=== PATIENT | female | born 1975 | race Caucasian/White ===

== ENCOUNTER → 2021-02-05 14:19 | Outpatient (BNVA) | payer MEDICAID, SELFPAY | PROVIDERS: PCP Family Medicine; Visit Provider Internal Medicine Endocrinology, Diabetes & Metabolism ==

== ENCOUNTER 2021-02-12 11:36 | Outpatient (REF) | payer MEDICAID, SELFPAY ==
[2021-02-12 12:55] LABS: Free T4 (Free Thyroxine) 1.29 ng/dL (0.71-1.85); Thyroid Stimulating Hormone 0.27 uIU/mL (0.32-4.0); Vitamin D 25-OH Total 20.7 ng/mL (>30)
[2021-02-12 13:10] LABS: Vitamin B12 215 pg/mL (200-900)
== END 2021-02-12 11:37 | disposition home or self-care (01) ==
LOC: HO.LAB 11:36
PROVIDERS: Visit Provider Internal Medicine Endocrinology, Diabetes & Metabolism
DX: E03.8 Other specified hypothyroidism (principal); E06.3 Autoimmune thyroiditis; E53.8 Deficiency of other specified B group vitamins; E55.9 Vitamin D deficiency, unspecified
CPT/HCPCS: 36415; 82306; 82607; 84439; 84443

== ENCOUNTER 2021-04-18 11:00 | Outpatient (RCR) | payer MEDICAID, SELFPAY | END 2021-05-08 11:20 | disposition home or self-care (01) | LOC: HO.PT 11:00 | PROVIDERS: PCP Family Medicine; Visit Provider Family Medicine | DX: M72.2 Plantar fascial fibromatosis (principal) | CPT/HCPCS: 97110; 97140; 97162 ==

== ENCOUNTER 2021-12-08 09:13 | Outpatient (REF) | payer MEDICAID, SELFPAY ==
--- NOTE | ~2021-12-08 | MM_ITS ---
EXAMINATION: MM SCREENING DIGITAL BREAST TOMOSYNTHESIS, BILATERAL CLINICAL INFORMATION: Screening. Asymptomatic. The lifetime risk of breast cancer based on the Tyrer-Cuzick Model is 9%. COMPARISON: Mammography: 06/14/2019, 04/14/2018 TECHNIQUE: Digital breast tomosynthesis is performed in both the craniocaudal and mediolateral oblique views along with computer-aided detection (CAD). Synthesized 2D images are generated from the tomosynthesis. Additional bilateral CC and right MLO views are provided. FINDINGS: The breasts are almost entirely fatty (ACR BI-RADS breast composition Category a). There are no significant masses, developing density or architectural abnormality. Background fibroglandular and stromal densities are similar to prior studies. No abnormal calcifications. The axilla are unremarkable. MM/MM tomosynthesis screening BI IMPRESSION: No mammographic evidence of malignancy. ASSESSMENT: BI-RADS 1: Negative RECOMMENDATION: Routine annual mammography screening. This patient's information was entered into a reminder system with a target due date for their next mammogram.
== END 2021-12-08 09:14 | disposition home or self-care (01) ==
LOC: HO.MAMMO 09:13
PROVIDERS: PCP Family Medicine; Visit Provider Family Medicine
DX: Z12.31 Encounter for screening mammogram for malignant neoplasm of breast (principal)
CPT/HCPCS: 77063; 77067

== ENCOUNTER 2021-12-16 09:48 | Outpatient (REF) | payer MEDICAID, SELFPAY ==
[2021-12-16 11:39] LABS: Vitamin B12 327 pg/mL (200-900)
[2021-12-16 11:41] LABS: Free T4 (Free Thyroxine) 0.41 ng/dL (0.71-1.85); Vitamin D 25-OH Total 19.5 ng/mL (>30)
[2021-12-16 12:12] LABS: Thyroid Stimulating Hormone > 100.00 uIU/mL (0.32-4.0)
== END 2021-12-16 09:49 | disposition home or self-care (01) ==
LOC: HO.LAB 09:48
PROVIDERS: PCP Family Medicine; Visit Provider Internal Medicine Endocrinology, Diabetes & Metabolism
DX: E03.8 Other specified hypothyroidism (principal); E06.3 Autoimmune thyroiditis; E53.8 Deficiency of other specified B group vitamins; E55.9 Vitamin D deficiency, unspecified
CPT/HCPCS: 36415; 82306; 82607; 84439; 84443

== ENCOUNTER → 2021-12-17 09:41 | Outpatient (BNVA) | payer MEDICAID, SELFPAY | PROVIDERS: PCP Family Medicine; Visit Provider Internal Medicine Endocrinology, Diabetes & Metabolism | DX: E03.8 Other specified hypothyroidism (principal); E06.3 Autoimmune thyroiditis; E55.9 Vitamin D deficiency, unspecified | CPT/HCPCS: 99212 ==

== ENCOUNTER 2022-04-01 11:10 | Emergency (ER) | payer MEDICAID, SELFPAY ==
--- NOTE | ~2022-04-01 | CT_ITS ---
EXAMINATION: CT HEAD WITHOUT CONTRAST CLINICAL INFORMATION: On reactive pupil left side, anasicoria COMPARISON: 07/24/2020 TECHNIQUE: Contiguous axial imaging was performed from the skull base to vertex without intravenous administration of contrast. This CT examination was performed using dose optimization techniques as appropriate, variously including the following: *Automated exposure control *Adjustment of mA and/or kV according to patient size (this includes techniques or standardized protocols for targeted exams where dose is matched to indication/reason for exam; i.e. extremities or head) *Use of iterative reconstruction technique DLP: 650 mGy-cm FINDINGS: There is no midline shift. There is no mass effect. There is no hemorrhage. The basal cisterns appear patent. The posterior fossa is grossly within normal limits. There is no extra-axial collection. The ventricles are unremarkable. The hanley-white matter appears well preserved. No suspicious finding on the bone windows. CT/CT head/brain wo con IMPRESSION: Negative acute noncontrast CT of the brain. Given the history consider ophthalmologic consultation. Consider pre and postcontrast MRI of the brain.
[2022-04-01 11:13] VITALS: BP 132/70; PULSE 61; RESP 18; TEMP 36.6; O2SAT 97; BMI 58.5
[2022-04-01 12:19] VITALS: BP 138/67; PULSE 52; RESP 14; TEMP 36.6; O2SAT 100
[2022-04-01 12:53] LABS: MANUAL DIFF FLAG NO
[2022-04-01 13:13] LABS: Alanine Aminotransferase 20 U/L (0-31); Albumin Level 3.8 g/dL (3.5-5.0); Alkaline Phosphatase 77 U/L (39-117); Anion Gap 13 (12-20); Aspartate Amino Transferase 20 U/L (5-31); Bilirubin Direct 0.2 mg/dL (0.0-0.5); Bilirubin Total 0.4 mg/dL (0.0-1.0); Blood Urea Nitrogen 17 mg/dL (9-16); Carbon Dioxide 25 mmol/L (22-29); Chloride 106 mmol/L (96-108); Creatinine Clr Calc Pharmacy 143.2; Estimated Glomerular Filt Rate > 60; Glucose Random 84 mg/dL (60-115); Potassium 4.7 mmol/L (3.3-5.1); Sodium 139 mmol/L (135-145); Total Protein 6.9 g/dL (6.5-8.0)
--- NOTE | 2022-04-01 13:15 | ED.GENADULT ---
HPI - General Adult General Chief complaint: Eye Problems Stated complaint: Dilated pupils/Headaches sent by [facility] Time Seen by Provider: 04/01/22 12:25 Source: patient Mode of arrival: ambulatory Limitations: no limitations History of Present Illness HPI narrative: Patient comes to the emergency room complaining of uneven sized pupils. Patient states this has been present for over a year now. Patient decided to go to an survey project manager because her vision has been getting more blurry over last 3-4 weeks. And complains of occasional headaches, which triggered her to go see optometry.. At this time, patient states she has blurry vision on the left eye, this has been present for about a month now. Patient was seen by Optometry today, she was sent to the emergency room for further evaluation. Related Data Home Medications Medication Instructions Recorded Confirmed cholecalciferol (vitamin D3) 50 50 mcg PO DAILY 02/05/21 12/17/21 mcg (2,000 unit) tablet duloxetine 60 mg capsule,delayed 60 mg PO DAILY 02/05/21 12/17/21 release (Cymbalta) oxycodone-acetaminophen 10 mg-325 1 tab PO Q8H PRN 02/05/21 12/17/21 mg tablet Previous Rx's Medication Instructions Recorded Tirosint 112 mcg capsule 224 mcg PO DAILY 30 days #60 caps 12/17/21 (levothyroxine) Allergies Allergy/AdvReac Type Severity Reaction Status Date / Time No Known Allergies Allergy Unverified 12/17/21 09:57 Review of Systems Review of Systems: Constitutional : No Weight loss, No Fever, No Chills, No Night Sweats, No Fatigue, No Malaise ENT/Mouth : No Hearing loss, No Ear Pain, No Nasal Congestion, No Sinus Pain, No Hoarseness, No sore throat, No Rhinorrhea, No Swallowing Difficulty Eyes: No Eye Pain, No Swelling, No Redness, No Foreign Body, No Discharge, complaining of mild visual blurriness all on the left eye, complaining of chronic unequal size pupil on the left eye Cardiovascular : No Chest Pain, No SOB, No Dyspnea on Exertion, No Orthopnea, No Edema, No Palpitations Respiratory : No Cough, No Sputum, No Wheezing, No Smoke Exposure, No Dyspnea Gastrointestinal : No Nausea, No Vomiting, No Diarrhea, No Constipation, No abdominal Pain, No Hematochezia, No Melena Genitourinary : no irregular bleeding, No Dysuria, No Urinary Frequency, No Hematuria, No Urinary Incontinence, No Urgency, No Flank Pain, No Urinary Flow Changes, No Hesitancy Musculoskeletal : No joint pain, No Myalgias, No Joint Swelling Skin : No Skin Lesions, No rash Neuro : No Weakness, No Numbness, No Paresthesias, No Loss of Consciousness, No Dizziness, No Headache Psych : No Anxiety/Panic, No Depression, No SI/HI/AH/VH, No Social Issues, Heme/Lymph: No Bruising, No Bleeding,No Lymphadenopathy Endocrine : No Polyuria, No Polydipsia, No Temperature Intolerance [facility] Past Medical History Medical History B12 deficiency Hypothyroidism Vitamin D deficiency Surgical History History of esophagogastroduodenoscopy (EGD) History of gastric bypass Hx laparoscopic cholecystectomy Hx of lithotripsy Family History Family History Mother Type 2 diabetes mellitus Myocardial infarction CVD (cardiovascular disease) Heart disease Father Type 2 diabetes mellitus Hypertension Social History Social History (Updated 12/17/21 @ 09:51 by HANNAH Lemos) Household Members: Spouse Alcohol intake: current Alcohol intake frequency: does not drink Patient Tobacco Use Status: Never used Tobacco Advance Directives: No Advance Directives Information Provided: No Physical Exam ED Vital Signs: Vital Signs - 24 hr 04/01/22 11:13 04/01/22 12:19 04/01/22 14:00 Temperature 98 F 97.9 F Pulse Rate 61 52 77 Respiratory Rate 18 14 18 Blood Pressure 132/70 138/67 119/75 Pulse Oximetry 97 100 98 Oxygen Delivery Method Room Air Room Air Room Air BMI result Body Mass Index 58.5 Const Other: Appearance: Alert. Oriented X3. No acute distress. Eyes: Right pupil round and reactive to light. Left pupil 3 mm, approximately 1 mm larger than the right side, not reactive to light. However, when left eye is exposed to light, right pupil does contract. Visual acuity test is 20 40 bilaterally ENT: Pharynx normal. Neck: Normal inspection. Neck supple. No lymph nodes noted. No crepitus CVS: Normal heart rate and rhythm. Pulses normal. Normal S1 and S2 Respiratory: No respiratory distress. Breath sounds normal. No Wheezing. No rales Abdomen: Soft and nontender. No rigidity. No distention. Skin: Skin warm and dry. Normal skin color. Normal skin turgor. Extremities: No lower extremity edema. No Lacerations. No Rash Neuro: Oriented X 3. No motor deficit. No sensory deficit. Moving all extremities. No slurred speech. CN 2 through 12 grossly intact Psych: calm, cooperative, normal affect Course Course Course Narrative: Patient has had this condition for approximately [address] scan does not show any acute abnormalities. Patient instructed to follow-up with neurology. Patient will likely need further imaging, MRIs with and without contrast. Patient was given a referral to see Neurology and Ophthalmology Medical Decision Making Lab Data Result diagrams: 04/01/22 12:49 04/01/22 12:49 Labs: Lab Results 04/01/22 04/01/22 Range/Units 12:49 12:49 WBC 6.5 (4.8-10.8) X10*3/uL RBC 4.27 (4.20-5.50) X10*6/uL Hgb 13.1 (12.0-16.0) g/dl Hct 40.2 (37.0-47.0) % MCV 94.1 (80.0-98.0) fL MCH 30.7 (27.0-33.0) pg MCHC 32.6 (31.0-35.0) g/dl RDW 12.1 (11.0-16.0) % Plt Count 182 (160-400) X10*3/uL MPV 11.3 (9.4-12.3) fL Immature Gran % (Auto) 0.3 (0.0-0.4) % Neut % (Auto) 65.6 (45-73) % Lymph % (Auto) 26.0 (20-40) % [place] % (Auto) 8.1 (2-11) % Eos % (Auto) 0.0 (0-4) % Baso % (Auto) 0.0 (0-2) % Lymph # (Auto) 1.7 (1.2-4.9) X10*3/uL [place] # (Auto) 0.5 (0.1-1.2) X10*3/uL Eos # (Auto) 0.0 (0.0-0.4) X10*3/uL Baso # (Auto) 0.0 (0.0-0.2) X10*3/uL Abs Immat Gran (auto) 0.02 (0.00-0.03) X10*3/uL Absolute Neuts (auto) 4.2 (2.0-8.3) x10*3/uL Absolute Nucleated RBC 0.000 (0.0-0.012) X10*3/uL Nucleated RBC % (auto) 0.0 (0.0-0.2) /100WBC Sodium 139 (135-145) mmol/L Potassium 4.7 (3.3-5.1) mmol/L Chloride 106 (96-108) mmol/L Carbon Dioxide 25 (22-29) mmol/L Anion Gap 13 (12-20) BUN 17 H (9-16) mg/dL Creatinine 0.69 (0.5-1.4) mg/dL Estim Creat Clear Calc 143.2 Estimated GFR > 60 Random Glucose 84 (60-115) mg/dL Calcium 9.0 (8.4-10.2) mg/dL Total Bilirubin 0.4 (0.0-1.0) mg/dL Direct Bilirubin 0.2 (0.0-0.5) mg/dL AST 20 (5-31) U/L ALT 20 (0-31) U/L Alkaline Phosphatase 77 (39-117) U/L Total Protein 6.9 (6.5-8.0) g/dL Albumin 3.8 (3.5-5.0) g/dL TSH 12.24 H (0.32-4.0) uIU/mL Free T4 1.12 (0.71-1.85) ng/dL Imaging Data Head CT: Radiologist's impression: FINDINGS: There is no midline shift. There is no mass effect. There is no hemorrhage. The basal cisterns appear patent. The posterior fossa is grossly within normal limits. There is no extra-axial collection. The ventricles are unremarkable. The hanley-white matter appears well preserved. No suspicious finding on the bone windows. CT/CT head/brain wo con IMPRESSION: Negative acute noncontrast CT of the brain. ? Given the history consider ophthalmologic consultation. Consider pre and postcontrast MRI of the brain. Discharge Plan Discharge Clinical Impression: Anisocoria Patient Disposition: Home, Self-Care Instructions: Blurred Vision (ED) Additional Instructions: Please follow-up with your primary care physician tomorrow. If you have any worsening or new symptoms, please return to the emergency room or call 911 Prescriptions: No Action cholecalciferol (vitamin D3) 50 mcg (2,000 unit) tablet 50 mcg PO DAILY duloxetine [Cymbalta] 60 mg capsule,delayed release(DR/EC) 60 mg PO DAILY oxycodone-acetaminophen 10-325 mg tablet 1 tab PO Q8H PRN levothyroxine [Tirosint] 112 mcg capsule 224 mcg PO DAILY 30 Days Qty: 60 6RF Rx Instructions: Dispense as written, brand medically necessary. Do not substitute. Referrals: Erin Ballard MD [Physician] - 2 days Danny Alicea [Physician] - 2 days
[2022-04-01 13:16] LABS: Hematocrit 40.2 % (37.0-47.0); Hemoglobin 13.1 g/dl (12.0-16.0); Imm Gran Abs Auto 0.02 X10*3/uL (0.00-0.03); Imm Gran Pct Auto 0.3 % (0.0-0.4); Lymphocytes Absolute Auto 1.7 X10*3/uL (1.2-4.9); Mean Corpuscular HGB Conc 32.6 g/dl (31.0-35.0); Mean Corpuscular Hemoglobin 30.7 pg (27.0-33.0); Mean Corpuscular Volume 94.1 fL (80.0-98.0); Mean Platelet Volume 11.3 fL (9.4-12.3); Monocytes Absolute Auto 0.5 X10*3/uL (0.1-1.2); Monocytes Percent Auto 8.1 % (2-11); Neutrophils Absolute Auto 4.2 x10*3/uL (2.0-8.3); Neutrophils Percent Auto 65.6 % (45-73); Platelet Count 182 X10*3/uL (160-400); Red Blood Count 4.27 X10*6/uL (4.20-5.50); Red Cell Distribution Width 12.1 % (11.0-16.0); White Blood Count 6.5 X10*3/uL (4.8-10.8)
[2022-04-01 14:00] VITALS: BP 119/75; PULSE 77; RESP 18; O2SAT 98
[2022-04-01 15:25] LABS: TSH reflex Free T4 12.24 uIU/mL (0.32-4.0)
[2022-04-01 16:23] LABS: Free T4 (Free Thyroxine) 1.12 ng/dL (0.71-1.85)
== END 2022-04-01 19:03 | disposition home or self-care (01) ==
PROVIDERS: Emergency Provider Emergency Medicine; PCP Family Medicine
DX: H57.02 Anisocoria (principal); R51.9 Headache, unspecified
CPT/HCPCS: 36415; 70450; 80048; 80076; 84439; 84443; 85025; 99283; 99284

== ENCOUNTER 2022-04-06 14:25 | Outpatient (REF) | payer MEDICAID, SELFPAY ==
[2022-04-06 15:37] LABS: Albumin Level 3.9 g/dL (3.5-5.0)
[2022-04-06 16:05] LABS: Free T4 (Free Thyroxine) 0.92 ng/dL (0.71-1.85); Thyroid Stimulating Hormone 15.15 uIU/mL (0.32-4.0); Vitamin D 25-OH Total 29.2 ng/mL (>30)
[2022-04-07 14:16] LABS: Calcium (PTHI) 9.3 mg/dL (8.6-10.2); PTHI 88 pg/mL (16-77)
== END 2022-04-06 14:26 | disposition home or self-care (01) ==
LOC: HO.LAB 14:25
PROVIDERS: PCP Family Medicine; Visit Provider Internal Medicine Endocrinology, Diabetes & Metabolism
DX: E55.9 Vitamin D deficiency, unspecified (principal); E03.8 Other specified hypothyroidism; E06.3 Autoimmune thyroiditis
CPT/HCPCS: 36415; 82040; 82306; 83970; 84439; 84443

== ENCOUNTER → 2022-05-12 14:52 | Outpatient (BNVA) | payer MEDICAID, SELFPAY | PROVIDERS: PCP Family Medicine; Visit Provider Internal Medicine Endocrinology, Diabetes & Metabolism | DX: E03.8 Other specified hypothyroidism (principal); E06.3 Autoimmune thyroiditis; E55.9 Vitamin D deficiency, unspecified | CPT/HCPCS: 99212 ==

== ENCOUNTER 2022-08-06 12:13 | Outpatient (REF) | payer MEDICAID, SELFPAY ==
[2022-08-06 13:29] LABS: Albumin Level 3.7 g/dL (3.5-5.0); Calcium 9.1 mg/dL (8.4-10.2)
[2022-08-06 13:49] LABS: Free T4 (Free Thyroxine) 1.84 ng/dL (0.71-1.85); Thyroid Stimulating Hormone 0.02 uIU/mL (0.32-4.0); Vitamin D 25-OH Total 33.4 ng/mL (>30)
[2022-08-07 12:06] LABS: Calcium (PTHI) 9.1 mg/dL (8.6-10.2); PTHI 72 pg/mL (16-77)
== END 2022-08-06 12:14 | disposition home or self-care (01) ==
LOC: HO.LAB 12:13
PROVIDERS: PCP Family Medicine; Visit Provider Internal Medicine Endocrinology, Diabetes & Metabolism
DX: E03.8 Other specified hypothyroidism (principal); E55.9 Vitamin D deficiency, unspecified; E06.3 Autoimmune thyroiditis
CPT/HCPCS: 36415; 82040; 82306; 82310; 83970; 84439; 84443

== ENCOUNTER 2022-09-21 12:39 | Outpatient (REF) | payer MEDICAID, SELFPAY ==
[2022-09-21 14:09] LABS: Free T4 (Free Thyroxine) 1.15 ng/dL (0.71-1.85); Thyroid Stimulating Hormone 2.72 uIU/mL (0.32-4.0)
== END 2022-09-21 12:40 | disposition home or self-care (01) ==
LOC: HO.LAB 12:39
PROVIDERS: Visit Provider Internal Medicine Endocrinology, Diabetes & Metabolism
DX: E03.8 Other specified hypothyroidism (principal); E06.3 Autoimmune thyroiditis
CPT/HCPCS: 36415; 84439; 84443

== ENCOUNTER → 2022-09-22 11:51 | Outpatient (BNVA) | payer MEDICAID, SELFPAY | PROVIDERS: PCP Family Medicine; Visit Provider Internal Medicine Endocrinology, Diabetes & Metabolism | DX: E03.8 Other specified hypothyroidism (principal); E06.3 Autoimmune thyroiditis; E55.9 Vitamin D deficiency, unspecified | CPT/HCPCS: 99212 ==

== ENCOUNTER 2022-12-09 11:10 | Outpatient (REF) | payer MEDICAID, SELFPAY ==
--- NOTE | ~2022-12-09 | XR_ITS ---
EXAMINATION: XR SHOULDER, RIGHT CLINICAL INFORMATION: Acute pain. COMPARISON: None TECHNIQUE: AP external rotation, Grashey, scapular Y, and axillary views of the right shoulder. FINDINGS: Bony alignment and mineralization are normal. The glenohumeral joint is intact. The acromioclavicular and coracoclavicular intervals are normal. There is mild osteoarthritic change of the acromioclavicular joint. No fracture or dislocation is seen. There is no abnormal soft tissue calcification or foreign body. No right pneumothorax is seen. XR/XR shoulder RT min 2V IMPRESSION: 1. No fracture or dislocation is seen. 2. There is mild osteoarthritic change of the right acromioclavicular joint.
--- NOTE | ~2022-12-09 | XR_ITS ---
EXAMINATION: XR CERVICAL SPINE CLINICAL INFORMATION: Neck pain. COMPARISON: CT cervical spine dated 07/24/2020. TECHNIQUE: Frontal, oblique, lateral and swimmer's views are obtained. FINDINGS: Vertebral body heights and alignment are normal. The disc spaces are well-maintained. No acute fracture or spondylolisthesis is seen. There is minimal anterior spondylosis of the C5 upper and lower endplates. The posterior elements are intact. There is no prevertebral soft tissue swelling. The dens and C7-T1 interface are normal. XR/XR cervical spine 3V IMPRESSION: 1. No acute fracture or spondylolisthesis is seen. 2. The cervical disc spaces are well-maintained. 3. There is minimal anterior spondylosis of the C5 upper and lower endplates.
== END 2022-12-09 11:11 | disposition home or self-care (01) ==
LOC: HO.XRAY 11:10
PROVIDERS: Absent Provider Family Medicine; PCP Family Medicine; Visit Provider Emergency Medicine
DX: M25.511 Pain in right shoulder (principal); M54.2 Cervicalgia
CPT/HCPCS: 72040; 73030

== ENCOUNTER 2023-06-16 09:38 | Outpatient (REF) | payer MEDICAID, SELFPAY ==
[2023-06-16 12:30] LABS: Microalbumin Urine < 5.0 mg/L
[2023-06-16 12:43] LABS: Alanine Aminotransferase 79 U/L (0-31); Albumin Level 3.7 g/dL (3.5-5.0); Alkaline Phosphatase 85 U/L (39-117); Anion Gap 13 (12-20); Aspartate Amino Transferase 59 U/L (5-31); Bilirubin Direct 0.4 mg/dL (0.0-0.5); Blood Urea Nitrogen 15 mg/dL (9-16); Calcium 9.3 mg/dL (8.4-10.2); Carbon Dioxide 23 mmol/L (22-29); Chloride 107 mmol/L (96-108); Cholesterol 136 mg/dL (<200); Estimated Glomerular Filt Rate > 60; Glucose Random 75 mg/dL (60-115); HDL Cholesterol 56 mg/dL (>40); LDL Cholesterol Calculated 71 mg/dL (<100); Potassium 3.5 mmol/L (3.3-5.1); Sodium 139 mmol/L (135-145); Total Protein 6.9 g/dL (6.5-8.0); Triglycerides 46 mg/dL (<150)
[2023-06-16 12:44] LABS: TSH reflex Free T4 0.29 uIU/mL (0.32-4.0)
[2023-06-16 13:51] LABS: Free T4 (Free Thyroxine) 1.53 ng/dL (0.71-1.85)
== END 2023-06-16 09:39 | disposition home or self-care (01) ==
LOC: HO.HHCL 09:38
PROVIDERS: Visit Provider Family Medicine
DX: Z00.00 Encounter for general adult medical examination without abnormal findings (principal); R60.0 Localized edema; E03.9 Hypothyroidism, unspecified
CPT/HCPCS: 36415; 80048; 80061; 80076; 82043; 84439; 84443

== ENCOUNTER 2023-06-17 08:29 | Outpatient (REF) | payer MEDICAID, SELFPAY ==
--- NOTE | ~2023-06-17 | US_ITS ---
EXAMINATION: US VENOUS ULTRASOUND WITH DOPPLER LOWER EXTREMITY, LEFT CLINICAL INFORMATION: Left lower extremity pain and swelling for 3 weeks COMPARISON: July 2019. TECHNIQUE: Ultrasound of the deep veins is performed from the hip to the calf with compression sonography and color and pulse Doppler assessment. Spectral analysis with color-flow imaging is performed. FINDINGS: There is normal venous compression and respiratory variation and augmented flow. The visualized common femoral vein, superficial femoral vein, profunda femoral vein, popliteal vein, and the trifurcation region shows no evidence of deep venous thrombosis. There is no significant popliteal fossa cyst. There are multiple prominent left groin nodes, the largest of which measures 2.8 x 0.5 x 2.1 cm. If the patient's symptoms persist, followup ultrasound in 5 days 7 days might be of value to exclude proximal propagation from a non-visualized calf vein. US/US venous duplex LE IMPRESSION: No DVT demonstrated in the left lower extremity. Left groin nodes as noted above.
== END 2023-06-17 08:30 | disposition home or self-care (01) ==
LOC: HO.US 08:29
PROVIDERS: Visit Provider Family Medicine
DX: R60.0 Localized edema (principal); M79.662 Pain in left lower leg
CPT/HCPCS: 93971

== ENCOUNTER 2023-06-30 09:15 | Outpatient (REF) | payer MEDICAID, SELFPAY ==
[2023-06-30 11:34] LABS: MANUAL DIFF FLAG NO
[2023-06-30 11:42] LABS: Hematocrit 36.2 % (37.0-47.0); Hemoglobin 11.6 g/dl (12.0-16.0); Imm Gran Abs Auto 0.01 X10*3/uL (0.00-0.03); Imm Gran Pct Auto 0.2 % (0.0-0.4); Lymphocytes Absolute Auto 1.1 X10*3/uL (1.2-4.9); Lymphocytes Percent Auto 24.8 % (20-40); Mean Corpuscular Hemoglobin 30.5 pg (27.0-33.0); Mean Corpuscular Volume 95.3 fL (80.0-98.0); Mean Platelet Volume 12.2 fL (9.4-12.3); Monocytes Absolute Auto 0.3 X10*3/uL (0.1-1.2); Monocytes Percent Auto 6.8 % (2-11); Neutrophils Percent Auto 68.2 % (45-73); Platelet Count 162 X10*3/uL (160-400); Red Cell Distribution Width 13.2 % (11.0-16.0); White Blood Count 4.4 X10*3/uL (4.8-10.8)
[2023-06-30 12:15] LABS: C Reactive Protein < 0.10 mg/dL (< or = 0.50); Lactate Dehydrogenase 325 U/L (122-220)
[2023-06-30 13:09] LABS: CT PCR NOT DETECTED (Not Detect.); NG PCR NOT DETECTED (Not Detect.)
[2023-07-01 08:53] LABS: HIV AB/AG Nonreactive (Nonreactive); HIV Num 1 0.06 S/CO (0.00-0.99)
[2023-07-02 08:14] LABS: RPR Rapid Plasma Reagin NON-REACTIVE (NON-REACTIVE)
[2023-07-04 09:28] LABS: HCV Log PCR <1.18 NOT DETECTED Log IU/mL (NOT DETECTED); HepC Viral Load <15 NOT DETECTED IU/mL (NOT DETECTED)
== END 2023-06-30 09:16 | disposition home or self-care (01) ==
LOC: HO.HHCL 09:15
PROVIDERS: Visit Provider Family Medicine
DX: Z11.4 Encounter for screening for human immunodeficiency virus [HIV] (principal); Z11.3 Encounter for screening for infections with a predominantly sexual mode of transmission; R59.0 Localized enlarged lymph nodes
CPT/HCPCS: 0353U; 83615; 85025; 86140; 86592; 87389; 87522

== ENCOUNTER 2023-07-15 08:53 | Outpatient (REF) | payer MEDICAID, SELFPAY ==
--- NOTE | ~2023-07-15 | US_ITS ---
EXAMINATION: US ABDOMEN COMPLETE CLINICAL INFORMATION: Transaminitis. COMPARISON: Limited abdominal ultrasound 08/15/2019. CT abdomen and pelvis 08/09/2019. Ultrasound abdomen 08/09/2019. TECHNIQUE: Real-time imaging of the abdominal viscera. Limited visualization due to bowel gas. FINDINGS: PANCREAS: Poorly visualized. ABDOMINAL AORTA: Poorly visualized. INFERIOR VENA CAVA: Poorly visualized. LIVER: Diffuse increase in echogenicity of the liver is characteristic of primary hepatocellular disease, possibly due to hepatic steatosis and further limits visualization. GALLBLADDER: Surgically absent. COMMON BILE DUCT: Normal in caliber measuring 0.6 cm in diameter. RIGHT KIDNEY: No hydronephrosis or renal calculi. The kidney measures 10.4 cm in maximum dimension. 1.2 x 1.0 x 1.5 cm peripelvic cyst midpole with benign features. There is no indication for followup imaging. Limited visualization. LEFT KIDNEY: No hydronephrosis. No renal calculi. Limited visualization. The kidney measures 11.6 cm in maximum dimension. SPLEEN: Normal. The spleen measures 11.7 cm in maximum dimension. FREE FLUID: None. US/US abdomen complete IMPRESSION: 1. Diffuse increase in echogenicity of the liver is characteristic of primary hepatocellular disease, possibly due to hepatic steatosis and further limits visualization. 2. Gallbladder surgically absent. 3. Severely limited visualization. CT scan should be considered for better visualization.
== END 2023-07-15 08:54 | disposition home or self-care (01) ==
LOC: HO.US 08:53
PROVIDERS: PCP Family Medicine; Visit Provider Family Medicine
DX: R74.01 Elevation of levels of liver transaminase levels (principal)
CPT/HCPCS: 76700

== ENCOUNTER 2023-08-31 08:33 | Outpatient (REF) | payer MEDICAID, SELFPAY ==
--- NOTE | ~2023-08-31 | CT_ITS ---
EXAMINATION: CT ABDOMEN AND PELVIS WITH CONTRAST CLINICAL INFORMATION: Inguinal lymphadenopathy. Inguinal lymphadenopathy. COMPARISON: CT abdomen and pelvis 08/09/2019. TECHNIQUE: Multidetector volumetric images were obtained from the superior aspect of the liver through the pubic symphysis following administration 85 mL of Omnipaque 350 intravenous contrast. Sagittal and coronal reformatted images were obtained on the technologist's workstation. Oral contrast: Yes This CT examination was performed using dose optimization techniques as appropriate, variously including the following: *Automated exposure control *Adjustment of mA and/or kV according to patient size (this includes techniques or standardized protocols for targeted exams where dose is matched to indication/reason for exam; i.e. extremities or head) *Use of iterative reconstruction technique DLP: 572 mGy-cm FINDINGS: LUNG BASES: The visualized lung bases are unremarkable. LIVER, GALLBLADDER, AND BILIARY TREE: The liver is normal in size, shape, and attenuation. No focal hepatic lesion or biliary ductal dilatation is present. Cholecystectomy. PANCREAS: No discrete pancreatic mass or ductal dilatation. SPLEEN: Unremarkable. ADRENAL GLANDS: Unremarkable. KIDNEYS AND URETERS: Symmetric nephrograms. No suspicious renal mass. No hydronephrosis. No nephrolithiasis. BLADDER: Unremarkable. GASTROINTESTINAL TRACT: Brandie-en-Y gastric bypass. The hepatobiliary Preston limbs are normal in caliber. Patulous changes at the distal anastomosis. The common channel is normal in caliber. There is a question of an annular lesion in the rectosigmoid. ABDOMINAL WALL: No significant hernia is appreciated. LYMPH NODES: No retroperitoneal adenopathy. No pelvic adenopathy. Morphologically normal but mildly prominent inguinal lymph nodes. These are not significantly changed from prior. No bulky adenopathy. VASCULAR: No aortic aneurysm. PELVIC VISCERA: Unremarkable. OSSEOUS STRUCTURES: Mild degenerative changes in the lower thoracic spine. CT/CT abdomen pelvis w IV con IMPRESSION: No adenopathy. Question annular lesion at the rectosigmoid. Recommend correlation with colonoscopy. Fleischner guidelines were followed.
[2023-08-31] MEDS: Barium Sulfate Oral (Mocha) 450 ML ORAL.SUSP 900 ML PO (10:47)
[2023-08-31] MEDS: iohexoL 350 MG/ML 75 ML INFUS..BTL 85 ML IV (10:49)
== END 2023-08-31 08:34 | disposition home or self-care (01) ==
LOC: HO.CT 08:33
PROVIDERS: PCP Family Medicine; Visit Provider Family Medicine
DX: R59.0 Localized enlarged lymph nodes (principal)
CPT/HCPCS: 74177; Q9967

== ENCOUNTER 2023-10-22 20:41 | Emergency (ER) | payer MEDICAID, SELFPAY ==
--- NOTE | ~2023-10-22 | CT_ITS ---
EXAMINATION: CT ABDOMEN AND PELVIS WITHOUT CONTRAST CLINICAL INFORMATION: Right upper quadrant abdominal pain. History of gastric sleeve surgery. COMPARISON: Multiple priors with the last abdomen and pelvic CT scan of 08/31/2023 TECHNIQUE: Multidetector volumetric imaging was performed from the superior aspect of the liver through the pubic symphysis. Sagittal and coronal reformatted images were obtained on the technologist's workstation. This CT examination was performed using dose optimization techniques as appropriate, variously including the following: *Automated exposure control *Adjustment of mA and/or kV according to patient size (this includes techniques or standardized protocols for targeted exams where dose is matched to indication/reason for exam; i.e. extremities or head) *Use of iterative reconstruction technique DLP: 850 mGy-cm FINDINGS: LUNG BASES: The visualized lung bases are unremarkable. LIVER, GALLBLADDER, AND BILIARY TREE: The liver is stable in appearance with hypoplastic left hepatic lobe. The liver is normal in size. Normal attenuation of the liver parenchyma. No focal liver lesion or biliary ductal dilatation. The gallbladder is surgically absent. Common bile duct measures 0.8 cm in diameter which is in upper limits of normal for size. No radiopaque filling defects are noted in the common bile duct. PANCREAS: Unremarkable. SPLEEN: Unremarkable. ADRENAL GLANDS: Unremarkable. KIDNEYS AND URETERS: The kidneys are normal in size, shape, and attenuation. No hydronephrosis, hydroureter, or calculi seen. No perinephric stranding. BLADDER: Unremarkable. GASTROINTESTINAL TRACT: Postsurgical changes of gastrectomy are seen. The stomach is decompressed. No abnormal small bowel dilatation is noted. There is however suggestion of mild thickening of the wall of the proximal jejunal loops in the vicinity of the gastrojejunal anastomosis; somewhat similar appearance is seen on the previous CT scans. The colon is mildly dilated containing air and fecal material. No definite colonic wall thickening or pericolonic fat stranding is appreciated. An appendix is not clearly identified however there are no inflammatory changes in the expected location of the appendix. ABDOMINAL WALL: No significant hernia is appreciated. Mild anasarca. LYMPH NODES: No pathologically enlarged lymph nodes are appreciated within the limits of noncontrast study. VASCULAR: The aortoiliac vessels are normal in caliber. PELVIC VISCERA: Unremarkable CT appearance of the uterus and adnexa. The uterus is mildly deviated to the left. OSSEOUS STRUCTURES: No acute or suspicious osseous lesions are seen. Degenerative changes are noted in the lower thoracic spine. Osteoarthritic changes at the bilateral hips, right greater than left are again noted with narrowing of the joint space and subarticular cystic and sclerotic changes in the acetabula. CT/CT abdomen pelvis wo IV con IMPRESSION: Postsurgical changes of gastrectomy. Suggestion of mild thickening of the wall of the proximal jejunal loops in the vicinity of the gastrojejunal anastomosis; somewhat similar appearance is seen on the previous CT scans. The finding may suggest recurrent focal enteritis or chronic finding. No evidence of abnormal small bowel dilatation. There is mild gaseous distention of the colon with moderate stool burden. No definite colonic wall thickening or pericolonic fat stranding is appreciated. Fleischner guidelines were followed.
[2023-10-22 21:11] VITALS: BP 175/90; PULSE 59; RESP 18; TEMP 36.9; O2SAT 98; BMI 39.5
--- NOTE | 2023-10-22 21:58 | MHC.EDTECH ---
Patient was brought into triage,labs and a urine sample were obtained and sent to lab. Patient was brought back to waiting area.
[2023-10-22 22:03] LABS: MANUAL DIFF FLAG NO
[2023-10-22 22:11] LABS: Appearance Urine Cloudy; Color Urine Yellow; Glucose Urine UA Negative (Negative); Leukocyte Esterase Urine Trace (Negative); Nitrite Urine Negative (Negative); PH 5.5 (5.0-9.0); Specific Gravity - Urine 1.025 (1.005-1.025); UMIC TRIGGER UACC YES; Urine Blood Negative (Negative); Urine Ketones Negative (Negative); Urine Protein Negative (Neg-Trace)
[2023-10-22 22:12] LABS: Hematocrit 33.6 % (37.0-47.0); Hemoglobin 11.1 g/dl (12.0-16.0); Imm Gran Abs Auto 0.01 X10*3/uL (0.00-0.03); Imm Gran Pct Auto 0.2 % (0.0-0.4); Lymphocytes Absolute Auto 1.7 X10*3/uL (1.2-4.9); Lymphocytes Percent Auto 29.7 % (20-40); Monocytes Absolute Auto 0.3 X10*3/uL (0.1-1.2); Monocytes Percent Auto 5.3 % (2-11); Neutrophils Absolute Auto 3.7 x10*3/uL (2.0-8.3); Neutrophils Percent Auto 64.8 % (45-73); Platelet Count 164 X10*3/uL (160-400); Red Blood Count 3.36 X10*6/uL (4.20-5.50); Red Cell Distribution Width 14.1 % (11.0-16.0); White Blood Count 5.7 X10*3/uL (4.8-10.8)
[2023-10-22 22:18] LABS: Alanine Aminotransferase 77 U/L (0-31); Albumin Level 3.6 g/dL (3.5-5.0); Alkaline Phosphatase 57 U/L (39-117); Anion Gap 12 (12-20); Aspartate Amino Transferase 76 U/L (5-31); Bilirubin Total 1.7 mg/dL (0.0-1.0); Blood Urea Nitrogen 16 mg/dL (9-16); Calcium 8.4 mg/dL (8.4-10.2); Carbon Dioxide 22 mmol/L (22-29); Chloride 109 mmol/L (96-108); Creatinine Clr Calc Pharmacy 75.3; Estimated Glomerular Filt Rate 58; Glucose Random 81 mg/dL (60-115); Potassium 3.5 mmol/L (3.3-5.1); Sodium 139 mmol/L (135-145); Total Protein 6.5 g/dL (6.5-8.0)
[2023-10-22 22:22] LABS: Bacteria Urine 1+ (None Seen); Hyaline Casts Urine 0-2 /LPF (0-2); UACC Culture Trigger YES
[2023-10-23 04:00] VITALS: BP 127/80; PULSE 56; RESP 16; O2SAT 98
--- NOTE | 2023-10-23 06:01 | ED.ABDPAIN ---
HPI - Abdominal Pain General Chief Complaint: Abdominal Pain Stated Complaint: flank pain Time Seen by Provider: 10/23/23 05:52 Source: patient Mode of arrival: ambulatory Limitations: no limitations History of Present Illness HPI narrative: Patient comes to the emergency room complaining of intermittent right upper quadrant pain for several months. Patient states that she has history of gastric bypass. Patient has been seen by her primary care physician, states that the pain got worse over last few days but intermittent. No nausea vomiting or diarrhea, no fever chills, no dysuria or hematuria. Related Data Home Medications Medication Instructions Recorded Confirmed duloxetine 60 mg capsule,delayed 60 mg PO DAILY 02/05/21 09/22/22 release (Cymbalta) oxycodone-acetaminophen 10 mg-325 1 tab PO Q8H PRN 02/05/21 09/22/22 mg tablet duloxetine 20 mg capsule,delayed 20 mg PO DAILY 05/12/22 09/22/22 release zinc gluconate 30 mg tablet 30 mg PO DAILY 09/22/22 09/22/22 Previous Rx's Medication Instructions Recorded levothyroxine 125 mcg capsule 250 mcg (2 x 125 mcg) PO DAILY 30 04/24/22 (Tirosint) days #60 caps cholecalciferol (vitamin D3) 50 50 mcg PO DAILY #30 tabs 05/12/22 mcg (2,000 unit) tablet Allergies Allergy/AdvReac Type Severity Reaction Status Date / Time No Known Allergies Allergy Verified 10/22/23 21:15 Review of Systems Review of Systems Constitutional : No Weight loss, No Fever, No Chills, No Night Sweats, No Fatigue, No Malaise ENT/Mouth : No Hearing loss, No Ear Pain, No Nasal Congestion, No Sinus Pain, No Hoarseness, No sore throat, No Rhinorrhea, No Swallowing Difficulty Eyes: No Eye Pain, No Swelling, No Redness, No Foreign Body, No Discharge, No Vision Changes Cardiovascular : No Chest Pain, No SOB, No Dyspnea on Exertion, No Orthopnea, No Edema, No Palpitations Respiratory : No Cough, No Sputum, No Wheezing, No Smoke Exposure, No Dyspnea Gastrointestinal : No Nausea, No Vomiting, No Diarrhea, No Constipation, complaining of left upper quadrant pain Genitourinary : no irregular bleeding, No Dysuria, No Urinary Frequency, No Hematuria, No Urinary Incontinence, No Urgency, No Flank Pain, No Urinary Flow Changes, No Hesitancy Musculoskeletal : No joint pain, No Myalgias, No Joint Swelling Skin : No Skin Lesions, No rash Neuro : No Weakness, No Numbness, No Paresthesias, No Loss of Consciousness, No Dizziness, No Headache Psych : No Anxiety/Panic, No Depression, No SI/HI/AH/VH, No Social Issues, Heme/Lymph: No Bruising, No Bleeding,No Lymphadenopathy Endocrine : No Polyuria, No Polydipsia, No Temperature Intolerance [facility] Past Medical History Medical History B12 deficiency Vitamin D deficiency Hypothyroidism Surgical History History of gastric bypass Hx laparoscopic cholecystectomy History of esophagogastroduodenoscopy (EGD) Hx of lithotripsy Family History Family History Mother Type 2 diabetes mellitus Myocardial infarction CVD (cardiovascular disease) Heart disease Father Type 2 diabetes mellitus Hypertension Social History Social History Household Members: Spouse Alcohol intake: current Alcohol intake frequency: does not drink Patient Tobacco Use Status: Never used Tobacco Smoked in Last 30 Days: No Use of substances other than those prescribed or required for medical reasons: No Advance Directives: No Advance Directives Information Provided: No Patient : No Physical Exam ED Vital Signs: Vital Signs - 24 hr 10/22/23 21:11 10/23/23 04:00 Temperature 98.4 F Pulse Rate 59 56 Respiratory Rate 18 16 Blood Pressure 175/90 H 127/80 Pulse Oximetry 98 98 Oxygen Delivery Method Room Air Room Air BMI result Body Mass Index 39.5 Const Other: Appearance: Alert. Oriented X3. No acute distress. Eyes: Pupils equal, round and reactive to light. ENT: Pharynx normal. Neck: Normal inspection. Neck supple. No lymph nodes noted. No crepitus CVS: Normal heart rate and rhythm. Pulses normal. Normal S1 and S2 Respiratory: No respiratory distress. Breath sounds normal. No Wheezing. No rales Abdomen: Soft and nontender. No rigidity. No distention. Skin: Skin warm and dry. Normal skin color. Normal skin turgor. Extremities: No lower extremity edema. No Lacerations. No Rash Neuro: Oriented X 3. No motor deficit. No sensory deficit. Moving all extremities. No slurred speech. CN 2 through 12 grossly intact Psych: calm, cooperative, normal affect Medical Decision Making Medical Decision Making [facility] Narrative: -my interpretation of labs: Unremarkable hematology and chemistry, urinalysis shows trace leukocyte esterase, trace red blood cells. Patient does not have any URI symptoms, no suprapubic pain or pressure. At this time, antibiotics not indicated. -CT scan of abdomen pending, patient has history of gastric bypass -sign-out given to my colleague Dr. Hicks Differential Diagnosis Differential Diagnoses: The differential diagnosis associated with the presentation includes (Gastritis, GERD, complication of gastric sleeve) Admission/Observation Consideration of admission/observation: Escalation of care including admission/observation considered (Given patient's surgical history and symptoms, admission was considered on arrival) Lab Data [facility] Lab Attestation statement: I reviewed the patient's lab results. 10/22/23 21:57 10/22/23 21:57 Labs: Lab Results 10/22/23 Range/Units 21:57 WBC 5.7 (4.8-10.8) X10*3/uL RBC 3.36 L (4.20-5.50) X10*6/uL Hgb 11.1 L (12.0-16.0) g/dl Hct 33.6 L (37.0-47.0) % MCV 100.0 H (80.0-98.0) fL MCH 33.0 (27.0-33.0) pg MCHC 33.0 (31.0-35.0) g/dl RDW 14.1 (11.0-16.0) % Plt Count 164 (160-400) X10*3/uL MPV 11.0 (9.4-12.3) fL Immature Gran % (Auto) 0.2 (0.0-0.4) % Neut % (Auto) 64.8 (45-73) % Lymph % (Auto) 29.7 (20-40) % [place] % (Auto) 5.3 (2-11) % Eos % (Auto) 0.0 (0-4) % Baso % (Auto) 0.0 (0-2) % Lymph # (Auto) 1.7 (1.2-4.9) X10*3/uL [place] # (Auto) 0.3 (0.1-1.2) X10*3/uL Eos # (Auto) 0.0 (0.0-0.4) X10*3/uL Baso # (Auto) 0.0 (0.0-0.2) X10*3/uL Abs Immat Gran (auto) 0.01 (0.00-0.03) X10*3/uL Absolute Neuts (auto) 3.7 (2.0-8.3) x10*3/uL Absolute Nucleated RBC 0.000 (0.0-0.012) X10*3/uL Nucleated RBC % (auto) 0.0 (0.0-0.2) /100WBC Sodium 139 (135-145) mmol/L Potassium 3.5 (3.3-5.1) mmol/L Chloride 109 H (96-108) mmol/L Carbon Dioxide 22 (22-29) mmol/L Anion Gap 12 (12-20) BUN 16 (9-16) mg/dL Creatinine 1.02 (0.5-1.4) mg/dL Estim Creat Clear Calc 75.3 Estimated GFR 58 Random Glucose 81 (60-115) mg/dL Calcium 8.4 D (8.4-10.2) mg/dL Total Bilirubin 1.7 H (0.0-1.0) mg/dL AST 76 H (5-31) U/L ALT 77 H (0-31) U/L Alkaline Phosphatase 57 (39-117) U/L Total Protein 6.5 (6.5-8.0) g/dL Albumin 3.6 (3.5-5.0) g/dL Urine Color Yellow Urine Appearance Cloudy Urine pH 5.5 (5.0-9.0) Ur Specific [place] 1.025 (1.005-1.025) Urine Protein Negative (Neg-Trace) mg/dL Urine Glucose (UA) Negative (Negative) mg/dL Urine Ketones Negative (Negative) mg/dL Urine Blood Negative (Negative) Urine Nitrite Negative (Negative) Ur Leukocyte Esterase Trace H (Negative) Urine RBC 3-5 H (0-2) /HPF Urine WBC 6-10 H (0-5) /HPF Ur Squamous Epith Cells 3-5 (0-2) /HPF Urine Bacteria 1+ (None Seen) Hyaline Casts 0-2 (0-2) /LPF Critical Care Time Critical Care Time Critical Care Time: Yes Total Critical Care Time: 30 Attestation: I have personally provided critical care time. Time includes review of lab data, radiology results, discussion with consultants, and monitoring for potential decompensation. Intervention performed as documented. Discharge Plan Discharge Clinical Impression: Abdominal pain Patient Disposition: Home, Self-Care Prescriptions: No Action levothyroxine [Tirosint] 125 mcg capsule 250 mcg PO DAILY 30 Days Qty: 60 6RF duloxetine [Cymbalta] 60 mg capsule,delayed release(DR/EC) 60 mg PO DAILY oxycodone-acetaminophen 10-325 mg tablet 1 tab PO Q8H PRN duloxetine 20 mg capsule,delayed release(DR/EC) 20 mg PO DAILY cholecalciferol (vitamin D3) 50 mcg (2,000 unit) tablet 50 mcg PO DAILY Qty: 30 5RF zinc gluconate 30 mg tablet 30 mg PO DAILY
--- NOTE | 2023-10-23 07:41 | PC.NURSE ---
resumed care of patient, she is currently sleeping in bed, awaiting CT results at this time for dispo
[2023-10-23 09:17] VITALS: BP 143/71; PULSE 55; RESP 18; TEMP 36.7; O2SAT 100
== END 2023-10-23 09:39 | disposition home or self-care (01) ==
PROVIDERS: Emergency Provider Emergency Medicine; PCP Family Medicine
DX: R10.11 Right upper quadrant pain (principal); E03.9 Hypothyroidism, unspecified; Z98.84 Bariatric surgery status
CPT/HCPCS: 36415; 74176; 80053; 81001; 85025; 87086; 87088; 87186; 99284

== ENCOUNTER 2023-12-21 14:13 | Outpatient (AMB) | payer MEDICAID, SELFPAY ==
--- NOTE | 2023-12-21 14:14 | MHC.OFFVIS ---
Intake Vital Signs 12/21/23 14:17 Height 5 ft 2 in BP 129/74 Blood Pressure Location Lt brachial Position Sitting Pulse 79 Intake Visit Reasons: Colonoscopy screening Intake Note: Pt presents for a colonoscopy screening. Pt c/o; reports no rectal bleeding or pain. Philosophy Instructor Required: Yes Philosophy Instructor Language: Digital Solution Architect Name: Uzma [id number] Information Interpreted: non-clinical & clinical Accompanied by: Self / Same As Patient Allergies No Known Allergies Allergy (Verified 12/21/23 14:17) Medication List - Last Reconciled 12/21/23 by Bertha Berry PA-C cefuroxime axetil 250 mg PO BID 7 days cholecalciferol (vitamin D3) 50 mcg PO DAILY duloxetine (Cymbalta) 60 mg PO DAILY duloxetine 20 mg PO DAILY levothyroxine (Tirosint) 250 mcg (2 x 125 mcg) PO DAILY 30 days oxycodone-acetaminophen 10-325 mg 1 tab PO Q8H PRN zinc gluconate 30 mg PO DAILY HPI HPI Comments History of Present Illness Details 48-year-old female referred for index screening colonoscopy-she has no known family history of GI cancers. Id she has no GI concerns for self. She has a normal bowel movement. A very good appetite no abdominal pain or acid reflux Hx- Gastric by pass-1 1/2 years ago- did very well- lost 140 pounds- She has no cardiac or respiratory complaints No nausea, vomiting, abdominal pain, hematemesis, hematochezia fever or chills PFSH Medical History (Updated 12/22/23 @ 14:50 by Bertha Berry PA-C) B12 deficiency Vitamin D deficiency Hypothyroidism Surgical History History of gastric bypass Hx laparoscopic cholecystectomy History of esophagogastroduodenoscopy (EGD) Hx of lithotripsy Family History Mother Type 2 diabetes mellitus Myocardial infarction CVD (cardiovascular disease) Heart disease Father Type 2 diabetes mellitus Hypertension Social History Household Members: Spouse Alcohol intake: current Alcohol intake frequency: does not drink Patient Tobacco Use Status: Never used Tobacco Review of Systems Const Details: All systems reviewed and are negative Physical Exam Vital Signs: Last Vital Signs Pulse 79 12/21/23 14:17 BP 129/74 12/21/23 14:17 Const General: cooperative, healthy appearing and no acute distress Orientation/consciousness: patient oriented x3 Limitations: language barrier Eyes Sclerae: sclerae normal Resp Effort & Inspection: normal respiratory effort and able to speak in complete sentences Auscultation: clear to auscultation bilaterally, no rales, no rhonchi and no wheezes Cardio Rate: regular rate Rhythm: regular rhythm Heart sounds: S1 normal heart sound present and S2 normal heart sound present GI Inspection: Yes obesity Palpation (GI): Soft to palpation and nontender Auscultation: normal bowel sounds Skin General skin exam: no rashes or lesions noted Neuro General: patient oriented x3 Extrem General: Yes full ROM Psych Appearance: grossly normal and well kempt Mental Status: mental status grossly normal Speech and movement: Normal speech and movement present and Clear speech present Affect: normal affect Attitude: cooperative Thought process: Normal thought process present Thought content: Normal thought content present Assessment & Plan Assessment & Plan (1) Encounter for screening colonoscopy: Comment: Discussed procedure, indications, rare risks, need for escorted due to anesthesia Code(s): Z12.11 - Encounter for screening for malignant neoplasm of colon Plan: Index screening colonoscopy Plan Index screening colonoscopy MiraLax Gatorade prep interp needed Orders: Orders Colonoscopy - GI Use Only 12/21/23 Z12.11 - Encounter for screening for malignant neoplasm of colon Medications: New polyethylene glycol 3350 (Miralax) Take as directed by mouth the day before your procedure. 238 grams PO ONCE 1 day PRN 238 grams 0RF laxative effect bisacodyl (Dulcolax (bisacodyl)) Day before procedure @ 12 noon Take 4 tablets by mouth followed by large glass of water 20 mg (4 x 5 mg) PO ONCE 1 day PRN 4 tabs 0RF colonoscopy prep Z12.11 - Encounter for screening for malignant neoplasm of colon Patient Instructions: Index screening colonoscopy MiraLax Gatorade prep, reviewed, literature given Encouraged to call questions or concerns interp needed Coding Level of Care Code New Pt Level 3 (22947) Diagnoses Encounter for screening colonoscopy Z12.11 Time Spent (min) 25 Comment [id number]
[2023-12-21 14:17] VITALS: BP 129/74; PULSE 79
== END 2023-12-21 15:08 | disposition home or self-care (01) ==
PROVIDERS: PCP Family Medicine; Referring Provider Family Medicine; Visit Provider Physician Assistant
DX: Z12.11 Encounter for screening for malignant neoplasm of colon (principal); Z01.818 Encounter for other preprocedural examination
CPT/HCPCS: 99203

== ENCOUNTER → 2023-12-21 14:13 | Outpatient (BNVA) | payer MEDICAID, SELFPAY | PROVIDERS: PCP Family Medicine; Referring Provider Family Medicine; Visit Provider Physician Assistant | DX: Z12.11 Encounter for screening for malignant neoplasm of colon (principal) | CPT/HCPCS: 99212 ==

== ENCOUNTER 2024-01-19 10:23 | Outpatient (REF) | payer MEDICAID, SELFPAY ==
[2024-01-19 11:21] LABS: MANUAL DIFF FLAG NO
[2024-01-19 11:47] LABS: Hematocrit 35.2 % (37.0-47.0); Hemoglobin 11.8 g/dl (12.0-16.0); Imm Gran Abs Auto 0.02 X10*3/uL (0.00-0.03); Imm Gran Pct Auto 0.5 % (0.0-0.4); Lymphocytes Absolute Auto 1.2 X10*3/uL (1.2-4.9); Lymphocytes Percent Auto 29.1 % (20-40); Mean Corpuscular HGB Conc 33.5 g/dl (31.0-35.0); Mean Corpuscular Hemoglobin 33.6 pg (27.0-33.0); Mean Corpuscular Volume 100.3 fL (80.0-98.0); Mean Platelet Volume 10.9 fL (9.4-12.3); Monocytes Absolute Auto 0.3 X10*3/uL (0.1-1.2); Monocytes Percent Auto 6.7 % (2-11); Neutrophils Absolute Auto 2.7 x10*3/uL (2.0-8.3); Neutrophils Percent Auto 63.7 % (45-73); Platelet Count 160 X10*3/uL (160-400); Red Blood Count 3.51 X10*6/uL (4.20-5.50); Red Cell Distribution Width 12.2 % (11.0-16.0); White Blood Count 4.2 X10*3/uL (4.8-10.8)
[2024-01-19 11:54] LABS: Estimated Average Glucose 82 mg/dL; Hemoglobin A1c % 4.5 % (<6.0)
[2024-01-19 13:05] LABS: Erythrocyte Sedimentation Rate 12 MM/HR (0-20)
[2024-01-19 14:05] LABS: Rheumatoid Factor < 13.0 IU/mL (<15.0)
[2024-01-19 14:27] LABS: Vitamin B12 399 pg/mL (200-900)
[2024-01-19 14:29] LABS: Alanine Aminotransferase 127 U/L (0-31); Albumin Level 3.5 g/dL (3.5-5.0); Alkaline Phosphatase 74 U/L (39-117); Anion Gap 7 (12-20); Aspartate Amino Transferase 86 U/L (5-31); Bilirubin Direct 0.3 mg/dL (0.0-0.5); Bilirubin Total 0.7 mg/dL (0.0-1.0); Blood Urea Nitrogen 17 mg/dL (9-16); C Reactive Protein < 0.04 mg/dL (< or = 0.50); Calcium 9.1 mg/dL (8.4-10.2); Carbon Dioxide 30 mmol/L (22-29); Chloride 108 mmol/L (96-108); Cholesterol 170 mg/dL (<200); Estimated Glomerular Filt Rate > 60; Ferritin 64 ng/mL (10-250); Glucose Random 83 mg/dL (60-115); HDL Cholesterol 68 mg/dL (>40); LDL Cholesterol Calculated 93 mg/dL (<100); Magnesium 1.9 mg/dL (1.6-2.6); Potassium 4.6 mmol/L (3.3-5.1); Sodium 140 mmol/L (135-145); TSH reflex Free T4 64.16 uIU/mL (0.32-4.0); Total Protein 6.4 g/dL (6.5-8.0); Triglycerides 48 mg/dL (<150); Vitamin D 25-OH Total 25.8 ng/mL (>30)
[2024-01-24 15:03] LABS: Anti Nuclear Antibody Screen NEGATIVE (NEGATIVE)
== END 2024-01-19 10:24 | disposition home or self-care (01) ==
LOC: HO.HHCL 10:23
PROVIDERS: Visit Provider Family Medicine
DX: E55.9 Vitamin D deficiency, unspecified (principal); G89.4 Chronic pain syndrome; E03.9 Hypothyroidism, unspecified; R74.01 Elevation of levels of liver transaminase levels; E66.01 Morbid (severe) obesity due to excess calories; I10 Essential (primary) hypertension; E61.1 Iron deficiency; Z98.84 Bariatric surgery status
CPT/HCPCS: 36415; 80048; 80061; 80076; 82306; 82607; 82728; 83036; 83735; 84439; 84443; 85025; 85652; 86038; 86140; 86431

== ENCOUNTER 2024-02-02 09:00 | Outpatient (RCR) | payer MEDICAID, SELFPAY | END 2024-03-09 08:56 | disposition home or self-care (01) | LOC: HO.PT 09:00 | PROVIDERS: PCP Family Medicine; Visit Provider Family Medicine | DX: M25.511 Pain in right shoulder (principal) | CPT/HCPCS: 97110; 97140; 97162; 97530 ==

== ENCOUNTER 2024-02-15 08:48 | Outpatient (REF) | payer MEDICAID, SELFPAY | END 2024-02-15 08:49 | disposition home or self-care (01) | LOC: HO.MAMMO 08:48 | PROVIDERS: PCP Family Medicine; Visit Provider Family Medicine | DX: Z12.31 Encounter for screening mammogram for malignant neoplasm of breast (principal) | CPT/HCPCS: 77063; 77067 ==

== ENCOUNTER → 2024-02-15 09:00 | Outpatient (BNV) | payer MEDICAID, SELFPAY | PROVIDERS: PCP Family Medicine; Visit Provider Radiology Diagnostic Radiology | DX: Z12.31 Encounter for screening mammogram for malignant neoplasm of breast (principal) | CPT/HCPCS: 77063; 77067 ==

== ENCOUNTER 2024-04-04 06:57 | Day surgery (SDC) | payer MEDICAID, SELFPAY ==
--- NOTE | 2024-03-31 13:17 | HO.ANESPROP2 ---
Documented by User: Luci Ramos NP 03/31/24 13:18 HPI - Anesthesia Eval Consult details Narrative: 49yo F for Upper Endoscopy PMFSH Active Problems Active Problems: All Active Problems Encounter for screening colonoscopy (Acute) B12 deficiency (Acute) Vitamin D deficiency (Acute) Hypothyroidism (Acute) Past Medical History Medical History B12 deficiency Vitamin D deficiency Hypothyroidism Family History Family History Mother Type 2 diabetes mellitus Myocardial infarction CVD (cardiovascular disease) Heart disease Father Type 2 diabetes mellitus Hypertension Surgical History Surgical History History of gastric bypass Hx laparoscopic cholecystectomy History of esophagogastroduodenoscopy (EGD) Hx of lithotripsy Social History Social History Household Members: Spouse Alcohol intake: current Alcohol intake frequency: does not drink Patient Tobacco Use Status: Never used Tobacco Use of substances other than those prescribed or required for medical reasons: No Are you DNR?: No Advance Directives: No Advance Directives Information Provided: Yes Meds Allergies Allergy/AdvReac Type Severity Reaction Status Date / Time No Known Allergies Allergy Verified 12/21/23 14:17 Home Medications ?Medication ?Instructions ?Recorded ?Confirmed ?Last Taken ?Type duloxetine 60 mg capsule,delayed 60 mg PO DAILY 02/05/21 04/04/24 Unknown History release (Cymbalta) oxycodone-acetaminophen 10 mg-325 1 tab PO Q8H PRN Pain 02/05/21 04/04/24 Unknown History mg tablet zinc gluconate 30 mg tablet 30 mg PO DAILY 09/22/22 04/04/24 Unknown History Assessment and Plan Assessment Anesthesia Assessment: Chart Reviewed Documented by User: Russ Valverde MD 04/04/24 08:55 [facility] Past Medical History Medical History B12 deficiency Vitamin D deficiency Hypothyroidism Family History Family History Mother Type 2 diabetes mellitus Myocardial infarction CVD (cardiovascular disease) Heart disease Father Type 2 diabetes mellitus Hypertension Family history of problems with anesthesia: No Surgical History Surgical History History of gastric bypass Hx laparoscopic cholecystectomy History of esophagogastroduodenoscopy (EGD) Hx of lithotripsy History of Problems with Anesthesia: No Social History Social History Household Members: Spouse Alcohol intake: current Alcohol intake frequency: does not drink Patient Tobacco Use Status: Never used Tobacco Use of substances other than those prescribed or required for medical reasons: No Are you DNR?: No Advance Directives: No Advance Directives Information Provided: Yes Meds Allergies Allergy/AdvReac Type Severity Reaction Status Date / Time No Known Allergies Allergy Verified 12/21/23 14:17 Home Medications ?Medication ?Instructions ?Recorded ?Confirmed ?Last Taken ?Type duloxetine 60 mg capsule,delayed 60 mg PO DAILY 02/05/21 04/04/24 Unknown History release (Cymbalta) oxycodone-acetaminophen 10 mg-325 1 tab PO Q8H PRN Pain 02/05/21 04/04/24 Unknown History mg tablet zinc gluconate 30 mg tablet 30 mg PO DAILY 09/22/22 04/04/24 Unknown History Exam Airway Mallampati Class: II TM Dist: >3cm Neck ROM: Full Loose/Missing/Broken Teeth: Yes Assessment and Plan Assessment Anesthesia Assessment: Anesthesia Plan Discussed Final Anesthetic Review Family History of Problems with Anesthesia: No History of Problems with Anesthesia: No NPO: Yes ASA Class: II Final Preanesthetic Review: No Changes in Pt Med Stat, Meds/Allgs Chart Reviewed, Consent Obtained/Reviewed and Anes Risks/Benef Reviewed Patient Risk: Low Procedure Risk: Low Anesthetic Plan Anesthetic Plan: MAC: Disposition: Standard PACU
[2024-04-04 07:29] LABS: UPreg QC Valid YES; Urine Pregnancy NEGATIVE (NEGATIVE)
[2024-04-04 07:36] VITALS: BP 146/81; PULSE 55; RESP 18; TEMP 36.2; O2SAT 100; BMI 37.7
--- NOTE | 2024-04-04 08:21 | MHC.SHP ---
Pre-Procedural Eval Section A - 24 Hr Update-Section A only Date of Service: 04/04/24 Section B - Complete if H&P > 30 days Chief Complaint: Encounter for screening for malignant neoplasm of Details of Present Illness: B12 deficiency Vitamin D deficiency Hypothyroidism Surgical History History of gastric bypass Hx laparoscopic cholecystectomy History of esophagogastroduodenoscopy (EGD) Hx of lithotripsy Allergies: Allergies Allergy/AdvReac Type Severity Reaction Status Date / Time No Known Allergies Allergy Verified 12/21/23 14:17 Review of Systems Review of Systems Comment: Ten point ROS negative Exam Exam Comment: Gen appear: No acute distress HEENT: no icterus Chest: No overt resp distress Abd: soft, nontender, nondistended Psych: Stable affect, answering questions appropriately Neuro: A/Ox3 noted to move all extremities spontaneously Ext: no peripheral edema Plan Diagnosis/Plan: Unchanged I have reviewed the history and physical and performed a pertinent physical examination on my patient. No changes have occurred unless specified. Time Spent With Patient Time: Total time managing care of this patient today ____ minutes.
[2024-04-04] MEDS: Lactated Ringers 1,000 ML 100 ML IVCONT (08:50)
--- NOTE | 2024-04-04 09:29 | HO.OPN-COLON ---
Colonoscopy Operative Note Operative Note Date of Service: 04/04/24 Narrative: Procedure: Colonoscopy Indication: Screening Endoscopist: Irlanda Kaur MD Anesthesia Provider: Dr Russ Valverde Anesthesia type: MAC Instrument: Olympus [id number]-[id number] Consent: Indication, risks vs benefits, and alternatives were discussed with the patient who gave written informed consent to proceed. An aeronautical design engineer was utilized to assist with the consent. EKG, pulse, pulse oximetry and blood pressure were monitored throughout the procedure. Please see anesthesia flowsheet. Procedure: The patient was brought to the procedure room and placed in the left lateral decubitus position. IV medications were administered by the anesthesia provider in attendance. A digital rectal exam was performed which was normal. A distal attachment cap was affixed to the tip of the colonoscope which was then inserted through the anus and advanced through the colon to the cecum at 80 cm,and terminal ileum. Appendiceal orifice and ileocecal valve were identified. Mucosa was carefully examined under high definition white light as the instrument was slowly withdrawn in a retrograde panoramic fashion. Retroflexion was performed in rectum. The procedure was not difficult. There were no immediate obvious complications. The quality of the prep was BBPS: 2+2+1 = inadequate in L colon Withdrawal time 7 minutes. Limitations: No limitations. Findings: Mucosa: Normal to cecum and terminal ileum. Protruding lesions: Medium internal hemorrhoids without stigmata of recent bleeding. Impression: 1. Poor prep 2. Internal hemorrhoids Recommendations: - Recommend repeat colonoscopy in 1-2 years
[2024-04-04 10:10] VITALS: BP 111/63; PULSE 59; RESP 16; TEMP 36.8; O2SAT 100
[2024-04-04 10:25] VITALS: BP 145/71; PULSE 50; RESP 17; O2SAT 99
[2024-04-04 10:29] VITALS: TEMP 36.8
== END 2024-04-04 10:57 | disposition home or self-care (01) ==
PROVIDERS: Nurse Practitioner; PCP Family Medicine; Visit Provider Internal Medicine
PROC: 0DJD8ZZ Inspection of Lower Intestinal Tract, Via Natural or Artificial Opening Endoscopic (ICD-10-PCS; CPT 45378; principal; 2024-04-04 09:20)
DX: Z12.11 Encounter for screening for malignant neoplasm of colon (principal); K64.8 Other hemorrhoids
CPT/HCPCS: 45378; 81025; J2704

== ENCOUNTER → 2024-04-04 06:57 | Outpatient (BNV) | payer MEDICAID, SELFPAY | PROVIDERS: PCP Family Medicine; Visit Provider Internal Medicine | DX: Z12.11 Encounter for screening for malignant neoplasm of colon (principal); K64.8 Other hemorrhoids; Z91.199 Patient's noncompliance with other medical treatment and regimen due to unspecified reason | CPT/HCPCS: 45378 ==

== ENCOUNTER 2024-06-24 11:38 | Emergency (ER) | payer MEDICAID, SELFPAY ==
--- NOTE | ~2024-06-24 | XR_ITS ---
EXAMINATION: Left ankle and left foot. CLINICAL INDICATION: Fall, dorsal foot pain. COMPARISON: None. TECHNIQUE: Left foot 3 views. Left ankle 2 views. FINDINGS: Left ankle: The ankle mortise and subtalar joints are maintained normal. There is no visible acute fracture, dislocation or subluxation seen. There is mild dorsal intertarsal spurring. The soft tissues are normal. Left foot: There is mild hallux valgus deformity first MTP joint. No visible acute fracture or dislocation seen. The soft tissues are normal. No bony erosive changes IMPRESSION no acute fracture or dislocation: XR/XR foot LT min 3V IMPRESSION: 1. Mild hallux valgus deformity first MTP joint. No visible acute fracture or dislocation seen. 2. Mild dorsal intertarsal spurring. No visible acute fracture or dislocation seen. Left foot or left ankle. 3. There is mild dorsal intertarsal spurring. 4. Mild hallux valgus deformity first MTP joint. Electronically signed by: Jer Ahuja MD 06/24/2024 03:15 PM EDT
--- NOTE | ~2024-06-24 | XR_ITS ---
EXAMINATION: Left ankle and left foot. CLINICAL INDICATION: Fall, dorsal foot pain. COMPARISON: None. TECHNIQUE: Left foot 3 views. Left ankle 2 views. FINDINGS: Left ankle: The ankle mortise and subtalar joints are maintained normal. There is no visible acute fracture, dislocation or subluxation seen. There is mild dorsal intertarsal spurring. The soft tissues are normal. Left foot: There is mild hallux valgus deformity first MTP joint. No visible acute fracture or dislocation seen. The soft tissues are normal. No bony erosive changes IMPRESSION no acute fracture or dislocation: XR/XR ankle LT min 3V IMPRESSION: 1. Mild hallux valgus deformity first MTP joint. No visible acute fracture or dislocation seen. 2. Mild dorsal intertarsal spurring. No visible acute fracture or dislocation seen. Left foot or left ankle. 3. There is mild dorsal intertarsal spurring. 4. Mild hallux valgus deformity first MTP joint. Electronically signed by: Jer hAuja MD 06/24/2024 03:15 PM EDT
--- NOTE | ~2024-06-24 | US_ITS ---
EXAMINATION: US TRIPLEX LOWER EXTREMITY, LEFT CLINICAL INFORMATION: Calf pain, swelling COMPARISON: Left lower extremity duplex on 06/17/2023 TECHNIQUE: Color-flow triplex imaging with spectral analysis and compression Doppler were performed on the left lower extremity. FINDINGS: Respiratory variation, normal compression and augmented flow are noted throughout the left lower extremity. The visualized common femoral vein, superficial femoral vein, profunda femoral vein, popliteal vein and midcalf peroneal and posterior tibial venous segments show no evidence of deep venous thrombosis. There is no Wright's cyst. Multiple prominent groin lymph nodes. The largest measures 2.9 cm. US/US venous duplex LE IMPRESSION: No evidence of deep venous thrombosis involving the left lower extremity. Electronically signed by: Tatiana Chand MD 06/24/2024 01:01 PM EDT
[2024-06-24 11:48] VITALS: BP 120/80; PULSE 74; RESP 18; TEMP 36.1; O2SAT 100; BMI 36.6
--- NOTE | 2024-06-24 11:50 | ED_ITS ---
HPI - Extremity Injury (Lower) General Chief Complaint: Extremity Injury, Lower Stated Complaint: l leg pain Time Seen by Provider: 06/24/24 12:02 Source: patient and synchro assembler (anguillan) Mode of arrival: ambulatory Limitations: language barrier (anguillan ) History of Present Illness ED Provider: Radha Godfrey PA-C HPI Narrative: 49-year-old Kazakh-speaking female with past medical history significant for anemia, hypothyroidism, fibromyalgia and osteoarthritis presents to the ED today for evaluation of left foot/ankle pain since yesterday. Patient reports while walking down her stairs, she missed the last step causing her to twist her ankle. She denies falling to the ground. No head strike or LOC. reports continued pain/swelling to her left ankle/foot since twisting it. She did not take any wbin-hug-zvrwicn medications for her pain today. Denies any other injury or trauma. Denies calf pain. Denies chest pain or shortness of breath. continuous improvement black belt (MIGUEL) utilized throughout visit to communicate with patient. Related Data Home Medications ?Medication ?Instructions ?Recorded ?Confirmed duloxetine 60 mg capsule,delayed 60 mg PO DAILY 02/05/21 04/04/24 release (Cymbalta) oxycodone-acetaminophen 10 mg-325 1 tab PO Q8H PRN Pain 02/05/21 04/04/24 mg tablet zinc gluconate 30 mg tablet 30 mg PO DAILY 09/22/22 04/04/24 Previous Rx's ?Medication ?Instructions ?Recorded levothyroxine 125 mcg capsule 250 mcg (2 x 125 mcg) PO DAILY 30 04/24/22 (Tirosint) days #60 caps cholecalciferol (vitamin D3) 50 50 mcg PO DAILY #30 tabs 05/12/22 mcg (2,000 unit) tablet Allergies Allergy/AdvReac Type Severity Reaction Status Date / Time No Known Allergies Allergy Verified 06/24/24 11:51 Review of Systems Review of Systems: Constitutional: No fever, chills, fatigue, night sweats, weight changes ENT/Mouth: No ear pain, hearing loss, nasal congestion, sinus pain, rhinorrhea, sore throat Eyes: No eye pain, swelling, redness, vision changes, discharge Cardio: No chest pain, palpitations, [place], orthopnea, peripheral edema Pulm: No SOB, cough, sputum, wheezing, dyspnea, hemoptysis GI: No nausea, vomiting, hematemesis, abdominal pain, diarrhea, constipation, hematochezia, melena : No irregular bleeding, dysuria, frequency, urgency, hesitancy, hematuria, flank pain, urinary flow changes, urinary incontinence or retention MSK: No back pain, neck pain, joint pain, myalgias, +left ankle pain/swelling Skin: No lesions, rashes Neuro: No weakness, numbness, paresthesias, LOC, dizziness, headache Psych: No anxiety/panic, depression, SI/HI, AH/VH All other systems reviewed and are negative. [facility] Past Medical History Attestation statement: The following information was validated with the patient. Source: old records reviewed and nursing notes reviewed Medical History B12 deficiency Vitamin D deficiency Hypothyroidism Surgical History History of gastric bypass Hx laparoscopic cholecystectomy History of esophagogastroduodenoscopy (EGD) Hx of lithotripsy Family History Family History Mother Type 2 diabetes mellitus Myocardial infarction CVD (cardiovascular disease) Heart disease Father Type 2 diabetes mellitus Hypertension Social History Social History Household Members: Spouse Alcohol intake: current Alcohol intake frequency: does not drink Patient Tobacco Use Status: Never used Tobacco Advance Directives: No Advance Directives Information Provided: No Do you have a plan to hurt others: No Plan Physical Exam Vital Signs: Vital Signs: Last Vital Signs Temp 98 F 06/24/24 15:38 Pulse 76 06/24/24 15:38 Resp 20 06/24/24 15:38 BP 128/76 06/24/24 15:38 Pulse Ox 99 06/24/24 15:38 O2 Del Method Room Air 06/24/24 15:38 BMI result Body Mass Index 36.6 vital signs stable. no tachycardia. no hypoxia. General: Well appearing, in no acute distress. Skin: Warm, dry, intact. No rashes or lesions. Head: Normocephalic, atraumatic. Cardiac: Chest wall symmetric. RRR. No MRG. No JVD. Lungs: Normal respiratory effort without accessory muscle use. CTA bilaterally. No rales, rhonchi, or wheezes.? Ext: Left ankle without noted edema, overlying skin changes or deformity. No calf tenderness. Full ROM intact to left ankle. Tender to palpation over dorsal aspect of left foot without palpable deformity, fluctuance. 2+ PT/DP pulse intact. Neuro: AOx3. Normal speech.Strength 5/5 intact throughout.Sensation intact to light touch. NV intact distally. Ambulating with steady gait. Psych: Appropriate mood and affect. Responds appropriately to questions. Course Course Course Narrative: This is an RME performed by Bre Mederos CNP: Additional HPI, ROS, PE not included below will be deferred to primary provider. Patient is a 49-year-old female who presents emergency department for evaluation of pain and swelling to the left lower leg radiating towards ankle. Onset was yesterday. Denies a ssociated chest pain, shortness of breath, difficulty breathing, history of DVT. Admits to history of fibromyalgia, she has been taking oxycodone. Pain persists. Denies any injury. Plan: Venous duplex ultrasound Reevaluation(s) Reevaluation #1: 1329 -- venous duplex LLE does not demonstrate VTE. ankle/foot xrays pending. 1530 -- x-ray left ankle/foot without acute fracture or dislocation. Discussed findings with patient. Jaspal wrap applied for suspected ankle sprain. Educated on RICE treatment. Patient has remained stable throughout ED visit today. Discussed worrisome signs and symptoms and when to return to the ED. All questions answered at this time. Patient is agreeable with disposition and stable for discharge. Medications Administered Discontinued Medications Generic Name Dose Route Start Last Admin Trade Name Freq PRN Reason Stop Dose Admin Oxycodone HCl 10 mg 06/24/24 12:44 06/24/24 13:27 Oxycodone Hcl Immed Release 5 Mg Tablet PO 06/24/24 12:45 10 mg ONCE ONE Administration Medical Decision Making Medical Decision Making MDM Narrative: 49-year-old Kazakh-speaking female with past medical history significant for anemia, hypothyroidism, fibromyalgia and osteoarthritis presents to the ED today for evaluation of left foot/ankle pain since yesterday. Vital signs stable. She is not tachycardic or hypoxic. She is nontoxic-appearing and in no acute distress. On exam, there is no calf tenderness bilaterally. Left ankle without noted edema, overlying skin changes or deformity. No calf tenderness. Full ROM intact to left ankle. Tender to palpation over dorsal aspect of left foot without palpable deformity, fluctuance. 2+ PT/DP pulse intact. Ambulating with steady gait. Venous duplex of LLE ordered from triage. I have no suspicion for DVT given mechanism of injury/ presentation. PERC negative. Plan to review US. Differential diagnosis includes fracture, contusion, ligament/tendon injury, chronic arthritis. Presentation not consistent with gout, pseudogout, septic arthritis, septic joint, neurovascular compromise, threat to limb, compartment syndrome. Will add on x-ray of left ankle/foot. Oxycodone ordered for pain control. Plan to re-evaluate. Differential Diagnosis Differential Diagnoses: The differential diagnosis associated with the presentation includes As above Admission/Observation Not indicated Independent Interpretation I performed an independent interpretation of an: Plain X-Ray and Ultrasound Interpretation: Venous duplex of left lower extremity without VTE, agree with radiologist's interpretation. X-ray of left foot/ankle without acute fracture, agree with radiologist's interpretation. Radiology Impression Discussion of test interpretation with radiology: I have reviewed the radiologist's reading. Radiologist Impression: EXAMINATION: US TRIPLEX LOWER EXTREMITY, LEFT CLINICAL INFORMATION: Calf pain, swelling COMPARISON: Left lower extremity duplex on 06/17/2023 TECHNIQUE: Color-flow triplex imaging with spectral analysis and compression Doppler were performed on the left lower extremity. FINDINGS: Respiratory variation, normal compression and augmented flow are noted throughout the left lower extremity. The visualized common femoral vein, superficial femoral vein, profunda femoral vein, popliteal vein and midcalf peroneal and posterior tibial venous segments show no evidence of deep venous thrombosis. There is no Wright's cyst. Multiple prominent groin lymph nodes. The largest measures 2.9 cm. US/US venous duplex LE IMPRESSION: No evidence of deep venous thrombosis involving the left lower extremity. Electronically signed by: Tatiana Chand MD 06/24/2024 01:01 PM EDT EXAMINATION: Left ankle and left foot. CLINICAL INDICATION: Fall, dorsal foot pain. COMPARISON: None. TECHNIQUE: Left foot 3 views. Left ankle 2 views. FINDINGS: Left ankle: The ankle mortise and subtalar joints are maintained normal. There is no visible acute fracture, dislocation or subluxation seen. There is mild dorsal intertarsal spurring. The soft tissues are normal. Left foot: There is mild hallux valgus deformity first MTP joint. No visible acute fracture or dislocation seen. The soft tissues are normal. No bony erosive changes IMPRESSION no acute fracture or dislocation: XR/XR foot LT min 3V IMPRESSION: 1. Mild hallux valgus deformity first MTP joint. No visible acute fracture or dislocation seen. 2. Mild dorsal intertarsal spurring. No visible acute fracture or dislocation seen. Left foot or left ankle. 3. There is mild dorsal intertarsal spurring. 4. Mild hallux valgus deformity first MTP joint. Electronically signed by: Jer Ahuja MD 06/24/2024 03:15 PM EDT External Record Review External record reviewed: Inpatient record Prescription Management I considered prescription management with: Pain Medication Social Determinants Patient?s care significantly limited by Social Determinants of Health including: Other Social Determinant of Health Procedures Orthopedic Splinting/Casting Injury #1: Side: left Lower Extremity Injury Location: ankle Lower Extremity Immobilizer: Jaspal wrap Critical Care Time Critical Care Time Critical Care Time: No Discharge Plan Discharge Clinical Impression: Left ankle sprain Patient Disposition: Home, Self-Care Instructions: Ankle Sprain (ED), R.I.C.E. Treatment (ED) Additional Instructions: The ultrasound of your left leg does not demonstrate clot or cyst. The x-ray of your left ankle/foot does not demonstrate acute fracture. You likely sprained your ankle. You were provided with an Jaspal wrap to help compress the area and help with swelling. Utilize rice treatment - rest, ice, compress, elevate I recommend you take 600mg ibuprofen every 6 hours or Tylenol 650mg every 6 hours as needed for pain. If needed, you can alternate these medications so that you take one medication every 3 hours. For example, at noon take ibuprofen, then at 3pm take Tylenol, then at 6pm take ibuprofen. Follow up with PCP as needed. Return to the ED with new or worsening symptoms. Prescriptions: No Action levothyroxine [Tirosint] 125 mcg capsule 250 mcg PO DAILY 30 Days Qty: 60 6RF duloxetine [Cymbalta] 60 mg capsule,delayed release(DR/EC) 60 mg PO DAILY oxycodone-acetaminophen 10-325 mg tablet 1 tab PO Q8H PRN (Reason: Pain) cholecalciferol (vitamin D3) 50 mcg (2,000 unit) tablet 50 mcg PO DAILY Qty: 30 5RF zinc gluconate 30 mg tablet 30 mg PO DAILY Referrals: Latoya Ruiz MD [Primary Care Provider] - Interventions: ED Discharge Assessment Last Done: 06/24/24 15:38 Discharge Date/Time: 06/24/24 15:38 Print Language: Kazakh
[2024-06-24] MEDS: oxyCODONE HCl Immed Release 5 MG TABLET 10 MG PO (13:27)
[2024-06-24 15:32] VITALS: BP 128/76; PULSE 76; RESP 20; TEMP 36.6; O2SAT 99
[2024-06-24 15:38] VITALS: BP 128/76; PULSE 76; RESP 20; TEMP 36.6; O2SAT 99
== END 2024-06-24 15:38 | disposition home or self-care (01) ==
PROVIDERS: Emergency Provider Emergency Medicine; PCP Family Medicine
DX: S93.402A Sprain of unspecified ligament of left ankle, initial encounter (principal); W10.8XXA Fall (on) (from) other stairs and steps, initial encounter; M79.605 Pain in left leg; Y93.89 Activity, other specified; Y92.9 Unspecified place or not applicable; Y99.9 Unspecified external cause status
CPT/HCPCS: 73610; 73630; 93971; 99283; 99284

== ENCOUNTER 2024-09-06 09:34 | Emergency (ER) | payer MEDICAID, SELFPAY ==
--- NOTE | ~2024-09-06 | XR_ITS ---
EXAMINATION: XR SHOULDER, HUMERUS RIGHT CLINICAL INFORMATION: Pain without trauma COMPARISON: December 09, 2022 TECHNIQUE: AP external rotation, Grashey, scapular Y views of the right shoulder and AP and lateral views of the right humerus. FINDINGS: There is no evidence of fracture or dislocation. Acromioclavicular joint is preserved. Glenohumeral joint is unremarkable. Soft tissues are normal. Right humerus reveals no abnormal findings. XR/XR humerus RT IMPRESSION: No abnormal findings in the right shoulder or right humerus Electronically signed by: Liane De Leon MD 09/06/2024 11:53 AM [facility]
--- NOTE | ~2024-09-06 | XR_ITS ---
EXAMINATION: XR SHOULDER, HUMERUS RIGHT CLINICAL INFORMATION: Pain without trauma COMPARISON: December 09, 2022 TECHNIQUE: AP external rotation, Grashey, scapular Y views of the right shoulder and AP and lateral views of the right humerus. FINDINGS: There is no evidence of fracture or dislocation. Acromioclavicular joint is preserved. Glenohumeral joint is unremarkable. Soft tissues are normal. Right humerus reveals no abnormal findings. XR/XR shoulder RT min 2V IMPRESSION: No abnormal findings in the right shoulder or right humerus Electronically signed by: Liane De Leon MD 09/06/2024 11:53 AM [facility]
[2024-09-06 09:43] VITALS: BP 126/80; PULSE 79; RESP 16; TEMP 37; O2SAT 98; BMI 37.2
[2024-09-06 12:43] VITALS: BP 137/82; PULSE 62; RESP 15; TEMP 36.4; O2SAT 98
--- NOTE | 2024-09-06 13:47 | ED_ITS ---
HPI - Extremity Problem General Chief complaint: Extremity Problem Stated complaint: R Arm Pain No Injury Time Seen by Provider: 09/06/24 12:27 Source: patient and RN notes reviewed Mode of arrival: ambulatory Limitations: no limitations History of Present Illness ED Provider: Alexia Garcia PA-C HPI Narrative: This is a 49-year-old Luxembourgish-speaking female, with a past medical history of an emia, hypothyroidism, fibromyalgia and osteoarthritis, who presents emergency department with complaints of right shoulder pain for the last 5-6 months. She denies any known trauma or injury. She states that the pain worsens at night. She has tried [id number] patches, ibuprofen and Tylenol with minimal relief. She has also been seen by Physical therapy in the past for this pain however states that the pain is only getting worse. She states that she cooks food frequently, and often times uses her right arm to do so. She denies any fevers, chills, chest pain or shortness of breath. She is right-hand dominant No other complaints or concerns at this time. MD Complaint: extremity pain Location: right and upper extremity Quality: aching Relieving factors: nothing Exacerbating factors: nothing Associated symptoms: denies other symptoms Related Data Home Medications ?Medication ?Instructions ?Recorded ?Confirmed duloxetine 60 mg capsule,delayed 60 mg PO DAILY 02/05/21 04/04/24 release (Cymbalta) oxycodone-acetaminophen 10 mg-325 1 tab PO Q8H PRN Pain 02/05/21 04/04/24 mg tablet zinc gluconate 30 mg tablet 30 mg PO DAILY 09/22/22 04/04/24 Previous Rx's ?Medication ?Instructions ?Recorded levothyroxine 125 mcg capsule 250 mcg (2 x 125 mcg) PO DAILY 30 04/24/22 (Tirosint) days #60 caps cholecalciferol (vitamin D3) 50 50 mcg PO DAILY #30 tabs 05/12/22 mcg (2,000 unit) tablet acetaminophen 500 mg tablet 500 mg PO Q6H PRN pain #30 tabs 09/06/24 (Tylenol Extra Strength) ibuprofen 600 mg tablet 600 mg PO Q6H PRN pain #30 tabs 09/06/24 Allergies Allergy/AdvReac Type Severity Reaction Status Date / Time No Known Allergies Allergy Verified 09/06/24 09:49 Review of Systems Review of Systems: Yes all other systems are reviewed and are negative Constitutional: Constitutional: Reports as per [facility] Past Medical History Attestation statement: The following information was validated with the patient. Medical History B12 deficiency Vitamin D deficiency Hypothyroidism Surgical History History of gastric bypass Hx laparoscopic cholecystectomy History of esophagogastroduodenoscopy (EGD) Hx of lithotripsy Family History Family History Mother Type 2 diabetes mellitus Myocardial infarction CVD (cardiovascular disease) Heart disease Father Type 2 diabetes mellitus Hypertension Social History Social History Household Members: Spouse Alcohol intake: current Alcohol intake frequency: does not drink Patient Tobacco Use Status: Never used Tobacco Advance Directives: No Advance Directives Information Provided: Yes Physical Exam Vital Signs: Vital Signs: Last Vital Signs Temp 97.5 F 09/06/24 12:43 Pulse 62 09/06/24 12:43 Resp 15 09/06/24 12:43 BP 137/82 09/06/24 12:43 Pulse Ox 98 09/06/24 12:43 O2 Del Method Room Air 09/06/24 12:43 BMI result Body Mass Index 37.2 Const: General: cooperative, comfortable and no acute distress Orientation/consciousness: patient oriented x3 Limitations: no limitations HEENT: Head: Yes normal to inspection, Yes normocephalic and Yes atraumatic Ears: hearing grossly normal bilaterally General nose exam: Normal external nose present Face and sinus: Yes normal facial exam Mouth: Normal oral and palatal mucosa present, oropharynx normal and moist mucous membranes Throat: Yes posterior oropharynx normal Eyes: General: appearance normal, both eyes and all related structures Eyelids: Yes eyelids normal Conjunctivae: conjunctivae normal Sclerae: sclerae normal Pupils: Equal, round and reactive pupils present EOM: EOMs intact bilaterally Neck: Neck: Yes normal visual inspection, Yes full ROM and Yes no lymphadenopathy Lymphatic: no lymphadenopathy noted Chest: Chest palpation & inspection: normal inspection of the chest Resp: Effort & Inspection: normal respiratory effort and able to speak in complete sentences Auscultation: clear to auscultation bilaterally, no crackles, no rales, no rhonchi and no wheezes Cardio: Rate: regular rate Rhythm: regular rhythm Heart sounds: S1 no rmal heart sound present and S2 normal heart sound present GI: Inspection: Yes normal to inspection Skin: General skin exam: no rashes or lesions noted Trauma: no lacerations or abrasions Wounds: no wounds Neuro: General: patient oriented x3 and moves all extremities Cranial nerves: Yes Equal, round and reactive pupils present Extrem: Other: Right shoulder with no obvious bony deformity or swelling. She has point tenderness palpation along the AC joint, and supraspinatus region. Able to forward flex to approximately 90?, unable to lift arm further secondary to pain and weakness. Abduction to approximately 90?. Negative lift-off test. Positive empty can test strong radial pulse. Distal sensation circulation intact. Capillary refill less than 2 seconds. General: Yes normal to inspection Right upper extremity: normal to inspection Left upper extremity: normal to inspection Right lower extremity: normal to inspection Left lower extremity: normal to inspection Medical Decision Making Medical Decision Making MDM Narrative: This is a 49-year-old female, with a history of anemia, hypothyroidism, fibromyalgia and osteoarthritis, who presents emergency department with complaints of right shoulder pain for the last 4-5 months. On arrival, vital signs within normal limits. Patient has tenderness palpation along the supraspinatus region, and AC joint, no bony step-off or deformity. X-rays were performed, revealing no bony abnormalities. Given physical exam findings, concerning for possible rotator cuff involvement. She has not followed up with orthopedics specialist therefore patient given referral today. Advised to darcy nue taking ibuprofen and Tylenol. Given return precautions. She understands and agrees with plan. Patient stable for discharge. Differential Diagnosis Differential Diagnoses: The differential diagnosis associated with the presentation includes Sprain, strain, contusion, rotator cuff injury, fracture Radiology Impression Discussion of test interpretation with radiology: I have reviewed the radiologist's reading. Radiologist Impression: XR/XR shoulder RT min 2V IMPRESSION: No abnormal findings in the right shoulder or right humerus Electronically signed by: Liane De Leon MD 09/06/2024 11:53 AM [facility] Dictated By: Liane De Leon MD XR/XR humerus RT IMPRESSION: No abnormal findings in the right shoulder or right humerus Electronically signed by: Liane De Leon MD 09/06/2024 11:53 AM [facility] Dictated By: Liane De Leon MD Discharge Plan Discharge Clinical Impression: Pain in right shoulder Patient Disposition: Home, Self-Care Instructions: Shoulder Pain (ED) Additional Instructions: You were seen in the emergency department due to right shoulder pain. Your x-rays do not show any bony abnormalities. Your physical examination is concerning for a possible rotator cuff injury involvement. Please follow-up with the information assurance specialist. Today to make an appointment. Take ibuprofen and or Tylenol as needed for pain and symptoms. Gentle stretching, massage, heat or ice can also help with pain. If any new or worsening symptoms occur including but not limited to chest pain or shortness of breath, please return for re-evaluation. Prescriptions: New ibuprofen 600 mg tablet 600 mg PO Q6H PRN (Reason: pain) Qty: 30 0RF acetaminophen [Tylenol Extra Strength] 500 mg tablet 500 mg PO Q6H PRN (Reason: pain) Qty: 30 0RF No Action levothyroxine [Tirosint] 125 mcg capsule 250 mcg PO DAILY 30 Days Qty: 60 6RF duloxetine [Cymbalta] 60 mg capsule,delayed release(DR/EC) 60 mg PO DAILY oxycodone-acetaminophen 10-325 mg tablet 1 tab PO Q8H PRN (Reason: Pain) cholecalciferol (vitamin D3) 50 mcg (2,000 unit) tablet 50 mcg PO DAILY Qty: 30 5RF zinc gluconate 30 mg tablet 30 mg PO DAILY Referrals: [facility] [place] Group] Print Language: Luxembourgish
[2024-09-06 14:44] VITALS: BP 137/82; PULSE 62; RESP 15; TEMP 36.4; O2SAT 98
== END 2024-09-06 14:45 | disposition home or self-care (01) ==
PROVIDERS: Emergency Provider Student in an Organized Health Care Education/Training Program; PCP Family Medicine
DX: M25.511 Pain in right shoulder (principal); Z79.899 Other long term (current) drug therapy
CPT/HCPCS: 73030; 73060; 99283

== ENCOUNTER 2024-09-28 09:54 | Outpatient (AMB) | payer MEDICAID, SELFPAY ==
--- NOTE | 2024-09-28 10:06 | MHC.OFFVIS ---
Vital Signs 09/28/24 10:11 Height 5 ft 4 in Weight 210 lb BMI 36.0 Intake Visit Reasons: Right shoulder pain and weakness Intake Note: Alexia is a 49 year old female who presents with complaints of progressively worsening right shoulder pain and weakness. The patient states that she injured her right shoulder approximately 6 months ago while lifting a heavy pot of her rice while cooking. The patient describes her pain as sharp in nature. Since her injury she has had difficulty lifting her right hand above shoulder height. She has tried Tylenol and anti-inflammatory medicines which gave her minimal relief. She has failed the last 6 weeks of conservative treatment which have included topical creams and physical therapy exercises which aggravated her pain. 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 District Manager Language: Indirect Sales Representative Name: [id number] Allergies No Known Allergies Allergy (Verified 09/28/24 10:12) Medication List - Last Reconciled 09/28/24 by Yoni Portillo MD acetaminophen (Tylenol Extra Strength) 500 mg PO Q6H PRN cholecalciferol (vitamin D3) 50 mcg PO DAILY duloxetine (Cymbalta) 60 mg PO DAILY ibuprofen 600 mg PO Q6H PRN levothyroxine (Tirosint) 250 mcg (2 x 125 mcg) PO DAILY 30 days oxycodone-acetaminophen 10-325 mg 1 tab PO Q8H PRN zinc gluconate 30 mg PO DAILY PFSH Medical History (Updated 09/28/24 @ 10:45 by Yoni Portillo MD) Pain in right shoulder B12 deficiency Vitamin D deficiency Hypothyroidism Surgical History History of gastric bypass Hx laparoscopic cholecystectomy History of esophagogastroduodenoscopy (EGD) Hx of lithotripsy Family History Mother Type 2 diabetes mellitus Myocardial infarction CVD (cardiovascular disease) Heart disease Father Type 2 diabetes mellitus Hypertension Social History Household Members: Spouse Alcohol intake: current Alcohol intake frequency: does not drink Patient Tobacco Use Status: Never used Tobacco Physical Exam Vital Signs: BMI result Body Mass Index 36.0 Const Other: Well-nourished well-developed very friendly female awake alert and oriented x3 in no acute distress Extrem Other: Bilateral upper extremity examination shows good capillary refill, no skin lesions noted, normal sensation light touch Right shoulder examination shows decreased range of motion when compared to her left shoulder, 4+ out of 5 strength with supraspinatus testing, positive impingement signs, tenderness over her acromioclavicular joint, no instability Results Reviewed Results Reviewed: X-rays of the patient's right shoulder taken previously show severe acromioclavicular joint narrowing, a type 2 acromion, no acute bony abnormalities Assessment & Plan Assessment & Plan (1) Right shoulder pain: Code(s): M25.511 - Pain in right shoulder Category: Medical Plan Ms. Núñez presents with progressively worsening right shoulder pain and weakness due to impingement syndrome and possible rotator cuff tearing. I will send the patient for an MRI of her right shoulder for further evaluation. If she does have a full-thickness rotator cuff tear I will recommend surgical repair to optimize her future functional level. She will continue with her [id number]-pt-[id number] exercises in the meantime to prevent stiffness. Feel free to call me at any time should questions regarding her orthopedic management arise. Thank you very much for asking me to see this very friendly patient. I spent 22 minutes in reviewing the patient's records and imaging studies, seeing the patient and documenting in the medical record. Orders: Orders MR shoulder RT wo con Today M25.511 - Pain in right shoulder Coding Level of Care Code New Pt Level 3 (78364) Complex EM visit Add On G2211 Diagnoses Right shoulder pain M25.511
[2024-09-28 10:11] VITALS: BMI 36.0
--- OUTSIDE RECORDS SUMMARY | 2024-10-04 01:10 | XMS_ITS | Continuity of Care Document ---
Author Organization [facility], [facility] Address [address] [place] [address] Care Team Providers Care Treer Name Role Phone SHI, DENNIS Primary Care Provider Assessment Encounter Date Assessment Date Assessment LastModified by Organization Details LastModified Time 07/10/2024 07/10/2024 Today 33 minutes spent in review of documents/lab reports, patient education, counseling on typical course of disease/treatmen t, coordination of care, documentation of encounter for continuity of care, access to prescription monitoring program, and medical decision making in regards to safety and efficacy opioid therapy prescribed by this clinic. Patient reports partial relief of chronic pain and reasonable level of function. Reports ability to participate in typical daily activities when balancing activity and rest. Denies opioid side effects such as fatigue and constipation Benefits from current medication and recommended activity regime Risks and benefits of continuing current opioid medications have been evaluated and will be performed at each encounter. [email or web address] Not available 07/10/2024 14:20:12 Plan of Treatment Reminders Order Date Submit Date Provider Last Modified By Organization Details Last Modified Time Details Appointments Clinic Visit 15 min 2023 12:00P Faviola Aldana NP Not available Not available Not available Lab None recorded . Referral None recorded . Procedures None recorded . Surgeries None recorded . Imaging None recorded . Medication Orders oxycodon e-acetam inophen 10 mg-325 mg tablet 2023 024 [facility], [address] [place], [place], [phone], 07/14/2024 11:17:24 Patient Targets Encounter Date Encounter Id Patient Goals Patient Target Last Modified By Organization Details Last Modified Time I have counseled regarding maintaining regular activity, and to increase stretching, exercise, weight management dietary modifications. Increasing activity gradually, and consistently. We have agreed that these actions are beneficial to effective pain management. Will revisit individual goals at each encounter. [email or web address] Not available 07/10/2024 14:21:48 Patient Instructions Encounter Date Encounter Id Patient Instructions Last Modified By Organization Details Last Modified Time 07/10/2024 [id number] The patient is encouraged to contact the clinic there any concerns regarding medication management or follow-up care. Patient is in agreement to plan of care that was discussed today and all questions or concerns were answered to his/her satisfaction. [email or web address] Not available 07/10/2024 14:21:52 Currently doing well with opioid medication prescribed for chronic pain by this clinic. Will continue with same patient in agreement with plan of care. [email or web address] Not available 07/10/2024 14:22:09 Reason for Referral None Reported. Problems Name Problem SNOMED Code Status Onset Date Resolution Date Notes Provider Name and Address Organization Details Recorded Time Chronic pain syndrome 617800288 Active Gabby arias [facility] 22:38:18 Chronic pain following trauma 328908277 Pieter arias [facility] 22:38:47 Long-term current use of opiate analgesic drug 5071896386328 08 Pieter arias [facility] 22:38:56 Degeneratio n of lumbar interverteb ral disc 65677382 Pieter arias [facility] 22:39:03 Body mass index 40+ - severely obese 496920175 Active Gabby arias [facility] 22:39:24 Problem Notes None recorded. Procedures Surgical History Date Name Laterality Status Provider Name and Address Organization Details Recorded Time 09/14/20 23 ED - LESI Radiculitis completed MADELINE TERESA MD [address] [place], [address], [facility] 09/14/2023 17:16:09 09/14/20 23 PMC Procedure completed Tonya Salcedo [facility] 09/14/2023 14:35:33 08/16/20 cholecystectomy completed Gabby Rosa [facility] 08/13/2021 22:44:16 gastric bypass completed Gabby Rosa [facility] 08/13/2021 22:44:07 Imaging Results None recorded. Procedure Notes None recorded. Medical Equipment None Reported. Allergies No known drug allergies Medications Name Sig Start Date Stop Date Status Note LastModified by Organization Details LastModified Time Vitamin C 500 mg tablet Take 1 tablet every day by oral route. 2020 active Not Available Not Available Not Avai lable oxycodone-a cetaminophe n 10 mg-325 mg tablet Take 1 tablet every 8 hours by oral route as needed for 30 days. 2023 active LD 8am 09/18 Not Available Not Available Not Available Valium 5 mg tablet 5 mg po 11/09 completed Not Available Not Available Not Available levothyroxi ne 112 mcg tablet Take 1 tablet every day by oral route. 2020 active Not Available Not Available Not Avai lable vitamin A 10,000 unit tablet Take every day by oral route as directed. 2020 active Not Available Not Available Not Avai lable Cymbalta 30 mg capsule,del ayed release Take 1 capsule twice a day by oral route. 2020 active Not Available Not Available Not Avai lable zinc take daily as directed 2020 active Not Available Not Available Not Avai lable Vitals Date Recorded Body height Body mass index (BMI) Body weight Provider Name and Address Organization Details Last Updated DateTime 07/10/2024 157.48 cm 37.1 kg/m2 56392.25 g Katey Polanco [facility] 07/10/2024 13:51:02 Social History Question Answer Notes LastModified by Organizat ion Details LastModified Time Tobacco Smoking Status Former Smoker Gabby arias [facility] 08/13/2021 22:45:52 What Is Your Level Of Alcohol Consumption? None Information not available 08/13/2021 Do You Feel Safe At Home? Yes Information not available 08/15/2021 Are You Being Threatened/ Abused By Someone? No Information not available 08/15/2021 What Was The Date Of Your Most Recent Tobacco Screening? 09/18/2024 Former Smoker [email or web address] Information not available 09/18/2024 Do You Use Any Illicit Or Recreational Drugs? No Information not available 08/13/2021 Has Tobacco Cessation Counseling Been Provided? No [email or web address] Information not available 09/14/2023 Do You Or Have You Ever Used Any Other Forms Of Tobacco Or Nicotine? No Information not available 08/13/2021 Sex: Unknown Functional Status Question Answer Note LastModified by Organizat ion Details LastModified Time Do you have difficulty walking or climbing stairs? Yes patient uses a cane [email or web address] Information not available 05/15/2022 Mental Status None recorded. Family History Relationship Description Onset Age of this Age Resolved Age Notes LastModified by Organization Details LastModified Time Father Not available 08/13/2021 22:46:11 Mother Not available 08/13/2021 22:46:11 Medical History Condition Response hypertension Y other Y GERD/reflux Y Gynecological HistoryNo gynecological history recorded. Obstetrics History GPAL:G 0 P 0 0 0 0 Past Encounters Encounter ID Performer Location Encounter Start Date Encounter Closed Date Diagnosis/Indication Diagnosis SNOMED-CT Code Diagnosis ICD10 Code [id number] FRANC ALDANA [facility] [address] [place] [address] 07/10/2024 12:20:14 07/10/2024 14:22:30 Degeneration of lumbar intervertebral disc 72883808 M51.36 Chronic pain syndrome 37 4231364 G89.4 Long-term current use of opiate analgesic drug 8535031522 80476 Z79.891 Health Concerns Section Related Observation LastModified by Organization Detai ls LastModified Time None Recorded Concern Status LastModified by Organization Details LastModified Time None Recorded Payers Encounter Date Sequence Insurance Name Policy Number Policy Whitfield Covered Member ID Whitfield Member ID Guarantor Name 07/10/2024 1 [place]: [facility] Alexia Riggins [id number] Alexia Núñez Notes Date Note Type Note Provider Name and Address Organization Details Recorded Time 4 text/html Tree Puller ServicesReported bypatient.Date of Telephonic Aarnjmqcnlkgxq80/22/2022 via Telephone Subject/Reason for InterpretationIntake Telephonic/Video/In-Perso leobardo InterpreterSele Tree Puller Jim ID# [id number] 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 Patient reports her pain is stable. She describes the pain moderate moderate to severe depending on her level of activity. Does report that she is having increase heaviness in her legs and sensation of achiness. She attributes this to fibromyalgia symptoms. I also did discuss with her doing some stretching exercises for lower extremities and maintaining adequate hydration. Also was finding some increase myofascial pain due to change in the weather recently. She continues with home exercises. She has no new concerns today. She says that physical activity and the weather make the pain worse. Her current medications continue to provide partial relief of her pain.Is currently going to physical therapy ordered by her primary care physician for muscular discomfort in her right bicep region. Today she rates her pain an 7/10Her current medications include Percocet 10 mg three / day as needed . [place] was accessed today and found no discrepancy. She reports these medications continue to provide partial relief and allow her to continue her daily activities. She denies any side effects today including constipation, nausea, SOB, and new onset weakness. LABORATORY: Urine toxicology screen February 2024 was consistent with prescribed oxycodone. Prescription monitoring program accessed no discrepancies. FRANC ALDANA NP [address] [place], [address], [facility] - [facility] 07/10/2024 14:23:11 OBGyn Episode No OBEpisode recorded.
--- OUTSIDE RECORDS SUMMARY | 2024-10-04 01:10 | XMS_ITS | Data Portability ---
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 [email or web address] Not available 06/05/2024 14:09:09 07/10/2024 07/10/2024 Today 33 minutes spent in [...] and will be performed at each encounter. [email or web address] Not available 07/10/2024 14:20:12 Plan of Treatment Reminders Order Date Submit Date Provider Last Modified By Organization Details Last Modified Time Details Appointments Clinic Visit 15 min 2023 12:00P Faviola Cortes NP Not available Not available Not available Lab drug screen, 14 drugs (detecti med), urine 2023 [place] [facility], [facility], [address] [place] [address], [place], [address], 09/01/2024 16:07:18 Referral None recorded . Procedures None recorded . Surgeries None recorded . Imaging None recorded . Medication Orders oxycodon e-acetam inophen 10 mg-325 mg tablet [address] [facility], [address] [place] [address], [id number], 06/05/2024 13:53:29 oxycodon e-acetam inophen 10 mg-325 mg tablet [email or web address] [facility], [address] [place] [address], [id number], 07/10/2024 13:51:29 oxycodon e-acetam inophen 10 mg-325 mg tablet 2023 024 [facility], [address] [place] [address], [id number], 07/14/2024 11:17:24 oxycodon e-acetam inophen 10 mg-325 mg tablet [email or web address] [facility], [address] [place] [address], [id number], 09/18/2024 12:54:01 oxycodon e-acetam inophen 10 mg-325 mg tablet 2023 024 [facility], [address] [place] [address], [id number], 09/20/2024 11:36:59 Patient Targets Encounter Date Encounter Id Patient Goals Patient Target Last Modified By Organization Details Last Modified Time I have counseled regarding maintaining regular activity, and to increase stretching, exercise, weight management dietary modifications. Increasing activity gradually, and consistently. We have agreed that these actions are beneficial to effective pain management. Will revisit individual goals at each encounter. [email or web address] Not available 06/05/2024 14:09:13 I have counseled regarding maintaining regular activity, and to increase stretching, exercise, weight management dietary modifications. Increasing activity gradually, and consistently. We have agreed that these actions are beneficial to effective pain management. Will revisit individual goals at each encounter. [email or web address] Not available 07/10/2024 14:21:48 Patient Instructions Encounter Date Encounter Id Patient Instructions Last Modified By Organization Details Last Modified Time 06/05/2024 [id number] The patient is encouraged to contact the clinic there any concerns regarding medication management or follow-up care. Patient is in agreement to plan of care that was discussed today and all questions or concerns were answered to his/her satisfaction. [email or web address] Not available 06/05/2024 14:09:15 Offers no questions or concerns regarding current plan of care will follow-up in 4 weeks. 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 [email or web address] Not available 07/10/2024 14:22:09 08/22/2024 [id number] The patient is encouraged to contact the clinic if there are any concerns regarding medication management or follow-up care. Patient is in agreement to plan of care that was discussed today and all questions or concerns were answered to her satisfaction. [email or web address] Not available 08/22/2024 08:50:51 Reason for Referral None Reported. 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 Procedures Surgical History Date Name Laterality Status Provider Name and Address Organization Details Recorded Time 09/14/20 23 ED - LESI Radiculitis completed MADELINE TERESA MD [address] [place] [address], [id number] 09/14/2023 17:16:09 09/14/20 23 PMC Procedure completed Tonya Salcedo [facility] 09/14/2023 14:35:33 08/16/20 19 cholecystectomy completed Gabby Rosa [facility] 08/13/2021 22:44:16 [facility] 22:44:07 Imaging Results None recorded. Procedure [...] and Address Organization Details Last Updated DateTime 05/09/2024 157.48 cm 37.1 kg/m2 35787.25 g Gertrudis Melton [facility] 05/09/2024 13:49:45 Date Recorded Body height Body mass index (BMI) Body weight Provider Name and Address Organization Details Last Updated DateTime 06/05/2024 157.48 cm 37.1 kg/m2 83127.25 g Gertrudis Melton [facility] 06/05/2024 13:52:10 Date Recorded Body height Body mass index (BMI) Body weight Provider Name and Address Organization Details Last Updated DateTime 07/10/2024 157.48 cm 37.1 kg/m2 74814.25 g Katey Polanco [facility] 07/10/2024 13:51:02 Date Recorded Body height Body mass index (BMI) Body weight Provider Name and Address Organization Details Last Updated DateTime 08/22/2024 157.48 cm 37.1 kg/m2 88240.25 g Ghislaine Rascon [facility] 08/22/2024 13:53:45 Date Recorded Body height Body mass index (BMI) Body weight Provider Name and Address Organization Details Last Updated DateTime 09/18/2024 157.48 cm 37.1 kg/m2 55026.25 g Jenny Purdy [facility] 09/18/2024 12:53:37 Social History Question Answer Notes LastModified by Organizat ion Details LastModified Time Tobacco Smoking Status Former Smoker Gabby arias [facility] 08/13/2021 22:45:52 What Is Your Level [...] Diagnosis/Indication Diagnosis SNOMED-CT Code Diagnosis ICD10 Code [id number] MADELINE TERESA MD [facility] [address] [place] [address] 08/15/2021 13:13:18 08/15/2021 13:44:45 Degeneration of lumbar intervertebral disc 65498601 M51.36 Long-term current use of opiate analgesic drug 1107691341 05306 Z79.891 [id number] DENA ROLDAN NP [facility] [address] [place] [address] 09/12/2021 11:40:09 09/12/2021 13:04:32 Degeneration of lumbar intervertebral disc 99206724 M51.36 Long-term current use of opiate analgesic drug 5713039645 89082 Z79.891 Body mass index 40+ - severely obese 616405432 Z68.43 [id number] MADELINE TERESA MD [facility] [facility] [address] [place] [address] 09/24/2021 08:17:05 09/24/2021 16:19:05 Degeneration of lumbar intervertebral disc 57336571 M51.36 Long-term current use of opiate analgesic drug 2186879532 68139 Z79.891 [id number] BRANDI VACA [facility] [place] [facility] [address] [place] [address] 11/07/2021 07:47:46 11/07/2021 15:33:08 Degeneration of lumbar intervertebral disc 56201404 M51.36 Long-term current use of opiate analgesic drug 0112099925 86227 Z79.891 Body mass index 40+ - severely obese 079687805 Z68.43 [id number] BRANDI VACA [facility] [place] [facility] [address] [place] [address] 12/19/2021 07:52:15 12/19/2021 12:54:05 Degeneration of lumbar intervertebral disc 92931242 M51.36 Long-term current use of opiate analgesic drug 7018022578 38070 Z79.891 Body mass index 40+ - severely obese 040099115 Z68.43 [id number] BRANDI VACA [facility] [place] [facility] [address] [place] [address] 01/16/2022 13:22:59 01/16/2022 14:30:01 Degeneration of lumbar intervertebral disc 71188699 M51.36 Long-term current use of opiate analgesic drug 0239576045 42931 Z79.891 Body mass index 40+ - severely obese 002693230 Z68.43 [id number] BRANDI VACA [facility] [place] [facility] [address] [place] [address] 02/16/2022 07:25:42 02/16/2022 12:39:49 Degeneration of lumbar intervertebral disc 59308496 M51.36 Long-term current use of opiate analgesic drug 6573198658 12848 Z79.891 Body mass index 40+ - severely obese 376080372 Z68.43 [id number] FRANC CORTES NP [facility] [place] [facility] [address] [place] [address] 03/16/2022 11:55:44 03/16/2022 13:21:23 Degeneration of lumbar intervertebral disc 45338526 M51.36 Long-term current use of opiate analgesic drug 6140656742 05706 Z79.891 Long-term drug therapy 896887440 Z79.899 Fibromyalgia 697651520 M 79.7 [id number] FRANC CORTES NP [facility] [place] [facility] [address] [place] [address] 04/14/2022 07:42:36 04/14/2022 15:03:39 Degeneration of lumbar intervertebral disc 71375570 M51.36 Long-term current use of opiate analgesic drug 0547340037 35016 Z79.891 Long-term drug therapy 258748135 Z79.899 Fibromyalgia 630355824 M 79.7 [id number] FRANC CORTES NP [facility] [place] [facility] [address] [place] [address] 05/15/2022 13:05:06 05/15/2022 14:18:21 Degeneration of lumbar intervertebral disc 32754662 M51.36 Long-term current use of opiate analgesic drug 1811659841 42843 Z79.891 Long-term drug therapy 263640128 Z79.899 Fibromyalgia 698719449 M 79.7 Body mass index 40+ - severely obese 464241597 Z68.43 [id number] JAZLYN BERNABE NP [facility] [place] [facility] [address] [place] [address] 07/02/2022 13:00:04 07/02/2022 14:00:19 Degeneration of lumbar intervertebral disc 57000211 M51.36 Long-term drug therapy 838332771 Z79.899 Fibromyalgia 313388356 M 79.7 Body mass index 40+ - severely obese 387511365 Z68.43 [id number] JAZLYN BERNABE, RINKU [facility] [place] [facility] [address] [place] [address] 08/13/2022 12:32:13 08/13/2022 13:13:33 Degeneration of lumbar intervertebral disc 37751259 M51.36 Long-term drug therapy 213004166 Z79.899 Fibromyalgia 323144999 M 79.7 Body mass index 40+ - severely obese 582285357 Z68.43 [id number] CHRISTIANA CARSON, SURGICAL ATTENDANT [facility] [place] [facility] [address] [place] [address] 09/11/2022 12:38:20 09/11/2022 13:37:56 Degeneration of lumbar intervertebral disc 43496789 M51.36 Long-term drug therapy 042141116 Z79.899 Fibromyalgia 082200703 M 79.7 Body mass index 40+ - severely obese 810613979 Z68.43 Chronic pain 04475551 G8 9.29 [id number] FRANC CORTES NP [facility] [place] [facility] [address] [place] [address] 11/10/2022 11:44:51 11/10/2022 14:02:48 Body mass index 40+ - severely obese 247240321 Z68.43 Degenerati on of lumbar intervertebral disc 72773161 M51.36 Long-term current use of opiate analgesic drug 4845506598 33700 Z79.891 [id number] FRANC CORTES NP [facility] [place] [facility] [address] [place] [address] 12/08/2022 14:23:33 12/08/2022 15:36:17 Degeneration of lumbar intervertebral disc 37383219 M51.36 Long-term current use of opiate analgesic drug 1312749666 21660 Z79.891 Chronic pain syndrome 37 8824572 G89.4 [id number] FRANC CORTES NP [facility] [facility] [address] [place] [address] 01/05/2023 12:24:16 01/05/2023 15:42:51 Degeneration of lumbar intervertebral disc 91718778 M51.36 Long-term current use of opiate analgesic drug 0031391506 14687 Z79.891 Chronic pain syndrome 37 4680509 G89.4 [id number] BRANDI VACA [facility] [place] [address] [place] [address] 02/02/2023 13:15:34 02/02/2023 14:06:39 Degeneration of lumbar intervertebral disc 71318496 M51.36 Long-term current use of opiate analgesic drug 4942574843 11356 Z79.891 Chronic pain syndrome 37 5003586 G89.4 Long-term drug therapy 798436452 Z79.899 [id number] FRANC CORTES NP [facility] [place] [facility] [address] [place] [address] 03/02/2023 12:02:41 03/02/2023 13:06:06 Degeneration of lumbar intervertebral disc 57077565 M51.36 Long-term current use of opiate analgesic drug 9005458291 33055 Z79.891 Chronic pain syndrome 37 3274442 G89.4 [id number] JAZLYN BERNABE NP [facility] [place] [facility] [address] [place] [address] 03/30/2023 13:15:36 03/30/2023 13:52:01 Degeneration of lumbar intervertebral disc 08101109 M51.36 Long-term current use of opiate analgesic drug 3550796840 36900 Z79.891 Chronic pain syndrome 37 5761828 G89.4 [id number] RADHA JOLLY NP [facility] [place] [facility] [address] [place] [address] 05/03/2023 11:29:53 05/03/2023 11:51:24 Degeneration of lumbar intervertebral disc 44465001 M51.36 Long-term current use of opiate analgesic drug 3882418061 74443 Z79.891 Chronic pain syndrome 37 6641899 G89.4 [id number] BRANDI VACA [facility] [place] [facility] [address] [place] [address] 06/01/2023 11:51:23 06/01/2023 12:41:07 Degeneration of lumbar intervertebral disc 33015394 M51.36 Long-term current use of opiate analgesic drug 7796039888 45310 Z79.891 Chronic pain syndrome 37 2106019 G89.4 Pain of ri ght knee region 2309606094 23829 M25.561 [id number] CHRISTIANA CARSON NP [facility] [place] [facility] [address] [place] [address] 07/13/2023 14:41:35 07/13/2023 15:49:13 Degeneration of lumbar intervertebral disc 15594252 M51.36 Chronic pain syndrome 37 5675794 G89.4 Long-term drug therapy 511791616 Z79.899 Lumbar radiculopathy 128 070997 M54.16 [id number] BRANDI VACA [facility] [address] [place] [address] 08/09/2023 14:29:29 08/09/2023 15:14:27 Degeneration of lumbar intervertebral disc 50770242 M51.36 Long-term current use of opiate analgesic drug 8291319523 57996 Z79.891 Chronic pain syndrome 37 7996014 G89.4 Long-term drug therapy 750624492 Z79.899 [id number] MADELINE TERESA MD [facility] [address] [place] [address] 09/14/2023 13:06:42 09/14/2023 14:37:19 Chronic pain syndrome 023017456 G89.4 Degenerati on of lumbar intervertebral disc 15074874 M51.36 Lumbar dis c prolapse with radiculopathy 576767090 M51.16 [id number] CHRISTIANA CARSON NP [facility] [place] [facility] [address] [place] [address] 10/12/2023 14:37:55 10/12/2023 15:11:02 Degeneration of lumbar intervertebral disc 54062913 M51.36 Chronic pain syndrome 37 4425688 G89.4 Long-term drug therapy 359186762 Z79.899 [id number] CHRISTIANA YAMILETH, SURGICAL ATTENDANT [facility] [place] [facility] [address] [place] [address] 11/09/2023 13:16:42 11/09/2023 13:49:11 Degeneration of lumbar intervertebral disc 56035278 M51.36 Chronic pain syndrome 37 0581957 G89.4 Long-term drug therapy 201407111 Z79.899 [id number] CHRISTIANA CARSON, SURGICAL ATTENDANT [facility] [place] [facility] [address] [place] [address] 12/07/2023 07:13:50 12/07/2023 15:03:50 Degeneration of lumbar intervertebral disc 36617301 M51.36 Chronic pain syndrome 37 0662948 G89.4 Long-term drug therapy 910712358 Z79.899 [id number] RADHA JOLLY, SURGICAL ATTENDANT [facility] [address] [place] [address] 01/10/2024 10:37:57 01/10/2024 11:47:38 Chronic pain syndrome 544899199 G89.4 Degenerati on of lumbar intervertebral disc 77428609 M51.36 Long-term drug therapy 637939397 Z79.899 [id number] BRANDI VACA [facility] [place] [facility] [address] [place] [address] 02/07/2024 12:38:15 02/07/2024 14:03:52 Chronic pain syndrome 076217824 G89.4 Degenerati on of lumbar intervertebral disc 80298047 M51.36 Long-term drug therapy 211436607 Z79.899 Lumbar radiculopathy 128 M54.16 [id number] JAZLYN BERNABE, SURGICAL ATTENDANT [facility] [place] [facility] [address] [place] [address] 03/07/2024 13:22:27 03/07/2024 14:12:04 Chronic pain syndrome 840665212 G89.4 Degenerati on of lumbar intervertebral disc 43054135 M51.36 Long-term drug therapy 817272979 Z79.899 Lumbar radiculopathy 128 M54.16 [id number] FRANC CORTES NP [facility] [place] [facility] [address] [place] [address] 04/11/2024 13:43:26 04/11/2024 14:43:58 Degeneration of lumbar intervertebral disc 79286786 M51.36 Long-term current use of opiate analgesic drug 1128124876 68459 Z79.891 [id number] JAZLYN BERNABE NP [facility] [place] [facility] [address] [place] [address] 05/09/2024 13:00:42 05/09/2024 14:02:02 Degeneration of lumbar intervertebral disc 44495923 M51.36 Long-term drug therapy 841482674 Z79.899 Chronic pain 33562383 G8 9.29 [id number] FRANC CORTES NP [facility] [place] [facility] [address] [place] [address] 06/05/2024 11:44:31 06/05/2024 14:19:08 Long-term current use of opiate analgesic drug 2934818443 20233 Z79.891 Degenerati on of lumbar intervertebral disc 24423808 M51.36 Body mass index 40+ - severely obese 194405540 Z68.43 [id number] FRANC CORTES NP [facility] [place] [facility] [address] [place] [address] 07/10/2024 12:20:14 07/10/2024 14:22:30 Degeneration of lumbar intervertebral disc 35560018 M51.36 Chronic pain syndrome 37 6467375 G89.4 Long-term current use of opiate analgesic drug 0923388039 31532 Z79.891 [id number] CHRISTIANA CARSON NP [facility] [place] [facility] [address] [place] [address] 08/22/2024 13:40:54 08/22/2024 14:15:49 Degeneration of lumbar intervertebral disc 97386707 M51.362 Chronic pain syndrome 37 8918514 G89.4 Long-term drug therapy 562444262 Z79.899 [id number] BRANDI VACA [facility] [place] [facility] [address] [place] [address] 09/18/2024 12:42:16 09/18/2024 14:12:49 Degeneration of lumbar intervertebral disc 23856865 M51.362 Chronic pain syndrome 37 3731173 G89.4 Long-term drug therapy 836562854 Z79.899 Health Concerns Section Related Observation LastModified by Organization Detai ls LastModified Time None Recorded Concern Status LastModified by Organization Details LastModified Time None Recorded Advance Directives Directive None Recorded Payers Encounter Date Sequence Insurance Name Policy Number Policy Whit[place] Covered Member ID Whit[place] Member ID Guarantor Name 05/09/2024 1 [place] Alexia Riggins [id number] Alexiajaime Núñez 06/05/2024 1 [place] Alexia Riggins [id number] Alexiajaime Núñez 07/10/2024 1 [place] Alexia Riggins [id number] Alexiajaime Núñez 08/22/2024 1 [place] Alexia Riggins [id number] Alexiajaime Núñez 09/18/2024 1 [place] Alexia Riggins [id number] Alexiajaime Núñez Notes Date Note Type Note Provider Name and Address Organization Details Recorded Time text/html Tool Engine Lathe Set Up Operator ServicesReported bypatient.Notes:[place] [id number] Ms. Núñez was evaluated today for ongoing evaluation and management of the above chief complaints. On a Numeric Verbal Rating Scale the pain today was rated as an 8/10. After pain medication, pain level decreases to a 5/10 which she reports as tolerable. The pain is described as severe, exacerbated by physical activity and alleviated by rest and medication. SINCE THE LAST VISIT, the patient continues to report adequate pain relief with the prescribed percocet. She reports a stable continuation of her chronic low back pain. States that due to treatment regimen continues to be able to complete activities of daily living and maintain reasonable functionality. Denies any changes in health. Denies having questions or concerns. Prescription refills are needed today. OPIOID MANAGEMENT: Patient states that present opioid regimen provides partial analgesia and symptom control. Believes is relatively more physically active while on medications as compared to without them. Denies side effects including nausea, vomiting, constipation, itching or excessive sedation. There have not been reports of aberrant drug related behavior. LABORATORY: Urine toxicology screen from 03/07/24 was reviewed today and found to be consistent with prescribed opioid regimen. 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 She continues with home exercises. She has [...] Prescription monitoring program accessed no discrepancies. 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 FRANC CORTES, RINKU [address] [place], [address], [place] [facility] 07/10/2024 14:23:11 4 text/html Ms. Núñez was seen today for ongoing evaluation and management of the above chief complaints. On a Numeric Verbal Rating Scale the pain today was rated as a 8/10. The pain is described as severe, exacerbated by increased physical activity and partially relieved by rest and medication. SINCE THE LAST VISIT, the patient reports stable continuation of her chronic pain symptoms. She denies any recent changes in her health including illnesses, injuries, or falls. Denies having questions or concerns regarding her pain management that she wishes to discuss today. She continues to report adequate pain relief with the prescribed medications. States that due to the current treatment regimen she continues to be able to complete activities of daily living and maintain reasonable functionality. I reviewed all medications and have updated the medication list as needed. I have electronically prescribed the patient's medications to her pharmacy and patient is aware that these have been sent electronically. OPIOID MANAGEMENT: States that present opioid regimen provides partial analgesia and symptom control. Believes is relatively more physically active while on medications as compared to without them. Denies side effects including nausea, vomiting, constipation, itching or excessive sedation. There have not been reports of aberrant drug related behavior. LABORATORY: Urine toxicology screen from {{ 03/07/2024#}} was reviewed today and is consistent with prescribed opioid, +THC. Repeat urine obtained at today's visit. CHRISTIANA CARSON NP [address] [place], [address], [facility] 08/22/2024 14:16:23 4 text/html Tool Engine Lathe Set Up Operator ServicesReported bypatient.Notes:hearing care practitioner Pravin #[id number] utilized for today's visit CHRISTIANA CARSON NP [address] [place], [address], [facility] 08/22/2024 14:16:23 4 text/html Patient is a 49 year old female with a history of lumbar degenerative disc disease presenting chronic low back pain that radiates to bilateral lower extremities L>R. I have reviewed her self questionnaire today. Patient reports her pain is stable. Says everything is the same. She has no new questions or concerns today. She says that physical activity and the weather make the pain worse. Her current medications continue to provide partial relief of her pain. Today she rates her pain a 7/10. Her current medications include percocet. [place] [facility] was accessed today and found no discrepancy. She reports these medications continue to provide partial relief and allow her to continue her daily activities. She denies any side effects today including constipation, nausea, SOB, and new onset weakness. She denies any change in health over the past month. LABORATORY: Urine toxicology screen from 08/22/24 was consistent with prescribed oxycodone, +THC. BRANDI VACA [address] [place], [address], [facility] 09/18/2024 13:21:00 OBGyn Episode No OBEpisode recorded.
--- OUTSIDE RECORDS SUMMARY | 2024-10-04 01:10 | XMS_ITS | Continuity of Care Document ---
Author Organization RADHA Lawson, [facility] Address [address] [place] [place] [address] Care Team Providers Care Brick Pointer Name Role Phone DENNIS OSULLIVAN Primary Care Provider Assessment No assessment recorded. Plan of Treatment Reminders Order Date Submit Date Provider Last Modified By Organization Details Last Modified Time Details Appointments Clinic Visit 15 min 2023 12:00P M Cyndi Aldana NP Not available Not available Not available Lab None recorded . Referral None recorded . Procedures None recorded . Surgeries None recorded . Imaging None recorded . Medication Orders oxycodon e-acetam inophen 10 mg-325 [address] [facility], [address] [place] [address], [id number], 09/20/2024 11:36:59 Patient TargetsNo targets recorded. Patient InstructionsNo instructions recorded. Reason for Referral None Reported. Problems Name Problem SNOMED Code Status Onset Date Resolution Date Notes Provider Name and Address Organization Details Recorded Time Chronic pain syndrome 174878704 Pieter arias [place] [facility] 22:38:18 Chronic pain following trauma 515726652 Pieter arias [place] T[place] [facility] 22:38:47 Long-term current use of opiate analgesic drug 7426125062807 08 Pieter arias [place] Tk [facility] 22:38:56 Degeneratio n of lumbar interverteb ral disc 50961357 Pieter arias [place] Tk [facility] 22:39:03 Body mass index 40+ - severely obese 249692750 Active Gabby Rosa juana [facility] 22:39:24 Problem Notes None recorded. Procedures Surgical History Date Name Laterality Status Provider Name and Address Organization Details Recorded Time 09/14/20 23 ED - LESI Radiculitis completed MADELINE TERESA MD [address] [place], [address], [facility] 09/14/2023 17:16:09 09/14/20 PMC Procedure completed Tonya Salcedo [facility] 09/14/2023 14:35:33 08/16/20 cholecystectomy completed Gabby Earlo [facility] 08/13/2021 22:44:16 gastric bypass completed Gabby Earlo [facility] 08/13/2021 22:44:07 Imaging Results None recorded. [...] Updated DateTime 09/18/2024 157.48 cm 37.1 kg/m2 61723.25 g Jenny Purdy [facility] 09/18/2024 12:53:37 Social History Question Answer Notes LastModified by Organizat ion Details LastModified Time Tobacco Smoking Status Former Smoker Gabby arias [facility] 08/13/2021 22:45:52 What Is Your Level [...] Diagnosis/Indication Diagnosis SNOMED-CT Code Diagnosis ICD10 Code [id number] CHRISTIANA CASRON NP [facility] [address] [place] [address] 08/22/2024 13:40:54 08/22/2024 14:15:49 Degeneration of lumbar intervertebral disc 09667700 M51.362 Chronic pain syndrome 37 2850326 G89.4 Long-term drug therapy 015381797 Z79.899 [id number] BRANDI VACA [facility] [address] [place] [address] 09/18/2024 12:42:16 09/18/2024 14:12:49 Degeneration of lumbar intervertebral disc 39242693 M51.362 Chronic pain syndrome 37 4347435 G89.4 Long-term drug therapy 572255861 Z79.899 Health Concerns Section Related Observation LastModified by Organization Detai ls LastModified Time None Recorded Concern Status LastModified by Organization Details LastModified Time None Recorded Payers Encounter Date Sequence Insurance Name Policy Number Policy Whitfield Covered Member ID Whitfield Member ID Guarantor Name 09/18/2024 1 [place] [facility] Alexia Núñez Gilson [id number] Alexia Núñez Notes Date Note Type Note Provider Name and Address Organization Details Recorded Time 09/18/2024 text/html Patient is a 49 year old [...] with prescribed oxycodone, +THC. BRANDI VACA [address] [place], [address], [facility] 09/18/2024 13:21:00 OBGyn Episode No OBEpisode recorded.
--- OUTSIDE RECORDS SUMMARY | 2024-10-04 01:10 | XMS_ITS | Continuity of Care Document ---
Author Organization [facility], [facility] Address [address] [facility] [place] [address] Care Team Providers Care Bit Bender Name Role Phone DENNIS OSULLIVAN Primary Care Provider Assessment No assessment recorded. Plan of Treatment Reminders Order Date Submit Date Provider Last Modified By Organization Details Last Modified Time Details Appointments Clinic Visit 15 min 2023 12:00P M Cyndi Aldana NP Not available Not available Not available Lab drug screen, 14 drugs (detecti med), urine 2023 024 NEELA [facility], [address], [address], 09/01/2024 16:07:18 Referral None recorded . Procedures None recorded . Surgeries None recorded . Imaging None recorded . Medication Orders oxycodon e-acetam inophen 10 mg-325 mg tablet 2023 024 [email or web address] [facility], [address] [place] [address], [id number], 09/18/2024 12:54:01 Patient TargetsNo targets recorded. Patient Instructions Encounter Date Encounter Id Patient Instructions Last Modified By Organization Details Last Modified Time 08/22/2024 [id number] The patient is encouraged to contact the clinic if there are any concerns regarding medication management or follow-up care. Patient is in agreement to plan of care that was discussed today and all questions or concerns were answered to her satisfaction. [email or web address] Not available 08/22/2024 08:50:51 Reason for Referral None Reported. Problems Name Problem SNOMED Code Status Onset Date Resolution Date Notes Provider Name and Address Organization Details Recorded Time Chronic pain syndrome 821559191 Active Gabby arias [facility] 22:38:18 Chronic pain following trauma 354354203 Active Gabby arias [facility] 22:38:47 Long-term current use of opiate analgesic drug 0510584794974 08 [facility] Degeneratio n of lumbar interverteb ral disc 98718648 [facility]03 Body mass index 40+ - severely obese 347471384 [facility]24 Problem Notes None recorded. Procedures Surgical History Date Name Laterality Status Provider Name and Address Organization Details Recorded Time 09/14/20 23 ED - LESI Radiculitis completed MADELINE TERESA MD [address] [place] [address], [phone] 09/14/2023 17:16:09 09/14/20 23 PMC Procedure completed Tonya Salcedo [facility] 09/14/2023 14:35:33 08/16/20 19 cholecystectomy completed Gabby Rosa [facility] 08/13/2021 22:44:16 [facility] 22:44:07 Imaging Results None recorded. Procedure [...] Updated DateTime 08/22/2024 157.48 cm 37.1 kg/m2 79836.25 g Ghislaine Rascon [facility] 08/22/2024 13:53:45 Social History Question Answer Notes LastModified by 3rd [employer] Details LastModified Time Tobacco Smoking Status Former Smoker Gabby arias [facility] 08/13/2021 22:45:52 What Is Your Level [...] Diagnosis/Indication Diagnosis SNOMED-CT Code Diagnosis ICD10 Code [id number] CHRISTIANA CARSON NP [facility] [address] [place] [address] 08/22/2024 13:40:54 08/22/2024 14:15:49 Degeneration of lumbar intervertebral disc 18385788 M51.362 Chronic pain syndrome 37 3018005 G89.4 Long-term drug therapy 988351234 Z79.899 Health Concerns Section Related Observation LastModified by Organization Detai ls LastModified Time None Recorded Concern Status LastModified by Organization Details LastModified Time None Recorded Payers Encounter Date Sequence Insurance Name Policy Number Policy Whitfield Covered Member ID Whitfield Member ID Guarantor Name 08/22/2024 1 [place] [facility] Alexia Riggins [id number] Alexia Núñez Notes Date Note Type Note Provider Name and Address Organization Details Recorded Time 08/22/2024 text/html Ms. Núñez was se en today for ongoing evaluation and management of [...] at today's visit. CHRISTIANA CARSON NP [address] [place], [address], [facility] 08/22/2024 14:16:23 08/22/2024 text/html Planning Feeder ServicesReported bypatient.Notes:[facility] translator/interpreter Pravin #[id number] utilized for today's visit CHRISTAINA CARSON NP [address] [facility], [place], [address], [facility] 08/22/2024 14:16:23 OBGyn Episode No OBEpisode recorded.
== END 2024-09-28 10:37 | disposition home or self-care (01) ==
PROVIDERS: PCP Family Medicine; Visit Provider Orthopaedic Surgery
DX: M25.511 Pain in right shoulder (principal)
CPT/HCPCS: 99203

== ENCOUNTER → 2024-09-28 09:54 | Outpatient (BNVA) | payer MEDICAID, SELFPAY | PROVIDERS: PCP Family Medicine; Visit Provider Orthopaedic Surgery | DX: M25.511 Pain in right shoulder (principal); M62.81 Muscle weakness (generalized) | CPT/HCPCS: 99202 ==

== ENCOUNTER 2024-10-04 20:30 | Outpatient (REF) | payer MEDICAID, SELFPAY ==
--- OUTSIDE RECORDS SUMMARY | 2024-10-05 03:19 | XMS_ITS | Continuity of Care Document ---
Author Organization RADHA Lawson, [facility] Address [address] [place] [address] Care Team Providers Care Rand Butting Machine Operator Name Role Phone DENNIS OSULLIVAN Primary Care [...] inophen 10 mg-325 mg tablet 2023 024 [facility], [address] [place] [address], [id number], 09/20/2024 11:36:59 Patient TargetsNo targets recorded. Patient InstructionsNo instructions recorded. Reason for Referral None Reported. Problems Name Problem SNOMED Code Status Onset Date Resolution Date Notes Provider Name and Address Organization Details Recorded Time Chronic pain syndrome 744108074 Pieter arias [place] T[place] [facility] 22:38:18 Chronic pain following trauma 524463530 Pieter arias [place] T[place] [facility] 22:38:47 Long-term current use of opiate analgesic drug 6319179026909 08 Pieter arias [place] Tk [facility] 22:38:56 Degeneratio n of lumbar interverteb ral disc 17945604 Pieter arias [place] Tk [facility] 22:39:03 Body mass index 40+ - severely obese 034483527 Active Gabby Rosa juana [facility] 22:39:24 Problem Notes None recorded. Procedures Surgical History Date Name Laterality Status Provider Name and Address Organization Details Recorded Time 09/14/20 23 ED - LESI Radiculitis completed MADELINE TERESA MD [address] [place], [address], [facility] 09/14/2023 17:16:09 09/14/20 PMC Procedure completed Tonya Salcedo [facility] 09/14/2023 14:35:33 08/16/20 cholecystectomy completed Gabby Earlo [facility] 08/13/2021 22:44:16 gastric bypass completed Gabby Earlo [facility] 08/13/2021 22:44:07 Imaging Results None recorded. Procedure [...] Updated DateTime 09/18/2024 157.48 cm 37.1 kg/m2 87238.25 g Jenny Purdy [facility] 09/18/2024 12:53:37 Social History Question Answer Notes LastModified by Organizat ion Details LastModified Time Tobacco Smoking Status Former Smoker Gabby arias [facility] 08/13/2021 22:45:52 What Is Your Level Of [...] available 08/13/2021 22:46:11 Medical History Condition Response GERD/reflux Y hypertension Y other Y Gynecological HistoryNo gynecological history recorded. Obstetrics History GPAL:G 0 P 0 0 0 0 Past Encounters Encounter ID Performer Location Encounter Start Date Encounter Closed Date Diagnosis/Indication Diagnosis SNOMED-CT Code Diagnosis ICD10 Code [id number] CHRISTIANA CARSON NP [facility] [address] [place] [address] 08/22/2024 13:40:54 08/22/2024 14:15:49 Degeneration of lumbar intervertebral disc 16506377 M51.362 Chronic pain syndrome 37 4120783 G89.4 Long-term drug therapy 683177626 Z79.899 [id number] BRANDI VACA [facility] [address] [place] [address] 09/18/2024 12:42:16 09/18/2024 14:12:49 Degeneration of lumbar intervertebral disc 65308083 M51.362 Chronic pain syndrome 37 7037611 G89.4 Long-term drug therapy 097075782 Z79.899 Health Concerns Section Related Observation LastModified by Organization Detai ls LastModified Time None Recorded Concern Status LastModified by Organization Details LastModified Time None Recorded Payers Encounter Date Sequence Insurance Name Policy Number Policy Whitfield Covered Member ID Whitfield Member ID Guarantor Name 09/18/2024 1 [place] [facility] Alexia Núñez Gilson [id number] Alexia Núñez Notes Date Note Type Note [...] with prescribed oxycodone, +THC. BRANDI VACA [address] [place], [address], [facility] 09/18/2024 13:21:00 OBGyn Episode No OBEpisode recorded.
--- OUTSIDE RECORDS SUMMARY | 2024-10-05 03:19 | XMS_ITS | Data Portability ---
Author Organization [facility], [facility] Address [address] [place] [address] Care Team Providers Care Clerk Manager Name Role Phone DENNIS OSULLIVAN Primary Care [...] screen, 14 drugs (detecti med), urine 2023 COEUR D ALENE [facility], 6 [facility], [address] [place] [address], [place], [address], 09/01/2024 16:07:18 Referral None recorded . Procedures None recorded . Surgeries None recorded . Imaging None recorded . Medication Orders oxycodon e-acetam inophen 10 mg-325 mg tablet [address] [facility], [address] [place] [address], [id number], 06/05/2024 13:53:29 oxycodon e-acetam inophen 10 mg-325 mg tablet [email or web address] [facility], [address] [place] [address], [id number], 07/10/2024 13:51:29 oxycodon e-acetam inophen 10 mg-325 mg tablet 2023 024 [facility], [address] [place] [address], [id number], 07/14/2024 11:17:24 oxycodon e-acetam inophen 10 mg-325 mg tablet [email or web address] [facility], [address] [place] [address], [id number], 09/18/2024 12:54:01 oxycodon e-acetam inophen 10 mg-325 mg tablet 2023 024 [facility], [address] [place] [address], [id number], 09/20/2024 11:36:59 Patient Targets Encounter Date Encounter [...] By Organization Details Last Modified Time 06/05/2024 [id number] The patient is encouraged to contact the clinic there any concerns regarding medication management or follow-up care. Patient is in agreement to plan of care that was discussed today and all questions or concerns were answered to his/her satisfaction. dileep s1 Not available 06/05/2024 14:09:15 Offers no questions or concerns regarding current plan of care will follow-up in 4 weeks. Panamanian-speaking dovetailer Jair [id number] dileep s1 Not available 06/05/2024 14:21:19 07/10/2024 [id number] The patient is encouraged to contact the [...] [email or web address] s1 Not available 07/10/2024 14:22:09 08/22/2024 [id number] The patient is encouraged to contact the clinic if there are any concerns regarding medication management or follow-up care. Patient is in agreement to plan of care that was discussed today and all questions or concerns were answered to her satisfaction. [email or web address] Not available 08/22/2024 08:50:51 Reason for Referral None Reported. 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 Procedures Surgical History Date Name Laterality Status Provider Name and Address Organization Details Recorded Time 09/14/20 23 ED - LESI Radiculitis completed MADELINE TERESA MD [address] [place] [address], [id number] 09/14/2023 17:16:09 09/14/20 23 PMC Procedure completed Tonya Salcedo [facility] 09/14/2023 14:35:33 08/16/20 19 cholecystectomy completed Gabby Rosa [facility] 08/13/2021 22:44:16 [facility]/13[facility] 22:44:07 Imaging Results None recorded. Procedure [...] Updated DateTime 05/09/2024 157.48 cm 37.1 kg/m2 14217.25 g Gertrudis Melton [facility] 05/09/2024 13:49:45 Date Recorded Body height Body mass index (BMI) Body weight Provider Name and Address Organization Details Last Updated DateTime 06/05/2024 157.48 cm 37.1 kg/m2 09913.25 g Gertrudis Melton [facility] 06/05/2024 13:52:10 Date Recorded Body height Body mass index (BMI) Body weight Provider Name and Address Organization Details Last Updated DateTime 07/10/2024 157.48 cm 37.1 kg/m2 32608.25 g Katey Polanco [facility] 07/10/2024 13:51:02 Date Recorded Body height Body mass index (BMI) Body weight Provider Name and Address Organization Details Last Updated DateTime 08/22/2024 157.48 cm 37.1 kg/m2 08192.25 g Ghislaine Rascon [facility] 08/22/2024 13:53:45 Date Recorded Body height Body mass index (BMI) Body weight Provider Name and Address Organization Details Last Updated DateTime 09/18/2024 157.48 cm 37.1 kg/m2 48645.25 g Jenny Purdy [facility] 09/18/2024 12:53:37 Social History Question Answer Notes LastModified by Organizat ion Details LastModified Time Tobacco Smoking Status Former Smoker Gabby arias [facility] 08/13/2021 22:45:52 What Is Your Level Of [...] available 08/13/2021 22:46:11 Medical History Condition Response other Y GERD/reflux Y hypertension Y Gynecological HistoryNo gynecological history recorded. Obstetrics History GPAL:G 0 P 0 0 0 0 Past Encounters Encounter ID Performer Location Encounter Start Date Encounter Closed Date Diagnosis/Indication Diagnosis SNOMED-CT Code Diagnosis ICD10 Code [id number] MADELINE TERESA MD [facility] [address] [place] [address] 08/15/2021 13:13:18 08/15/2021 13:44:45 Degeneration of lumbar intervertebral disc 89880581 M51.36 Long-term current use of opiate analgesic drug 6993455796 68490 Z79.891 [id number] DENA ROLDAN NP [facility] [address] [place] [address] 09/12/2021 11:40:09 09/12/2021 13:04:32 Degeneration of lumbar intervertebral disc 62430287 M51.36 Long-term current use of opiate analgesic drug 3178267623 75717 Z79.891 Body mass index 40+ - severely obese 664290711 Z68.43 [id number] MADELINE TERESA MD [facility] [address] [place] [address] 09/24/2021 08:17:05 09/24/2021 16:19:05 Degeneration of lumbar intervertebral disc 94603017 M51.36 Long-term current use of opiate analgesic drug 1639790413 68521 Z79.891 [id number] BRANDI VACA [facility] [address] [place] [address] 11/07/2021 07:47:46 11/07/2021 15:33:08 Degeneration of lumbar intervertebral disc 21767660 M51.36 Long-term current use of opiate analgesic drug 2778996504 55425 Z79.891 Body mass index 40+ - severely obese 355648763 Z68.43 [id number] BRANDI VACA [facility] [place] [address] [place] [address] 12/19/2021 07:52:15 12/19/2021 12:54:05 Degeneration of lumbar intervertebral disc 69787021 M51.36 Long-term current use of opiate analgesic drug 0281616776 35053 Z79.891 Body mass index 40+ - severely obese 069589332 Z68.43 [id number] BRANDI VACA [facility] [address] [place] [address] 01/16/2022 13:22:59 01/16/2022 14:30:01 Degeneration of lumbar intervertebral disc 83405794 M51.36 Long-term current use of opiate analgesic drug 1820250435 09630 Z79.891 Body mass index 40+ - severely obese 439891420 Z68.43 [id number] BRANDI VACA [facility] [address] [place] [address] 02/16/2022 07:25:42 02/16/2022 12:39:49 Degeneration of lumbar intervertebral disc 05865798 M51.36 Long-term current use of opiate analgesic drug 3142683423 61086 Z79.891 Body mass index 40+ - severely obese 907190733 Z68.43 [id number] FRANC CORTES NP [facility] [address] [place] [address] 03/16/2022 11:55:44 03/16/2022 13:21:23 Degeneration of lumbar intervertebral disc 28881376 M51.36 Long-term current use of opiate analgesic drug 6465811627 19401 Z79.891 Long-term drug therapy 023176746 Z79.899 Fibromyalgia 054272923 M 79.7 [id number] FRANC CORTES NP [facility] [address] [place] [address] 04/14/2022 07:42:36 04/14/2022 15:03:39 Degeneration of lumbar intervertebral disc 68342117 M51.36 Long-term current use of opiate analgesic drug 0151119366 51503 Z79.891 Long-term drug therapy 800510737 Z79.899 Fibromyalgia 534567227 M 79.7 [id number] FRANC CORTES NP [facility] [address] [place] [address] 05/15/2022 13:05:06 05/15/2022 14:18:21 Degeneration of lumbar intervertebral disc 17524059 M51.36 Long-term current use of opiate analgesic drug 0587314416 92020 Z79.891 Long-term drug therapy 658738334 Z79.899 Fibromyalgia 623271365 M 79.7 Body mass index 40+ - severely obese 730289746 Z68.43 [id number] JAZLYN BERNABE NP [facility] [address] [place] [address] 07/02/2022 13:00:04 07/02/2022 14:00:19 Degeneration of lumbar intervertebral disc 99329827 M51.36 Long-term drug therapy 913690237 Z79.899 Fibromyalgia 756267334 M 79.7 Body mass index 40+ - severely obese 434623682 Z68.43 [id number] JAZLYN BERNABE, RINKU [facility] [address] [place] [address] 08/13/2022 12:32:13 08/13/2022 13:13:33 Degeneration of lumbar intervertebral disc 43351556 M51.36 Long-term drug therapy 139292617 Z79.899 Fibromyalgia 462264621 M 79.7 Body mass index 40+ - severely obese 741042233 Z68.43 [id number] CHRISTIANA CARSON, GRINDING MACHINE TENDER [facility] [address] [place] [address] 09/11/2022 12:38:20 09/11/2022 13:37:56 Degeneration of lumbar intervertebral disc 12663900 M51.36 Long-term drug therapy 415719939 Z79.899 Fibromyalgia 558046893 M 79.7 Body mass index 40+ - severely obese 596792530 Z68.43 Chronic pain 00433342 G8 9.29 [id number] FRANC CORTES NP [facility] [address] [place] [address] 11/10/2022 11:44:51 11/10/2022 14:02:48 Body mass index 40+ - severely obese 091540895 Z68.43 Degenerati on of lumbar intervertebral disc 76027349 M51.36 Long-term current use of opiate analgesic drug 0954366318 32387 Z79.891 [id number] FRANC CORTES NP [facility] [address] [place] [address] 12/08/2022 14:23:33 12/08/2022 15:36:17 Degeneration of lumbar intervertebral disc 47075110 M51.36 Long-term current use of opiate analgesic drug 5904006667 59630 Z79.891 Chronic pain syndrome 37 0791435 G89.4 [id number] FRANC CORTES NP [facility] [address] [place] [address] 01/05/2023 12:24:16 01/05/2023 15:42:51 Degeneration of lumbar intervertebral disc 59277448 M51.36 Long-term current use of opiate analgesic drug 5824171138 81138 Z79.891 Chronic pain syndrome 37 2399580 G89.4 [id number] BRANDI VACA [facility] [place] [facility] [address] [place] [address] 02/02/2023 13:15:34 02/02/2023 14:06:39 Degeneration of lumbar intervertebral disc 71121458 M51.36 Long-term current use of opiate analgesic drug 5223480529 49975 Z79.891 Chronic pain syndrome 37 6133686 G89.4 Long-term drug therapy 533912195 Z79.899 [id number] FRANC CORTES NP [facility] [place] [facility] [address] [place] [address] 03/02/2023 12:02:41 03/02/2023 13:06:06 Degeneration of lumbar intervertebral disc 10722409 M51.36 Long-term current use of opiate analgesic drug 1285721611 99773 Z79.891 Chronic pain syndrome 37 5597023 G89.4 [id number] JAZLYN BERNABE NP [facility] [place] [facility] [address] [place] [address] 03/30/2023 13:15:36 03/30/2023 13:52:01 Degeneration of lumbar intervertebral disc 43077205 M51.36 Long-term current use of opiate analgesic drug 4732781613 04985 Z79.891 Chronic pain syndrome 37 5368686 G89.4 [id number] RADHA JOLLY NP [facility] [place] [facility] [address] [place] [address] 05/03/2023 11:29:53 05/03/2023 11:51:24 Degeneration of lumbar intervertebral disc 69720862 M51.36 Long-term current use of opiate analgesic drug 4255297089 72039 Z79.891 Chronic pain syndrome 37 6333911 G89.4 [id number] BRANDI VACA [facility] [place] [facility] [address] [place] [address] 06/01/2023 11:51:23 06/01/2023 12:41:07 Degeneration of lumbar intervertebral disc 75360683 M51.36 Long-term current use of opiate analgesic drug 4090985626 05035 Z79.891 Chronic pain syndrome 37 0520934 G89.4 Pain of ri ght knee region 3564959118 48653 M25.561 [id number] CHRISTIANA CARSON NP [facility] [address] [place] [address] 07/13/2023 14:41:35 07/13/2023 15:49:13 Degeneration of lumbar intervertebral disc 28005443 M51.36 Chronic pain syndrome 37 7589262 G89.4 Long-term drug therapy 575015841 Z79.899 Lumbar radiculopathy 128 399358 M54.16 [id number] BRANDI VACA [facility] [address] [place] [address] 08/09/2023 14:29:29 08/09/2023 15:14:27 Degeneration of lumbar intervertebral disc 12624730 M51.36 Long-term current use of opiate analgesic drug 2090960689 45612 Z79.891 Chronic pain syndrome 37 4498226 G89.4 Long-term drug therapy 461608565 Z79.899 [id number] MADELINE TERESA MD [facility] [address] [place] [address] 09/14/2023 13:06:42 09/14/2023 14:37:19 Chronic pain syndrome 744569309 G89.4 Degenerati on of lumbar intervertebral disc 80849724 M51.36 Lumbar dis c prolapse with radiculopathy 100685345 M51.16 [id number] CHRISTIANA CARSON NP [facility] [place] [facility] [address] [place] [address] 10/12/2023 14:37:55 10/12/2023 15:11:02 Degeneration of lumbar intervertebral disc 27154055 M51.36 Chronic pain syndrome 37 8514006 G89.4 Long-term drug therapy 109711131 Z79.899 [id number] CHRISTIANA YAMILETH, GRINDING MACHINE TENDER [facility] [place] [facility] [address] [address] 11/09/2023 13:16:42 11/09/2023 13:49:11 Degeneration of lumbar intervertebral disc 13944054 M51.36 Chronic pain syndrome 37 4125436 G89.4 Long-term drug therapy 359547823 Z79.899 [id number] CHRISTIANA CARSON, GRINDING MACHINE TENDER [facility] [place] [address] [place] [address] 12/07/2023 07:13:50 12/07/2023 15:03:50 Degeneration of lumbar intervertebral disc 34902408 M51.36 Chronic pain syndrome 37 7019427 G89.4 Long-term drug therapy 066792245 Z79.899 [id number] RADHA JOLLY, GRINDING MACHINE TENDER [facility] [address] [address] 01/10/2024 10:37:57 01/10/2024 11:47:38 Chronic pain syndrome 088485011 G89.4 Degenerati on of lumbar intervertebral disc 53300559 M51.36 Long-term drug therapy 629577735 Z79.899 [id number] BRANDI VACA [facility] [place] [facility] [address] [address] 02/07/2024 12:38:15 02/07/2024 14:03:52 Chronic pain syndrome 844421169 G89.4 Degenerati on of lumbar intervertebral disc 05794916 M51.36 Long-term drug therapy 572797495 Z79.899 Lumbar radiculopathy 128 M54.16 [id number] JAZLYN BERNABE, GRINDING MACHINE TENDER [facility] [place] [facility] [address] [address] 03/07/2024 13:22:27 03/07/2024 14:12:04 Chronic pain syndrome 358277146 G89.4 Degenerati on of lumbar intervertebral disc 61522958 M51.36 Long-term drug therapy 765706305 Z79.899 Lumbar radiculopathy 128 M54.16 [id number] FRANC CORTES NP [facility] [place] [facility] [address] [place] [address] 04/11/2024 13:43:26 04/11/2024 14:43:58 Degeneration of lumbar intervertebral disc 06776184 M51.36 Long-term current use of opiate analgesic drug 1990705539 46676 Z79.891 [id number] JAZLYN BERNABE NP [facility] [place] [facility] [address] [place] [address] 05/09/2024 13:00:42 05/09/2024 14:02:02 Degeneration of lumbar intervertebral disc 29797160 M51.36 Long-term drug therapy 422094931 Z79.899 Chronic pain 68145311 G8 9.29 [id number] FRANC CORTES NP [facility] [address] [place] [address] 06/05/2024 11:44:31 06/05/2024 14:19:08 Long-term current use of opiate analgesic drug 2883496873 50060 Z79.891 Degenerati on of lumbar intervertebral disc 93353143 M51.36 Body mass index 40+ - severely obese 256251963 Z68.43 [id number] FRANC CORTES NP [facility] [place] [facility] [address] [place] [address] 07/10/2024 12:20:14 07/10/2024 14:22:30 Degeneration of lumbar intervertebral disc 72779551 M51.36 Chronic pain syndrome 37 6382246 G89.4 Long-term current use of opiate analgesic drug 6409340788 99628 Z79.891 [id number] CHRISTIANA CARSON NP [facility] [place] [facility] [address] [place] [address] 08/22/2024 13:40:54 08/22/2024 14:15:49 Degeneration of lumbar intervertebral disc 04860718 M51.362 Chronic pain syndrome 37 6715663 G89.4 Long-term drug therapy 188732511 Z79.899 [id number] BRANDI VACA [facility] [place] [facility] [address] [place] [address] 09/18/2024 12:42:16 09/18/2024 14:12:49 Degeneration of lumbar intervertebral disc 17873395 M51.362 Chronic pain syndrome 37 2859258 G89.4 Long-term drug therapy 039523875 Z79.899 Health Concerns Section Related Observation LastModified by Organization Detai ls LastModified Time None Recorded Concern Status LastModified by Organization Details LastModified Time None Recorded Advance Directives Directive None Recorded Payers Encounter Date Sequence Insurance Name Policy Number Policy Whitfield Covered Member ID Whitfield Member ID Guarantor Name 05/09/2024 1 [place] Alexia Riggins [id number] Alexiajaime Núñez 06/05/2024 1 [place] Alexia Riggins [id number] Alexiajaime Núñez 07/10/2024 1 [place] Alexia Riggins [id number] Alexiajaime Núñez 08/22/2024 1 [place] Alexia Riggins [id number] Alexiajaime Núñez 09/18/2024 1 [place] Alexia Riggins [id number] Alexiajaime Núñez Notes Date Note Type Note Provider Name and Address Organization Details Recorded Time text/html Geological Aide ServicesReported bypatient.Notes:[place] [id number] Ms. Núñez was evaluated today for ongoing [...] prescribed opioid regimen. JAZLYN BERNABE NP [address] [place], [address], [facility] 05/09/2024 14:05:27 4 text/html Geological Aide ServicesReported bypatient.Date of Telephonic Abmyvfkkrumcci77/22/2022 via Telephone Subject/Reason for InterpretationIntake Telephonic/Video/In-Perso n InterpreterSpanish Geological Aide Jim ID# [id number] Panamanian speaking dovetailer Jair [id number] Mrs Núñez is a 49-year-old female who [...] accessed no discrepancies. FRANC CORTES NP [address] [place], [address], [facility] 06/05/2024 14:21:39 4 text/html Geological Aide ServicesReported bypatient.Date of Telephonic Oaxxqiqejkdsfb62/22/2022 via Telephone Subject/Reason for InterpretationIntake Telephonic/Video/In-Perso n InterpreterSpanish Geological Aide Jim ID# [id number] Panamanian speaking dovetailer Blanquita [id number] Wilton is a 49-year-old female who has [...] program accessed no discrepancies. 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 Núñez was seen today for ongoing [...] at today's visit. CHRISTIANA CARSON NP [address] [place], [address], [facility] 08/22/2024 14:16:23 text/html Patient is a 49 year old [...] with prescribed oxycodone, +THC. BRANDI VACA [address] [place], [address], [facility] 09/18/2024 13:21:00 OBGyn Episode No OBEpisode recorded.
--- OUTSIDE RECORDS SUMMARY | 2024-10-05 03:20 | XMS_ITS | Continuity of Care Document ---
Author Organization [facility], [facility] Address [address] [facility] [place] [address] Care Team Providers Care Career Resource Specialist Name Role Phone SHI, DENNIS Primary Care [...] inophen 10 mg-325 mg tablet 2023 024 [facility], [address] [place], [phone], 07/14/2024 11:17:24 Patient Targets Encounter Date Encounter [...] By Organization Details Last Modified Time 07/10/2024 [id number] The patient is encouraged to contact the [...] Organization Details Recorded Time Chronic pain syndrome 874676639 Active Gabby arias [facility] 22:38:18 Chronic pain following trauma 109964542 Pieter arias [facility] 22:38:47 Long-term current use of opiate analgesic drug 4595224718063 08 Pieter arias [facility] 22:38:56 Degeneratio n of lumbar interverteb ral disc 10523170 Pieter arias [facility] 22:39:03 Body mass index 40+ - severely obese 889321684 Active Gabby arias [facility] 22:39:24 Problem Notes None recorded. Procedures Surgical History Date Name Laterality Status Provider Name and Address Organization Details Recorded Time 09/14/20 23 ED - LESI Radiculitis completed MADELINE TERESA MD [address] [place], [address], [facility] 09/14/2023 17:16:09 09/14/20 23 PMC Procedure completed Tonya Salcedo [facility] 09/14/2023 14:35:33 08/16/20 cholecystectomy completed Gabby Rosa [facility] 08/13/2021 22:44:16 gastric bypass completed Gabby Rosa [facility] 08/13/2021 22:44:07 Imaging Results None recorded. [...] Updated DateTime 07/10/2024 157.48 cm 37.1 kg/m2 60228.25 g Katey Polanco [facility] 07/10/2024 13:51:02 Social History Question Answer Notes LastModified by Organizat ion Details LastModified Time Tobacco Smoking Status Former Smoker Gabby arias [facility] 08/13/2021 22:45:52 What Is Your Level [...] Diagnosis/Indication Diagnosis SNOMED-CT Code Diagnosis ICD10 Code [id number] FRANC ALDANA NP [facility] [address] [place] [address] 07/10/2024 12:20:14 07/10/2024 14:22:30 Degeneration of lumbar intervertebral disc 60101588 M51.36 Chronic pain syndrome 37 6238903 G89.4 Long-term current use of opiate analgesic drug 9912212853 26429 Z79.891 Health Concerns Section Related Observation LastModified by Organization Detai ls LastModified Time None Recorded Concern Status LastModified by Organization Details LastModified Time None Recorded Payers Encounter Date Sequence Insurance Name Policy Number Policy Whitfield Covered Member ID Whitfield Member ID Guarantor Name 07/10/2024 1 [place] [facility] Alexia Riggins [id number] Alexia Núñez Notes Date Note Type Note Provider Name and Address Organization Details Recorded Time 4 text/html Corporate Development Manager ServicesReported bypatient.Date of Telephonic Fsuiwoombhsepg65/22/2022 via Telephone Subject/Reason for InterpretationIntake Telephonic/Video/In-Perso leobardo InterpreterSele Corporate Development Manager Jim ID# [id number] Romanian speaking diplomatic interpreter Blanquita [id number] Wilton is a 49-year-old female who has [...] accessed no discrepancies. FRANC ALDANA NP [address] [place], [address], [facility] - [facility] 07/10/2024 14:23:11 OBGyn Episode No OBEpisode recorded.
--- OUTSIDE RECORDS SUMMARY | 2024-10-05 03:20 | XMS_ITS | Continuity of Care Document ---
Author Organization [facility], [facility] Address [address] [facility] [place] [address] Care Team Providers Care Hydrometer Finisher Name Role Phone DENNIS OSULLIVAN Primary Care Provider Assessment No assessment recorded. Plan of Treatment Reminders Order Date Submit Date Provider Last Modified By Organization Details Last Modified Time Details Appointments Clinic Visit 15 min 2023 12:00P M Cyndi Aldana NP Not available Not available Not available Lab drug screen, 14 drugs (detecti med), urine 2023 024 NEELA [facility], [address], [address], 09/01/2024 16:07:18 Referral None recorded . Procedures None recorded . Surgeries None recorded . Imaging None recorded . Medication Orders oxycodon e-acetam inophen 10 mg-325 mg tablet 2023 024 [email or web address] [facility], [address] [place] [address], [id number], 09/18/2024 12:54:01 Patient TargetsNo targets recorded. Patient Instructions Encounter Date Encounter Id Patient Instructions Last Modified By Organization Details Last Modified Time 08/22/2024 [id number] The patient is encouraged to contact the clinic if there are any concerns regarding medication management or follow-up care. Patient is in agreement to plan of care that was discussed today and all questions or concerns were answered to her satisfaction. [email or web address] Not available 08/22/2024 08:50:51 Reason for Referral None Reported. Problems Name Problem SNOMED Code Status Onset Date Resolution Date Notes Provider Name and Address Organization Details Recorded Time Chronic pain syndrome 374427391 Active Gabby arias 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 22:38:47 Long-term current use of opiate analgesic drug 4944138072581 08 [facility] Degeneratio n of lumbar interverteb ral disc 87067318 [facility]:39[facility]03 Body mass index 40+ - severely obese 825935371 [facility]24 Problem Notes None recorded. Procedures Surgical History Date Name Laterality Status Provider Name and Address Organization Details Recorded Time 09/14/20 23 ED - LESI Radiculitis completed MADELINE TERESA MD [address] [place] [address], [id number] 09/14/2023 17:16:09 09/14/20 23 PMC Procedure completed Tonya Salcedo [facility] 09/14/2023 14:35:33 08/16/20 19 cholecystectomy completed Gabby Rosa [facility] 08/13/2021 22:44:16 [facility] 22:44:07 Imaging Results None recorded. [...] Updated DateTime 08/22/2024 157.48 cm 37.1 kg/m2 66728.25 g Ghislaine Rascon [facility] 08/22/2024 13:53:45 Social History Question Answer Notes LastModified by Front [employer] Details LastModified Time Tobacco Smoking Status Former Smoker Gabby arias [facility] 08/13/2021 22:45:52 What Is Your [...] Diagnosis/Indication Diagnosis SNOMED-CT Code Diagnosis ICD10 Code [id number] CHRISTIANA CARSON NP [facility] [address] [place] [address] 08/22/2024 13:40:54 08/22/2024 14:15:49 Degeneration of lumbar intervertebral disc 85130564 M51.362 Chronic pain syndrome 37 4209768 G89.4 Long-term drug therapy 648368996 Z79.899 Health Concerns Section Related Observation LastModified by Organization Detai ls LastModified Time None Recorded Concern Status LastModified by Organization Details LastModified Time None Recorded Payers Encounter Date Sequence Insurance Name Policy Number Policy Whitfield Covered Member ID Whitfield Member ID Guarantor Name 08/22/2024 1 [place] [facility] [address] [address] Alexia Riggins [id number] Alexia Núñez Notes Date Note Type Note Provider Name and Address Organization Details Recorded Time 08/22/2024 text/html Finance Lecturer ServicesReported bypatient.Notes:Kailey cox edge roller Pravin #[id number] utilized for today's visit Ms. Núñez was [...] at today's visit. CHRISTIANA CARSON NP [address] [place], [address], [facility] 08/22/2024 14:16:23 OBGyn Episode No OBEpisode recorded.
== END 2024-10-04 20:31 | disposition home or self-care (01) ==
LOC: HO.MRI 20:30
PROVIDERS: PCP Family Medicine; Visit Provider Orthopaedic Surgery
DX: M25.511 Pain in right shoulder (principal)
CPT/HCPCS: 73221

== ENCOUNTER → 2024-11-22 11:24 | Outpatient (BNVA) | payer MEDICAID, SELFPAY | PROVIDERS: PCP Family Medicine; Visit Provider Orthopaedic Surgery | DX: M25.311 Other instability, right shoulder (principal) | CPT/HCPCS: 99212 ==

== ENCOUNTER 2025-02-01 16:10 | Outpatient (REF) | payer MEDICAID, SELFPAY ==
--- OUTSIDE RECORDS SUMMARY | 2025-02-01 18:00 | XMS_ITS | Encounter Summary ---
Author Organization [employer] Address [address] [facility] 7 [place] [address] Care Team Providers Care Marine Firer Name Role Phone Latoya Ruiz MD Primary Care Provider +1- [phone] Yoni Portillo MD Unavailable Irlanda Kaur Unavailable Encounter Details Date Type Department Care Team ([facility] Contact Info) Description 12/01/2022 Abstract [facility] [address] [place] [address] Latoya Ruiz MD [address] [place] [address] Social History Tobacco Use Types Packs/Day Years Used Date Smoking Tobacco: Former Cigarettes Comments Unknown Sex and Gender Information Value Date Recorded Sex Assigned at Female 08/24/2022 10:19 AM EDT Legal Sex Female 10:19 AM EDT Gender Identity Female 08/24/2022 10:19 AM EDT Sexual Orientation Straight 08/24/2022 10 :19 AM EDT COVID-19 Exposure Response Date Recorded In the last 10 days, have yo u been in contact with someone who was confirmed or suspected to have Coronavirus/COVID-19? No / Unsure 12/04/2022 8:57 AM EST documented as of this encounter Plan of Treatment Upcoming Encounters Date Type Department Care Team (Late Contact Info) Description 02/02/2025 10:00 AM EDT Office Visit [facility] [address] [place] [address] Smita Lopez OD [address] [place] [address] documented as of this encounter Procedures Procedure Name Priority Date/Time Associated Diagnosis Comments MAMMOGRAPHY Routine 12/08/2021 PAP SMEAR Routine 11/17/2019 12:00 AM EST documented in this encounter Results * Mammography (12/08/2021) HM Mammogram BIRADS 1 Anatomical Region Laterality Modality Other Historical Provider HEALTH MAINTENANCE Final Result * Pap Smear (11/17/2019 12:00 AM EST) Swab Historical Provider LAB CYTOLOGY ORDERABLES F inal Result IMAGING documented in this encounter Visit Diagnoses Not on filedocumented in this encounter Care Teams Marine Firer Relationship Specialty Start Date End Date Latoya Ruiz MD [address] [place] [address] PCP - General Family Medicine 10/25/18 Yoni Portillo MD [address] [place] [address] Dr [address] [place] [address] Orthopaedic Surgery 10/10/24 Irlanda Kaur [address] 3rd [place] [address] Gastroenterology 02/01/25 Eros Aldana NP [facility] Pain Medicine 10/26/24 documented as of this encounter
--- OUTSIDE RECORDS SUMMARY | 2025-02-01 18:00 | XMS_ITS | Clinical Summary ---
Author Organization [address] [facility] Address [address] [place] [address] Phone Care Team Providers Care Multi Media Specialist Name Role Phone Latoya Ruiz MD Primary Care Provider +1- [phone] Allergies No known active allergies Medications cholecalcifero l (VITAMIN D-3) 1,250 mcg (50,000 unit) capsule Take 1 Capsule by mouth once a week. 12/07/19 24 Active duloxetine HCl (CYMBALTA ORAL) Take 40 mg by mouth. Active ferrous sulfate 325 mg (65 mg iron) EC tablet Take 1 tablet by mouth daily. 06/05/20 21 Active ibuprofen (ADVIL,MOTRIN) 400 mg tablet Take 400 mg by mouth every 6 hours as needed. Active levothyroxine sodium (TIROSINT) 125 mcg capsule Take by mouth daily. 1 time a week takes 2 tablet daily Active naproxen (NAPROSYN) 500 mg tablet Take 500 mg by mouth 2 times daily (with meals). Active ondansetron (ZOFRAN) 4 mg tablet Take by mouth as needed. Active oxyCODONE-acet aminophen (LYNOX) 10-300 mg per tablet Take 1 tablet by mouth every 4 hours as needed. Active pancrelipase, Azf-Zout-Wnco, (CREON) 3,000-9,500- 15,000 unit capsule Take by mouth. Activ e polyethylene glycol (MIRALAX) 17 gram packet Take 1 Packet by mouth daily as needed for Constipation for up to 14 days. 05/26/20 22 Active wheat dextrin (BENEFIBER HEALTHY SHAPE ORAL) Take 4 g by mouth daily. 07/22/20 22 Active zinc glycinate 30 mg capsule Take 1 Capsule by mouth daily. 01/31/20 24 Active buPROPion XL (WELLBUTRIN XL) 150 mg 24 hr tabletIndicati ons:Obesity, class 2 TAKE 1 TABLET BY MOUTH EVERYDAY AT NOON 30 tablet 3 12/18/19 25 Active semaglutide (Wegovy) 0.25 mg/0.5 mL injection pen Inject 0.25 mg into the skin once a week. 02/29/20 24 025 Discontinued tirzepatide, weight loss, (Zepbound) 2.5 mg/0.5 mL injectionIndic ations:Class 3 severe obesity due to excess calories with body mass index (BMI) of 40.0 to 44.9 in adult, unspecified whether serious comorbidity present Inject 0.5 mL (2.5 mg total) under the skin every 7 (seven) days for 4 doses. 2 mL 01/09/20 25 025 Active Problems Problem Noted Date Diagnosed Date Class 2 severe obesity due t o excess calories with serious comorbidity and body mass index (BMI) of 37.0 to 37.9 in adult ([facility] V24, [facility] V28) 09/25/2024 Abnormal ECG 06/10/2022 Benign essential hypertension 06/10/2022 Chest pain 06/10/2022 Overview (09/25/2024): Last Assessment & Plan: Patient complains of chest discomfort after activity has an EKG that shows septal Q waves which may actually be secondary to LVH. Patient has some risk factors for coronary disease and abnormal EKG and is preop for gastric bypass on Wednesday. Patient is a stress echo I realize the patient is Noxen below walks very long will take what ever increased heart rate we can get from this patient also allow me to take a look at the LV to see if there is evidence of an infarct and to assess LV systolic function. If there is no evidence of an infarct and to have a decent increase in heart rate without ischemia and she can generate more than 4 METS of exercise treadmill and we might build to clear the patient for surgery on Wednesday. Chronic hepatitis C ([facility]/HCC V24, [facility] V28) 0 03/18/2022 Eating disorder, unspecified 03/18/2022 Overview (09/25/2024): Dr Natali Jarvis History of recurrent spontan eous , not currently 03/18/2022 Hypothyroidism 03/18/2022 Major depressive disorder, single episode, unspe cified 03/18/2022 Vitamin D deficiency 03/18/2022 Encounters Date Type Department Care Team Description 01/08/2025 1:00 PM EDT Office Visit Bariatric Surgery - [address] [place] [address] Laura Pérez MD Class 3 severe obesity due to excess calories with body mass index (BMI) of 40.0 to 44.9 in adult, unspecified whether serious comorbidity present (CMS/HCC V24, CMS/HCC V28) (Primary Dx) from Last 3 Months Immunizations Name Administration Dates Next Due Influenza trivalent, 0.5mL, preservative free (Fluarix; FluLaval; Fluzone) ages 6mo and older (Afluria) 3 years and older 08/06/2021 Surgical History Surgery Date Site/Laterality Comments LAPAROSCOPIC GASTRIC BANDING 2006 PROCEDURE: LAP ADJUSTABLE GASTRIC BAND CHOLECYSTECTOMY PROCEDURE: HISTORICAL CHOLECYSTECTOMY CHOLECYSTECTOMY PROCEDURE: HISTORICAL CHOLECYSTECTOMY Medical History Medical History Date Comments Fibromyalgia DX:Fibromyalgia Hypothyroidism DX:Hypothyroidis m History of recurrent spontan eous , not currently 03/18/2022 DX:History of recurre nt spontaneous , not currently Vitamin D deficiency 03/18/2022 DX:Vitamin D deficiency History of bariatric surgery 03/18/2022 DX: History of bariatric surgery; COMMENT: Gastric bypass 2006, [facility]. Major depressive disorder, s mellisa episode, unspecified 03/18/2022 DX:Major depressive disorder , single episode, unspecified Eating disorder, unspecified 03/18/2022 DX: Eating disorder, unspecified; COMMENT: Dr Natali Jarvis Chronic hepatitis C (CMS/HCC V24, CMS/HCC V28) 03/18/2022 DX:Chronic hepatitis C (HCC) Class 3 severe obesity due t o excess calories with serious comorbidity and body mass index (BMI) of 50.0 to 59.9 in adult 10/19/2019 DX:Class 3 severe obesity du e to excess calories with serious comorbidity and body mass index (BMI) of 50.0 to 59.9 in adult (HCC) Depression DX:Depression Hepatitis C infection DX:Hepatit is C infection Iron deficiency DX:Iron deficien cy Family History Medical History Relation Name Comments No Known Problems Brother 1 Dave No Known Problems Brother 2 Félix No Known Problems Brother 3 Abelardo No Known Problems Brother 4 Jair No Known Problems Brother 5 José Miguel No Known Problems Brother 6 Jonah No Known Problems Brother 7 Jose Armando Coronary artery disease Brother 8 Dennis Diabetes Father Dennis Hyperlipidemia Father Dennis No Known Problems Maternal Grandfather Mian No Known Problems Maternal Grandmother Ketty Diabetes Mother Cherry Coronary artery disease Paternal Grandfather Jair Other: fibromyalgia Sister Cherry Relation Name Status Comments Brother 1 Dave Alive Brother 2 Félix Alive Brother 3 Abelardo Alive Brother 4 Jair Alive Brother 5 José Miguel Alive Brother 6 Jonah Alive Brother 7 Jose Armando Alive Brother 8 Dennis Father Dennis Alive Maternal Grandfather Mian Maternal Grandmother Ketty Mother Cherry Paternal Grandfather Jair Paternal Grandmother Drea Sister Cherry Alive Social History Tobacco Use Types Packs/Day Years Used Date Smoking Tobacco: Never Smokeless Tobacco: Never Alcohol Use Standard Drinks/Week Comments No 0 (1 standard drink = 0.6 oz pur e alcohol) Comments Unknown Sex and Gender Information Value Date Recorded Sex Assigned at Not on file Legal Sex Female 3:25 AM EST Gender Identity Not on file Sexual Orientation Not on file Obstetrics History Last Filed Vital Signs Vital Sign Reading Time Taken Comments Blood Pressure 119/73 01/08/2025 1:09 PM EDT Pulse 65 01/08/2025 1:09 PM EDT Temperature 36.6 ??C (97.8 ??F) 01/08/2025 1:09 PM ED T Respiratory Rate - - Oxygen Saturation - - Inhaled Oxygen Concentration - - Weight 99.8 kg (220 lb) 01/08/2025 1:09 PM EDT Height 157.5 cm (5' 2 ) 01/08/2025 1:09 PM EDT Body Mass Index 40.24 01/08/2025 1:09 PM EDT Plan of Treatment Upcoming Encounters Date Type Department Care Team (Late st Contact Info) Description 02/19/2025 9:30 AM EDT Nutrition Bariatric Surgery - [address] [address] Livia Null, RD [address] [address] 05/15/2025 9:15 AM EDT Office Visit Bariatric Surgery - [place] [facility] [address] [place] [address] Laura Pérez MD [address] [id number] Health Maintenance Due Date Last Done Comments Breast Cancer Screening 1975 Pneumococcal Vaccine: Pediatrics (0 to 5 Years) and At-Risk Patients (6 to 64 Years) (2 of 2 - PCV) 07/12/2013 07/12/2012, 07/12/2012 Colorectal Cancer Screening: Colonoscopy 10/03/2022 HIV Screening 10/03/2022 Hepatitis C Screening 10/03/2022 Social Influencers of Health Screening 10/03/2022 Cervical Cancer Screening: Pap Smear 11/17/2022 11/17/2019 Hypertension/CHF/CAD Annual BMP Blood Test 02/24/2024 02/23/2023 COVID-19 Vaccine ( season) 2024 05/20/2022, 2021, 02/14/2021 Depression Screening 01/18/2025 01/19/2024 Influenza Vaccine (Season Ended) 2025 12/21/2023, 08/14/2022, 08/06/2021, Additional history exists DTaP,Tdap,and Td Vaccines (2 - Td or Tdap) 04/02/2027 04/02/2017 Cholesterol Screening (Lipid Panel) 01/18/2029 01/19/2024, 06/03/2021 Hepatitis A Vaccines Aged Out 07/12/2012, 05/19/20 07 No longer eligible based on patient's age to complete this topic Hepatitis B Vaccines Completed 07/12/2012, 05/19/2007, 11/19/2006, Additional history exists HIB Vaccines Aged Out No longer eligi ble based on patient's age to complete this topic HPV Vaccines Aged Out No longer eligi ble based on patient's age to complete this topic IPV Vaccines Aged Out No longer eligi ble based on patient's age to complete this topic MMR Vaccines Aged Out No longer eligi ble based on patient's age to complete this topic Meningococcal ACWY Vaccine Aged Out N o longer eligible based on patient's age to complete this topic Meningococcal B Vaccine Aged Out No l onger eligible based on patient's age to complete this topic RSV Immunization Patients Under 20 months Aged Out No longer eligible based on patient's age to complete this topic Varicella Vaccines Aged Out No longer eligible based on patient's age to complete this topic Procedures Procedure Name Priority Date/Time Associated Diagnosis Comments ANNUAL BMP BLOOD TEST Routine 02/23/2023 LIPID PANEL Routine 06/03/2021 from Last 3 Months or Most Recently Relevant to Health Maintenance Results * Annual BMP Blood Test (02/23/2023) Annual BMP Blood Test Abstracted Historical Provider HEALTH MAINTENANCE Final Result * (ABNORMAL) Lipid panel (06/03/2021) LDL/HDL Ratio 3 0 - 4 Triglycerides 56 0 - 150 mg/dL Cholesterol 196 0 - 200 mg/dL HDL 77 >=40 mg/dL LDL Cholesterol 108(A) 0 - 100 mg/dL Blood Venous blood specimen / Unknown Historical Provider LAB BLOOD ORDERABLES Sabrina l Result from Last 3 Months or Most Recently Relevant to Health Maintenance Insurance MEDICAID - [place] Care Teams Multi Media Specialist Relationship Specialty Start Date End Date Sara, MD Latoya [address] [place] [id number] PCP - General 07/25/10
--- OUTSIDE RECORDS SUMMARY | 2025-02-01 18:00 | XMS_ITS | Encounter Summary ---
Author Organization [employer] Address [address] [facility] 7t [place] [address] Care Team Providers Care Director Trial Name Role Phone Latoya Ruiz MD Primary Care Provider +1- [phone] Yoni Portillo MD Unavailable Irlanda Kaur Unavailable Reason for Visit * Reason Comments Med Refill Encounter Details Date Type Department Care Team (Late st Contact Info) Description 02/27/2024 Refill [facility] MEDICINE [address] [place], [place] [phone] Latoya Ruiz MD [address] [place], [place] [phone] Vitamin D deficiency Social History Tobacco Use Types Packs/Day Years Used Date Smoking Tobacco: Never Smokeless Tobacco: Never Alcohol Use Standard Drinks/Week Comments Yes 0 (1 standard drink = 0.6 oz pur e alcohol) social Depression Answer Date Recorded Patient Health Questionnaire-9 Score 13 01/19/2024 Patient Health Questionnaire-9 Score 13 01/19/2024 Last PHQ-9: Questionnaire Data Not on file 0 01/19/2024 Housing Stability Answer Date Recorded What is your housing situation today? I have akash vega 08/11/[address] you li ve. Do you have problems with any of the following? None of the above 08/11/2023 Food Insecurity Answer Date Recorded Within the past 12 months, y ou worried that your food would run out before you got money to buy more: Never True 08/11/2023 Within the past 12 months,th e food you bought just didn't last and you didn't have enough money to get more: Never True Transportation Answer Date Recorded In the past 12 months, has l ack of transportation kept you from medical appts, meetings, work or from getting things needed for daily living? No 08/11/2023 Utilities Answer Date Recorded In the past 12 months, has t he electric, gas, oil or water company threatened to shut off services in your home? No 08/11/2023 Depression Answer Date Recorded Patient Health Questionnaire-2 Score 6 01/19/2024 Comments No Sex and Gender Information Value Date Recorded Sex Assigned at Female 08/24/2022 10:19 AM EDT Legal Sex Female 10:19 AM EDT Gender Identity Female 08/24/2022 10:19 AM EDT Sexual Orientation Straight 08/24/2022 10 :19 AM EDT documented as of this encounter Plan of Treatment Upcoming Encounters Date Type Department Care Team (Late st Contact Info) Description 02/02/2025 10:00 AM EDT Office Visit [facility] OPTOMETRY [address] [place], [place] [phone] John, Smita, OD [address] [place] [address] documented as of this encounter Goals Goal Patient Goal Type Associated Problems Recent Progress Patient-Stated? Author Blood Pressure < 140/90 Blood Pressure 124/73(2024 10:54 AM EDT) No Calli Katz Record your blood pressure once per day Blood Pressure No Calli Katz documented as of this encounter Visit Diagnoses Diagnosis Vitamin D deficiency documented in this encounter Additional Health Concerns Assessment Noted Time PHQ-9 Depression Total Score: 13 024 10:50 AM EDT documented as of this encounter Care Teams Director Trial Relationship Specialty Start Date End Date Latoya Ruiz MD [address] [place] [address] PCP - General Family Medicine 10/25/18 Yoni Portillo MD [address] [place] [address] [place] [address] Orthopaedic Surgery 10/10/24 Irlanda Kaur [address] 3rd [place] [address] Gastroenterology 02/01/25 Eros Aldana NP [facility] Pain Medicine 10/26/24 documented as of this encounter
--- OUTSIDE RECORDS SUMMARY | 2025-02-01 18:01 | XMS_ITS | Encounter Summary ---
Author Organization [facility] [employer] Address [address] [place] [address] Care Team Providers Care Tamper Operator Name Role Phone Latoya Ruiz MD Primary Care Provider [phone] Yoni Portillo MD Unavailable Irlanda Kaur Unavailable Reason for Referral * Imaging (Routine) - Closed Specialty Diagnoses / Procedures Referred By Julián robert Referred To Contact Radiology Diagnoses Screening mammogram for breast cancer Procedures BI Mammogram Screening Tomosynthesis Bilateral Latoya Ruiz MD [address] [place] [address] Phone: tel: fax: [address] Phone: tel: fax: Referral ID Status Reason Start Date Expiration Date Visits Re quested Visits Authorized [id number] Closed 02/01/2025 02/01/2026 1 1 * Consultation (Routine) - Authorized Specialty Diagnoses / Procedures Referred By Julián robert Referred To Contact Family Medicine Diagnoses Fibromyalgia Latoya Ruiz MD [address] [place] [address] Phone: tel: fax: Referral ID Status Reason Start Date Expiration Date Visits Requested Visits Authorized [id number] Authorized Consult and Treat 02/01/2025 02/01/2026 1 1 Reason for Visit * Reason Comments Annual Exam Encounter Details Date Type Department Care Team (Late st Contact Info) Description 02/01/2025 10:45 AM EDT Office Visit [facility] [address] [place] [address] Latoya Ruiz MD [address] [place] [address] Fixed dilated pupil (Primary Dx); Inguinal lymphadenopathy; Benign essential hypertension; Fibromyalgia; Hypothyroidism, unspecified type; Transaminitis; Vitamin D deficiency; Iron deficiency; Chronic right shoulder pain; Chronic pain syndrome; Chronically on opiate therapy; Moderate episode of recurrent major depressive disorder (CMS/HCC); Hx of gastric bypass; Hx of abnormal cervical Pap smear; Bacterial vaginosis; Abnormal CT scan; Colon cancer screening; Class 2 severe obesity due to excess calories with serious comorbidity and body mass index (BMI) of 39.0 to 39.9 in adult (CMS/HCC); Dietary counseling; Exercise counseling; Counseling and coordination of care; Encounter for immunization; Screening mammogram for breast cancer; Routine screening for STI (sexually transmitted infection); Ambulates with cane; Other specified health status; Encounter for hepatitis C screening test for low risk patient Social History Tobacco Use Types Packs/Day Years Used Date Smoking Tobacco: Never Smokeless Tobacco: Never Alcohol Use Standard Drinks/Week Comments Yes 0 (1 standard drink = 0.6 oz pur e alcohol) social Depression Answer Date Recorded Patient Health Questionnaire-9 Score 25 02/01/2025 Patient Health Questionnaire-9 Score 25 02/01/2025 Last PHQ-9: Questionnaire Data Not on file 0 02/01/2025 Housing Stability Answer Date Recorded What is your housing situation today? I have akash vega 01/22/[address] you li ve. Do you have problems with any of the following? None of the above 01/22/2025 Food Insecurity Answer Date Recorded Within the past 12 months, y ou worried that your food would run out before you got money to buy more: Never True 01/22/2025 Within the past 12 months,th e food you bought just didn't last and you didn't have enough money to get more: Never True Transportation Answer Date Recorded In the past 12 months, has l ack of transportation kept you from medical appts, meetings, work or from getting things needed for daily living? No 01/22/2025 Utilities Answer Date Recorded In the past 12 months, has t he electric, gas, oil or water company threatened to shut off services in your home? No 01/22/2025 Depression Answer Date Recorded Patient Health Questionnaire-2 Score 6 02/01/2025 Internet Access Answer Date Recorded Internet Access Q1 No 02/01/2025 Internet Access Q2 Not on file 02/01/2025 Comments No Sex and Gender Information Value Date Recorded Sex Assigned at Female 08/24/2022 10:19 AM EDT Legal Sex Female 10:19 AM EDT Gender Identity Female 08/24/2022 10:19 AM EDT Sexual Orientation Straight 08/24/2022 10 :19 AM EDT documented as of this encounter Last Filed Vital Signs Vital Sign Reading Time Taken Comments Blood Pressure 124/73 02/01/2025 10:54 AM EDT Pulse 67 02/01/2025 10:54 AM EDT Temperature - - Respiratory Rate 16 02/01/2025 10:54 AM EDT Oxygen Saturation - - Inhaled Oxygen Concentration - - Weight 98.9 kg (218 lb) 02/01/2025 10:54 AM EDT Height - - Body Mass Index 39.87 02/28/2024 11:12 AM EDT documented in this encounter Progress Notes * Latoya Riuz MD - 02/01/2025 10:45 AM EDT Subjective Alexia is a 49 y.o. female with past medical history of fibromyalgia, hypothyroidism, inguinal lymphadenopathy, lower extremity edema, chronic pain syndrome, and hypertension who presents tothe office today for chronic medical conditions and comprehensive annual evaluation. Pt reports she has a lot of pain everywhere and recently had a ground level fall. She notes pain all over her body with worsening of her chronic pain and fibromyalgia. Discussed [facility] and pt is interested in referral. Agrees to PAP today. Desires within the next year:no Brith control: none Breast concerns: none Menopausal symptoms negative for: hot flashes, night sweats, urinary incontinence and vaginal dryness. Social History Tobacco: denied Drugs: none Alcohol: No Sexuality: Denies current sexual activity Suicide/Depression: The patient denies any present symptoms of depression or anxiety. Review of Systems Constitutional: Negative for fatigue, fever and unexpected weight change. Respiratory: Negative for cough. Cardiovascular: Negative for chest pain. Gastrointestinal: Negative for abdominal pain. Genitourinary: Negative for difficulty urinating. Current Outpatient Medications: cholecalciferol (Vitamin D-3) 25 MCG (1000 UT) capsule, TAKE 1 TABLET BY MOUTH EVERY DAY, Disp: 90 capsule, Rfl: 3 Diclofenac Sodium 1 % gel, APPLY 1 APPLICATION TOPICALLY IF NEEDED EACH DAY (SHOULDER PAIN)., Disp:100 g, Rfl: 0 DULoxetine (Cymbalta) [address] capsule, TAKE 1 CAPSULE BY MOUTH EVERYDAY AT NOON, Disp: 90 capsule,Rfl: 3 levothyroxine (Synthroid) 125 MCG tablet, Take 1 tablet (125 mcg) by mouth before breakfast., Disp:30 tablet, Rfl: 11 Lidocaine 5 % cream, Apply topically bid, Disp: 30 g, Rfl: 3 Multiple Vitamin (multivitamin) tablet, Take 1 tablet by mouth Once per day., Disp: 90 tablet, Rfl:3 ofloxacin (Ocuflox) 0.3 % ophthalmic solution, Administer 1 drop into the left eye 4 times daily for 10 days., Disp: 5 mL, Rfl: 0 oxyCODONE-acetaminophen (Percocet) 10-325 MG tablet, Take 1 tablet by mouth every 8 (eight) hours if needed., Disp: , Rfl: Zinc 30 MG capsule, TAKE 1 TABLET BY MOUTH EVERYDAY AT NOON, Disp: 90 capsule, Rfl: 0 metroNIDAZOLE (Metrogel) 0.75 % vaginal gel, Insert one applicator into vagina at bedtime for 7 nights, Disp: 45 g, Rfl: 0 No Known Allergies Past Medical History: Diagnosis Date Abnormal CT scan 09/04/2023 CT scan done for question of lymphadenopathy dated 08/31/2023 reveals Question annular lesion at therectosigmoid. Recommend correlation with colonoscopy. CT faxed to [facility] and new referral placed. Brad by Bertha Mercedes 12/21/[address] fax [address] to make sure they are aware. Acquired hypothyroidism Benign essential hypertension 01/08/2022 -Blood pressure is at goal -Continue lifestyle modifications -Continue current medications Chiari malformation type I (CMS/HCC) 06/2022 on MRI, mild Chronic pain syndrome 06/14/2023 Followed by pain management with Jessica Salcedo NP at [facility] and on choric opoid PRESCRIBED BY PAIN MANAGEMENT. 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 MRI/MRA on 06/2022 showed a mild Chiari 1 malformation and mild to moderate no specific white matter changes. Referred to multiple optho but they declined recommending neurology evaluation. Referred to neurology 07/2022. Pt given number to call neurology 06/16/2023. Seen by Dr. 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 -co-testing July 2018 ASCUS with High risk HPV positive. Seen by Diane -colpo was done Dr. Bowden 08/2018 came back CONNIE 1 -pap done 11/17/2019 was NIL HPV. ASCUS HPV+ -Outgoing call placed to [facility] for plan of care on 11/2019 Lyubov who stated that patient has a f/u appointment on 12/24 Hx of gastric bypass 06/14/2023 She had bariatric surgery in 2006 -Gastric revision done 06/12/22 -Weight was 334.6 on 11/2021 -Dr. Gilliland is her GI doctor Hypertension Hypothyroidism 12/14/2012 No results found for: TSH Continue levothyroxine 112mcg daily. Iron deficiency anemia Major depressive disorder Morbid obesity (CMS/HCC) Transaminitis 06/17/2023 Lab Results Component Value Date AST 86 (H) 01/19/2024 ALT 127 (H) 01/19/2024 ALT 18 08/14/2022 ALP74 01/19/2024 DIRECTBILIRU 0.3 01/19/2024 -hx hep C positive, cleared spontaneously -Abd US 07/15/23 1. Diffuse increase in echogenicity of the liver is characteristic of primary hepatocellular disease, Vitamin D deficiency Past Surgical History: Procedure Laterality Date CHOLECYSTECTOMY GASTRIC BYPASS Family History Problem Relation Name Age of Onset Diabetes Mother Diabetes Father Diabetes Brother No results found for: PAPPA HM Mammogram Date Value Ref Range Status 12/08/2021 BIRADS 1 Final Previous paps: 11/17/2019 was NIL HPV. ASCUS HPV+ Objective Visit Vitals BP 124/73 (BP Location: Left arm, Patient Position: Sitting, BP Cuff Size: Large adult) Pulse 67 Resp 16 Wt 218 lb (98.9 kg) BMI 39.87 kg/m?? OB Status Postmenopausal Smoking Status Never BSA 2.08 m?? Physical Exam Constitutional: Appearance: Normal appearance. HENT: Head: Normocephalic. Right Ear: Tympanic membrane normal. Left Ear: Tympanic membrane normal. Mouth/Throat: Pharynx: Oropharynx is clear. Eyes: Pupils: Pupils are equal, round, and reactive to light. Cardiovascular: Rate and Rhythm: Normal rate and regular rhythm. Heart sounds: Normal heart sounds. Pulmonary: Effort: Pulmonary effort is normal. Breath sounds: Normal breath sounds. Chest: Breasts: Right: Normal. Left: Normal. Abdominal: General: Abdomen is flat. Palpations: There is no mass. Tenderness: There is no abdominal tenderness. Genitourinary: General: Normal vulva. Vagina: Vaginal discharge (white, fishy odor.) present. Cervix: Normal. Uterus: Normal. Musculoskeletal: General: Normal range of motion. Cervical back: Normal range of motion and neck supple. Lymphadenopathy: Cervical: No cervical adenopathy. Upper Body: Right upper body: No supraclavicular, axillary or pectoral adenopathy. Left upper body: No supraclavicular, axillary or pectoral adenopathy. Skin: General: Skin is warm and dry. Neurological: General: No focal deficit present. Mental Status: She is alert. Psychiatric: Behavior: Behavior normal. Abstract on 04/07/2024 Component Date Value Colonoscopy 04/07/2024 Normal Orders Only on 04/04/2024 Component Date Value Urine 04/04/2024 NEGATIVE Orders Only on 01/19/2024 Component Date Value Free T4 (Free Thyroxine) 01/19/2024 0.60 (L) Office Visit on 01/19/2024 Component Date Value Hemoglobin A1c 01/19/2024 4.5 Estimated Average Glucose 01/19/2024 82 Bilirubin, Total 01/19/2024 0.7 Bilirubin, Direct 01/19/2024 0.3 Aspartate Amino Transfer* 01/19/2024 86 (H) Alanine Aminotransferase 01/19/2024 127 (H) Total Protein 01/19/2024 6.4 (L) Albumin Level 01/19/2024 3.5 Alkaline Phosphatase 01/19/2024 74 Magnesium 01/19/2024 1.9 Triglycerides 01/19/2024 48 Cholesterol 01/19/2024 170 LDL Cholesterol Calculat* 01/19/2024 93 HDL Cholesterol 01/19/2024 68 Sodium 01/19/2024 140 Potassium 01/19/2024 4.6 Chloride 01/19/2024 108 Carbon Dioxide 01/19/2024 30 (H) Anion Gap 01/19/2024 7 (L) Urea Nitrogen (BUN) 01/19/2024 17 (H) Creatinine, Serum 01/19/2024 0.75 Estimated Glomerular Kin* 01/19/2024 >60 Glucose 01/19/2024 83 Calcium 01/19/2024 9.1 TSH reflex Free T4 01/19/2024 64.16 (H) White Blood Count 01/19/2024 4.2 (L) Red Blood Count 01/19/2024 3.51 (L) Hemoglobin 01/19/2024 11.8 (L) Hematocrit 01/19/2024 35.2 (L) Mean Corpuscular Volume 01/19/2024 100.3 (H) Mean Corpuscular Hemoglo* 01/19/2024 33.6 (H) Mean Corpuscular HGB Conc 01/19/2024 33.5 Red Cell Distribution Wi* 01/19/2024 12.2 Platelet Count 01/19/2024 160 Mean Platelet Volume 01/19/2024 10.9 Neutrophils Percent Auto 01/19/2024 63.7 Imm Gran Pct Auto 01/19/2024 0.5 (H) Lymphocytes Percent Auto 01/19/2024 29.1 Monocytes Percent Auto 01/19/2024 6.7 Eosinophils Percent Auto 01/19/2024 0.0 Basophils Percent Auto 01/19/2024 0.0 NRBC Pct Auto 01/19/2024 0.0 Neutrophils Absolute Auto 01/19/2024 2.7 Imm Gran Abs Auto 01/19/2024 0.02 Lymphocytes Absolute Au* 01/19/2024 1.2 Monocytes Absolute Auto 01/19/2024 0.3 Eosinophils Absolute Auto 01/19/2024 0.0 Basophils Absolute Auto 01/19/2024 0.0 NRBC Abs Auto 01/19/2024 0.000 Vitamin D 25-OH Total 01/19/2024 25.8 (L) Ferritin 01/19/2024 64 Vitamin B12 01/19/2024 399 Anti Nuclear Antibody Sc* 01/19/2024 NEGATIVE SALINA Titer 01/19/2024 TNP SALINA Pattern 01/19/2024 TNP SALINA TITER 2 (REF LAB) 01/19/2024 TNP SALINA Pattern 2 01/19/2024 TNP SALINA TITER 3 01/19/2024 TNP SALINA PATTERN 3 01/19/2024 TNP C Reactive Protein 01/19/2024 <0.04 Erythrocyte Sedimentatio* 01/19/2024 12 Rheumatoid Factor 01/19/2024 <13.0 Problem List Items Addressed This Visit Fixed dilated pupil - Primary Left pupil, present since prior to 2021. MRI/MRA on 06/2022 showed a mild Chiari 1 malformation and mild to moderate no specific white matterchanges. Referred to multiple optho but they declined recommending neurology evaluation. Referred to neurology 07/2022. Pt given number to call neurology 06/16/[address] Erin Ballard MD 03/14/24 diagnosed with Adie's pupil recommending follow up 6 weeks with nurse practioner -Encouraged follow-up 07/28/25 Inguinal lymphadenopathy -Ultrasound 06/16/23 done for new onset LLE edema shows no evidence of deep venous thrombosis, no significant popliteal fossa cyst. Multiple prominent left groin nodes, the largest of which measures 2.8 x 0.5 x 2.1 cm. -CT abd pelvis ordered 06/17/23 -CBC, LDH, HIV, hep C VL, CG/CHL, RPR, CRP ordered 06/17/23 CT scan done for question of lymphadenopathy dated 08/31/2023 reveals Question annular lesion at therectosigmoid. Recommend correlation with colonoscopy. CT faxed to [facility] and new referral placed. Sseen by Bertha Mercedes 12/21/[address] fax [address] to make sure they are aware. -Colonoscopy with Leda Fournier, 04/07/24 done, showed hemorrhoids prep poor, needs repeat 2 yrs. Benign essential hypertension -Blood pressure is at goal -Continue lifestyle modifications -Continue current medications Fibromyalgia Pt was previously followed by rheumatology and pain management. She had no improvement with gabapentin. Rx Cymbalta 20mg daily, restarted 07/2021. I would not recommend Lyrica with opiate due to riskof respiratory depression. Pt has chronic pain syndrome. Multiple work up are normal. I explained different treatment strategies for fibromyalgia. There is moderate evidence for efficacy for aerobic exercise, cognitive behavioral therapy, patienteducation, and group therapy. There is also evidence for acupuncture, hypnotherapy, biofeedback andbalneotherapy. There is some weaker evidence for chiropractic therapy, massage, electrotherapy and u ltrasound. There is no evidence that trigger point injections or opioids are beneficial in fibromyalgia. Pharmacologic options include muscle relaxants, gabapentin, pregabalin, and duloxetine, but are thelest effective of all strategies. Pt was counseled on the importance of exercise, adequate sleep, control of depression and or anxiety and stress management. Inflammatory/rheumatology labs rechecked 01/19/24. -referred to chronic pin group 02/01/25 Relevant Orders Referral to [facility] Hypothyroidism Lab Results Component Value Date TSH 64.16 (H) 01/19/2024 Continue levothyroxine 112mcg daily. -ordered repeat level 02/01/25 Transaminitis Lab Results Component Value Date AST 86 (H) 01/19/2024 ALT 127 (H) 01/19/2024 ALT 18 08/14/2022 ALP 74 01/19/2024 DIRECTBILIRU 0.3 01/19/2024 -hx hep C positive, cleared spontaneously -Abd US 07/15/23 1. Diffuse increase in echogenicity of the liver is characteristic of primary hepatocellular disease, possibly due to hepatic steatosis and further limits visualization. 2. Gallbladder surgically absent. 3. Severely limited visualization. CT scan should be considered for better visualization. -CT 10/13/23 LIVER, GALLBLADDER, AND BILIARY TREE: The liver is stable in appearance with hypoplastic left hepatic lobe. The liver is normal in size. Normal attenuation of the liver parenchyma. No focal liver lesion or biliary ductal dilatation. The gallbladder is surgically absent. Common bile duct measures 0.8 cm in diameter which is in upper limits of normal for size. No radiopaque filling defects are noted in the common bile duct. -hx Hep C ab positive -hep C VL ordered 06/30/23 negative -referred to GI 01/26/24 -Ordered repeat liver enzymes 02/01/25 Relevant Orders Hepatic Function Panel Vitamin D, 25-Hydroxy, Total, Immunoassay Hepatitis C Antibody with Reflex to HCV, RNA, Quantitative, Real-Time PCR Vitamin D deficiency Lab Results Component Value Date [id number] 25.8 (L) 01/19/2024 -ordered repeat level 02/01/25 Relevant Orders TSH with Reflex to Free T4 CBC auto differential Iron deficiency Lab Results Component Value Date FERRITIN 64 01/19/2024 HGB 11.8 (L) 01/19/2024 HGB 11.1 (L) 10/22/2023 HGB 12.4 08/14/2022 HGB 12.7 08/06/2021 HEMATOCRIT 36.7 08/14/2022 HEMATOCRIT 38.7 08/06/2021 -ordered repeat panel 02/01/25 Chronic right shoulder pain -followed by Dr. Portillo at [facility] -10/04/24 MR/MR shoulder RT Mild supraspinatus tendinosis. 2.6 x 1.5 cm full- thickness tear of the supraspinatus and anterior fibers infraspinatus. Additional articular surface fraying/partial tear of the tendon proximal to this. Mild infraspinatus tendinosis. Conanxrk-hnkx-gyedr partial tear of the distal subscapularis tendon measuring 2.4 cm mL. Biceps tendinosis with fraying/partial tearing. Moderate acromioclavicular arthritis. Small glenohumeral joint effusion. -note from Dr. Portillo 11/23/24 right shoulder pain and weakness due to impingement syndrome, acromioclavicular joint arthritis and a small full-thickness rotator cuff tear. I had a lengthy discussion with the patient regarding the treatment options. The patient wishes to hold off on surgery for now. She does understand that the tear can become larger in size and even irreparable over time. She will continue with her olvki-wd-vzgbio exercises to prevent stiffness. She will contact me prior to her follow-up appointment in 6 months should her symptoms worsen in any way. -referred to chronic pin group 02/01/25 Chronic pain syndrome Followed by pain management with Jessica Salcedo NP at [facility] and on choric opoid PRESCRIBED BY PAIN MANAGEMENT. -referred to chronic pin group 02/01/25 Chronically on opiate therapy On chronic opiates with [facility] pain management Cyndi Aldana NP -referred to chronic pin group 02/01/25 Major depressive disorder -Improved. Continue with therapist. Declines psychiatrist. Restart Cymbalta at 20mg daily 07/2021 -On waiting list for therapist and psychiatrist reported on 01/19/2024 -Saw behavioral health on 01/19/2024 Hx of gastric bypass She had bariatric surgery in 2006 -Gastric revision done 06/12/22 -Weight was 334.6 on 11/2021 -Dr. Gilliland is her GI doctor Relevant Orders Magnesium Lipid Panel, Standard Basic Metabolic Panel Hx of abnormal cervical Pap smear -ASCUS with High risk HPV positive 03/2017 s/p colpo 03/2017 which was unremarkable with no biopsies taken. -co-testing July 2018 ASCUS with High risk HPV positive. Seen by Diane -colpo was done Dr. Bowden 08/2018 came back CONNIE 1 -pap done 11/17/2019 was NIL HPV. ASCUS HPV+ -Outgoing call placed to [facility] for [place] of care on 11/2019 Lyubov who stated that patient has a f/u appointment on 01/19/2020. Plan of care will be discussed on that visit. Pt believes she missed it. Will ask women's health to assist with setting up. -PAP done 02/01/25, will await results. -STI testing offered, PreP offered -Preventative care and harm reduction discussed Relevant Orders Pap Smear Bacterial vaginosis Bacterial vaginosis noted during PAP. 02/01/25 -prescribed treatment/oral metronidazole. -this is not sexually transmitted so her/his/their partner doesn't need treatment. -avoid douching, as well as scented bath or body products. Wash vulva with water only. -complete medication as prescribed and schedule follow-up if symptoms persist/recur. -abstain from sex during treatment. Relevant Medications metroNIDAZOLE (Metrogel) 0.75 % vaginal gel Abnormal CT scan CT scan done for question of lymphadenopathy dated 08/31/2023 reveals Question annular lesion at therectosigmoid. Recommend correlation with colonoscopy. CT faxed to [facility] and new referral placed. Brad by Bertha Mercedes 12/21/[address] Will fax [address] to make sure they are aware. Colonoscopy with Leda Fournier, 04/07/24 done, showed hemorrhoids prep poor, needs repeat 2 yrs. Colon cancer screening Colonoscopy with Leda Fournier, 04/07/24 done, showed hemorrhoids prep poor, needs repeat 2 yrs. Class 2 severe obesity due to excess calories with serious comorbidity and body mass index (BMI) of39.0 to 39.9 in adult ([facility]) Discussed weight, diet, exercise with patient in relation to health conditions. Used motivational interviewing to illicit change talk and established initial goals with patient. Relevant Orders Hemoglobin A1c Dietary counseling Dietary Recommendations: Fruits, vegetables, whole grains, protein foods, and fat-free or low-fat dairy products are healthychoices. Eat different types of protein foods in your diet. This can include seafood, lean meats, poultry, beans, peas, lentils, nuts, seeds, soy products, and eggs. Limit foods and beverages higher in added sugars, saturated fat, and sodium. Exercise counseling Exercise Recommendations: At least 150 minutes of moderate-intensity physical activity per week, or an equivalent combinationof moderate- and vigorous-intensity activity. Counseling and coordination of care Pt in [facility] with [facility] [phone], admitted 08/24/23. 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: [employer] [facility] Screening mammogram for breast cancer 02/15/24 BI-RADS 1 - Negative -ordered repeat mammogram 02/01/25 Relevant Orders FLU VACCINE TRIVALENT (Fluarix) 6 mo + BI Mammogram Screening Tomosynthesis Bilateral Ambulates with cane Other specified health status -next comprehensive annual evaluation due after 02/01/25 -eye care facilitated by [facility] -dental home is [facility] -health care proxy filed on 02/28/2024 Other Visit Diagnoses Encounter for immunization Relevant Orders FLU VACCINE TRIVALENT (Fluarix) 6 mo + Routine screening for STI (sexually transmitted infection) Relevant Orders STI testing add on (NG, CT, Trich) Encounter for hepatitis C screening test for low risk patient Relevant Orders HIV-1/2 Antigen and Antibodies, Fourth Generation, with Reflexes Syphilis Screen Pap with HPV testing done STI testing offered, PreP offered Preventative care and harm reduction discussed Annual Evaluation -Normal growth and development. -Anticipatory guidance discussed. -Preventative care / harm reduction discussed. Follow up in about 1 year (around 02/01/2026) for physical. I, Yenny Salinas, am serving as a scribe to document services personally performed by Dr. Schneider, based on the patient's response to questions by provider and providers statements to me. documented in this encounter Miscellaneous Notes * Assessment & Plan Note - Yenny Salinas - 02/01/2025 11:45 AM EDTAssociated Problem(s): Fixed dilated pupil Left pupil, present since prior to 2021. MRI/MRA on 06/2022 showed a mild Chiari 1 malformation and mild to moderate no specific white matterchanges. Referred to multiple optho but they declined recommending neurology evaluation. Referred to neurology 07/2022. Pt given number to call neurology 06/16/2023. Seen by Dr. Erin Ballard MD 03/14/24 diagnosed with Adie's pupil recommending follow up 6 weeks with nurse practioner -Encouraged follow-up 07/28/25 * Assessment & Plan Note - Yenny Salinas - 02/01/2025 11:42 AM EDTAssociated Problem(s): Inguinal lymphadenopathy -Ultrasound 06/16/23 done for new onset LLE edema shows no evidence of deep venous thrombosis, no significant popliteal fossa cyst. Multiple prominent left groin nodes, the largest of which measures 2.8 x 0.5 x 2.1 cm. -CT abd pelvis ordered 06/17/23 -CBC, LDH, HIV, hep C VL, CG/CHL, RPR, CRP ordered 8/24/23 CT scan done for question of lymphadenopathy dated 08/31/2023 reveals Question annular lesion at therectosigmoid. Recommend correlation with colonoscopy. CT faxed to [facility] and new referral placed. Brad by Bertha Mercedes 12/21/[address]oc[address] fax [address] to make sure they are aware. -Colonoscopy with Leda Fournier, 04/07/24 done, showed hemorrhoids prep poor, needs repeat 2 yrs. * Assessment & Plan Note - Yenny Salinas - 02/01/2025 11:41 AM EDTAssociated Problem(s): Hypothyroidism Lab Results Component Value Date TSH 64.16 (H) 01/19/2024 Continue levothyroxine 112mcg daily. -ordered repeat level 02/01/25 * Assessment & Plan Note - Yenny Salinas - 02/01/2025 11:40 AM EDTAssociated Problem(s): Exercise counseling Exercise Recommendations: At least 150 minutes of moderate-intensity physical activity per week, or an equivalent combinationof moderate- and vigorous-intensity activity. * Assessment & Plan Note - Yenny Salinas - 02/01/2025 11:40 AM EDTAssociated Problem(s): Dietary counseling Dietary Recommendations: Fruits, vegetables, whole grains, protein foods, and fat-free or low-fat dairy products are healthychoices. Eat different types of protein foods in your diet. This can include seafood, lean meats, poultry, beans, peas, lentils, nuts, seeds, soy products, and eggs. Limit foods and beverages higher in added sugars, saturated fat, and sodium. * Assessment & Plan Note - Yenny Salinas - 02/01/2025 11:38 AM EDTAssociated Problem(s): Abnormal CT scan CT scan done for question of lymphadenopathy dated 08/31/2023 reveals Question annular lesion at therectosigmoid. Recommend correlation with colonoscopy. CT faxed to [facility] and new referral placed. Brad by Bertha Mercedes 12/21/[address]onsocpy [address] Will fax [address] to make sure they are aware. Colonoscopy with Leda Fournier, 04/07/24 done, showed hemorrhoids prep poor, needs repeat 2 yrs. * Assessment & Plan Note - ElenMeruser - 02/01/2025 11:36 AM EDTAssociated Problem(s): Vitamin D deficiency Lab Results Component Value Date [id number] 25.8 (L) 01/19/2024 -ordered repeat level 02/01/25 * Assessment & Plan Note - ElenMeruser - 02/01/2025 11:36 AM EDTAssociated Problem(s): Iron deficiency Lab Results Component Value Date FERRITIN 64 01/19/2024 HGB 11.8 (L) 01/19/2024 HGB 11.1 (L) 10/22/2023 HGB 12.4 08/14/2022 HGB 12.7 08/06/2021 HEMATOCRIT 36.7 08/14/2022 HEMATOCRIT 38.7 08/06/2021 -ordered repeat panel 02/01/25 * Assessment & Plan Note - ElenMeruser - 02/01/2025 11:36 AM EDTAssociated Problem(s): Transaminitis Lab Results Component Value Date AST 86 (H) 01/19/2024 ALT 127 (H) 01/19/2024 ALT 18 08/14/2022 ALP 74 01/19/2024 DIRECTBILIRU 0.3 01/19/2024 -hx hep C positive, cleared spontaneously -Abd US 07/15/23 1. Diffuse increase in echogenicity of the liver is characteristic of primary hepatocellular disease, possibly due to hepatic steatosis and further limits visualization. 2. Gallbladder surgically absent. 3. Severely limited visualization. CT scan should be considered for better visualization. -CT 10/13/23 LIVER, GALLBLADDER, AND BILIARY TREE: The liver is stable in appearance with hypoplastic left hepatic lobe. The liver is normal in size. Normal attenuation of the liver parenchyma. No focal liver lesion or biliary ductal dilatation. The gallbladder is surgically absent. Common bile duct measures 0.8 cm in diameter which is in upper limits of normal for size. No radiopaque filling defects are noted in the common bile duct. -hx Hep C ab positive -hep C VL ordered 06/30/23 negative -referred to GI 01/26/24 -Ordered repeat liver enzymes 02/01/25 * Assessment & Plan Note - Yenny Salinas - 02/01/2025 11:35 AM EDTAssociated Problem(s): Class 2 severe obesity due to excess calories with serious comorbidity and body mass index (BMI) of 39.0 to 39.9 in adult (CMS/HCC) Discussed weight, diet, exercise with patient in relation to health conditions. Used motivational interviewing to illicit change talk and established initial goals with patient. * Assessment & Plan Note - Yenny Salinas - 02/01/2025 11:34 AM EDTAssociated Problem(s): Bacterial vaginosis Bacterial vaginosis noted during PAP. 02/01/25 -prescribed treatment/oral metronidazole. -this is not sexually transmitted so her/his/their partner doesn't need treatment. -avoid douching, as well as scented bath or body products. Wash vulva with water only. -complete medication as prescribed and schedule follow-up if symptoms persist/recur. -abstain from sex during treatment. * Assessment & Plan Note - Yenny Salinas - 02/01/2025 11:31 AM EDTAssociated Problem(s): Major depressive disorder -Improved. Continue with therapist. Declines psychiatrist. Restart Cymbalta at 20mg daily 07/2021 -On waiting list for therapist and psychiatrist reported on 01/19/2024 -Saw behavioral health on 01/19/2024 * Assessment & Plan Note - Yenny Salinas - 02/01/2025 11:31 AM EDTAssociated Problem(s): Hx of gastric bypass She had bariatric surgery in 2006 -Gastric revision done 06/12/22 -Weight was 334.6 on 11/2021 -Dr. Gilliland is her GI doctor * Assessment & Plan Note - Yenny Salinas - 02/01/2025 11:31 AM EDTAssociated Problem(s): Hx of abnormal cervical Pap smear -ASCUS with High risk HPV positive 03/2017 s/p colpo 03/2017 which was unremarkable with no biopsies taken. -co-testing July 2018 ASCUS with High risk HPV positive. Seen by Diane -colpo was done Dr. Bowden 08/2018 came back CONNIE 1 -pap done 11/17/2019 was NIL HPV. ASCUS HPV+ -Outgoing call placed to [facility] [place] of care on 11/2019 Lyubov who stated that patient has a f/u appointment on 01/19/2020. Plan of care will be discussed on that visit. Pt believes she missed it. Will ask women's health to assist with setting up. -PAP done 02/01/25, will await results. -STI testing offered, PreP offered -Preventative care and harm reduction discussed * Assessment & Plan Note - Yenny Salinas - 02/01/2025 11:30 AM EDTAssociated Problem(s): Chronic pain syndrome Followed by pain management with Jessica Salcedo NP at [facility] and on choric opoid PRESCRIBED BY PAIN MANAGEMENT. -referred to chronic pin group 02/01/25 * Assessment & Plan Note - Yenny Salinas - 02/01/2025 11:30 AM EDTAssociated Problem(s): Benign essential hypertension -Blood pressure is at goal -Continue lifestyle modifications -Continue current medications * Assessment & Plan Note - Yenny Salinas - 02/01/2025 11:30 AM EDTAssociated Problem(s): Fibromyalgia Pt was previously followed by rheumatology and pain management. She had no improvement with gabapentin. Rx Cymbalta 20mg daily, restarted 07/2021. I would not recommend Lyrica with opiate due to riskof respiratory depression. Pt has chronic pain syndrome. Multiple work up are normal. I explained different treatment strategies for fibromyalgia. There is moderate evidence for efficacy for aerobic exercise, cognitive behavioral therapy, patienteducation, and group therapy. There is also evidence for acupuncture, hypnotherapy, biofeedback andbalneotherapy. There is some weaker evidence for chiropractic therapy, massage, electrotherapy and u ltrasound. There is no evidence that trigger point injections or opioids are beneficial in fibromyalgia. Pharmacologic options include muscle relaxants, gabapentin, pregabalin, and duloxetine, but are thelest effective of all strategies. Pt was counseled on the importance of exercise, adequate sleep, control of depression and or anxiety and stress management. Inflammatory/rheumatology labs rechecked 01/19/24. -referred to chronic pin group 02/01/25 * Assessment & Plan Note - Yenny Salinas - 02/01/2025 11:30 AM EDTAssociated Problem(s): Chronic right shoulder pain -followed by Dr. Portillo at [facility] -10/04/24 MR/MR shoulder RT Mild supraspinatus tendinosis. 2.6 x 1.5 cm full- thickness tear of the supraspinatus and anterior fibers infraspinatus. Additional articular surface fraying/partial tear of the tendon proximal to this. Mild infraspinatus tendinosis. Ubexlctd-xycn-pofwi partial tear of the distal subscapularis tendon measuring 2.4 cm mL. Biceps tendinosis with fraying/partial tearing. Moderate acromioclavicular arthritis. Small glenohumeral joint effusion. -note from Dr. Portillo 11/23/24 right shoulder pain and weakness due to impingement syndrome, acromioclavicular joint arthritis and a small full-thickness rotator cuff tear. I had a lengthy discussion with the patient regarding the treatment options. The patient wishes to hold off on surgery for now. She does understand that the tear can become larger in size and even irreparable over time. She will continue with her gvkor-dt-czlhyw exercises to prevent stiffness. She will contact me prior to her follow-up appointment in 6 months should her symptoms worsen in any way. -referred to chronic pin group 02/01/25 * Assessment & Plan Note - Yenny Salinas - 02/01/2025 11:29 AM EDTAssociated Problem(s): Other specified health status -next comprehensive annual evaluation due after 02/01/25 -eye care facilitated by [facility] -dental home is [facility] -health care proxy filed on 02/28/2024 * Assessment & Plan Note - Yenny Salinas - 02/01/2025 11:26 AM EDTAssociated Problem(s): Counseling and coordination of care Pt in [facility] with [employer] [phone], admitted 08/24/23. 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 * Assessment & Plan Note - Yenny Salinas - 02/01/2025 11:26 AM EDTAssociated Problem(s): Chronically on opiate therapy On chronic opiates with [facility] pain management Cyndi Aldana, TREND INVESTIGATOR -referred to chronic pin group 02/01/25 * Assessment & Plan Note - Yenny Salinas - 02/01/2025 11:26 AM EDTAssociated Problem(s): Breast screening (Deleted) 02/15/24 BI-RADS 1 - Negative -ordered repeat mammogram 02/01/25 * Assessment & Plan Note - Yenny Salinas - 02/01/2025 10:45 AM EDTAssociated Problem(s): Screening mammogram for breast cancer 02/15/24 BI-RADS 1 - Negative -ordered repeat mammogram 02/01/25 documented in this encounter Plan of Treatment Upcoming Encounters Date Type Department Care Team (Late st Contact Info) Description 02/02/2025 10:00 AM EDT Office Visit [facility] OPTOMETRY [address] [place] [address] Smita Lopez, OD [address] [place] [address] Scheduled Orders Name Type Priority Associated Diagnoses Orde r Schedule BI Mammogram Screening Tomosynthesis Bilateral Imaging Routine Screening mammogram for breast cancer Expected: 02/01/2025, Expires: 04/03/2026 Pap Smear Pathology and Cytology Routine Hx of abnormal cervical Pap smear Ordered: 02/01/2025 STI testing add on (NG, CT, Trich) Pathology and Cytology Routine Routine screening for STI (sexually transmitted infection) Ordered: 02/01/2025 Hemoglobin A1c Lab Routine Class 2 severe obesity due to excess calories with serious comorbidity and body mass index (BMI) of 39.0 to 39.9 in adult (CMS/HCC) Expected: 02/01/2025 (Approximate), Expires: 02/01/2026 Hepatic Function Panel Lab Routine Transaminitis Expected: 02/01/2025, Expires: 02/01/2026 Magnesium Lab Routine Hx of gastric bypass Expected: 02/01/2025, Expires: 02/01/2026 Lipid Panel, Standard Lab Routine Hx of gastric bypass Expected: 02/01/2025, Expires: 02/01/2026 Basic Metabolic Panel Lab Routine Hx of gastric bypass Expected: 02/01/2025, Expires: 02/01/2026 TSH with Reflex to Free T4 Lab Routine Vitamin D deficiency Expected: 02/01/2025 (Approximate), Expires: 02/01/2026 CBC auto differential Lab Routine Vitamin D deficiency Expected: 02/01/2025, Expires: 02/01/2026 Vitamin D, 25-Hydroxy, Total, Immunoassay Lab Routine Transaminitis Expected: 02/01/2025 (Approximate), Expires: 02/01/2026 HIV-1/2 Antigen and Antibodies, Fourth Generation, with Reflexes Lab Routine Encounter for hepatitis C screening test for low risk patient Expected: 02/01/2025 (Approximate), Expires: 02/01/2026 Syphilis Screen Lab Routine Encounter for hepatitis C screening test for low risk patient Expected: 02/01/2025 (Approximate), Expires: 02/01/2026 Hepatitis C Antibody with Reflex to HCV, RNA, Quantitative, Real-Time PCR Lab Routine Transaminitis Expected: 02/01/2025 (Approximate), Expires: 02/01/2026 Scheduled Referrals Name Type Priority Associated Diagnoses Orde r Schedule Referral to [facility] Outpatient Referral Routine Fibromyalgia Expected: 02/01/2025 (Approximate), Expires: 02/01/2026 documented as of this encounter Goals Goal Patient Goal Type Associated Problems Recent Progress Patient-Stated? Author Blood Pressure < 140/90 Blood Pressure 124/73(2024 10:54 AM EDT) No Calli Katz Record your blood pressure once per day Blood Pressure No Calli Katz documented as of this encounter Visit Diagnoses Diagnosis Fixed dilated pupil- Primary Inguinal lymphadenopathy Enlargement of lymph nodes Benign essential hypertension Essential hypertension, benign Fibromyalgia Unspecified myalgia and myositis Hypothyroidism, unspecified type Transaminitis Nonspecific elevation of levels of transaminase or lactic acid dehydrogenase (LDH) Vitamin D deficiency Iron deficiency Disorders of iron metabolism Chronic right shoulder pain Pain in joint, shoulder region Chronic pain syndrome Chronically on opiate therapy Moderate episode of recurrent major depressive disorder (CMS/HCC) Hx of gastric bypass Hx of abnormal cervical Pap smear Bacterial vaginosis Unspecified vaginitis and vulvovaginitis Abnormal CT scan Other nonspecific (abnormal) findings on radiological and other examinations of body structure Colon cancer screening Special screening for malignant neoplasms, colon Class 2 severe obesity due to excess calories with serious comorbidity and body mass index (BMI) of 39.0 to 39.9 in adult (CMS/HCC) Dietary counseling Dietary surveillance and counseling Exercise counseling Counseling and coordination of care Encounter for immunization Screening mammogram for breast cancer Routine screening for STI (sexually transmitted infection) Screening examination for venereal disease Ambulates with cane Other specified health status Encounter for hepatitis C screening test for low risk patient documented in this encounter Additional Health Concerns Assessment Noted Time PHQ-9 Depression Total Score: 25 025 11:13 AM EDT documented as of this encounter Care Teams Tamper Operator Relationship Specialty Start Date End Date Latoya Ruiz MD [address] [place] [address] PCP - General Family Medicine 10/25/18 Yoni Portillo MD [address] [place] [address] Orthopaedic Surgery 10/10/24 Irlanda Kaur [address] [place] [address] Gastroenterology 02/01/25 Eros Aldana NP [facility] Pain Medicine 10/26/24 documented as of this encounter
--- OUTSIDE RECORDS SUMMARY | 2025-02-01 18:01 | XMS_ITS | Encounter Summary ---
Author Organization [employer] Address [address] [facility] 7t [place] [address] Care Team Providers Care Contract Negotiation Specialist Name Role Phone Latoya Ruiz MD Primary Care Provider +1- [phone] Yoni Portillo MD Unavailable Irlanda Kaur Unavailable Reason for Visit * Reason Onset Date Comments Faxed mammogram screening 02/01/2025 Encounter Details Date Type Department Care Team (Late st Contact Info) Description 02/01/2025 Telephone [facility] MEDICINE [address] [place] [address] Dickson Garrido [place] Faxed mammogram screening Social History Tobacco Use Types Packs/Day Years [...] Description 02/02/2025 10:00 AM EDT Office Visit [facility] OPTOMETRY [address] [place] [address] John, Smita, OD [address] [place] [address] documented as of this encounter Goals Goal Patient Goal Type Associated Problems Recent Progress Patient-Stated? Author Blood Pressure < 140/90 Blood Pressure 124/73(2024 10:54 AM EDT) No Calli Katz Record your blood pressure once per day Blood Pressure No Calli Katz documented as of this encounter Visit Diagnoses Not on filedocumented in this encounter Additional Health Concerns Assessment Noted Time PHQ-9 Depression Total Score: 25 025 11:13 AM EDT documented as of this encounter Care Teams Contract Negotiation Specialist Relationship Specialty Start Date End Date Latoya Ruiz MD [address] [place] [address] PCP - General Family Medicine 10/25/18 Yoni Portillo MD [address] [place] [address] [place] [address] Orthopaedic Surgery 10/10/24 Irlanda Kaur [address] [place] [address] Gastroenterology 02/01/25 Eros Aldana NP [facility] Pain Medicine 10/26/24 documented as of this encounter
--- OUTSIDE RECORDS SUMMARY | 2025-02-01 18:01 | XMS_ITS | Encounter Summary ---
Author Organization [employer] Address [address] [place] [address] Care Team Providers Care Email Operations Manager Name Role Phone Latoya Ruiz MD Primary Care Provider +1- [phone] Yoni Portillo MD Unavailable Irlanda Kaur Unavailable Encounter Details Date Type Department Care Team (Late st Contact Info) Description 01/26/2024 Orders Only [facility] MEDICINE [address] [place] [address] Flor Brown, JOHNATHAN Social History Tobacco Use Types Packs/Day Years [...] Description 02/02/2025 10:00 AM EDT Office Visit [facility] OPTOMETRY [address] [place] [address] John, Smita, OD [address] [place] [address] documented as of this encounter Visit Diagnoses Not on filedocumented in this encounter Additional Health Concerns Assessment Noted Time PHQ-9 Depression Total Score: 13 024 10:50 AM EDT documented as of this encounter Care Teams Email Operations Manager Relationship Specialty Start Date End Date Latoya Ruiz MD [address] [place] [address] PCP - General Family Medicine 10/25/18 Yoni Portillo MD [address] [place] [address] [address] [place] [address] Orthopaedic Surgery 10/10/24 Irlanda Kaur [address] [place] [address] Gastroenterology 02/01/25 Eros Aldana NP [facility] Pain Medicine 10/26/24 documented as of this encounter
--- OUTSIDE RECORDS SUMMARY | 2025-02-01 18:01 | XMS_ITS | Encounter Summary ---
Author Organization [employer] Address [address] [place] [address] 7 [place] [address] Care Team Providers Care Wood Pile Driver Operator Name Role Phone Latoya Ruiz MD Primary Care Provider +1- [phone] Yoni Portillo MD Unavailable Irlanda Kaur Unavailable Reason for Visit * Reason Comments Med Refill Encounter Details Date Type Department Care Team (Late st Contact Info) Description 03/17/2024 Refill [facility] MEDICINE [address] [place], [place] [phone] Cristal Sun MD [address] [place], [place] [phone] Moderate episode of recurrent major depressive disorder (CMS/HCC) Social History Tobacco Use Types Packs/Day Years [...] Description 02/02/2025 10:00 AM EDT Office Visit [facility] OPTOMETRY [address] [place], [place] [id number] John, Smita, OD [address] [place] [address] documented as of this encounter Goals Goal Patient Goal Type Associated Problems Recent Progress Patient-Stated? Author Blood Pressure < 140/90 Blood Pressure 124/73(2024 10:54 AM EDT) No Calli Katz Record your blood pressure once per day Blood Pressure No Calli Katz documented as of this encounter Visit Diagnoses Diagnosis Moderate episode of recurrent major depressive disorder (CMS/HCC) documented in this encounter Additional Health Concerns Assessment Noted Time PHQ-9 Depression Total Score: 13 024 10:50 AM EDT documented as of this encounter Care Teams Wood Pile Driver Operator Relationship Specialty Start Date End Date Latoya Ruiz MD [address] [place] [address] PCP - General Family Medicine 10/25/18 Yoni Portillo MD [address] [place] [address] Dr [address] [place] [address] Orthopaedic Surgery 10/10/24 Irlanda Kaur [address] [place] [address] Gastroenterology 02/01/25 Eros Aldana NP [facility] Pain Medicine 10/26/24 documented as of this encounter
--- OUTSIDE RECORDS SUMMARY | 2025-02-01 18:01 | XMS_ITS | Encounter Summary ---
Author Organization [employer] Address [address] [place] [address] Care Team Providers Care Galvanometer Assembler Name Role Phone Latoya Ruiz MD Primary Care Provider +1- [phone] Yoni Portillo MD Unavailable Irlanda Kaur Unavailable Encounter Details Date Type Department Care Team (Latest Contact Info) Description 02/01/2025 Travel Social History Tobacco Use Types Packs/Day Years [...] Description 02/02/2025 10:00 AM EDT Office Visit [facility] OPTOMETRY [address] [place] [address] John, Smita, OD [address] [place] [address] documented as of this encounter Goals Goal [...] documented as of this encounter Care Teams Galvanometer Assembler Relationship Specialty Start Date End Date Latoya Ruiz MD [address] [place] [address] PCP - General Family Medicine 10/25/18 Yoni Portillo MD [address] [place] [address] [address] [place] [address] Orthopaedic Surgery 10/10/24 Irlanda Kaur [address] [place] [address] Drive [address] [place] [address] Gastroenterology 02/01/25 Eros Aldana NP [facility] Pain Medicine 10/26/24 documented as of this encounter
--- OUTSIDE RECORDS SUMMARY | 2025-02-01 18:01 | XMS_ITS | Encounter Summary ---
Author Organization [employer] Address [address] [facility] [address] [place] [address] Care Team Providers Care Support Services Specialist Name Role Phone Latoya Ruiz MD Primary Care Provider +1- [phone] Yoni Portillo MD Unavailable Encounter Details Date Type Department Care Team (Latest Contact Info) Description 01/29/2025 Travel Social History Tobacco Use Types Packs/Day [...] Recorded Patient Health Questionnaire-2 Score 6 01/19/2024 Internet Access Answer Date Recorded Internet Access Q1 Yes 01/22/2025 Internet Access Q2 Not on file 01/22/2025 Comments No Sex and Gender Information Value [...] 10:00 AM EDT Office Visit [facility] OPTOMETRY [address] [place] [address] John, Megan, OD [address] [place] [address] documented as of this encounter Goals Goal [...] documented as of this encounter Care Teams Support Services Specialist Relationship Specialty Start Date End Date Latoya Ruiz MD [address] [place] [address] PCP - General Family Medicine 10/25/18 Yoni Portillo MD [address] [place] [address] [place] [address] Orthopaedic Surgery 10/10/24 Eros Aldana NP [facility] Pain Medicine 10/26/24 documented as of this encounter
--- OUTSIDE RECORDS SUMMARY | 2025-02-01 18:01 | XMS_ITS | Clinical Summary ---
Author Organization [employer] Address [address] [facility] [address] [place] [address] Care Team Providers Care Leasing Associate Name Role Phone Latoya Ruiz MD Primary Care Provider [phone] Yoni Portillo MD Unavailable Irlanda Kaur Unavailable Allergies No known active allergies Medications * This document contains information received from the source organization and may not represent a complete record from that organization. oxyCODONE-acetam inophen (Percocet) 10-325 MG tablet Take 1 tablet by mouth every 8 (eight) hours if needed. 3 Active cholecalciferol (Vitamin D-3) 25 MCG (1000 UT) capsuleIndicatio ns:Vitamin D deficiency TAKE 1 TABLET BY MOUTH EVERY DAY 90 capsule 3 4 Active Diclofenac Sodium 1 % gelIndications:C hronic pain syndrome APPLY 1 APPLICATION TOPICALLY IF NEEDED EACH DAY (SHOULDER PAIN). 100 g 4 Active levothyroxine (Synthroid) 125 MCG tabletIndication s:Hypothyroidism , unspecified type Take 1 tablet (125 mcg) by mouth before breakfast. 30 tablet 11 4 02/28/20 25 Active Lidocaine 5 % creamIndications :Right shoulder pain, unspecified chronicity Apply topically bid 30 g 3 4 Active Multiple Vitamin (multivitamin) tabletIndication s:Hx of gastric bypass Take 1 tablet by mouth Once per day. 90 tablet 3 4 Active DULoxetine (Cymbalta) [address] capsuleIndicatio ns:Moderate episode of recurrent major depressive disorder (CMS/HCC) TAKE 1 CAPSULE BY MOUTH EVERYDAY AT NOON 90 capsule 3 4 Active Zinc 30 MG capsuleIndicatio ns:Hx of gastric bypass TAKE 1 TABLET BY MOUTH EVERYDAY AT NOON 90 capsule 5 Active ofloxacin (Ocuflox) 0.3 % ophthalmic solution Administer 1 drop into the left eye 4 times daily for 10 days. 5 mL 5 02/09/20 25 Active metroNIDAZOLE (Metrogel) 0.75 % vaginal gelIndications:B acterial Vaginosis Insert one applicator into vagina at bedtime for 7 nights 45 g 5 Active Active Problems Problem Noted Date Diagnosed Date Class 2 severe obesity due t o excess calories with serious comorbidity and body mass index (BMI) of 39.0 to 39.9 in adult 02/01/2025 Overview (02/01/2025): Discussed weight, diet, exercise with patient in relation to health conditions. Used motivational interviewing to illicit change talk and established initial goals with patient. Assessment & Plan (02/01/2025 11:35 AM EDT): Discussed weight, diet, exercise with patient in relation to health conditions. Used motivational interviewing to illicit change talk and established initial goals with patient. Dietary counseling 02/01/2025 Assessment & Plan (02/01/2025 11:40 AM EDT): Dietary Recommendations: Fruits, vegetables, whole grains, protein foods, and fat-free or low-fat dairy products are healthy choices. Eat different types of protein foods in your diet. This can include seafood, lean meats, poultry, beans, peas, lentils, nuts, seeds, soy products, and eggs. Limit foods and beverages higher in added sugars, saturated fat, and sodium. Exercise counseling 02/01/2025 Assessment & Plan (02/01/2025 11:40 AM EDT): Exercise Recommendations: At least 150 minutes of moderate-intensity physical activity per week, or an equivalent combination of moderate- and vigorous-intensity activity. 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 CABIN AGENT note -MM per pt done in 2022 normal -per pt to have another in 12/2023 ---request record to [facility] -colonoscopy- pt has apt for colonoscopy for screening today -vaccines hep Ax2, HepBx4, Flu vaccine today ,COVID x3, today offer but refuse last booster , tdap 2016 -labs x annual exam --will RTC in fasting -pt agreed to have STI testing including HIV to have for baseline,will f labs for anemia and thyroid dx Assessment & Plan (02/01/2025 11:28 AM EDT): >>ASSESSMENT AND PLAN FOR BREAST SCREENING WRITTEN ON 01/19/2024 9:57 AM BY PARAM SHETH -referral for mammogram 01/19/2024 Assessment & Plan (02/01/2025 11:29 AM EDT): 02/15/24 BI-RADS 1 - Negative -ordered repeat mammogram 02/01/25 Bacterial vaginosis 02/01/2025 Overview (02/01/2025): Bacterial vaginosis noted during PAP. 02/01/25 -prescribed treatment/oral metronidazole. -this is not sexually transmitted so her/his/their partner doesn't need treatment. -avoid douching, as well as scented bath or body products. Wash vulva with water only. -complete medication as prescribed and schedule follow-up if symptoms persist/recur. -abstain from sex during treatment. Assessment & Plan (02/01/2025 11:34 AM EDT): Bacterial vaginosis noted during PAP. 02/01/25 -prescribed treatment/oral metronidazole. -this is not sexually transmitted so her/his/their partner doesn't need treatment. -avoid douching, as well as scented bath or body products. Wash vulva with water only. -complete medication as prescribed and schedule follow-up if symptoms persist/recur. -abstain from sex during treatment. Chronically on opiate therapy 12/21/2024 Overview (02/01/2025): On chronic opiates with [facility] pain management Cyndi Aldana NP -referred to chronic pin group 02/01/25 Assessment & Plan (02/01/2025 11:26 AM EDT): On chronic opiates with [facility] pain management Cyndi Aldana NP -referred to chronic pin group 02/01/25 Counseling and coordination of care 03/01/2024 Overview (03/01/2024): Pt in Group Adult Foster Care with [employer] [phone], admitted 08/24/23. integrated campaign manager Fatou GONZALEZ nurse: Joy Ventura RN Direct Environmental Emergencies Planner: [employer] [facility] Assessment & Plan (02/01/2025 11:26 AM EDT): Pt in Group Adult Foster Care with [employer] [phone], admitted 08/24/23. integrated campaign manager Fatou GONZALEZ nurse: Joy Ventura RN Direct Environmental Emergencies Planner: [facility] Polypharmacy 01/19/2024 Ambulates with cane 01/19/2024 Major depressive disorder 01/11/2024 Overview (01/19/2024): -Improved. Continue with therapist. Declines psychiatrist. Restart Cymbalta at 20mg daily 07/2021 -On waiting list for therapist and psychiatrist reported on 01/19/2024 -Saw behavioral health on 01/19/2024 Assessment & Plan (02/01/2025 11:31 AM EDT): -Improved. Continue with therapist. Declines psychiatrist. Restart Cymbalta at 20mg daily 07/2021 -On waiting list for therapist and psychiatrist reported on 01/19/2024 -Saw behavioral health on 01/19/2024 Assessment & Plan (01/19/2024 11:40 AM EDT): During IBH Consult Alexia presenting with depressed mood, loss of interests/pleasure , changes in sleep difficulty falling asleep, thoughts of worthlessness or guilt, fatigue/loss of energy, inappropriate guilt , hopelessness, worthlessness , difficulty concentrating; for a period of 18+ mo, for all symptoms in the context of family issues and illness or family illness. Depression associated with ongoing chronic pain. 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 PLAN: (check all that apply) Continue with current services (defined as services in the past 12 months) . Referral already in placed for OP and psychopharmacology with [facility] Assessment & Plan (01/19/2024 9:59 AM EDT): -Improved. Continue with therapist. Declines psychiatrist. Restart Cymbalta at 20mg daily 07/2021 -On waiting list for therapist and psychiatrist reported on 01/19/2024 -Saw behavioral health on 01/19/2024 Assessment & Plan (01/11/2024 1:56 PM EDT): During IBH Consult Alexia presenting with depressed mood, loss of interests/pleasure , change in appetite or weight overeating, trouble concentrating, fatigue/loss of energy, inappropriate guilt , hopelessness, difficulty concentrating; for a period of 18+ mo, for all symptoms in the context of divorce/separation and illness or family illness. Severe symptoms are interfering with her daily activities and stopping her from performing at her best. PLAN: (check all that apply) New/Additional Services needed PCP management On-site non-integrated services Off-site services for Behavioral Health Integration Plan Internal Follow up with [facility] External OP therapy referral Patient Self Plan Patient to utilize skills provided in intervention , Patient to reach out to [facility] team as needed, and Patient to engage in OP therapy Assessment & Plan (12/21/2023 6:29 PM EST): PHQ9: 9, no SI, BIGG 22 , no no hallucinations Denies coral but easily irritability - referred today --- ideally will need to f in the outpt w therapist and psychiatrist -continue wellbutrin and start low dose cymbalta -f up w PCP in 4 weeks Assessment & Plan (06/16/2023 9:25 AM EDT): Improved. Continue with therapist. Declines psychiatrist. Restart Cymbalta at 20mg daily 07/2021 Chronic right shoulder pain 12/21/2023 Overview (02/01/2025): -followed by Dr. Portillo at [facility] -10/04/24 MR/MR shoulder RT Mild supraspinatus tendinosis. 2.6 x 1.5 cm full-thickness tear of the supraspinatus and anterior fibers infraspinatus. Additional articular surface fraying/partial tear of the tendon proximal to this. Mild infraspinatus tendinosis. Yheuvktx-ikbd-viodb partial tear of the distal subscapularis tendon [...] over time. She will continue with her ftgtj-zd-xgllvo exercises to prevent stiffness. She will contact me prior to her follow-up appointment in 6 months should her symptoms worsen in any way. -referred to chronic pin group 02/01/25 Assessment & Plan (02/01/2025 11:30 AM EDT): -followed by Dr. Portillo at [facility] -10/04/24 MR/MR shoulder RT Mild supraspinatus tendinosis. 2.6 x 1.5 cm full-thickness tear of the supraspinatus and anterior fibers infraspinatus. Additional articular surface fraying/partial tear of the tendon proximal to this. Mild infraspinatus tendinosis. Aldvyfne-cdnt-edmbl partial tear of the distal subscapularis tendon [...] over time. She will continue with her brgxv-ix-mzsqul exercises to prevent stiffness. She will contact me prior to her follow-up appointment in 6 months should her symptoms worsen in any way. -referred to chronic pin group 02/01/25 Assessment & Plan (12/21/2023 6:28 PM EST): Pt states having ongoing right shoulder pain for the past 4 months,described as intense , no trauma,was going to gym beefore thinks maybe associated w it,denies having any swelling, increase skin temp nor erythema ,states pain radiated to her arm arm ,also describes hx of CTS not using brace and has numbness sensation in her right hand. -gave written prescription for wrist brace for CTS -referred for right shoulder XR -diclofenac topical prn -referred to PT -if no improvement w above tx will need to be eval for MRI and ortho referral Abnormal CT scan 09/04/2023 Overview (02/01/2025): CT scan done for question of lymphadenopathy dated 08/31/2023 reveals Question annular lesion at the rectosigmoid. Recommend correlation with colonoscopy. CT faxed to [facility] and new referral placed. Sseen by Bertha Mercedes 12/21/[address] to make sure they are aware. -Colonoscopy with Leda Fournier, 04/07/24 done, showed hemorrhoids prep poor, needs repeat 2 yrs. Assessment & Plan (02/01/2025 11:40 AM EDT): CT scan done for question of lymphadenopathy dated 08/31/2023 reveals Question annular lesion at the rectosigmoid. Recommend correlation with colonoscopy. CT faxed to [facility] and new referral placed. Sseen by Bertha Mercedes 12/21/23 colonsocpy [address] Will fax [address] to make sure they are aware. Colonoscopy with DJose Fournier, 04/07/24 done, showed hemorrhoids prep poor, needs repeat 2 yrs. Assessment & Plan (02/28/2024 11:33 AM EDT): CT scan done for question of lymphadenopathy dated 08/31/2023 reveals Question annular lesion at the rectosigmoid. Recommend correlation with colonoscopy. CT faxed to [facility] and new referral placed. Sseen by Bertha Merecdes 12/21/[address]ocpy [address] Will fax [address] to make sure they are aware. Transaminitis 06/17/2023 Overview (02/01/2025): Lab Results Component Value Date AST 86 [...] GI 01/26/24 -Ordered repeat liver enzymes 02/01/25 Assessment & Plan (02/01/2025 11:36 AM EDT): Lab Results Component Value Date AST 86 [...] GI 01/26/24 -Ordered repeat liver enzymes 02/01/25 Assessment & Plan (02/28/2024 11:36 AM EDT): Lab Results Component Value Date AST 86 [...] ordered 06/30/23 negative -referred to GI 01/26/24 Assessment & Plan (01/26/2024 10:44 AM EDT): Lab Results Component Value Date AST 86 [...] ordered 06/30/23 negative -referred to GI 01/26/24 Inguinal lymphadenopathy 06/17/2023 Overview (02/01/2025): -Ultrasound 06/16/23 done for new onset LLE [...] dated 08/31/2023 reveals Question annular lesion at the rectosigmoid. Recommend correlation with colonoscopy. CT faxed to [facility] and new referral placed. Sseen by Bertha Mercedes 12/21/[address] to make sure they are aware. -Colonoscopy with Leda Fournier, 04/07/24 done, showed hemorrhoids prep poor, needs repeat 2 yrs. Assessment & Plan (02/01/2025 11:42 AM EDT): -Ultrasound 06/16/23 done for new onset LLE [...] dated 08/31/2023 reveals Question annular lesion at the rectosigmoid. Recommend correlation with colonoscopy. CT faxed to [facility] and new referral placed. Sseen by Bertha Mercedes 12/21/[address] to make sure they are aware. -Colonoscopy with Leda Fournier, 04/07/24 done, showed hemorrhoids prep poor, needs repeat 2 yrs. Assessment & Plan (02/28/2024 11:32 AM EDT): -Ultrasound 06/16/23 done for new onset LLE edema shows no evidence of deep venous thrombosis, no significant popliteal fossa cyst. Multiple prominent left groin nodes, the largest of which measures 2.8 x 0.5 x 2.1 cm. -CT abd pelvis ordered 06/17/23 -CBC, LDH, HIV, hep C VL, CG/CHL, RPR, CRP ordered 06/17/23 Lower extremity edema 06/16/2023 Overview (06/17/2023): Presented 06/16/23 with LE Edema L>R for about 2 weeks. Echocardiogram on 06/11/2022 was normal. -Suspect lymphatic obstruction from possible pelvic pannis in the setting in venous insufficiency and possibly lipidema given unilateral pain pain. At that time no evidence of fluid overload, feet not involved. -Ultrasound 06/16/23 shows no evidence of deep venous thrombosis, no significant popliteal fossa cyst. Multiple prominent left groin nodes, the largest of which measures 2.8 x 0.5 x 2.1 cm. -work up for inguinal lymphadenopathy initiated 06/17/23 -Receommend purchasing compression socks, avoiding sodium, and keep legs elevated. Assessment & Plan (02/28/2024 11:32 AM EDT): Presented 06/16/23 with LE Edema L>R for about 2 weeks. Echocardiogram on 06/11/2022 was normal. -Suspect lymphatic obstruction from possible pelvic pannis in the setting in venous insufficiency and possibly lipidema given unilateral pain pain. At that time no evidence of fluid overload, feet not involved. -Ultrasound 06/16/23 shows no evidence of deep venous thrombosis, no significant popliteal fossa cyst. Multiple prominent left groin nodes, the largest of which measures 2.8 x 0.5 x 2.1 cm. -work up for inguinal lymphadenopathy initiated 06/17/23 -Receommend purchasing compression socks, avoiding sodium, and keep legs elevated. Assessment & Plan (12/21/2023 6:28 PM EST): Nonpitting edema -reported as chronic w no concerning findings on exam Seems likely lymphatic in nature -previous leg US neg for DVT -referred today to vascular Assessment & Plan (06/16/2023 9:33 AM EDT): -No evidence of fluid overload, feet not involved. -Echocardiogram on 06/11/2022 was normal. -Suspect lymphatic instruction fram pannis in the setting in venous insufficiency and possibly lipidema given unilateral pain pain. -Will check stat US for DVT. -Receommend purchasing compression socks, avoiding sodium, and keep legs elevated. -Will check TSH although exam not concerning for Myxedema. -Modify wells score for DVT is 1. -Pt agrees with the plan Severe obesity (BMI >= 40) 06/14/2023 Assessment & Plan (12/21/2023 6:30 PM EST): -Advised pt to improve diet and exercise,discussed healthy life style -s/p bariatric surgery last year 6, not currently 06/14/2023 Chronic pain syndrome 06/14/2023 Overview (02/01/2025): Followed by pain management with Jessica Salcedo NP at [facility] and on choric opoid PRESCRIBED BY PAIN MANAGEMENT. -referred to chronic pin group 02/01/25 Assessment & Plan (02/01/2025 11:30 AM EDT): Followed by pain management with Jessica Salcedo NP at [facility] and on choric opoid PRESCRIBED BY PAIN MANAGEMENT. -referred to chronic pin group 02/01/25 Degeneration of lumbar intervertebral disc 06/14 Overview (12/21/2024): -Followed by pain management, On chronic opiates with [facility] pain management Cyndi Aldana NP History of cholecystectomy 06/14/2023 Other specified health status 06/14/2023 Overview (02/01/2025): -next comprehensive annual evaluation due after 02/01/25 -eye care facilitated by [facility] -dental home is [facility] -health care proxy filed on 02/28/2024 Assessment & Plan (02/01/2025 11:29 AM EDT): -next comprehensive annual evaluation due after 02/01/25 -eye care facilitated by [facility] -dental home is [facility] -health care proxy filed on 02/28/2024 Assessment & Plan (02/28/2024 11:36 AM EDT): -next physical exam due after January 18 2025 -eye care facilitated by [facility] -dental home is [facility] -health care proxy filed on 02/28/2024 Assessment & Plan (01/19/2024 1:29 PM EDT): -next physical exam due after January 18 2025 -eye care facilitated by [facility] -dental home is [facility] Assessment & Plan (06/16/2023 9:15 AM EDT): -next physical exam due after 08/14/2023 -eye care facilitated by -dental home is Colon cancer screening 06/14/2023 Overview (02/01/2025): Colonoscopy with Leda Fournier, 04/07/24 done, showed hemorrhoids prep poor, needs repeat 2 yrs. Assessment & Plan (02/01/2025 11:40 AM EDT): Colonoscopy with Leda Fournier, 04/07/24 done, showed hemorrhoids prep poor, needs repeat 2 yrs. Assessment & Plan (01/19/2024 1:29 PM EDT): -Seen by GI for colon cancer screening intake 12/21/23 -Colonoscopy scheduled for March 2024 Assessment & Plan (06/16/2023 9:23 AM EDT): Referred 06/16/2023. Hx of gastric bypass 06/14/2023 Overview (02/28/2024): She had bariatric surgery in 2006 -Gastric revision done 06/12/22 -Weight was 334.6 on 11/2021 -Dr. Gilliland is her GI doctor Assessment & Plan (02/01/2025 11:31 AM EDT): She had bariatric surgery in 2006 -Gastric revision done 06/12/22 -Weight was 334.6 on 11/2021 -Dr. Gilliland is her GI doctor Assessment & Plan (02/28/2024 11:29 AM EDT): She had bariatric surgery in 2006 -Gastric revision done 06/12/22 -Weight was 334.6 on 11/2021 -Dr. Gilliland is her GI doctor Assessment & Plan (01/19/2024 1:26 PM EDT): She had bariatric surgery in 2006 -Gastric revision done 06/12/22 -Weight was 334.6 on 11/2021 Assessment & Plan (06/16/2023 9:16 AM EDT): She had bariatric surgery in 2006. -Gastris revision done 06/12/22. -Pts weight was 334.6 on 11/2021, 321 prior to revision, she has lost 25lbs since May 2022. 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 [...] weeks with nurse practioner -Encouraged follow-up 07/28/25 Assessment & Plan (02/01/2025 11:45 AM EDT): Left pupil, present since prior to 2021. [...] weeks with nurse practioner -Encouraged follow-up 07/28/25 Assessment & Plan (01/19/2024 1:28 PM EDT): Left pupil, present since prior to 2021. MRI/MRA on 06/2022 showed a mild Chiari 1 malformation and mild to moderate no specific white matter changes. Referred to multiple optho but they declined recommending neurology evaluation. Referred to neurology 07/2022. Pt given number to call neurology 06/16/2023. Referral placed again 01/19/24. 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 Her MRI in 06/2022 showed a mild Chiari I malformation and mild/moderate nonspecific white matter changes To f in 1 y and to see neurologist referred by provider but pt states never got info for apt --gave today information to pt to call for apt Assessment & Plan (06/16/2023 9:24 AM EDT): Left pupil, present since prior to 2021. MRI/MRA on 06/2022 showed a mild Chiari 1 malformation and mild to moderate no specific white matter changes. Referred to neurology 07/2022. Pt given number to call neurology 06/16/2023. Fibromyalgia 06/14/2023 Overview (02/01/2025): Pt was previously followed by rheumatology and pain management. She had no improvement with gabapentin. Rx Cymbalta 20mg daily, restarted 07/2021. I would not recommend Lyrica with opiate due to risk of respiratory depression. Pt has chronic pain syndrome. Multiple work up are normal. I explained different treatment strategies for fibromyalgia. There is moderate evidence for efficacy for aerobic exercise, cognitive behavioral therapy, patient education, and group therapy. There is also evidence for acupuncture, hypnotherapy, biofeedback and balneotherapy. There is some weaker evidence for chiropractic therapy, massage, electrotherapy and ultrasound. There is no evidence that trigger point injections or opioids are beneficial in fibromyalgia. Pharmacologic options include muscle relaxants, gabapentin, pregabalin, and duloxetine, but are the lest effective of all strategies. Pt was counseled on the importance of exercise, adequate sleep, control of depression and or anxiety and stress management. Inflammatory/rheumatology labs rechecked 01/19/24. -referred to chronic pin group 02/01/25 Assessment & Plan (02/01/2025 11:30 AM EDT): Pt was previously followed by rheumatology and pain management. She had no improvement with gabapentin. Rx Cymbalta 20mg daily, restarted 07/2021. I would not recommend Lyrica with opiate due to risk of respiratory depression. Pt has chronic pain syndrome. Multiple work up are normal. I explained different treatment strategies for fibromyalgia. There is moderate evidence for efficacy for aerobic exercise, cognitive behavioral therapy, patient education, and group therapy. There is also evidence for acupuncture, hypnotherapy, biofeedback and balneotherapy. There is some weaker evidence for chiropractic therapy, massage, electrotherapy and ultrasound. There is no evidence that trigger point injections or opioids are beneficial in fibromyalgia. Pharmacologic options include muscle relaxants, gabapentin, pregabalin, and duloxetine, but are the lest effective of all strategies. Pt was counseled on the importance of exercise, adequate sleep, control of depression and or anxiety and stress management. Inflammatory/rheumatology labs rechecked 01/19/24. -referred to chronic pin group 02/01/25 Assessment & Plan (02/28/2024 11:31 AM EDT): Pt was previously followed by rheumatology and pain management. She had no improvement with gabapentin. Rx Cymbalta 20mg daily, restarted 07/2021. I would not recommend Lyrica with opiate due to risk of respiratory depression. Pt has chronic pain syndrome. Multiple work up are normal. I explained different treatment strategies for fibromyalgia. There is moderate evidence for efficacy for aerobic exercise, cognitive behavioral therapy, patient education, and group therapy. There is also evidence for acupuncture, hypnotherapy, biofeedback and balneotherapy. There is some weaker evidence for chiropractic therapy, massage, electrotherapy and ultrasound. There is no evidence that trigger point injections or opioids are beneficial in fibromyalgia. Pharmacologic options include muscle relaxants, gabapentin, pregabalin, and duloxetine, but are the lest effective of all strategies. Pt was counseled on the importance of exercise, adequate sleep, control of depression and or anxiety and stress management. Inflammatory/rheumatology labs rechecked 01/19/24. Assessment & Plan (01/19/2024 1:30 PM EDT): Pt was previously followed by rheumatology and pain management. She had no improvement with gabapentin. Rx Cymbalta 20mg daily, restarted 07/2021. I would not recommend Lyrica with opiate due to risk of respiratory depression. Pt has chronic pain syndrome. Multiple work up are normal. I explained different treatment strategies for fibromyalgia. There is moderate evidence for efficacy for aerobic exercise, cognitive behavioral therapy, patient education, and group therapy. There is also evidence for acupuncture, hypnotherapy, biofeedback and balneotherapy. There is some weaker evidence for chiropractic therapy, massage, electrotherapy and ultrasound. There is no evidence that trigger point injections or opioids are beneficial in fibromyalgia. Pharmacologic options include muscle relaxants, gabapentin, pregabalin, and duloxetine, but are the lest effective of all strategies. Pt was counseled on the importance of exercise, adequate sleep, control of depression and or anxiety and stress management. Inflammatory/rheumatology labs rechecked 01/19/24. Assessment & Plan (12/21/2023 6:30 PM EST): Pt used to f w rheumatology and is currently f w pain management. From records no improvement with gabapentin. -Used to be on Rx Cymbalta 20mg daily but stopped med -unclear reason or if was not refilled -pt would like to try again given recalls used to help --resume low dose , pt is taking bupropion so need to monitor on both meds -pt on prn percocet -continue to f w PM -has apt next month Assessment & Plan (06/16/2023 9:23 AM EDT): Pt is followed by rheumatology and pain management. She had no improvement with gabapentin. Rx Cymbalta 20mg daily, restarted 07/2021. I would not recommend Lyrica with opiate due to risk of respiratory depression. Pt has chronic pain syndrome. Multiple work up are normal. I explained different treatment strategies for fibromyalgia. There is moderate evidence for efficacy for aerobic exercise, cognitive behavioral therapy, patient education, and group therapy. There is also evidence for acupuncture, hypnotherapy, biofeedback and balneotherapy. There is some weaker evidence for chiropractic therapy, massage, electrotherapy and ultrasound. There is no evidence that trigger point injections or opioids are beneficial in fibromyalgia. Pharmacologic options include muscle relaxants, gabapentin, pregabalin, and duloxetine, but are the lest effective of all strategies. Pt was counseled on the importance of exercise, adequate sleep, control of depression and or anxiety and stress management. Abnormal EKG 06/14/2023 Overview (06/16/2023): 48 y/o woman with well controlled hypertension and hypothyroidism who is scheduled for repeat bariatric surgery. She was sent by surgeon for abnormal EKG. Repeat EKG today shows Normal Sinus with possible septal infarct, poor R wave progression. I don't have an old one to compare to. She is chest pain free. Given her abnormal EKG will refer to cardiology for pre-op. Saw cardiology 06/10/22, Pt had a stress test done, we will request the results. Assessment & Plan (06/16/2023 9:17 AM EDT): 48 y/o woman with well controlled hypertension and hypothyroidism who is scheduled for repeat bariatric surgery. She was sent by surgeon for abnormal EKG. Repeat EKG today shows Normal Sinus with possible septal infarct, poor R wave progression. I don't have an old one to compare to. She is chest pain free. Given her abnormal EKG will refer to cardiology for pre-op. Saw cardiology 06/10/22, Pt had a stress test done, we will request the results. Hx of abnormal cervical Pap smear 06/14/2023 Overview (02/01/2025): -ASCUS with High risk HPV positive 03/2017 s/p colpo 03/2017 which was unremarkable with no biopsies taken. -co-testing July 2018 ASCUS with High risk HPV positive. Seen by Diane -colpo was done Dr. Bowden 08/2018 came back CONNIE 1 -pap done 11/17/2019 was NIL HPV. ASCUS HPV+ -Outgoing call placed to [facility] for plan of care on 11/2019 Lyubov who stated that patient has a f/u appointment on 01/19/2020. Plan of care will be discussed on that visit. Pt believes she missed it. Will ask women's health to assist with setting up. -PAP done 02/01/25, will await results. -STI testing offered, PreP offered -Preventative care and harm reduction discussed Assessment & Plan (02/01/2025 11:31 AM EDT): -ASCUS with High risk HPV positive 03/2017 s/p colpo 03/2017 which was unremarkable with no biopsies taken. -co-testing July 2018 ASCUS with High risk HPV positive. Seen by Diane giang was done Dr. Bowden 08/2018 came back CONNIE 1 -pap done 11/17/2019 was NIL HPV. ASCUS HPV+ -Outgoing call placed to [facility] for plan of care on 11/2019 Lyubov who stated that patient has a f/u appointment on 01/19/2020. Plan of care will be discussed on that visit. Pt believes she missed it. Will ask women's health to assist with setting up. -PAP done 02/01/25, will await results. -STI testing offered, PreP offered -Preventative care and harm reduction discussed Assessment & Plan (06/16/2023 9:15 AM EDT): -ASCUS with High risk HPV positive 03/2017 s/p colpo 03/2017 which was unremarkable with no biopsies taken. -co-testing July 2018 ASCUS with High risk HPV positive. Seen by Diane giang was done Dr. Bowden 08/2018 came back CONNIE 1 -pap done 11/17/2019 was NIL HPV. ASCUS HPV+ -Outgoing call placed to [facility] for plan of care on 11/2019 Lyubov who stated that patient has a f/u appointment on 01/19/2020. Plan of care will be discussed on that visit. Pt believes she missed it. Will ask women's health to assist with setting up. Benign essential hypertension 01/08/2022 Overview (02/01/2025): -Blood pressure is at goal -Continue lifestyle modifications -Continue current medications Assessment & Plan (02/01/2025 11:30 AM EDT): -Blood pressure is at goal -Continue lifestyle modifications -Continue current medications Assessment & Plan (12/21/2023 6:30 PM EST): Previous BP here were controlled -pt was off BP meds -advised diet changes ,low salt diet -blood pressure machine px to pt and advised to bring home BP readings -will f w PCP in 4 weeks and if ongoing elevated will need to start BP meds Assessment & Plan (06/16/2023 9:25 AM EDT): -Blood pressure is at goal -Continue lifestyle modifications -Continue current medications Hepatitis C antibody test positive 01/08/2022 Iron deficiency 01/08/2022 Overview (02/01/2025): Lab Results Component Value Date FERRITIN 64 01/19/2024 HGB 11.8 (L) 01/19/2024 HGB 11.1 (L) 10/22/2023 HGB 12.4 08/14/2022 HGB 12.7 08/06/2021 HEMATOCRIT 36.7 08/14/2022 HEMATOCRIT 38.7 08/06/2021 -ordered repeat panel 02/01/25 Assessment & Plan (02/01/2025 11:36 AM EDT): Lab Results Component Value Date FERRITIN 64 01/19/2024 HGB 11.8 (L) 01/19/2024 HGB 11.1 (L) 10/22/2023 HGB 12.4 08/14/2022 HGB 12.7 08/06/2021 HEMATOCRIT 36.7 08/14/2022 HEMATOCRIT 38.7 08/06/2021 -ordered repeat panel 02/01/25 Vitamin D deficiency 10/04/2014 Overview (02/01/2025): Lab Results Component Value Date [id number] 25.8 (L) 01/19/2024 -ordered repeat level 02/01/25 Assessment & Plan (02/01/2025 11:36 AM EDT): Lab Results Component Value Date [id number] 25.8 (L) 01/19/2024 -ordered repeat level 02/01/25 Hypothyroidism 12/14/2012 Overview (02/01/2025): Lab Results Component Value Date TSH 64.16 (H) 01/19/2024 Continue levothyroxine 112mcg daily. -ordered repeat level 02/01/25 Assessment & Plan (02/01/2025 11:41 AM EDT): Lab Results Component Value Date TSH 64.16 (H) 01/19/2024 Continue levothyroxine 112mcg daily. -ordered repeat level 02/01/25 Assessment & Plan (02/28/2024 11:32 AM EDT): No results found for: TSH Continue levothyroxine 112mcg daily. Assessment & Plan (06/16/2023 9:06 AM EDT): No results found for: TSH Continue levothyroxine 112mcg daily. Miscarriage 12/14/2012 Encounters Date Type Department Care Team Description 02/01/2025 10:45 AM EDT Office Visit [address] [address] Latoya Ruiz MD Fixed dilated pupil (Primary Dx); Inguinal lymphadenopathy; [...] C screening test for low risk patient 02/01/[address] [address] Dickson Garrido [place] Faxed mammogram screening 02/01/2025 Travel 01/31/[address] [address] Latoya Ruiz MD chartprep 01/29/2025 2:00 PM EDT Office Visit [facility] [address] [place], [place] [phone] John, Smita, OD Adie's tonic pupil, left (Primary Dx); Corneal ulcer of left eye; Presbyopia 01/29/2025 Travel 01/22/2025 Patient Outreach [facility] [address] [place], [place] [phone] Latoya Ruiz MD Pre-visit Planning (SDOH Screening negative and Tobacco screening negative) 01/05/2025 Population Health Risk Score [facility] [address] [phone] Provider, Population Health Generic 12/15/2024 Refill [facility] [address] [place], [place] [phone] Latoya Ruiz MD Hx of gastric bypass 11/03/2024 Telephone [facility] [address] [place], [place] [phone] Latoya Ruiz MD Appointment Request (Recall left a VM to the pt to call back to schedule an appt for Physical.) from Last 3 Months Immunizations Name Administration Dates Next Due Hep A, Adult 07/12/2012,05/19/2007 Hep B, adult 07/12/2012, 7,11/19/2006,09/15 Influenza injectable quadriv alent IIV4 with preservative 08/11/2018 Influenza injectable quadriv alent preservative free 12/21/2023,08/14/2022,08/06/2021,08/15 Influenza, IIV3, injectable 07/03/2011 Influenza, Split (incl. claudia fied surface antigen) 08/11/2013,07/12/2012 Pneumococcal Polysaccharide PPSV23 07/12/2012 Pneumococcal, Unspecified 07/12/2012 Tdap 04/02/2017 Family History Medical History Relation Name Comments Diabetes Brother Diabetes Father Diabetes Mother Relation Name Status Comments Brother Father Mother Social History Tobacco Use Types Packs/Day Years [...] Orientation Straight 08/24/2022 10 :19 AM EDT Last Filed Vital Signs Vital Sign Reading Time Taken Comments Blood Pressure 124/73 02/01/2025 10:54 AM EDT Pulse 67 02/01/2025 10:54 AM EDT Temperature 37.2 ??C (98.9 ??F) 02/28/2024 11:12 AM E DT Respiratory Rate 16 02/01/2025 10:54 AM EDT Oxygen Saturation 98% 02/28/2024 11:12 AM EDT Inhaled Oxygen Concentration - - Weight 98.9 kg (218 lb) 02/01/2025 10:54 AM EDT Height 157.5 cm (5' 2 ) 02/28/2024 11:12 AM EDT Body Mass Index 39.87 02/28/2024 11:12 AM EDT Plan of Treatment Upcoming Encounters Date Type Department Care Team (Late st Contact Info) Description 02/02/2025 10:00 AM EDT Office Visit [facility] [address] [place] [address] JohnSmita, OD [address] [place] [address] Health Maintenance Due Date Last Done Comments CT Colonography 1977 FIT DNA/Cologuard 1977 FIT 1977 FOBT 1975 Sigmoidoscopy 1975 Influenza Vaccine (#1) 2024 , 08/14/2022, 08/06/2021, Additional history exists Cervical Cancer Screening 11/17/2024 HPV/Cotest 11/17/2024 06/03/2018, 04/02/2017 Pap Smear 11/17/2024 11/17/2019 Depression Monitoring 08/03/2025 02/01/2025, 025 Alcohol/Substance Use Screening 02/01/2026 02/01/2025 COVID-19 Vaccine ( season) 2026 05/20/2022, 2021, 02/14/2021 Postponed from 06/25/2024 (Patient Refused) Depression Screening 02/01/2026 02/01/2025, 02/02/20 25 Family Planning (PISQ) 02/01/2026 02/01/2025 SDOH Screening 02/01/2026 02/01/2025 Tobacco Screening 02/01/2026 02/01/2025 Mammogram 02/14/2026 02/15/2024, 11/25, 12/08/2021, Additional history exists Colonoscopy 04/07/2026 04/07/2024 Colorectal Cancer Screening 04/07/2026 Zoster Vaccines (1 of 2) 2027 DTaP/Tdap/Td Vaccines (2 - Td or Tdap) 04/02/2027 04/02/2017 Lipid Panel 01/18/2029 01/19/2024, 05/26, 08/06/2021 RSV Patients and Patients Aged 60 years or older (1 - 1-dose 75+ series) 2052 Hepatitis A Vaccines Completed 07/12/2012, 05/19/20 07 Hepatitis B Vaccines Completed 07/12/2012, 05/19/2007, 11/19/2006, Additional history exists Pneumococcal Vaccine: Pediatrics (0 to 5 Years) and At-Risk Patients (6 to 49) Years) Aged Out 07/12/2012, 07/12/2012 No longer eligibl e based on patient's age to complete this topic HIV Screening Completed 06/30/2023, 07/26, 08/06/2021 HIB Vaccines Aged Out No longer eligi ble based on patient's age to complete this topic HPV Vaccines Aged Out No longer eligi ble based on patient's age to complete this topic IPV Vaccines Aged Out No longer eligi ble based on patient's age to complete this topic Meningococcal Vaccine Aged Out No logan efe eligible based on patient's age to complete this topic RSV under 20 months Aged Out No longe r eligible based on patient's age to complete this topic Rotavirus Vaccines Aged Out No longer eligible based on patient's age to complete this topic Goals Goal Patient Goal Type Associated Problems Recent Progress Patient-Stated? Author Blood Pressure < 140/90 Blood Pressure 124/73(2024 10:54 AM EDT) No Calli Katz Record your blood pressure once per day Blood Pressure No Calli Katz Procedures Procedure Name Priority Date/Time Associated Diagnosis Comments HM COLONOSCOPY Routine 04/07/2024 3:31 PM EDT BI MAMMOGRAM SCREENING TOMOSYNTHESIS BILATERAL Routine 02/15/2024 9:15 AM EDT Breast cancer screening by mammogram LIPID PANEL, STANDARD Routine 01/19/2024 10:30 AM EDT Severe obesity (BMI >= 40) (CMS/HCC) HIV ANTIBODY/ANTIGEN ([place] [facility]) Routine 06/30/2023 9:19 AM EDT PAP SMEAR Routine 11/17/2019 12:00 AM EST ZZZ HISTORICAL HPV E6/E7 RFLX JOSEPH 16 18/45 Routine 06/03/2018 9:45 AM EDT from Last 3 Months or Most Recently Relevant to Health Maintenance Results * Hm Colonoscopy (04/07/2024 3:31 PM EDT) Colonoscopy Normal Normal Comment:repeat 1-2 year us Historical Provider MD HEALTH MAINTENANCE Final Result * BI Mammogram Screening Tomosynthesis Bilateral (02/15/2024 9:15 AM EDT) Anatomical Region Laterality Modality Breast Bilateral Mammography 02/15/2024 9:15 AM EDT Narrative 02/26/2024 7:21 AM EDT ? [facility] ? [address] ?[place], [place] [address] ? Mammography Report ? Signed ? Patient: [place],Alexia ?MR#: [id number] ?? 8 ? : 1975 ?Acct:[id number] ? Age/Sex: 48 / F ?ADM Date: 04/23/24 ? Loc: HO.MAMMO ? Attending Dr: Latoya Ruiz MD ? Ordering Physician: Latoya Ruiz MD ?Results: 1N ?? egative ? Date of Service: //24 ?Follow Up: 1 Year From Orig ?? inal Mammogram ? Procedure(s): MM tomosynthesis screening BI ?? Accession Number(s): [id number] ? cc: Latoya Ruiz MD ? EXAMINATION: ?? MM SCREENING DIGITAL BREAST TOMOSYNTHESIS, BILATERAL ? CLINICAL INFORMATION: ? Screening. Asymptomatic. ? COMPARISON: ?? Mammography: This study is compared with prior exams dating back to ?? 2017. ? TECHNIQUE: ?? Digital breast tomosynthesis is performed in both the craniocaudal and ?? mediolateral oblique views along with computer-aided detection (CAD). ?? Synthesized 2D images are generated from the tomosynthesis. ? FINDINGS: ?? There are scattered areas of fibroglandular density (ACR BI-RADS breast ?? composition Category b). ? There are no significant masses, abnormal calcifications, or other ?? abnormalities. ? MM/MM tomosynthesis screening BI ?? IMPRESSION: ?? No mammographic evidence of malignancy. ? ASSESSMENT: ? BI-RADS BI-RADS 1 - Negative ? RECOMMENDATION: ?? Routine annual mammography screening. ? 1 year F/U ? This examination should not preclude the clinical evaluation of a ?? suspicious palpable abnormality. ? This patient's information was entered into a reminder system with a ?? target due date for their next mammogram. ? Dictated By: ?Shahrzad Hernandez MD ? Signed By: ?<Electronically signed by Shahrzad Hernandez MD in OV> ? 02/26/24716 ? DD/ 4 ? TD/TT: ? Account Manager: ? Procedure Note Nba Evans - 02/26/2024 [facility] [address] [place] [address] Dr. [place], [place] [address] Mammography Report Signed Patient: Alexia Núñez#: [id number] 8 : 1975Acct:[id number] Age/Sex: 48 / FADM Date: 02/15/24 Loc: HO.MAMMO Attending Dr: Latoya Ruiz MD Ordering Physician: Latoya Ruiz MDResults: 1N egative Date of Service: 02/15/24Follow Up: 1 Year From Orig inal Mammogram Procedure(s): MM tomosynthesis screening BI Accession Number(s): [id number] cc: Latoya Ruiz MD EXAMINATION: MM SCREENING DIGITAL BREAST TOMOSYNTHESIS, BILATERAL CLINICAL INFORMATION: Screening. Asymptomatic. COMPARISON: Mammography: This study is compared with prior exams dating back to 2018. TECHNIQUE: Digital breast tomosynthesis is performed in both the craniocaudal and mediolateral oblique views along with computer-aided detection (CAD). Synthesized 2D images are generated from the tomosynthesis. FINDINGS: There are scattered areas of fibroglandular density (ACR BI-RADS breast composition Category b). There are no significant masses, abnormal calcifications, or other abnormalities. MM/MM tomosynthesis screening BI IMPRESSION: No mammographic evidence of malignancy. ASSESSMENT: BI-RADS BI-RADS 1 - Negative RECOMMENDATION: Routine annual mammography screening. 1 year F/U This examination should not preclude the clinical evaluation of a suspicious palpable abnormality. This patient's information was entered into a reminder system with a target due date for their next mammogram. Dictated By: Shahrzad Hernandez MD Signed By: <Electronically signed by Shahrzad Hernandez MD in OV> 02/26/24 0717 DD/ TD/TT: Account Manager: Latoya Ruiz MD IMG BI PROCEDURES Edited R esult - Final * Lipid Panel, Standard (01/19/2024 10:30 AM EDT) Triglycerides 48 <150 mg/dL [facility] Comment:Desirable Triglyceri de: less than 150 mg/dLBorderline High Triglyceride 150-199 mg/dLHigh Triglyceride: 200-499 mg/dLVery High Triglyceride: greater than or equal to 5OO mg/dL Cholesterol 170 <200 mg/dL [facility] Comment:Desirable Cholestero l: less than 200 mg/dLBorderline High Cholesterol: 200-239 mg/dLHigh Cholesterol: greater than 239 mg/dL LDL Cholesterol Calculated 93 <100 mg/dL [facility] Comment:Desirable LDL: less than 100 mg/dLNear Optimal/Above Optimal LDL: 110- 129 mg/dLBorderline High LDL: 130-159 mg/dLHigh LDL: 160-189 mg/dLVery High LDL: greater than or equal to 190 mg/dL HDL Cholesterol 68 >40 mg/dL [facility] Comment:Desirable HDL: great er than 40 mg/dL Note: This HDL assay may give artificially low results in patients with liver disease. Blood Venous blood specimen / Unknown 01/19/2024 10:30 AM EDT 01/19/2024 1:27 PM EDT Latoya Ruiz MD LAB BLOOD ORDERABLES Final Result [facility] [address] [place] [phone] * HIV Ab/Ag ([facility]) (06/30/2023 9:19 AM EDT) [facility] HIV AB/AG Nonreactive Nonreactive [facility] Comment:HIV-1 p24 Ag and/or HIV-1/HIV-2 Ab not detected.A test result that is nonreactive does not exclude thepossibility of exposure to or infection with HIV-1 and/orHIV-2. Nonreactive results in this assay for individualswith prior exposure to HIV-1 and/or HIV-2 may be due toantigen and antibody levels that are below the limit ofdetection of this assay.The streamit HIV Ag/Ab Combo assay result andsupplemental assay results should be interpreted inconjunction with the patient's clinical presentation,history and other laboratory results. If the results areinconsistent with clinical evidence, additional testing issuggested to confirm the result. 06/30/2023 9:19 AM EDT 06/30/2023 11:16 AM EDT Latoya Ruiz MD LAB BLOOD ORDERABLES Final Result [facility] [address] [place] [address] [phone] * Pap Smear (11/17/2019 12:00 AM EST) Swab us Historical Provider MD LAB CYTOLOGY ORDERABLES F inal Result IMAGING * (ABNORMAL) HPV E6/E7 RFLX JOSEPH 16 18/45 (06/03/2018 9:45 AM EDT) HPV 16 RNA NOT DETECTED NOT DETECTED [facility] HPV 18/45 RNA DETECTED(AA ) NOT DETECTED [facility] Comment: This test was performed using the APTIMA HPV 16, 18/45 genotype assay ([employer] The assay can differentiate HPV 16 from HPV 18 and/or HPV 45, but does not differentiate between HPV 18 and HPV 45. Test Performed by [facility], Yolto Musa [place], [address] [place] [address] Austin Quinn M.D., Ph.D., Director of Laboratories , CLIA [id number] HPV mRNA E6/E7 DETECTED(AA ) NOT DETECTED [facility] Comment: This test was performed using the APTIMA(R) HPV Assay ([employer] This assay detects E6/E7 viral messenger RNA (mRNA) from 14 high-risk HPV types (16,18,31,33,35,39,45,51, 52,56,58,59,66,68). For additional information please refer to: http://education.Bee [employer] Go.Passworks/faq/AIX522j4 (This link is being provided for informational/ educational purposes only.) The analytical performance characteristics of this assay have been determined by [employer] [place], [place]. The modifications have not been cleared or approved by the FDA. This assay has been validated pursuant to the CLIA regulations and is used for clinical purposes. Please note: ??Effective 07/06/2016, HPV testing will be performed using [employer]'s APTIMA test which targets mRNA. Detecting mRNA instead of DNA, as in older methods, offers significant improvements in specificity. ADDITIONAL TESTING Has been added. () [facility] Comment: Test Performed by Tobi Calderón, [facility], [address] [place], [place] Austin Quinn M.D., Ph.D., Director of Laboratories , [facility] [id number] 06/03/2018 9:45 AM EDT us Latoya Ruiz MD HISTORICAL/NON ORDERABLE L ABS Final Result [facility] [address] from Last 3 Months or Most Recently Relevant to Health Maintenance Insurance [facility] [place] [id number] [facility] C[facility] * Guarantor: Alexia Núñez Account Type Relation to Patient Date of Phone Billing Address Personal/Family [place] [facility] [place] [id number] [place] [id number] Advance Directives Documents on File Type Date Recorded Patient Protection Manager Expl anation Advance Directives and Living Will 02/28/2024 Health Care Proxy 02/28/24 Care Teams Leasing Associate Relationship Specialty Start Date End Date Latoya Ruiz MD [address] [place] [address] PCP - General Family Medicine 10/25/18 Yoni Portillo MD [address] [place] [address] Dr [address] [place] [address] Orthopaedic Surgery 10/10/24 Irlanda Kaur [address] [place] [address] Gastroenterology 02/01/25 Eros Aldana NP [facility] Pain Medicine 10/26/24
--- OUTSIDE RECORDS SUMMARY | 2025-02-01 18:01 | XMS_ITS | Encounter Summary ---
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 Name Role Phone Latoya Ruiz MD Primary Care Provider +1- [phone] Yoni Portillo MD Unavailable Irlanda Kaur Unavailable Encounter Details Date Type Department Care Team (Latest Contact Info) Description 11/15/2020 Abstract [facility] CONVERSIONS Dental, Provider, DDS Social History Tobacco Use Types Packs/Day Years Used Date Smoking Tobacco: Never Assessed Comments Unknown Sex and Gender Information Value [...] Description 02/02/2025 10:00 AM EDT Office Visit [facility] OPTOMETRY [address] [place] [address] John, Smita, OD [address] [place] [address] documented as of this encounter Visit Diagnoses Not on filedocumented in this encounter Care Teams Filter Plant Operator Relationship Specialty Start Date End Date Latoya Ruiz MD [address] [place], [place] [phone] PCP - General Family Medicine 1/1/19 Yoni Portillo MD [address] [place] [address] Dr [address] [place] [address] Orthopaedic Surgery 10/10/24 Irlanda Kaur [address] [place] [address] Drive 3rd [place] [address] Gastroenterology 02/01/25 Eros Aldana NP [facility] Pain Medicine 10/26/24 documented as of this encounter
--- OUTSIDE RECORDS SUMMARY | 2025-02-01 18:01 | XMS_ITS | Encounter Summary ---
Author Organization [facility] Address [address] [facility] 7 [place] [address] Care Team Providers Care Gift Shop Clerk Name Role Phone Latoya Ruiz MD Primary Care Provider [phone]- [phone] Yoni Portillo MD Unavailable Reason for Visit * Reason Onset Date Comments chartprep 01/31/2025 Encounter Details Date Type Department Care Team (Late st Contact Info) Description 01/31/2025 Telephone [facility] MEDICINE [address] [place], [place] [phone] Latoya Ruiz MD [address] [place], [place] [phone] chartprep Social History Tobacco Use Types Packs/Day Years [...] AM EDT documented as of this encounter Miscellaneous Notes * Telephone Encounter - Ghislaine Liu [place] - 01/31/2025 4:39 PM EDT ..Chart Prep Labs: not applicable Images: not applicable Vaccines due: Covid Due and Flu Due Referrals: Not Applicable Screenings: none Overdue care gaps: SDOH, PQ9, GAD7, Disability , and Oral Health documented in this encounter Plan of Treatment Upcoming Encounters Date Type Department Care Team (Late st Contact Info) Description 02/02/2025 10:00 AM EDT Office Visit [facility] OPTOMETRY [address] [place] [address] John, Smita, OD [address] [place] [address] documented as of this encounter Goals Goal [...] documented as of this encounter Care Teams Gift Shop Clerk Relationship Specialty Start Date End Date Latoya Ruiz MD [address] [place] [id number] PCP - General Family Medicine 10/25/18 Yoni Portillo MD [address] [place] [id number] Orthopaedic Surgery 10/10/24 Eros Aldana NP [facility] Pain Medicine 10/26/24 documented as of this encounter
--- OUTSIDE RECORDS SUMMARY | 2025-02-01 18:01 | XMS_ITS | Data Portability ---
Author Organization [facility], [facility] Address [address] [place] [address] Care Team Providers Care Stem Mounter Name Role Phone SHI, DENNIS Primary Care Provider SHI, DENNIS Referring Provider SHI, DENNIS Primary Care Provider Assessment Encounter Date Assessment Date Assessment LastModified by Organization Details LastModified Time 10/23/2024 10/23/2024 Today 33 minutes spent in review of [...] and will be performed at each encounter. Moderate level medical decision making. One or more chronic illness with exacerbation or progression of illness, and moderate risk based off medication management and/or risks and benefits of injection based therapy discussed today as documented below. Not available 10/23/2024 13:41:02 11/23/2024 11/23/2024 Today 33 minutes spent in review of [...] and will be performed at each encounter. Moderate level medical decision making. One or more chronic illness with exacerbation or progression of illness, and moderate risk based off medication management and/or risks and benefits of injection based therapy discussed today as documented below. [email or web address] Not available 11/23/2024 12:11:54 12/19/2024 12/19/2024 Today 35 minutes spent in review of [...] and will be performed at each encounter. Moderate level medical decision making. One or more chronic illness with exacerbation or progression of illness, and moderate risk based off medication management and/or risks and benefits of injection based therapy discussed today as documented below. Not available 12/19/2024 13:51:52 Plan of Treatment Reminders Order Date Submit Date Provider Last Modified By Organization Details Last Modified Time Details Appointments Clinic Visit 15 min 2024 12:30P Faviola Cortes NP Not available Not available Not available Lab drug screen, 14 drugs (detecti med), urine 2024 025 MAROA [facility], [address], [place], [address], 01/23/2025 16:06:30 Referral None recorded . Procedures None recorded . Surgeries None recorded . Imaging None recorded . Medication Orders oxycodon e-acetam inophen 10 mg-325 mg tablet 2024 025 [facility], [address] [place] [address], [id number], 01/19/2025 11:25:30 oxycodon e-acetam inophen 10 mg-325 mg tablet 2024 025 [facility], [address] [place] [address], [id number], 12/22/2024 12:25:22 oxycodon e-acetam inophen 10 mg-325 mg tablet 2024 025 [email or web address] [facility], [address] [place] [address], [id number], 12/19/2024 13:46:12 oxycodon e-acetam inophen 10 mg-325 mg tablet 2023 024 [email or web address] [facility], [address] [place] [address], [id number], 11/23/2024 11:47:28 oxycodon e-acetam inophen 10 mg-325 mg tablet 2023 024 [facility], [address] [place] [address], [id number], 10/26/2024 10:57:55 Patient TargetsNo targets recorded. Patient InstructionsNo instructions recorded. Reason for Referral None Reported. Results Created Date Observation Date Name Description Value Unit Range Abnormal Flag Note LastModifiedBy Organization Detail LastModifiedTime 08/22/20 24 09/01/2024 COMPL IANCE DRUG REENA SIS, UR summary report (summary) FINAL ===== ===== ===== ===== ===== ===== ===== ===== ===== ===== ===== ===== ===== === TOXAS SURE COMP DRUG REENA SIS,U R ===== ===== ===== ===== ===== ===== ===== ===== ===== ===== ===== ===== ===== === Test Resul t Flag Units Drug Prese nt and Decla red for Presc ripti on Verif icati on Oxyco done 1109 EXPEC RODOLFO ng/mg creat Oxymo rphon e 96 EXPEC RODOLFO ng/mg creat Norox ycodo ne 1239 EXPEC RODOLFO ng/mg creat Sourc es of oxyco done inclu de sched uled presc ripti on medic ation s. Oxymo rphon e and norox ycodo ne are expec rodolfo metab olite s of oxyco done. Oxymo rphon e is also avail able as a sched uled presc ripti on medic ation . Aceta minop hen PRESE NT EXPEC RODOLFO Drug Prese nt not Decla red for Presc ripti on Verif icati on Carbo xy-TH C 85 UNEXP ECTED ng/mg creat Carbo xy-TH C is a metab olite of tetra hydro canna binol (THC) . Sourc e of THC is most commo nly herba l marij uana or marij uana- based produ cts, but THC is also prese nt in a sched uled presc ripti on medic ation . Trace amoun ts of THC can be prese nt in hemp and canna bidio l (CBD) produ cts. This test is not inten ded to disti nguis h betwe en delta -9-te trahy droca nnabi nol, the predo minan t form of THC in most herba l or marij uana- based produ cts, and delta -8-te trahy droca nnabi nol. Bupro pion PRESE NT UNEXP ECTED Delmar xybup ropio n PRESE NT UNEXP ECTED Delmar xybup ropio n is an expec rodolfo metab olite of bupro pion. Diphe nhydr amine PRESE NT UNEXP ECTED Dextr ometh orpha n PRESE NT UNEXP ECTED Dextr orpha n/Lev orpha nol PRESE NT UNEXP ECTED Dextr orpha n is an expec rodolfo metab olite of dextr ometh orpha n, an over- the-c ounte r or presc ripti on cough suppr essan t. Dextr orpha n canno t be disti nguis hed from the sched uled presc ripti on medic ation levor phano l by the metho d used for reena sis. Guaif enesi n PRESE NT UNEXP ECTED Ederaif enesi n may be admin ister ed as an over- the-c ounte r or presc ripti on drug; it may also be prese nt as a break down produ ct of metho carba mol. Drug Absen t but Decla red for Presc ripti on Verif icati on Dulox etine Not Detec rodolfo UNEXP ECTED ===== ===== ===== ===== ===== ===== ===== ===== ===== ===== ===== ===== ===== === Test Resul t Flag Units Ref Range Creat inine 82 mg/dL >=20 ===== ===== ===== ===== ===== ===== ===== ===== ===== ===== ===== ===== ===== === Decla red Medic ation s: The magali ing and inter preta tion on this repor t are based on the follo wing decla red medic ation s. Unexp ected resul ts may arise from inacc uraci es in the decla red medic ation s. Not e: The testi ng scope of this panel inclu nick these medic ation s: Dulox etine (Cymb rosalinda) Oxyco done Not e: The testi ng scope of this panel does not inclu de small to moder ate amoun ts of these repor rodolfo medic ation s: Aceta minop hen Not e: The testi ng scope of this panel does not inclu de follo wing repor rodolfo medic ation s: Levot hyrox ine Vitam in A Vitam in C Zinc ===== ===== ===== ===== ===== ===== ===== ===== ===== ===== ===== ===== ===== === For baljeeti maira consu ltati on, pleas e call [phone]. ===== ===== ===== ===== ===== ===== ===== ===== ===== ===== ===== ===== ===== === Not Available [facility] ([facility]) [address] [facility], [place], [address], 09/01/2024 16:07:18 08/22/20 24 09/01/2024 COMPL IANCE DRUG REENA SIS, UR pdf . Not Available [facility] ([facility]) [address] [facility], [place], [address], 09/01/2024 16:07:18 Result Notes None recorded. Problems Name Problem SNOMED Code Status Onset Date Resolution Date Notes Provider Name and Address Organization Details Recorded Time Chronic pain syndrome [id number] RADHA German [facility] 22:38:18 Chronic pain following trauma [id number] Pieter arias [facility] 22:38:47 Long-term current use of opiate analgesic drug [id number] 08 RADHA German [facility] 22:38:56 Degeneratio n of lumbar interverteb ral disc [id number] Pieter arias [place] [facility] 22:39:03 Body mass index 40+ - severely obese [id number] RADHA German [facility] 22:39:24 Problem Notes None recorded. Procedures Surgical History Date Name Laterality Status Provider Name and Address Organization Details Recorded Time 09/14/20 23 ED - LESI Radiculitis completed MADELINE TERESA MD [address] [place], [address], [facility] 09/14/2023 17:16:09 09/14/20 23 PMC Procedure completed Tonya Salcedo [facility] 09/14/2023 14:35:33 08/16/20 19 cholecystectomy completed Gabby Rosa [facility] 08/13/2021 22:44:16 gastric bypass completed Gabby Rosa [facility] 08/13/2021 22:44:07 Imaging Results None recorded. Procedure Notes None recorded. Medical Equipment None Reported. Allergies No known drug allergies Medications Name Sig Start Date Stop Date Status Note LastModified by Organization Details LastModified Time Vitamin C 500 mg tablet Take 1 tablet every day by oral route. 2020 active Not Available Not Available Not Avai lable oxycodone- acetaminop hen 10 mg-325 mg tablet Take 1 tablet every 8 hours by oral route as needed for 30 days. 2024 active LD taken 8am 025 Not Available Not Available Not Available Valium 5 mg tablet 5 mg po 11/09 completed Not Available Not Available Not Available levothyrox ine 112 mcg tablet Take 1 tablet every day by oral route. 2020 active Not Available Not Available Not Avai lable vitamin A 10,000 unit tablet Take every day by oral route as directed. 2020 active Not Available Not Available Not Avai lable Cymbalta 30 mg capsule,de layed release Take 1 capsule twice a day by oral route. 2020 active Not Available Not Available Not Avai lable zinc take daily as directed 2020 active Not Available Not Available Not Avai lable Vitals Date Recorded Body height Body mass index (BMI) Body weight Provider Name and Address Organization Details Last Updated DateTime 09/18/2024 157.48 cm 37.1 kg/m2 21126.25 g Jenny Purdy [facility] 09/18/2024 12:53:37 Date Recorded Body height Body mass index (BMI) Body weight Pain severity - 0-10 verbal numeric rating [Score] - Reported Provider Name and Address Organization Details Last Updated DateTime 10/23/2024 157.48 cm 37.1 kg/m2 58025.25 g Fred Rascon [facility] 10/23/2024 12:41:14 Date Recorded Body height Body mass index (BMI) Body weight Provider Name and Address Organization Details Last Updated DateTime 11/23/2024 157.48 cm 37.1 kg/m2 74212.25 g Katey Polanco [facility] 11/23/2024 11:45:47 Date Recorded Body height Body mass index (BMI) Body weight Provider Name and Address Organization Details Last Updated DateTime 12/19/2024 157.48 cm 37.1 kg/m2 23435.25 g Rere Carson [facility] 12/19/2024 13:45:27 Date Recorded Body height Body mass index (BMI) Body weight Provider Name and Address Organization Details Last Updated DateTime 01/16/2025 157.48 cm 37.1 kg/m2 35130.25 g Rere Carson [facility] 01/16/2025 11:34:50 Social History Question Answer Notes LastModified by JiaThis Details LastModified Time Tobacco Smoking Status Former Smoker Gabby arias [facility] 08/13/2021 22:45:52 What Is Your Level Of Alcohol Consumption? None Information not available 08/13/2021 Do You Feel Safe At Home? Yes Information not available 08/15/2021 Are You Being Threatened/ Abused By Someone? No Information not available 08/15/2021 Are You Worried That In The Next Few Months, You May Not Have Safe Housing? No Information not available 12/19/2024 What Was The Date Of Your Most Recent Tobacco Screening? 01/16/2025 Former Smoker Information not available 01/16/2025 Do You Use Any Illicit Or Recreational Drugs? No Information not available 08/13/2021 Has Tobacco Cessation Counseling Been Provided? No [email or web address] Information not available 09/14/2023 Do You Or Have You Ever Used Any Other Forms Of Tobacco Or Nicotine? No Information not available 08/13/2021 Sex: Unknown Functional Status Question Answer Note LastModified by JiaThis Details LastModified Time Do you have difficulty walking or climbing stairs? Yes patient uses a cane [email or web address] Information not available 05/15/2022 Mental Status None recorded. Family History Relationship Description Onset Age of this Age Resolved Age Notes LastModified by Organization Details LastModified Time Father [email or web address] Not available 08/13/2021 22:46:11 Mother Not available 08/13/2021 22:46:11 Medical History Condition Response other Y GERD/reflux Y hypertension Y Gynecological HistoryNo gynecological history recorded. Obstetrics History GPAL:G 0 P 0 0 0 0 Past Encounters Encounter ID Performer Location Encounter Start Date Encounter Closed Date Diagnosis/Indication Diagnosis SNOMED-CT Code Diagnosis ICD10 Code Diagnosis Note [id number] MADELINE TERESA MD [facility] [address] [place] [address] 08/15/2021 13:13:18 08/15/2021 13:44:45 Degeneration of lumbar intervertebral disc [id number] M51.36 INTRACTABL E PAIN WITH CONTINUED NEED FOR OPIOIDS. RISK ASSESSMENT FAVORS CURRENT THERAPY. Note that patients on chronic opioid therapy for pain are made aware that random urine drug screens are part of our monitoring guidelines . Inconsiste ncies in laboratory screening may result in terminatio n of prescripti on narcotic therapy. A signed opioid agreement is part of our treatment plan and is on file. Long-term current use of opiate analgesic drug [id number] 33824 Z79.891 URINE TOX SCREEN RESULTS CHECKED AND CONSISTENT WITH PRESCRIBED OPIOID REGIMEN. FULL RESULTS IN LAB SECTION. [id number] DENA ROLDAN NP [facility] [address] [place] [address] 09/12/2021 11:40:09 09/12/2021 13:04:32 Degeneration of lumbar intervertebral disc 19241394 M51.36 Establishe d problem, stable continuati on, I will continue to monitor for any progressio n of this condition. Continue current analgesic regimen. The patient continues to derive the benefit of pain reduction with chronic opiate therapy without evidence of harm. This will be reconsider ed at each visit to determine the risk vs. benefit to continuing this form of therapy Long-term current use of opiate analgesic drug [id number] 71515 Z79.891 The patient is on chronic opioid therapy, which adds an extra level of complexity , medical decision making and documentat ion associated with the visit. I have reviewed the current opioid regimen and determined that this patient continues to derive the benefit of pain reduction with opioid therapy without evidence of harm and that the benefit of opioid therapy outweighs the risks. The patient is informed to call the clinic if there are any questions or concerns about prescribed medication s side effects or other issues related to chronic pain management . I have reviewed recent urine drug screen (UDS) June 2021 and there is no discrepanc y Body mass index 40+ - severely obese 020707032 Z68.43 Morbid obesity impacts chronic pain, likewise poorly controlled pain affects metabolic disorder. When both conditions co-exist as in this patient pain management is more problemati c and time intensive. [id number] MADELINE TERESA MD [facility] [address] [place] [address] 09/24/2021 08:17:05 09/24/2021 16:19:05 Degeneration of lumbar intervertebral disc 55361189 M51.36 INTRACTABL E PAIN WITH CONTINUED NEED FOR OPIOIDS. RISK ASSESSMENT FAVORS CURRENT THERAPY. Note that patients on chronic opioid therapy for pain are made aware that random urine drug screens are part of our monitoring guidelines . Inconsiste ncies in laboratory screening may result in terminatio n of prescripti on narcotic therapy. A signed opioid agreement is part of our treatment plan and is on file. Long-term current use of opiate analgesic drug [id number] 38503 Z79.891 URINE TOX SCREEN RESULTS CHECKED AND CONSISTENT WITH PRESCRIBED OPIOID REGIMEN. FULL RESULTS IN LAB SECTION. [id number] BRANDI VACA [facility] [address] [place] [address] 11/07/2021 07:47:46 11/07/2021 15:33:08 Degeneration of lumbar intervertebral disc 88032675 M51.36 Establishe d problem, stable continuati on, I will continue to monitor for any progressio n of this condition. Continue current analgesic regimen. The patient continues to derive the benefit of pain reduction with chronic opiate therapy without evidence of harm. This will be reconsider ed at each visit to determine the risk vs. benefit to continuing this form of therapy Long-term current use of opiate analgesic drug [id number] 52150 Z79.891 Patient is on chronic opioid therapy, which adds an extra level of complexity , medical decision making and documentat ion associated with the visit. I reviewed proper use of prescribed opioids and counseled on the danger of the combined use of alcohol, non-prescr ibed opioids or any street drugs with prescribed opioids. I reviewed the current opioid regime and determined that this patient continues to derive the benefit of pain reduction with opioid therapy without evidence of harm and that the benefit of opioid therapy outweighs the risks.Urin e drug screen from June 2021 was reviewed and is consistent with prescribed oxycodone. [employer] was accessed with no discrepanc y. Body mass index 40+ - severely obese 529009383 Z68.43 Morbid obesity impacts chronic pain, likewise poorly controlled pain affects metabolic disorder. When both conditions co-exist as in this patient pain management is more problemati c and time intensive. [id number] BRANDI VACA [facility] [address] [place] [address] 12/19/2021 07:52:15 12/19/2021 12:54:05 Degeneration of lumbar intervertebral disc 14840823 M51.36 Establishe d problem, stable continuati on, I will continue to monitor for any progressio n of this condition. Continue current analgesic regimen. The patient continues to derive the benefit of pain reduction with chronic opiate therapy without evidence of harm. This will be reconsider ed at each visit to determine the risk vs. benefit to continuing this form of therapy Long-term current use of opiate analgesic drug 3923670178 24874 Z79.891 Patient is on chronic opioid therapy, which adds an extra level of complexity , medical decision making and documentat ion associated with the visit. I reviewed proper use of prescribed opioids and counseled on the danger of the combined use of alcohol, non-prescr ibed opioids or any street drugs with prescribed opioids. I reviewed the current opioid regime and determined that this patient continues to derive the benefit of pain reduction with opioid therapy without evidence of harm and that the benefit of opioid therapy outweighs the risks.Urin e drug screen from June 2021 was reviewed and is consistent with prescribed oxycodone. [employer] was accessed with no discrepanc y. Body mass index 40+ - severely obese 274793038 Z68.43 Morbid obesity impacts chronic pain, likewise poorly controlled pain affects metabolic disorder. When both conditions co-exist as in this patient pain management is more problemati c and time intensive. [id number] BRANDI VACA [facility] [address] [place] [address] 01/16/2022 13:22:59 01/16/2022 14:30:01 Degeneration of lumbar intervertebral disc 61644746 M51.36 Establishe d problem, stable continuati on, I will continue to monitor for any progressio n of this condition. Continue current analgesic regimen. The patient continues to derive the benefit of pain reduction with chronic opiate therapy without evidence of harm. This will be reconsider ed at each visit to determine the risk vs. benefit to continuing this form of therapy Long-term current use of opiate analgesic drug 8592542745 79970 Z79.891 Patient is on chronic opioid therapy, which adds an extra level of complexity , medical decision making and documentat ion associated with the visit. I reviewed proper use of prescribed opioids and counseled on the danger of the combined use of alcohol, non-prescr ibed opioids or any street drugs with prescribed opioids. I reviewed the current opioid regime and determined that this patient continues to derive the benefit of pain reduction with opioid therapy without evidence of harm and that the benefit of opioid therapy outweighs the risks.Urin e drug screen from June 2021 was reviewed and is consistent with prescribed oxycodone. Will repeat at next clinic visit. [employer] was accessed with no discrepanc y. Body mass index 40+ - severely obese 041592940 Z68.43 Morbid obesity impacts chronic pain, likewise poorly controlled pain affects metabolic disorder. When both conditions co-exist as in this patient pain management is more problemati c and time intensive. [id number] BRANDI VACA [facility] [address] [place] [address] 02/16/2022 07:25:42 02/16/2022 12:39:49 Degeneration of lumbar intervertebral disc 44176266 M51.36 Establishe d problem, stable continuati on, I will continue to monitor for any progressio n of this condition. Continue current analgesic regimen. The patient continues to derive the benefit of pain reduction with chronic opiate therapy without evidence of harm. This will be reconsider ed at each visit to determine the risk vs. benefit to continuing this form of therapy.45 MME Long-term current use of opiate analgesic drug [id number] 53275 Z79.891 Patient is on chronic opioid therapy, which adds an extra level of complexity , medical decision making and documentat ion associated with the visit. I reviewed proper use of prescribed opioids and counseled on the danger of the combined use of alcohol, non-prescr ibed opioids or any street drugs with prescribed opioids. I reviewed the current opioid regime and determined that this patient continues to derive the benefit of pain reduction with opioid therapy without evidence of harm and that the benefit of opioid therapy outweighs the risks.Urin e drug screen from June 2021 was reviewed and is consistent with prescribed oxycodone. Will repeat at next clinic visit. [employer] was accessed with no discrepanc y. Body mass index 40+ - severely obese 674041106 Z68.43 Morbid obesity impacts chronic pain, likewise poorly controlled pain affects metabolic disorder. When both conditions co-exist as in this patient pain management is more problemati c and time intensive. [id number] FRANC CORTES NP [facility] [address] [place] [address] 03/16/2022 11:55:44 03/16/2022 13:21:23 Degeneration of lumbar intervertebral disc 61647194 M51.36 Continue current plan of care, he/she is generally satisfied with current treatment, understand s this is a chronic pain condition and his/her expectatio ns for pain relief and functional ity are reasonable . Long-term current use of opiate analgesic drug 0890552054 19624 Z79.891 During the time of this visit I have reviewed recent medical record, progress note including medication , medical /surgical history for continuity of care, urine drug screen was interprete d, prescripti on monitoring program was accessed. I have considered current medical conditions prior to considerin g continuing opioid therapy.In cluded in this time is also patient counseling regarding medication safety regarding opioid therapy, reviewing prescripti ons and specific instructio ns.Goals of care were discussed with patient as well as communicat ed in the medical record for continuity of care. Patient is in agreement to current plan of care, all questions and concerns were addressed to his/her satisfacti on.Drug to drug interactio n was accessed and interprete d which increases level of medical complexity .Patient continues to derive benefit of pain reduction from chronic opioid therapy without evidence of or. This will be reconsider ed at each visit to determine risk versus benefit of continuing this course of therapy Long-term drug therapy 216418587 Z79.899 Previous urine drug screen no discrepanc ies will recheck today prescripti on monitoring program accessed no discrepanc ies. Fibromyalgia 045946179 M 79.7 currently prescribed Cymbalta 30 mg twice per day by her primary care physician for fibromyalg ia. Fibromyalg ia is a Central Pain Syndrome that is frequently resistant to therapy, particular ly opiate analgesics . There are some [employer] neuromodul ators that when combined can provide some modest relief. These fall into the drug categories of antidepres sants, anticonvul sants, [employer] Stimulants , central acting muscle relaxants, and alpha agonists. There are several associated symptoms effecting the [employer], GI, Musculoske letal and Neurologic organ systems. Patient is educated regarding expectatio ns of current pharmacolo gical therapy. [id number] FRANC CORTES NP [facility] [address] [place] [address] 04/14/2022 07:42:36 04/14/2022 15:03:39 Degeneration of lumbar intervertebral disc [id number] M51.36 Continue current plan of care, he/she is generally satisfied with current treatment, understand s this is a chronic pain condition and his/her expectatio ns for pain relief and functional ity are reasonable . Long-term current use of opiate analgesic drug [id number] 44431 Z79.891 During the time of this visit I have reviewed recent medical record, progress note including medication , medical /surgical history for continuity of care, urine drug screen was interprete d, prescripti on monitoring program was accessed. I have considered current medical conditions prior to considerin g continuing opioid therapy.In cluded in this time is also patient counseling regarding medication safety regarding opioid therapy, reviewing prescripti ons and specific instructio ns.Goals of care were discussed with patient as well as communicat ed in the medical record for continuity of care. Patient is in agreement to current plan of care, all questions and concerns were addressed to his/her satisfacti on.Drug to drug interactio n was accessed and interprete d which increases level of medical complexity .Patient continues to derive benefit of pain reduction from chronic opioid therapy without evidence of or. This will be reconsider ed at each visit to determine risk versus benefit of continuing this course of therapy Long-term drug therapy [id number] Z79.899 Previous urine drug screen no discrepanc ies prescripti on monitoring program accessed no discrepanc ies. Fibromyalgia [id number] M 79.7 currently prescribed Cymbalta 30 mg twice per day by her primary care physician for fibromyalg ia. Fibromyalg ia is a Central Pain Syndrome that is frequently resistant to therapy, particular ly opiate analgesics . There are some STRUCTURAL [employer] WORKER neuromodul ators that when combined can provide some modest relief. These fall into the drug categories of antidepres sants, anticonvul sants, STRUCTURAL [employer]ON WORKER Stimulants , central acting muscle relaxants, and alpha agonists. There are several associated symptoms effecting the STRUCTURAL IRON WORKER, GI, Musculoske letal and Neurologic organ systems. Patient is educated regarding expectatio ns of current pharmacolo gical therapy. [id number] FRANC CORTES NP [facility] [address] [place] [address] 05/15/2022 13:05:06 05/15/2022 14:18:21 Degeneration of lumbar intervertebral disc [id number] M51.36 Continue current plan of care, he/she is generally satisfied with current treatment, understand s this is a chronic pain condition and his/her expectatio ns for pain relief and functional ity are reasonable . Long-term current use of opiate analgesic drug [id number] 19876 Z79.891 During the time of this visit I have reviewed recent medical record, progress note including medication , medical /surgical history for continuity of care, urine drug screen was interprete d, prescripti on monitoring program was accessed. I have considered current medical conditions prior to considerin g continuing opioid therapy.In cluded in this time is also patient counseling regarding medication safety regarding opioid therapy, reviewing prescripti ons and specific instructio ns.Goals of care were discussed with patient as well as communicat ed in the medical record for continuity of care. Patient is in agreement to current plan of care, all questions and concerns were addressed to his/her satisfacti on.Drug to drug interactio n was accessed and interprete d which increases level of medical complexity .Patient continues to derive benefit of pain reduction from chronic opioid therapy without evidence of or. This will be reconsider ed at each visit to determine risk versus benefit of continuing this course of therapy Long-term drug therapy [id number] Z79.899 Previous urine drug screen no discrepanc ies prescripti on monitoring program accessed no discrepanc ies. Fibromyalgia [id number] M 79.7 Currently prescribed Cymbalta 30 mg twice per day by her primary care physician for fibromyalg ia. Fibromyalg ia is a Central Pain Syndrome that is frequently resistant to therapy, particular ly opiate analgesics . There are some STRU[employer] WORKER neuromodul ators that when combined can provide some modest relief. These fall into the drug categories of antidepres sants, anticonvul sants, STRU[employer]URAL [employer] WORKER Stimulants , central acting muscle relaxants, and alpha agonists. There are several associated symptoms effecting the STRUCTURAL [employer]ON WORKER, GI, Musculoske letal and Neurologic organ systems. Patient is educated regarding expectatio ns of current pharmacolo gical therapy. Body mass index 40+ - severely obese [id number] Z68.43 anticipate s gastric bypass surgery June 12, 2022. [id number] JAZLYN BERNABE NP [facility] [address] [place] [address] 07/02/2022 13:00:04 07/02/2022 14:00:19 Degeneration of lumbar intervertebral disc [id number] M51.36 Establishe d problem, stable continuati on, I will continue to monitor for any progressio n of this condition. Continue current analgesic regimen. The patient continues to derive the benefit of pain reduction with chronic opiate therapy without evidence of harm. This will be reconsider ed at each visit to determine the risk vs. benefit to continuing this form of therapy. Long-term drug therapy 450873760 Z79.899 Patient is on chronic opioid therapy, which adds an extra level of complexity , medical decision making and documentat ion associated with the visit. I reviewed proper use of prescribed opioids and counseled on the danger of the combined use of alcohol, non-prescr ibed opioids or any street drugs with prescribed opioids. I reviewed the current opioid regime and determined that this patient continues to derive the benefit of pain reduction with opioid therapy without evidence of harm and that the benefit of opioid therapy outweighs the risks. Urine tox from 03/16/22 was reviewed and consistent with current drug therapy. Patient did sign and update her opioids contract today. I did go over each section of the contract with her with a [place] interprete sho GarayT was verified and consistent with prescribed regimen. Fibromyalgia [id number] M 79.7 Currently prescribed Cymbalta 30 mg twice per day by her primary care physician for fibromyalg ia. Body mass index 40+ - severely obese 536127615 Z68.43 Patient had gastric bypass surgery on 06/12/22. She will continue to follow up with her surgeon as deemed necessary. [id number] JAZLYN BERNABE NP [facility] [address] [place] [address] 08/13/2022 12:32:13 08/13/2022 13:13:33 Degeneration of lumbar intervertebral disc 33817988 M51.36 Establishe d problem, stable continuati on, I will continue to monitor for any progressio n of this condition. Continue current analgesic regimen. The patient continues to derive the benefit of pain reduction with chronic opiate therapy without evidence of harm. This will be reconsider ed at each visit to determine the risk vs. benefit to continuing this form of therapy. Long-term drug therapy 253670870 Z79.899 Patient is on chronic opioid therapy, which adds an extra level of complexity , medical decision making and documentat ion associated with the visit. I reviewed proper use of prescribed opioids and counseled on the danger of the combined use of alcohol, non-prescr ibed opioids or any street drugs with prescribed opioids. I reviewed the current opioid regime and determined that this patient continues to derive the benefit of pain reduction with opioid therapy without evidence of harm and that the benefit of opioid therapy outweighs the risks. Urine tox from 03/16/22 was reviewed and consistent with current drug therapy. Fibromyalgia [id number] M 79.7 Currently prescribed Cymbalta 30 mg twice per day by her primary care physician for fibromyalg ia. Body mass index 40+ - severely obese [id number] Z68.43 Patient had gastric bypass surgery on 06/12/22. She will continue to follow up with her surgeon as deemed necessary. [id number] CHRISTIANA CARSON NP [facility] [address] [place] [address] 09/11/2022 12:38:20 09/11/2022 13:37:56 Degeneration of lumbar intervertebral disc 56756056 M51.36 Establishe d problem, stable continuati on, I will continue to monitor for any progressio n of this condition. Continue current analgesic regimen. The patient continues to derive the benefit of pain reduction with chronic opiate therapy without evidence of harm. This will be reconsider ed at each visit to determine the risk vs. benefit to continuing this form of therapy. 8 weeks of medication are being ordered today due to the lack of 4 week appointmen ts. Patient is aware that this will not be a recurring situation and is agreeable to and is comfortabl e with this plan. Mass PAT was accessed today and there are no discrepanc ies. Long-term drug therapy 090808743 Z79.899 The patient is on chronic opioid therapy which adds an extra level of complexity , medical decision making, and documentat ion associated with the visit. I have reviewed the proper use of prescribed opioids and counseled on the dangers of combined use of alcohol, nonprescri bed opioids, or any other recreation al drugs with prescribed opioids. I have reviewed the current opioid regimen and determined that this patient continues to derive the benefit of pain reduction with opioid therapy without evidence of harm and that the benefit of opioid therapy outweighs the risks. The patient is informed to call the clinic if there are any questions or concerns about prescribed medication s including side effects or other issues related to chronic pain management . Patient is also requested to call clinic and inform us if there are any opioid medication s that are prescribed to them from another physician such as a surgeon for surgical procedures or dentist for dental procedures . I have reviewed and considered drug to drug interactio ns which also increases the level of complexity in decision making process for ordering opioid medication s. I have discussed taking medication s only as prescribed , safe storage and responsibl e care of prescripti ons, and keeping medication in secured areas (lock box, storage). I have reviewed prescripti ons and specific directions that were going to be electronic ally sent to his pharmacy today with the patient. I have validated his pharmacy with the patient. I have validated that prescripti ons have been sent to pharmacy via E scribe. Urine drug screen from 03/16/2022 was reviewed today and is consistent with prescribed opioid, repeat urine obtained at today's visit. Fibromyalgia [id number] M 79.7 Fibromyalg ia is a Central Pain Syndrome that is frequently resistant to therapy, particular ly opiate analgesics . There are some STRUCT[employer] WORKER neuromodul ators that when combined can provide some modest relief. These fall into the drug categories of antidepres sants, anticonvul sants, STRUCTURAL [employer]ON WORKER Stimulants , central acting muscle relaxants, alpha agonists and benzodiaze pines. There are several associated symptoms affecting the STRUCTURAL IRON WORKER, GI, Musculoske letal and Neurologic organ systems. Body mass index 40+ - severely obese 283674289 Z68.43 Patient had gastric bypass surgery on 06/12/2022. She will continue to follow up with her surgeon as needed. Chronic pain 30622022 G8 9.29 Establishe d problem, stable continuati on, I will continue to monitor for any progressio n of this condition. [id number] FRANC CORTES NP [facility] [address] [place] [address] 11/10/2022 11:44:51 11/10/2022 14:02:48 Body mass index 40+ - severely obese [id number] Z68.43 Had intention of having gastric bypass surgery late summer 2021 this is not yet occurred however she is discussing with her primary care physician and will be meeting with cierra Smith on of lumbar intervertebral disc 54376794 M51.36 Continue current plan of care, he/she is generally satisfied with current treatment, understand s this is a chronic pain condition and his/her expectatio ns for pain relief and functional ity are reasonable . Long-term current use of opiate analgesic drug [id number] 10806 Z79.891 During the time of this visit I have reviewed recent medical record, progress note including medication , medical /surgical history for continuity of care, urine drug screen was interprete d, prescripti on monitoring program was accessed. I have considered current medical conditions prior to considerin g continuing opioid therapy.In cluded in this time is also patient counseling regarding medication safety regarding opioid therapy, reviewing prescripti ons and specific instructio ns.Goals of care were discussed with patient as well as communicat ed in the medical record for continuity of care. Patient is in agreement to current plan of care, all questions and concerns were addressed to his/her satisfacti on.Drug to drug interactio n was accessed and interprete d which increases level of medical complexity .Patient continues to derive benefit of pain reduction from chronic opioid therapy without evidence of or. This will be reconsider ed at each visit to determine risk versus benefit of continuing this course of therapy [id number] FRANC CORTES NP [facility] [address] [place] [address] 12/08/2022 14:23:33 12/08/2022 15:36:17 Degeneration of lumbar intervertebral disc 46734844 M51.36 Continue current plan of care, he/she is generally satisfied with current treatment, understand s this is a chronic pain condition and his/her expectatio ns for pain relief and functional ity are reasonable . Long-term current use of opiate analgesic drug [id number] 27974 Z79.891 During the time of this visit I have reviewed recent medical record, progress note including medication , medical /surgical history for continuity of care, urine drug screen was interprete d, prescripti on monitoring program was accessed. I have considered current medical conditions prior to considerin g continuing opioid therapy.In cluded in this time is also patient counseling regarding medication safety regarding opioid therapy, reviewing prescripti ons and specific instructio ns.Goals of care were discussed with patient as well as communicat ed in the medical record for continuity of care. Patient is in agreement to current plan of care, all questions and concerns were addressed to his/her satisfacti on.Drug to drug interactio n was accessed and interprete d which increases level of medical complexity .Patient continues to derive benefit of pain reduction from chronic opioid therapy without evidence of or. This will be reconsider ed at each visit to determine risk versus benefit of continuing this course of therapy Chronic pain syndrome 37 4760275 G89.4 Patient reports having occasional difficulty with coping with chronic pain conditions . Reporting frustratio n and depression , regarding physical limitation s, unlikely ability to fill work obligation s, increased stress aI discussed pacing activities , finding activities to help distract from chronic pain. Also encouraged to appropriat e self-care, and ways to decrease feelings of anxiety that would be suitable and effective. Encouraged to focus on capabiliti es. [id number] FRANC CORTES NP [facility] [address] [place] [address] 01/05/2023 12:24:16 01/05/2023 15:42:51 Degeneration of lumbar intervertebral disc 90115237 M51.36 Continue current plan of care, he/she is generally satisfied with current treatment, understand s this is a chronic pain condition and his/her expectatio ns for pain relief and functional ity are reasonable . Long-term current use of opiate analgesic drug 0357366084 14417 Z79.891 During the time of this visit I have reviewed recent medical record, progress note including medication , medical /surgical history for continuity of care, urine drug screen was interprete d, prescripti on monitoring program was accessed. I have considered current medical conditions prior to considerin g continuing opioid therapy.In cluded in this time is also patient counseling regarding medication safety regarding opioid therapy, reviewing prescripti ons and specific instructio ns.Goals of care were discussed with patient as well as communicat ed in the medical record for continuity of care. Patient is in agreement to current plan of care, all questions and concerns were addressed to his/her satisfacti on.Drug to drug interactio n was accessed and interprete d which increases level of medical complexity .Patient continues to derive benefit of pain reduction from chronic opioid therapy without evidence of or. This will be reconsider ed at each visit to determine risk versus benefit of continuing this course of therapy Chronic pain syndrome 37 5089676 G89.4 Patient reports having occasional difficulty with coping with chronic pain conditions . Reporting frustratio n and depression , regarding physical limitation s, unlikely ability to fill work obligation s, increased stress aI discussed pacing activities , finding activities to help distract from chronic pain. Also encouraged to appropriat e self-care, and ways to decrease feelings of anxiety that would be suitable and effective. Encouraged to focus on capabiliti es. [id number] BRANDI VACA [facility] [address] [place] [address] 02/02/2023 13:15:34 02/02/2023 14:06:39 Degeneration of lumbar intervertebral disc 62564164 M51.36 Establishe d problem, stable continuati on, I will continue to monitor for any progressio n of this condition. Continue current analgesic regimen. The patient continues to derive the benefit of pain reduction with chronic opiate therapy without evidence of harm. This will be reconsider ed at each visit to determine the risk vs. benefit to continuing this form of therapy.45 MME Long-term current use of opiate analgesic drug [id number] 36783 Z79.891 Patient is on chronic opioid therapy, which adds an extra level of complexity , medical decision making and documentat ion associated with the visit. I reviewed proper use of prescribed opioids and counseled on the danger of the combined use of alcohol, non-prescr ibed opioids or any street drugs with prescribed opioids. I reviewed the current opioid regime and determined that this patient continues to derive the benefit of pain reduction with opioid therapy without evidence of harm and that the benefit of opioid therapy outweighs the risks.Urin e drug screen from 09/11/22 was reviewed and is consistent with prescribed oxycodone. Will repeat today. MassPAT was accessed with no discrpeanc y. Chronic pain syndrome 37 2034492 G89.4 Patient is currently satisfied with current level of pain control, level of function, and medication management . Long-term drug therapy 295196629 Z79.899 [id number] FRANC CORTES NP [facility] [address] [place] [address] 03/02/2023 12:02:41 03/02/2023 13:06:06 Degeneration of lumbar intervertebral disc 47172410 M51.36 Continue current plan of care, he/she is generally satisfied with current treatment, understand s this is a chronic pain condition and his/her expectatio ns for pain relief and functional ity are reasonable . Long-term current use of opiate analgesic drug 1102877269 64403 Z79.891 During the time of this visit I have reviewed recent medical record, progress note including medication , medical /surgical history for continuity of care, urine drug screen was interprete d, prescripti on monitoring program was accessed. I have considered current medical conditions prior to considerin g continuing opioid therapy.In cluded in this time is also patient counseling regarding medication safety regarding opioid therapy, reviewing prescripti ons and specific instructio ns.Goals of care were discussed with patient as well as communicat ed in the medical record for continuity of care. Patient is in agreement to current plan of care, all questions and concerns were addressed to his/her satisfacti on.Drug to drug interactio n was accessed and interprete d which increases level of medical complexity .Patient continues to derive benefit of pain reduction from chronic opioid therapy without evidence of or. This will be reconsider ed at each visit to determine risk versus benefit of continuing this course of therapy Chronic pain syndrome 37 7713092 G89.4 Patient reports having occasional difficulty with coping with chronic pain conditions . Reporting frustratio n and depression , regarding physical limitation s, unlikely ability to fill work obligation s, increased stress aI discussed pacing activities , finding activities to help distract from chronic pain. Also encouraged to appropriat e self-care, and ways to decrease feelings of anxiety that would be suitable and effective. Encouraged to focus on capabiliti es. [id number] JAZLYN BERNABE NP [facility] [address] [place] [address] 03/30/2023 13:15:36 03/30/2023 13:52:01 Degeneration of lumbar intervertebral disc 26884918 M51.36 Establishe d problem, stable continuati on, I will continue to monitor for any progressio n of this condition. Continue current analgesic regimen. The patient continues to derive the benefit of pain reduction with chronic opiate therapy without evidence of harm. This will be reconsider ed at each visit to determine the risk vs. benefit to continuing this form of therapy. Long-term current use of opiate analgesic drug [id number] 14761 Z79.891 Patient is on chronic opioid therapy, which adds an extra level of complexity , medical decision making and documentat ion associated with the visit. I reviewed proper use of prescribed opioids and counseled on the danger of the combined use of alcohol, non-prescr ibed opioids or any street drugs with prescribed opioids. I reviewed the current opioid regime and determined that this patient continues to derive the benefit of pain reduction with opioid therapy without evidence of harm and that the benefit of opioid therapy outweighs the risks. Urine tox from 02/02/23 was reviewed and consistent with current drug therapy. MassPAT was verified and consistent with prescribed regimen. Chronic pain syndrome 37 0891195 G89.4 Will continue plan of care - patient is satisfied with the current treatment and understand s chronic pain and the expectatio ns for functional ity and pain control are reasonable . [id number] RADHA JOLLY NP [facility] [address] [place] [address] 05/03/2023 11:29:53 05/03/2023 11:51:24 Degeneration of lumbar intervertebral disc 05482649 M51.36 Establishe d problem, stable continuati on, I will continue to monitor for any progressio n of this condition. Continue current analgesic regimen. The patient continues to derive the benefit of pain reduction with chronic opiate therapy without evidence of harm. This will be reconsider ed at each visit to determine the risk vs. benefit to continuing this form of therapy. Long-term current use of opiate analgesic drug [id number] 77720 Z79.891 Patient is on chronic opioid therapy, which adds an extra level of complexity , medical decision making and documentat ion associated with the visit. I reviewed proper use of prescribed opioids and counseled on the danger of the combined use of alcohol, non-prescr ibed opioids or any street drugs with prescribed opioids. I reviewed the current opioid regime and determined that this patient continues to derive the benefit of pain reduction with opioid therapy without evidence of harm and that the benefit of opioid therapy outweighs the risks. Urine tox from 02/02/23 was reviewed and consistent with current drug therapy. MassPAT was verified and consistent with prescribed regimen. Chronic pain syndrome 37 1854227 G89.4 Will continue plan of care - patient is satisfied with the current treatment and understand s chronic pain and the expectatio ns for functional ity and pain control are reasonable . [id number] BRANDI VACA [facility] [address] [place] [address] 06/01/2023 11:51:23 06/01/2023 12:41:07 Degeneration of lumbar intervertebral disc [id number] M51.36 Establishe d problem, stable continuati on, I will continue to monitor for any progressio n of this condition. Continue current analgesic regimen. The patient continues to derive the benefit of pain reduction with chronic opiate therapy without evidence of harm. This will be reconsider ed at each visit to determine the risk vs. benefit to continuing this form of therapy.45 MME Long-term current use of opiate analgesic drug [id number] 06503 Z79.891 Patient is on chronic opioid therapy, which adds an extra level of complexity , medical decision making and documentat ion associated with the visit. I reviewed proper use of prescribed opioids and counseled on the danger of the combined use of alcohol, non-prescr ibed opioids or any street drugs with prescribed opioids. I reviewed the current opioid regime and determined that this patient continues to derive the benefit of pain reduction with opioid therapy without evidence of harm and that the benefit of opioid therapy outweighs the risks.Urin e drug screen from 02/02/23 was reviewed and is consistent with prescribed oxycodone. MassPAT was accessed with no discrpeanc y. Chronic pain syndrome 37 2926622 G89.4 Patient is currently satisfied with current level of pain control, level of function, and medication management . Pain of ri ght knee region [id number] 60956 M25.561 Increased right knee pain for 2 weeks. Has an appointmen t with PCP on 06/20/23 for further evaluation . [id number] CHRISTIANA CARSON NP [facility] [address] [place] [address] 07/13/2023 14:41:35 07/13/2023 15:49:13 Degeneration of lumbar intervertebral disc 98681380 M51.36 Establishe d problem, stable continuati on, I will continue to monitor for any progressio n of this condition. Continue current analgesic regimen. The patient continues to derive the benefit of pain reduction with chronic opiate therapy without evidence of harm. This will be reconsider ed at each visit to determine the risk vs. benefit to continuing this form of therapy. Mass PAT was accessed today and there are no discrepanc ies. Chronic pain syndrome 37 2000352 G89.4 Patient is satisfied with current level of pain control, level of function, and medication management . Long-term drug therapy [id number] Z79.899 The patient is on chronic opioid therapy which adds an extra level of complexity , medical decision making, and documentat ion associated with the visit. I have reviewed the proper use of prescribed opioids and counseled on the dangers of combined use of alcohol, nonprescri bed opioids, or any other recreation al drugs with prescribed opioids. I have reviewed the current opioid regimen and determined that this patient continues to derive the benefit of pain reduction with opioid therapy without evidence of harm and that the benefit of opioid therapy outweighs the risks. The patient is informed to call the clinic if there are any questions or concerns about prescribed medication s including side effects or other issues related to chronic pain management . Patient is also requested to call clinic and inform us if there are any opioid medication s that are prescribed to them from another physician such as a surgeon for surgical procedures or dentist for dental procedures . I have reviewed and considered drug to drug interactio ns which also increases the level of complexity in decision making process for ordering opioid medication s. I have discussed taking medication s only as prescribed , safe storage and responsibl e care of prescripti ons, and keeping medication in secured areas (lock box, storage). I have reviewed prescripti ons and specific directions for prescripti ons that are going to be electronic ally sent to the pharmacy today with the patient. I have validated the pharmacy with the patient. I have confirmed that prescripti ons have been sent to pharmacy via E scribe. Urine drug screen from 02/02/2023 was reviewed today and is consistent with prescribed opioid, repeat urine obtained at today's visit. Lumbar radiculopathy 128 870932 M54.16 Establishe d problem, increased pain, I will continue to monitor for any progressio n of this condition. She reports that she previously had injections that helped with this pain and she would like to repeat if possible. Looking back, she last had lumbar epidural steroid injections in 2019 so will schedule repeat injection. [id number] BRANDI VACA [facility] [address] [place] [address] 08/09/2023 14:29:29 08/09/2023 15:14:27 Degeneration of lumbar intervertebral disc 92921099 M51.36 Establishe d problem, increased pain, patient is scheduled for a lumbar epidural steroid injection on 09/14/23. Continue current analgesic regimen. The patient continues to derive the benefit of pain reduction with chronic opiate therapy without evidence of harm. This will be reconsider ed at each visit to determine the risk vs. benefit to continuing this form of therapy.45 MME Long-term current use of opiate analgesic drug [id number] 38576 Z79.891 Patient is on chronic opioid therapy, which adds an extra level of complexity , medical decision making and documentat ion associated with the visit. I reviewed proper use of prescribed opioids and counseled on the danger of the combined use of alcohol, non-prescr ibed opioids or any street drugs with prescribed opioids. I reviewed the current opioid regime and determined that this patient continues to derive the benefit of pain reduction with opioid therapy without evidence of harm and that the benefit of opioid therapy outweighs the risks.Urin e drug screen from 07/13/23 was reviewed and is consistent with prescribed metabolite s of oxycodone, no parent compound. Last dose recorded as same day so would expect the parent compound to be present. Will repeat today. MassPAT was accessed with no discrpeanc y. Chronic pain syndrome 37 4960637 G89.4 Patient is currently satisfied with current level of pain control, level of function, and medication management . Long-term drug therapy 766234167 Z79.899 [id number] MADELINE TERESA MD [facility] [address] [place] [address] 09/14/2023 13:06:42 09/14/2023 14:37:19 Chronic pain syndrome [id number] G89.4 Degenerati on of lumbar intervertebral disc 59161236 M51.36 INTRACTABL E PAIN WITH CONTINUED NEED FOR OPIOIDS. RISK ASSESSMENT FAVORS CURRENT THERAPY. Note that patients on chronic opioid therapy for pain are made aware that random urine drug screens are part of our monitoring guidelines . Inconsiste ncies in laboratory screening may result in terminatio n of prescripti on narcotic therapy. A signed opioid agreement is part of our treatment plan and is on file. Lumbar dis c prolapse with radiculopathy [id number] M51.16 [id number] CHRISTIANA CARSON NP [facility] [address] [place] [address] 10/12/2023 14:37:55 10/12/2023 15:11:02 Degeneration of lumbar intervertebral disc 51119502 M51.36 Establishe d problem, decreased pain post lumbar epidural steroid injection on 09/14/2023 , I will continue to monitor for any progressio n of this condition. Continue current analgesic regimen. The patient continues to derive the benefit of pain reduction with chronic opiate therapy without evidence of harm. This will be reconsider ed at each visit to determine the risk vs. benefit to continuing this form of therapy. Mass PAT was accessed today and there are no discrepanc ies. Chronic pain syndrome 37 8125468 G89.4 Patient is satisfied with current level of pain control, level of function, and medication management . Long-term drug therapy 115686331 Z79.899 Patient is on chronic opioid therapy, which adds an extra level of complexity , medical decision making and documentat ion associated with the visit. I reviewed proper use of prescribed opioids and counseled on the danger of the combined use of alcohol, non-prescr ibed opioids or any street drugs with prescribed opioids. I reviewed the current opioid regime and determined that this patient continues to derive the benefit of pain reduction with opioid therapy without evidence of harm and that the benefit of opioid therapy outweighs the risks. Urine drug screen from 07/13/2023 was reviewed today and is consistent with metabolite s of oxycodone. [id number] CHRISTIANA CARSON NP [facility] [address] [place] [address] 11/09/2023 13:16:42 11/09/2023 13:49:11 Degeneration of lumbar intervertebral disc 90207666 M51.36 Establishe d problem, stable continuati on, I will continue to monitor for any progressio n of this condition. Will repeat a lumbar epidural steroid injection in the future if needed. Continue current analgesic regimen. The patient continues to derive the benefit of pain reduction with chronic opiate therapy without evidence of harm. This will be reconsider ed at each visit to determine the risk vs. benefit to continuing this form of therapy. Mass PAT was accessed today and there are no discrepanc ies. Chronic pain syndrome 37 5247410 G89.4 Patient is satisfied with current level of pain control, level of function, and medication management . Long-term drug therapy 208690645 Z79.899 Patient is on chronic opioid therapy, which adds an extra level of complexity , medical decision making and documentat ion associated with the visit. I reviewed proper use of prescribed opioids and counseled on the danger of the combined use of alcohol, non-prescr ibed opioids or any street drugs with prescribed opioids. I reviewed the current opioid regime and determined that this patient continues to derive the benefit of pain reduction with opioid therapy without evidence of harm and that the benefit of opioid therapy outweighs the risks. Urine drug screen from 07/13/2023 was reviewed today and is consistent with metabolite s of oxycodone. Repeat urine obtained at today's visit. [id number] CHRISTIANA CARSON NP [facility] [address] [place] [address] 12/07/2023 07:13:50 12/07/2023 15:03:50 Degeneration of lumbar intervertebral disc 11958276 M51.36 Establishe d problem, stable continuati on, I will continue to monitor for any progressio n of this condition. Will repeat a lumbar epidural steroid injection in the future if needed. Continue current analgesic regimen. The patient continues to derive the benefit of pain reduction with chronic opiate therapy without evidence of harm. This will be reconsider ed at each visit to determine the risk vs. benefit to continuing this form of therapy. Mass PAT was accessed today and there are no discrepanc ies. Chronic pain syndrome 37 6501552 G89.4 Patient is satisfied with current level of pain control, level of function, and medication management . Long-term drug therapy 851550288 Z79.899 Patient is on chronic opioid therapy, which adds an extra level of complexity , medical decision making and documentat ion associated with the visit. I reviewed proper use of prescribed opioids and counseled on the danger of the combined use of alcohol, non-prescr ibed opioids or any street drugs with prescribed opioids. I reviewed the current opioid regime and determined that this patient continues to derive the benefit of pain reduction with opioid therapy without evidence of harm and that the benefit of opioid therapy outweighs the risks. Urine drug screen from 11/09/2023 was reviewed today and is consistent with prescribed opioid, +THC. [id number] RADHA JOLLY NP [facility] [address] [place] [address] 01/10/2024 10:37:57 01/10/2024 11:47:38 Chronic pain syndrome 902001786 G89.4 Will continue plan of care - patient is satisfied with the current treatment and understand s chronic pain and the expectatio ns for functional ity and pain control are reasonable . Degenerati on of lumbar intervertebral disc 15075382 M51.36 Establishe d problem, stable continuati on, I will continue to monitor for any progressio n of this condition. Will repeat a lumbar epidural steroid injection in the future if needed. Continue current analgesic regimen. The patient continues to derive the benefit of pain reduction with chronic opiate therapy without evidence of harm. This will be reconsider ed at each visit to determine the risk vs. benefit to continuing this form of therapy. Mass PAT was accessed today and there are no discrepanc ies. Long-term drug therapy 346902656 Z79.899 Patient is on chronic opioid therapy, which adds an extra level of complexity , medical decision making and documentat ion associated with the visit. I reviewed proper use of prescribed opioids and counseled on the danger of the combined use of alcohol, non-prescr ibed opioids or any street drugs with prescribed opioids. I reviewed the current opioid regime and determined that this patient continues to derive the benefit of pain reduction with opioid therapy without evidence of harm and that the benefit of opioid therapy outweighs the risks. Urine drug screen from 11/09/2023 was reviewed today and is consistent with prescribed opioid, +THC. [id number] BRANDI VACA [facility] [address] [place] [address] 02/07/2024 12:38:15 02/07/2024 14:03:52 Chronic pain syndrome 220386504 G89.4 Patient is currently satisfied with current level of pain control, level of function, and medication management . Degenerati on of lumbar intervertebral disc 00444269 M51.36 Establishe d problem, stable continuati on, I will continue to monitor for any progressio n of this condition. Will repeat a lumbar epidural steroid injection in the future if needed. Continue current analgesic regimen. The patient continues to derive the benefit of pain reduction with chronic opiate therapy without evidence of harm. This will be reconsider ed at each visit to determine the risk vs. benefit to continuing this form of therapy. Long-term drug therapy 277320620 Z79.899 Patient is on chronic opioid therapy, which adds an extra level of complexity , medical decision making and documentat ion associated with the visit. I reviewed proper use of prescribed opioids and counseled on the danger of the combined use of alcohol, non-prescr ibed opioids or any street drugs with prescribed opioids. I reviewed the current opioid regime and determined that this patient continues to derive the benefit of pain reduction with opioid therapy without evidence of harm and that the benefit of opioid therapy outweighs the risks.Urin e drug screen from 11/09/2023 was reviewed today and is consistent with prescribed oxycodone, +THC. MassPAT was accessed with no discrepanc y. Lumbar radiculopathy 128 M54.16 Establishe d problem, stable continuati on, I will continue to monitor for any progressio n of this. [id number] JAZLYN BERNABE NP [facility] [address] [place] [address] 03/07/2024 13:22:27 03/07/2024 14:12:04 Chronic pain syndrome 080181377 G89.4 Will continue plan of care - patient is satisfied with the current treatment and understand s chronic pain and the expectatio ns for functional ity and pain control are reasonable . Degenerati on of lumbar intervertebral disc 51731172 M51.36 Establishe d problem, stable continuati on, I will continue to monitor for any progressio n of this condition. Will repeat a lumbar epidural steroid injection in the future if needed. Continue current analgesic regimen. The patient continues to derive the benefit of pain reduction with chronic opiate therapy without evidence of harm. This will be reconsider ed at each visit to determine the risk vs. benefit to continuing this form of therapy. Long-term drug therapy 298507931 Z79.899 Patient is on chronic opioid therapy, which adds an extra level of complexity , medical decision making and documentat ion associated with the visit. I reviewed proper use of prescribed opioids and counseled on the danger of the combined use of alcohol, non-prescr ibed opioids or any street drugs with prescribed opioids. I reviewed the current opioid regime and determined that this patient continues to derive the benefit of pain reduction with opioid therapy without evidence of harm and that the benefit of opioid therapy outweighs the risks. Urine drug screen from 11/09/2023 was reviewed today and is consistent with prescribed oxycodone, +THC. MassPAT was accessed with no discrepanc y. Lumbar radiculopathy 128 M54.16 Establishe d problem, stable continuati on, I will continue to monitor for any progressio n of this condition. [id number] FRANC CORTES NP [facility] [address] [place] [address] 04/11/2024 13:43:26 04/11/2024 14:43:58 Degeneration of lumbar intervertebral disc 74272562 M51.36 Continue current plan of care, he/she is generally satisfied with current treatment, understand s this is a chronic pain condition and his/her expectatio ns for pain relief and functional ity are reasonable . Long-term current use of opiate analgesic drug 2978671208 52286 Z79.891 During the time of this visit I have reviewed recent medical record, progress note including medication , medical /surgical history for continuity of care, urine drug screen was interprete d, prescripti on monitoring program was accessed. I have considered current medical conditions prior to considerin g continuing opioid therapy.In cluded in this time is also patient counseling regarding medication safety regarding opioid therapy, reviewing prescripti ons and specific instructio ns.Goals of care were discussed with patient as well as communicat ed in the medical record for continuity of care. Patient is in agreement to current plan of care, all questions and concerns were addressed to his/her satisfacti on.Drug to drug interactio n was accessed and interprete d which increases level of medical complexity .Patient continues to derive benefit of pain reduction from chronic opioid therapy without evidence of or. This will be reconsider ed at each visit to determine risk versus benefit of continuing this course of therapy [id number] JAZLYN BERNABE NP [facility] [address] [place] [address] 05/09/2024 13:00:42 05/09/2024 14:02:02 Degeneration of lumbar intervertebral disc 20123401 M51.36 Establishe d problem, stable continuati on, I will continue to monitor for any progressio n of this condition. Continue current analgesic regimen. The patient continues to derive the benefit of pain reduction with chronic opiate therapy without evidence of harm. This will be reconsider ed at each visit to determine the risk vs. benefit to continuing this form of therapy. Long-term drug therapy 253049450 Z79.899 Patient is on chronic opioid therapy, which adds an extra level of complexity , medical decision making and documentat ion associated with the visit. I reviewed proper use of prescribed opioids and counseled on the danger of the combined use of alcohol, non-prescr ibed opioids or any street drugs with prescribed opioids. I reviewed the current opioid regime and determined that this patient continues to derive the benefit of pain reduction with opioid therapy without evidence of harm and that the benefit of opioid therapy outweighs the risks. Urine drug screen from 03/07/24 was reviewed today and is consistent with prescribed oxycodone, +THC. MassPAT was accessed with no discrepanc y. Chronic pain 06174535 G8 9.29 Will continue plan of care - patient is satisfied with the current treatment and understand s chronic pain and the expectatio ns for functional ity and pain control are reasonable . [id number] FRANC CORTES NP [facility] [address] [place] [address] 06/05/2024 11:44:31 06/05/2024 14:19:08 Long-term current use of opiate analgesic drug [id number] 70405 Z79.891 During the time of this visit I have reviewed recent medical record, progress note including medication , medical /surgical history for continuity of care, urine drug screen was interprete d, prescripti on monitoring program was accessed. I have considered current medical conditions prior to considerin g continuing opioid therapy.In cluded in this time is also patient counseling regarding medication safety regarding opioid therapy, reviewing prescripti ons and specific instructio ns.Goals of care were discussed with patient as well as communicat ed in the medical record for continuity of care. Patient is in agreement to current plan of care, all questions and concerns were addressed to his/her satisfacti on.Drug to drug interactio n was accessed and interprete d which increases level of medical complexity .Patient continues to derive benefit of pain reduction from chronic opioid therapy without evidence of or. This will be reconsider ed at each visit to determine risk versus benefit of continuing this course of therapy Degenerati on of lumbar intervertebral disc 72034654 M51.36 Continue current plan of care, he/she is generally satisfied with current treatment, understand s this is a chronic pain condition and his/her expectatio ns for pain relief and functional ity are reasonable . Body mass index 40+ - severely obese 863376240 Z68.43 Had intention of having gastric bypass surgery this is not yet occurred however she is discussing with her primary care physician and [facility] [id number] FRANC CORTES NP [facility] [address] [place] [address] 07/10/2024 12:20:14 07/10/2024 14:22:30 Degeneration of lumbar intervertebral disc 39500076 M51.36 Continue current plan of care, he/she is generally satisfied with current treatment, understand s this is a chronic pain condition and his/her expectatio ns for pain relief and functional ity are reasonable . Chronic pain syndrome 37 9708459 G89.4 Patient reports having occasional difficulty with coping with chronic pain conditions . Reporting frustratio n and depression , regarding physical limitation s, unlikely ability to fill work obligation s, increased stress aI discussed pacing activities , finding activities to help distract from chronic pain. Also encouraged to appropriat e self-care, and ways to decrease feelings of anxiety that would be suitable and effective. Long-term current use of opiate analgesic drug [id number] 50019 Z79.891 During the time of this visit I have reviewed recent medical record, progress note including medication , medical /surgical history for continuity of care, urine drug screen was interprete d, prescripti on monitoring program was accessed. I have considered current medical conditions prior to considerin g continuing opioid therapy.In cluded in this time is also patient counseling regarding medication safety regarding opioid therapy, reviewing prescripti ons and specific instructio ns.Goals of care were discussed with patient as well as communicat ed in the medical record for continuity of care. Patient is in agreement to current plan of care, all questions and concerns were addressed to his/her satisfacti on.Drug to drug interactio n was accessed and interprete d which increases level of medical complexity .Patient continues to derive benefit of pain reduction from chronic opioid therapy without evidence of or. This will be reconsider ed at each visit to determine risk versus benefit of continuing this course of therapy [id number] CHRISTIANA CARSON NP [facility] [address] [place] [address] 08/22/2024 13:40:54 08/22/2024 14:15:49 Degeneration of lumbar intervertebral disc 84050380 M51.362 Establishe d problem, stable continuati on, I will continue to monitor for any progressio n of this condition. Continue current analgesic regimen. The patient continues to derive the benefit of pain reduction with chronic opiate therapy without evidence of harm. This will be reconsider ed at each visit to determine the risk vs. benefit to continuing this form of therapy. Mass PAT was accessed today and there are no discrepanc ies. Chronic pain syndrome 37 9939867 G89.4 Patient is satisfied with current level of pain control, level of function, and medication management . Long-term drug therapy [id number] Z79.899 Patient is on chronic opioid therapy, which adds an extra level of complexity , medical decision making and documentat ion associated with the visit. I reviewed proper use of prescribed opioids and counseled on the danger of the combined use of alcohol, non-prescr ibed opioids or any street drugs with prescribed opioids. I reviewed the current opioid regime and determined that this patient continues to derive the benefit of pain reduction with opioid therapy without evidence of harm and that the benefit of opioid therapy outweighs the risks. Urine drug screen from 03/07/2024 was reviewed today and is consistent with prescribed opioid, +THC. Repeat urine obtained at today's visit. [id number] BRANDI VACA [facility] [address] [place] [address] 09/18/2024 12:42:16 09/18/2024 14:12:49 Degeneration of lumbar intervertebral disc [id number] M51.362 Establishe d problem, stable continuati on, I will continue to monitor for any progressio n of this condition. Continue current analgesic regimen. The patient continues to derive the benefit of pain reduction with chronic opiate therapy without evidence of harm. This will be reconsider ed at each visit to determine the risk vs. benefit to continuing this form of therapy.45 MME Chronic pain syndrome 37 [id number] G89.4 Patient is satisfied with current level of pain control, level of function, and medication management . Long-term drug therapy [id number] Z79.899 Patient is on chronic opioid therapy, which adds an extra level of complexity , medical decision making and documentat ion associated with the visit. I reviewed proper use of prescribed opioids and counseled on the danger of the combined use of alcohol, non-prescr ibed opioids or any street drugs with prescribed opioids. I reviewed the current opioid regime and determined that this patient continues to derive the benefit of pain reduction with opioid therapy without evidence of harm and that the benefit of opioid therapy outweighs the risks.Urin e drug screen from 08/22/24 was reviewed today and is consistent with prescribed oxycodone, +THC. [facility] was accessed with no discrepanc y. [id number] FRANC CORTES NP [facility] [address] [place] [address] 10/23/2024 12:05:13 10/23/2024 12:54:41 Degeneration of lumbar intervertebral disc [id number] M51.369 Continue current plan of care, he/she is generally satisfied with current treatment, understand s this is a chronic pain condition and his/her expectatio ns for pain relief and functional ity are reasonable . Long-term current use of opiate analgesic drug [id number] 51299 Z79.891 During the time of this visit I have reviewed recent medical record, progress note including medication , medical /surgical history for continuity of care, urine drug screen was interprete d, prescripti on monitoring program was accessed. I have considered current medical conditions prior to considerin g continuing opioid therapy.In cluded in this time is also patient counseling regarding medication safety regarding opioid therapy, reviewing prescripti ons and specific instructio ns.Goals of care were discussed with patient as well as communicat ed in the medical record for continuity of care. Patient is in agreement to current plan of care, all questions and concerns were addressed to his/her satisfacti on.Drug to drug interactio n was accessed and interprete d which increases level of medical complexity .Patient continues to derive benefit of pain reduction from chronic opioid therapy without evidence of or. This will be reconsider ed at each visit to determine risk versus benefit of continuing this course of therapy Chronic pain syndrome 37 [id number] G89.4 Patient reports having occasional difficulty with coping with chronic pain conditions . Reporting frustratio n and depression , regarding physical limitation s, unlikely ability to fill work obligation s, increased stress aI discussed pacing activities , finding activities to help distract from chronic pain. Also encouraged to appropriat e self-care, and ways to decrease feelings of anxiety that would be suitable and effective. [id number] FRANC CORTES NP [facility] [address] [place] [address] 11/23/2024 11:34:47 11/23/2024 12:43:36 Long-term current use of opiate analgesic drug [id number] 28014 Z79.891 During the time of this visit I have reviewed recent medical record, progress note including medication , medical /surgical history for continuity of care, urine drug screen was interprete d, prescripti on monitoring program was accessed. I have considered current medical conditions prior to considerin g continuing opioid therapy.In cluded in this time is also patient counseling regarding medication safety regarding opioid therapy, reviewing prescripti ons and specific instructio ns.Goals of care were discussed with patient as well as communicat ed in the medical record for continuity of care. Patient is in agreement to current plan of care, all questions and concerns were addressed to his/her satisfacti on.Drug to drug interactio n was accessed and interprete d which increases level of medical complexity .Patient continues to derive benefit of pain reduction from chronic opioid therapy without evidence of or. This will be reconsider ed at each visit to determine risk versus benefit of continuing this course of therapy Degenerati on of lumbar intervertebral disc [id number] M51.369 Continue current plan of care, he/she is generally satisfied with current treatment, understand s this is a chronic pain condition and his/her expectatio ns for pain relief and functional ity are reasonable . Chronic pain syndrome 37 6352900 G89.4 Patient reports having occasional difficulty with coping with chronic pain conditions . Reporting frustratio n and depression , regarding physical limitation s, unlikely ability to fill work obligation s, increased stress aI discussed pacing activities , finding activities to help distract from chronic pain. Also encouraged to appropriat e self-care, and ways to decrease feelings of anxiety that would be suitable and effective. [id number] FRANC CORTES NP [facility] [address] [place] [address] 12/19/2024 13:13:07 12/19/2024 14:18:31 Degeneration of lumbar intervertebral disc 53061453 M51.369 Continue current plan of care, he/she is generally satisfied with current treatment, understand s this is a chronic pain condition and his/her expectatio ns for pain relief and functional ity are reasonable . Long-term current use of opiate analgesic drug [id number] 31796 Z79.891 During the time of this visit I have reviewed recent medical record, progress note including medication , medical /surgical history for continuity of care, urine drug screen was interprete d, prescripti on monitoring program was accessed. I have considered current medical conditions prior to considerin g continuing opioid therapy.In cluded in this time is also patient counseling regarding medication safety regarding opioid therapy, reviewing prescripti ons and specific instructio ns.Goals of care were discussed with patient as well as communicat ed in the medical record for continuity of care. Patient is in agreement to current plan of care, all questions and concerns were addressed to his/her satisfacti on.Drug to drug interactio n was accessed and interprete d which increases level of medical complexity .Patient continues to derive benefit of pain reduction from chronic opioid therapy without evidence of or. This will be reconsider ed at each visit to determine risk versus benefit of continuing this course of therapy Chronic pain syndrome 37 [id number] G89.4 Patient reports having occasional difficulty with coping with chronic pain conditions . Reporting frustratio n and depression , regarding physical limitation s, unlikely ability to fill work obligation s, increased stressI discussed pacing activities , finding activities to help distract from chronic pain. Also encouraged to appropriat e self-care, and ways to decrease feelings of anxiety that would be suitable and effective. [id number] CHRISTIANA CARSON NP [facility] [address] [place] [address] 01/16/2025 11:20:55 01/16/2025 12:32:58 Degeneration of lumbar intervertebral disc [id number] M51.369 Establishe d problem, stable continuati on, I will continue to monitor for any progressio n of this condition. Continue current analgesic regimen. The patient continues to derive the benefit of pain reduction with chronic opiate therapy without evidence of harm. This will be reconsider ed at each visit to determine the risk vs. benefit to continuing this form of therapy. Mass PAT was accessed today and there are no discrepanc ies. Chronic pain syndrome 37 8714104 G89.4 Patient is satisfied with current level of pain control, level of function, and medication management . Long-term drug therapy [id number] Z79.899 Patient is on chronic opioid therapy, which adds an extra level of complexity , medical decision making and documentat ion associated with the visit. I reviewed proper use of prescribed opioids and counseled on the danger of the combined use of alcohol, non-prescr ibed opioids or any street drugs with prescribed opioids. I reviewed the current opioid regime and determined that this patient continues to derive the benefit of pain reduction with opioid therapy without evidence of harm and that the benefit of opioid therapy outweighs the risks. Urine drug screen from 08/22/2024 was reviewed today and is consistent with prescribed opioid, +THC. Repeat urine obtained at today's visit. Health Concerns Section Related Observation LastModified by Organization Detai ls LastModified Time None Recorded Concern Status LastModified by Organization Details LastModified Time None Recorded Advance Directives Directive None Recorded Payers Encounter Date Sequence Insurance Name Policy Number Policy Whitfield Covered Member ID Whitfield Member ID Guarantor Name 09/18/2024 1 [place] Alexia Trinidad Gilson [id number] Alexia Trinidad Gilson 10/23/2024 1 [place] Alexia Trinidad Iglson [id number] Alexia Trinidad Gilson 11/23/2024 1 [place] Alexia Trinidad Gilson [id number] Alexia Trinidad Gilson 12/19/2024 1 [place] Alexia Trinidad Gilson [id number] Alexia Trinidad Gilson 01/16/2025 1 [place] Alexia Trinidad Gilson [id number] Alexia Trinidad Gilson Notes Date Note Type Note Provider Name [...] with prescribed oxycodone, +THC. 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 LABORATORY: Urine toxicology screen August 2024 was consistent with prescribed oxycodone. Prescription monitoring program accessed no discrepancies. 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 Patient reports her pain is stable. She describes the pain moderate to severe depending on her level of activity. Does report that she is having increase heaviness in her legs and sensation of achiness. She attributes this to fibromyalgia symptoms. I also did discuss with her doing some stretching exercises for lower extremities and maintaining adequate hydration. Also was finding some increase myofascial pain due to change in the weather recently. States since her last appointment she slipped in the snow twice and fell. States she had discomfort in her right elbow and an abrasion and also landed on he right thigh She continues with home exercises. She has no new concerns today. She says that physical activity and the weather make the pain worse. Her current medications continue to provide partial relief of her pain.States she has been using a topical cream she purchased when she was in [place] that has some component of THC product finds this does provide relief to myofascial discomfort. She is also prescribed Cymbalta for fibromyalgia from her primary care physician. Today she rates her pain an 7/10Her current medications include Percocet 10 mg three / day as needed . [place] PAT was accessed today and found no discrepancy. She reports these medications continue to provide partial relief and allow her to continue her daily activities. She denies any side effects today including constipation, nausea, SOB, and new onset weakness. LABORATORY: Urine toxicology screen August 2024 was consistent with prescribed oxycodone. Prescription monitoring program accessed no discrepancies. 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 Núñez was seen today for ongoing evaluation and management of the above chief complaints. On a Numeric Verbal Rating Scale the pain today was rated as a 9/10. The pain is described as severe, exacerbated [...] behavior. LABORATORY: Urine toxicology screen from {{ 08/22/2024#}} was reviewed today and is consistent with prescribed opioid, +THC. Repeat urine obtained at today's visit. CHRISTIANA CARSON NP [address] [place], [address], [facility] 01/16/2025 11:42:23 OBGyn Episode No OBEpisode recorded.
--- OUTSIDE RECORDS SUMMARY | 2025-02-01 18:01 | XMS_ITS | Encounter Summary ---
Author Organization [facility] Address [address] [place] [address] Care Team Providers Care Roll Repairer Name Role Phone Latoya Ruiz MD Primary Care Provider [phone] Yoni Portillo MD Unavailable Reason for Visit * Reason Comments Blurred Vision Encounter Details Date Type Department Care Team ([facility] st Contact Info) Description 01/29/2025 2:00 PM EDT Office Visit [facility] [address] [place] [address] John, Smita, OD [address] [place] [address] Adie's tonic pupil, left (Primary Dx); Corneal ulcer of left eye; Presbyopia Social History Tobacco Use Types Packs/Day Years [...] Description 02/02/2025 10:00 AM EDT Office Visit [facility] [address] [place], [place] [id number] Smita Lopez, OD [address] [place] [address] documented as of this encounter Goals Goal Patient Goal Type Associated Problems Recent Progress Patient-Stated? 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
--- OUTSIDE RECORDS SUMMARY | 2025-02-01 18:01 | XMS_ITS | Encounter Summary ---
Author Organization [employer] Address [address] [facility] 7t [place] [address] Care Team Providers Care Policy Service Coordinator Name Role Phone Latoya Ruiz MD Primary Care Provider +1- [phone] Yoni Portillo MD Unavailable Irlanda Kaur Unavailable Reason for Referral * Imaging (Routine) - Closed Specialty Diagnoses / Procedures Referred By Contac t Referred To Contact Radiology Diagnoses Inguinal lymphadenopathy Procedures CT Abdomen Pelvis w/ Contrast Latoya Ruiz MD [address] [place] [address] Phone: tel: fax: [address] Phone: tel: fax: Referral ID Status Reason Start Date Expiration Date Visits Re quested Visits Authorized [id number] Closed 06/17/2023 06/16/2024 1 1 * Imaging (Routine) - Closed Specialty Diagnoses / Procedures Referred By Contac t Referred To Contact Radiology Diagnoses Transaminitis Procedures US Abdomen Latoya Ruiz MD [address] [place] [address] Phone: tel: fax: [address] Phone: tel: fax: Referral ID Status Reason Start Date Expiration Date Visits Re quested Visits Authorized [id number] Closed 06/17/2023 06/16/2024 1 1 Encounter Details Date Type Department Care Team (Late Contact Info) Description 06/16/2023 Orders Only [facility] [address] [place] [address] Latoya Ruiz MD [address] [place] [address] Hypothyroidism, unspecified type (Primary Dx); Transaminitis; Inguinal lymphadenopathy Social History Tobacco Use Types Packs/Day Years Used Date Smoking Tobacco: Former Cigarettes Depression Answer Date Recorded Patient Health Questionnaire-9 Score 2 06/16/2023 Depression Answer Date Recorded Patient Health Questionnaire-2 Score 2 06/16/2023 Comments No Sex and Gender Information Value [...] 10:00 AM EDT Office Visit [facility] OPTOMETRY [address] [place] [address] John, Smita, OD [address] [place] [address] Scheduled Orders Name Type Priority Associated Diagnoses Orde r Schedule TSH W/Reflex to FT4 Lab Routine Hypothyroidism, unspecified type Expected: 06/16/2023 (Approximate), Expires: 06/16/2024 HIV-1/2 Antigen and Antibodies, Fourth Generation, with Reflexes Lab Routine Inguinal lymphadenopathy Expected: 06/17/2023, Expires: 06/17/2024 US Abdomen Imaging Routine Transaminitis Expected: 06/17/2023, Expires: 06/17/2024 documented as of this encounter Procedures Procedure Name Priority Date/Time Associated Diagnosis Comments CT ABDOMEN PELVIS W CONTRAST Routine 08/31/2023 10:50 AM EST Inguinal lymphadenopathy HEPATITIS C VIRAL RNA, QUANTITATIVE, REAL-TIME PCR Routine 06/30/2023 9:19 AM EDT Inguinal lymphadenopathy CBC WITH AUTO DIFFERENTIAL Routine 06/30/2023 9:19 AM EDT Inguinal lymphadenopathy RPR (MONITOR) W/REFL TITER Routine 06/30/2023 9:19 AM EDT Inguinal lymphadenopathy C-REACTIVE PROTEIN Routine 06/30/2023 9: 19 AM EDT Inguinal lymphadenopathy LD Routine 06/30/2023 9:19 AM EDT Inguinal lymphadenopathy documented in this encounter Results * CT Abdomen Pelvis w/ Contrast (08/31/2023 10:50 AM EST) Anatomical Region Laterality Modality Body, Pelvis, Abdomen Computed T omography 08/31/2023 10:5 0 AM EST Narrative 09/03/2023 2:51 PM EST ? [facility] ?[address] ?[place] [address] ? CT Scan Report ? Signed ? Patient: [place],Alexia ?MR#: [id number] ?? 8 ? : 1975 ?Acct:[id number] ? Age/Sex: 48 / F ?ADM Date: 08/31/23 ? Loc: HO.CT ? Attending Dr: Latoya Ruiz MD ? Ordering Physician: Latoya Ruiz MD ?? Date of Service: 08/31/23 ?? Procedure(s): CT abdomen pelvis w IV con ?? Accession Number(s): [id number] ? cc: Latoya Ruiz MD ? EXAMINATION: ?? CT ABDOMEN AND PELVIS WITH CONTRAST ? CLINICAL INFORMATION: ?? Inguinal lymphadenopathy. Inguinal lymphadenopathy. ? COMPARISON: ?? CT abdomen and pelvis 08/09/2019. ? TECHNIQUE: ?? Multidetector volumetric images were obtained from the superior aspect ?? of the liver through the pubic symphysis following administration 85 mL ?? of Omnipaque 350 intravenous contrast. Sagittal and coronal reformatted ?? images were obtained on the technologist's workstation. ? Oral contrast: Yes ? This CT examination was performed using dose optimization techniques as ?? appropriate, variously including the following: ?? *Automated exposure control ?? *Adjustment of mA and/or kV according to patient size (this includes ?? techniques or standardized protocols for targeted exams where dose is ?? matched to indication/reason for exam; i.e. extremities or head) ?? *Use of iterative reconstruction technique ? DLP: ?? 572 mGy-cm ? FINDINGS: ?? LUNG BASES: The visualized lung bases are unremarkable. ? LIVER, GALLBLADDER, AND BILIARY TREE: The liver is normal in size, ?? shape, and attenuation. No focal hepatic lesion or biliary ductal ?? dilatation is present. Cholecystectomy. ? PANCREAS: No discrete pancreatic mass or ductal dilatation. ? SPLEEN: Unremarkable. ? ADRENAL GLANDS: Unremarkable. ? KIDNEYS AND URETERS: Symmetric nephrograms. No suspicious renal mass. ?? No hydronephrosis. No nephrolithiasis. ? BLADDER: Unremarkable. ? GASTROINTESTINAL TRACT: Brandie-en-Y gastric bypass. The hepatobiliary ?? Preston limbs are normal in caliber. Patulous changes at the distal ?? anastomosis. The common channel is normal in caliber. There is a ?? question of an annular lesion in the rectosigmoid. ? ABDOMINAL WALL: No significant hernia is appreciated. ? LYMPH NODES: No retroperitoneal adenopathy. No pelvic adenopathy. ?? Morphologically normal but mildly prominent inguinal lymph nodes. These ?? are not significantly changed from prior. No bulky adenopathy. ? VASCULAR: No aortic aneurysm. ? PELVIC VISCERA: Unremarkable. ? OSSEOUS STRUCTURES: Mild degenerative changes in the lower thoracic ?? spine. ? CT/CT abdomen pelvis w IV con ?? IMPRESSION: ?? No adenopathy. ? Question annular lesion at the rectosigmoid. Recommend correlation with ?? colonoscopy. ? Fleischner guidelines were followed. ? Dictated By: ?Clive Talamantes MD ? Signed By: ?<Electronically signed by Clive Talamantes MD in OV> ?11/10/ 1447 ? DD/ 1050 ? TD/TT: ? Auto Locator: ELLIOTT ? Procedure Note Donotuseinterpreter, Image - 09/03/[address] [place] [address] [address] Scan Report Signed Patient: Alexia NúñezMR#: [id number] 8 : 1975Acct:[id number] Age/Sex: 48 / FADM Date: 08/31/23 Loc: HO.CT Attending Dr: Latoya Ruiz MD Ordering Physician: Latoya Ruiz MD Date of Service: 08/31/23 Procedure(s): CT abdomen pelvis w IV con Accession Number(s): [id number] cc: Latoya Ruiz MD EXAMINATION: CT ABDOMEN AND PELVIS WITH CONTRAST CLINICAL INFORMATION: Inguinal lymphadenopathy. Inguinal lymphadenopathy. COMPARISON: CT abdomen and pelvis 08/09/2019. TECHNIQUE: Multidetector volumetric images were obtained from the superior aspect of the liver through the pubic symphysis following administration 85 mL of Omnipaque 350 intravenous contrast. Sagittal and coronal reformatted images were obtained on the technologist's workstation. Oral contrast: Yes This CT examination was performed using dose optimization techniques as appropriate, variously including the following: *Automated exposure control *Adjustment of mA and/or kV according to patient size (this includes techniques or standardized protocols for targeted exams where dose is matched to indication/reason for exam; i.e. extremities or head) *Use of iterative reconstruction technique DLP: 572 mGy-cm FINDINGS: LUNG BASES: The visualized lung bases are unremarkable. LIVER, GALLBLADDER, AND BILIARY TREE: The liver is normal in size, shape, and attenuation. No focal hepatic lesion or biliary ductal dilatation is present. Cholecystectomy. PANCREAS: No discrete pancreatic mass or ductal dilatation. SPLEEN: Unremarkable. ADRENAL GLANDS: Unremarkable. KIDNEYS AND URETERS: Symmetric nephrograms. No suspicious renal mass. No hydronephrosis. No nephrolithiasis. BLADDER: Unremarkable. GASTROINTESTINAL TRACT: Brandie-en-Y gastric bypass. The hepatobiliary Preston limbs are normal in caliber. Patulous changes at the distal anastomosis. The common channel is normal in caliber. There is a question of an annular lesion in the rectosigmoid. ABDOMINAL WALL: No significant hernia is appreciated. LYMPH NODES: No retroperitoneal adenopathy. No pelvic adenopathy. Morphologically normal but mildly prominent inguinal lymph nodes. These are not significantly changed from prior. No bulky adenopathy. VASCULAR: No aortic aneurysm. PELVIC VISCERA: Unremarkable. OSSEOUS STRUCTURES: Mild degenerative changes in the lower thoracic spine. CT/CT abdomen pelvis w IV con IMPRESSION: No adenopathy. Question annular lesion at the rectosigmoid. Recommend correlation with colonoscopy. Fleischner guidelines were followed. Dictated By: Clive Talamantes MD Signed By: <Electronically signed by Clive Talamantes MD in OV> 09/03/23 1447 DD/ 1050 TD/TT: Auto Locator: ELLIOTT Ltaoya Ruiz MD IMG CT PROCEDURES Final Re sult * Hepatitis C Viral RNA, Quantitative, Real-Time PCR (06/30/2023 9:19 AM EDT) Hepatitis C Viral Load <15 NOT DETECTED NOT DETECTED IU/mL [facility] HCV Log PCR <1.18 NOT DETECTED NOT DETECTED Log IU/mL [facility] Comment:This test was perfor med using Real-Time Polymerase ChainReaction.Reportable Range: 15 IU/mL to 100,000,000 IU/mL(1.18 Log IU/mL to 8.00 Log IU/mL).The analytical performance characteristics of thisassay have been determined by [employer].The modifications have not been cleared or approved bythe FDA. This assay has been validated pursuant to theCLIA regulations and is used for clinical purposes.For more information on this test, go to:http://education.YouTab/faq/OOL60u2(This link is being provided for informational/educational purposes only.)THIS TEST WAS PERFORMED AT:[employer] [place] [id number] CHUN MD Blood 06/30/2023 9:19 AM EDT 06/30/2023 11:16 AM EDT Latoya Ruiz MD LAB BLOOD ORDERABLES Final Result Performing Organization Address [facility] de Phone Number [facility] [address] [place] [phone] * C-reactive Protein (06/30/2023 9:19 AM EDT) C Reactive Protein <0.10 < or = 0.50 mg/dL [facility] Blood Venous blood specimen / Unknown 06/30/2023 9:19 AM EDT 06/30/2023 11:16 AM EDT Latoya Ruiz MD LAB BLOOD ORDERABLES Final Result Performing Organization Address [facility] Phone Number [facility] [address] [place] [phone] * (ABNORMAL) Lactate dehydrogenase (06/30/2023 9:19 AM EDT) Lactate Dehydrogenase 325(H) 122 - 220 U/L [facility] Blood Venous blood specimen / Unknown 06/30/2023 9:19 AM EDT 06/30/2023 11:16 AM EDT Latoya Ruiz MD LAB BLOOD ORDERABLES Final Result Performing Organization Address [facility] de Phone Number [facility] [address] [place] [phone] * RPR (Monitor) with Reflex to??Titer (06/30/2023 9:19 AM EDT) RPR (Monitor) w/Refl Titer NON-REACTI VE NON-REACT GIULIA [facility] Comment:THIS TEST WAS PERFOR MED AT:[employer] [place] [id number] CHUN MD Rapid Plasma Reagin Ab Titer TNP [facility] Blood Venous blood specimen / Unknown 06/30/2023 9:19 AM EDT 06/30/2023 11:16 AM EDT Latoya Ruiz MD LAB BLOOD ORDERABLES Final Result [facility] [address] [place], [place] [phone] * (ABNORMAL) CBC auto differential (06/30/2023 9:19 AM EDT) White Blood Count 4.4(L) 4.8 - 10.8 X10*3/uL [facility] Red Blood Count 3.80(L) 4.20 - 5.50 X10*6/uL [facility] Hemoglobin 11.6(L) 12.0 - 16.0 g/dl [facility] Hematocrit 36.2(L) 37.0 - 47.0 % [facility] Mean Corpuscular Volume 95.3 80.0 - 98.0 fL [facility] Mean Corpuscular Hemoglobin 30.5 27.0 - 33.0 pg [facility] Mean Corpuscular HGB Conc 32.0 31.0 - 35.0 g/dl [facility] Red Cell Distribution Width 13.2 11.0 - 16.0 % [facility] Platelet Count 162 160 - 400 X10*3/uL [facility] Mean Platelet Volume 12.2 9.4 - 12.3 fL [facility] Neutrophils Percent Auto 68.2 45 - 73 % [facility] Imm Gran Pct Auto 0.2 0.0 - 0.4 % [facility] Lymphocytes Percent Auto 24.8 20 - 40 % [facility] Monocytes Percent Auto 6.8 2 - 11 % [facility] Eosinophils Percent Auto 0.0 0 - 4 % [facility] Basophils Percent Auto 0.0 0 - 2 % [facility] NRBC Pct Auto 0.0 0.0 - 0.2 /100WBC [facility] Neutrophils Absolute Auto 3.0 2.0 - 8.3 x10*3/uL [facility] Imm Gran Abs Auto 0.01 0.00 - 0.03 X10*3/uL [facility] Lymphocytes Absolute Auto 1.1(L) 1.2 - 4.9 X10*3/uL [facility] Monocytes Absolute Auto 0.3 0.1 - 1.2 X10*3/uL [facility] Eosinophils Absolute Auto 0.0 0.0 - 0.4 X10*3/uL [facility] Basophils Absolute Auto 0.0 0.0 - 0.2 X10*3/uL [facility] NRBC Abs Auto 0.000 0.0 - 0.012 X10*3/uL [facility] Blood Venous blood specimen / Unknown 06/30/2023 9:19 AM EDT 06/30/2023 11:16 AM EDT us Latoya Ruiz MD LAB BLOOD ORDERABLES Final Result [facility] [address] [place] [phone] [phone] documented in this encounter Visit Diagnoses Diagnosis Hypothyroidism, unspecified type- Primary Transaminitis Nonspecific elevation of levels of transaminase or lactic acid dehydrogenase (LDH) Inguinal lymphadenopathy Enlargement of lymph nodes documented in this encounter Additional Health Concerns Assessment Noted Time PHQ-9 Depression Total Score: 2 06/16/20 23 8:57 AM EDT documented as of this encounter Care Teams Policy Service Coordinator Relationship Specialty Start Date End Date Latoya Ruiz MD [address] [place] [phone] PCP - General Family Medicine 10/25/18 Yoni Portillo MD [address] [place] [address] [address] [place] [address] Orthopaedic Surgery 10/10/24 Irlanda Kaur [address] 3rd [place] [address] Gastroenterology 02/01/25 Eros Aldana NP [facility] Pain Medicine 10/26/24 documented as of this encounter
--- OUTSIDE RECORDS SUMMARY | 2025-02-01 18:01 | XMS_ITS | Encounter Summary ---
Author Organization [facility] Address [address] [place] [address] [address] [place] [address] Care Team Providers Care Dental Resident Name Role Phone Latoya Ruiz MD Primary Care Provider +1- [phone] Yoni Portillo MD Unavailable Irlanda Kaur Unavailable Encounter Details Date Type Department Care Team (Latest Contact Info) Description 05/29/2019 Abstract [facility] CONVERSIONS Dental, Provider, DDS Social History Tobacco [...] Description 02/02/2025 10:00 AM EDT Office Visit [facility] OPTOMETRY [address] [place] [address] John, Smita, OD [address] [place] [address] documented as of this encounter Visit Diagnoses Not on filedocumented in this encounter Care Teams Dental Resident Relationship Specialty Start Date End Date Latoya Ruiz MD [address] [place], [place] [phone] PCP - General Family Medicine 10/25/18 Yoni Portillo MD [address] [place] [address] Dr [address] [place] [address] Orthopaedic Surgery 10/10/24 Irlanda Kaur [address] [place] [address] Drive 3rd [place] [address] Gastroenterology 02/01/25 Eros Aldana NP [facility] Pain Medicine 10/26/24 documented as of this encounter
[2025-02-03 23:03] LABS: C. trachomatis RNA TMA NOT DETECTED (NOT DETECTED); N. gonorrhoeae RNA TMA NOT DETECTED (NOT DETECTED)
[2025-02-04 11:24] LABS: Trichomonas (NAAT) NOT DETECTED (NOT DETECTED)
[2025-02-06 14:25] LABS: HPV Genotype 16 Negative (Negative); HPV Genotype 18 Negative (Negative); HPV High Risk Positive (Negative)
== END 2025-02-01 16:11 | disposition home or self-care (01) ==
LOC: HO.HHCLNP 16:10
PROVIDERS: Visit Provider Family Medicine
DX: Z11.3 Encounter for screening for infections with a predominantly sexual mode of transmission (principal); Z87.42 Personal history of other diseases of the female genital tract
CPT/HCPCS: 87491; 87591; 87626; 87661; 88175

== ENCOUNTER 2025-02-05 09:38 | Outpatient (REF) | payer MEDICAID, SELFPAY ==
--- OUTSIDE RECORDS SUMMARY | 2025-02-05 10:46 | XMS_ITS | Encounter Summary ---
Author Organization [employer] Address [address] [facility] [address]t [place] [address] Care Team Providers Care Manager Storage Name Role Phone Latoya Ruiz MD Primary Care Provider +1- [phone] Yoni Portillo MD Unavailable Irlanda Kaur Unavailable Reason for Visit * Reason Comments Med Refill Encounter Details Date Type Department Care Team (Late st Contact Info) Description 02/27/2024 Refill [facility] MEDICINE [address] [place], [place] [phone] Latoya Ruiz MD [address] [place], [place] [phone] Vitamin D deficiency Social History Tobacco Use [...] Care Team (Late st Contact Info) Description 02/07/2025 9:00 AM EDT Office Visit [facility] OPTOMETRY [address] [place], [place] [phone] John, Smita, OD [address] [place] [address] documented as of this encounter Goals Goal [...] documented as of this encounter Care Teams Manager Storage Relationship Specialty Start Date End Date Latoya Ruiz MD [address] [place] [address] PCP - General Family Medicine 10/25/18 Yoni Portillo MD [address] [place] [address] [place] [phone] Orthopaedic Surgery 10/10/24 Irlanda Kaur [address] 3rd [place] [address] Gastroenterology 02/01/25 Eros Aldana NP [facility] Pain Medicine 10/26/24 documented as of this encounter
--- OUTSIDE RECORDS SUMMARY | 2025-02-05 10:46 | XMS_ITS | Data Portability ---
Author Organization [facility] Address [address] [place] [address] Care Team Providers Care Cue Selector Name Role Phone SHI, DENNIS Primary Care Provider SHI, DENNIS Referring Provider [phone] SHI, DENNIS Primary Care Provider Assessment Encounter [...] 14 drugs (detecti med), urine 2024 025 [facility], [address], [place], [address], 01/23/2025 16:06:30 Referral None recorded . Procedures None recorded . Surgeries None recorded . Imaging None recorded . Medication Orders oxycodon e-acetam inophen 10 mg-325 mg tablet 2024 025 [facility], [address] [place] [address], [id number], 01/19/2025 11:25:30 oxycodon e-acetam inophen 10 mg-325 mg tablet 2024 025 [facility], [address] [place] [address], [id number], 12/22/2024 12:25:22 oxycodon e-acetam inophen 10 mg-325 mg tablet 2024 025 [email or web address] [facility], [address] [place] [address], [id number], 12/19/2024 13:46:12 oxycodon e-acetam inophen 10 mg-325 mg tablet 2023 024 [email or web address] [facility], [address] [place] [address], [id number], 11/23/2024 11:47:28 oxycodon e-acetam inophen 10 mg-325 mg tablet 2023 024 [facility], [address] [place] [address], [id number], 10/26/2024 10:57:55 Patient TargetsNo targets recorded. Patient [...] nol. Bupro pion PRESE NT UNEXP ECTED [place] xybup ropio n PRESE NT UNEXP ECTED [place] xybup ropio n is an expec rodolfo [...] maira consu ltati on, pleas e call . ===== ===== ===== ===== ===== ===== ===== ===== ===== ===== ===== ===== ===== === Not Available [facility] ([facility]) [address] [facility], [place], [address], 09/01/2024 16:07:18 08/22/20 24 09/01/2024 COMPL IANCE DRUG REENA SIS, UR pdf . Not Available [facility] ([facility]) [address] [facility], [place], [address], 09/01/2024 16:07:18 Result Notes None recorded. Problems Name Problem SNOMED Code Status Onset Date Resolution Date Notes Provider Name and Address Organization Details Recorded Time Chronic pain syndrome [id number] RADHA [facility] 22:38:18 Chronic pain following trauma [id number] Pieter arias [facility] 22:38:47 Long-term current use of opiate analgesic drug [id number] 08 RADHA [facility] 22:38:56 Degeneratio n of lumbar interverteb ral disc 30711963 Pieter arias [facility] 22:39:03 Body mass index 40+ - severely obese [id number] RADHA [facility] 22:39:24 Problem Notes None recorded. Procedures Surgical History Date Name Laterality Status Provider Name and Address Organization Details Recorded Time 09/14/20 23 ED - LESI Radiculitis completed MADELINE TERESA MD [address] [place], [address], [facility] 09/14/2023 17:16:09 09/14/20 23 PMC Procedure completed Tonya Salcedo [facility] 09/14/2023 14:35:33 08/16/20 19 cholecystectomy completed Gabby Rosa [facility] 08/13/2021 22:44:16 gastric bypass completed Gabby Rosa [facility] 08/13/2021 22:44:07 Imaging Results None recorded. [...] Updated DateTime 09/18/2024 157.48 cm 37.1 kg/m2 39316.25 g Jenny Purdy [facility] 09/18/2024 12:53:37 Date Recorded Body height Body mass index (BMI) Body weight Pain severity - 0-10 verbal numeric rating [Score] - Reported Provider Name and Address Organization Details Last Updated DateTime 10/23/2024 157.48 cm 37.1 kg/m2 01228.25 g Fred Rascon [facility] 10/23/2024 12:41:14 Date Recorded Body height Body mass index (BMI) Body weight Provider Name and Address Organization Details Last Updated DateTime 11/23/2024 157.48 cm 37.1 kg/m2 81514.25 g Katey Polanco [facility] 11/23/2024 11:45:47 Date Recorded Body height Body mass index (BMI) Body weight Provider Name and Address Organization Details Last Updated DateTime 12/19/2024 157.48 cm 37.1 kg/m2 90261.25 g Rere Carson [facility] 12/19/2024 13:45:27 Date Recorded Body height Body mass index (BMI) Body weight Provider Name and Address Organization Details Last Updated DateTime 01/16/2025 157.48 cm 37.1 kg/m2 72932.25 g Rere Carson [facility] 01/16/2025 11:34:50 Social History Question Answer Notes LastModified by [employer] Details LastModified Time Tobacco Smoking Status Former Smoker Gabby arias [facility] 08/13/2021 22:45:52 What Is Your Level [...] Functional Status Question Answer Note LastModified by [employer] Details LastModified Time Do you have difficulty [...] SNOMED-CT Code Diagnosis ICD10 Code Diagnosis Note [id number] MADELINE TERESA [facility] [address] [place] [address] 08/15/2021 13:13:18 08/15/2021 13:44:45 Degeneration of lumbar intervertebral disc 38895701 M51.36 INTRACTABL E PAIN WITH CONTINUED NEED [...] Long-term current use of opiate analgesic drug [id number] 09380 Z79.891 URINE TOX SCREEN RESULTS CHECKED AND CONSISTENT WITH PRESCRIBED OPIOID REGIMEN. FULL RESULTS IN LAB SECTION. [id number] DENA ROLDAN NP [facility] [address] [place] [address] 09/12/2021 11:40:09 09/12/2021 13:04:32 Degeneration of lumbar intervertebral disc 31321724 M51.36 Establishe d problem, stable continuati on, [...] Long-term current use of opiate analgesic drug 1531742881 46949 Z79.891 The patient is on chronic opioid [...] Body mass index 40+ - severely obese 559933516 Z68.43 Morbid obesity impacts chronic pain, likewise poorly controlled pain affects metabolic disorder. When both conditions co-exist as in this patient pain management is more problemati c and time intensive. [id number] MADELINE TERESA MD [facility] [address] [place] [address] 09/24/2021 08:17:05 09/24/2021 16:19:05 Degeneration of lumbar intervertebral disc 01082129 M51.36 INTRACTABL E PAIN WITH CONTINUED NEED [...] Long-term current use of opiate analgesic drug 3953497760 24582 Z79.891 URINE TOX SCREEN RESULTS CHECKED AND CONSISTENT WITH PRESCRIBED OPIOID REGIMEN. FULL RESULTS IN LAB SECTION. [id number] BRANDI VACA [facility] [address] [place] [address] 11/07/2021 07:47:46 11/07/2021 15:33:08 Degeneration of lumbar intervertebral disc 21712279 M51.36 Establishe d problem, stable continuati on, [...] Long-term current use of opiate analgesic drug 2951445407 08608 Z79.891 Patient is on chronic opioid therapy, [...] Body mass index 40+ - severely obese 321946259 Z68.43 Morbid obesity impacts chronic pain, likewise poorly controlled pain affects metabolic disorder. When both conditions co-exist as in this patient pain management is more problemati c and time intensive. [id number] BRANDI VACA [facility] [address] [place] [address] 12/19/2021 07:52:15 12/19/2021 12:54:05 Degeneration of lumbar intervertebral disc 62275913 M51.36 Establishe d problem, stable continuati on, [...] Long-term current use of opiate analgesic drug 1580454675 34712 Z79.891 Patient is on chronic opioid therapy, [...] Body mass index 40+ - severely obese 527923032 Z68.43 Morbid obesity impacts chronic pain, likewise poorly controlled pain affects metabolic disorder. When both conditions co-exist as in this patient pain management is more problemati c and time intensive. [id number] BRANDI VACA [facility] [address] [place] [address] 01/16/2022 13:22:59 01/16/2022 14:30:01 Degeneration of lumbar intervertebral disc 04625969 M51.36 Establishe d problem, stable continuati on, [...] Long-term current use of opiate analgesic drug 2112265673 55552 Z79.891 Patient is on chronic opioid therapy, [...] oxycodone. Will repeat at next clinic visit. [employer] was accessed with no discrepanc y. Body mass index 40+ - severely obese 482075615 Z68.43 Morbid obesity impacts chronic pain, likewise poorly controlled pain affects metabolic disorder. When both conditions co-exist as in this patient pain management is more problemati c and time intensive. [id number] BRANDI VACA [facility] [address] [place] [address] 02/16/2022 07:25:42 02/16/2022 12:39:49 Degeneration of lumbar intervertebral disc 54903318 M51.36 Establishe d problem, stable continuati on, [...] Long-term current use of opiate analgesic drug 8931201495 21934 Z79.891 Patient is on chronic opioid therapy, [...] Body mass index 40+ - severely obese 251782138 Z68.43 Morbid obesity impacts chronic pain, likewise poorly controlled pain affects metabolic disorder. When both conditions co-exist as in this patient pain management is more problemati c and time intensive. [id number] FRANC CORTES NP [facility] [address] [place] [address] 03/16/2022 11:55:44 03/16/2022 13:21:23 Degeneration of lumbar intervertebral disc 91817745 M51.36 Continue current plan of care, he/she is generally satisfied with current treatment, understand s this is a chronic pain condition and his/her expectatio ns for pain relief and functional ity are reasonable . Long-term current use of opiate analgesic drug 4837922405 42009 Z79.891 During the time of this visit [...] this course of therapy Long-term drug therapy 123556920 Z79.899 Previous urine drug screen no discrepanc ies will recheck today prescripti on monitoring program accessed no discrepanc ies. Fibromyalgia 885977305 M 79.7 currently prescribed Cymbalta 30 mg twice per day by her primary care physician for fibromyalg ia. Fibromyalg ia is a Central Pain Syndrome that is frequently resistant to therapy, particular ly opiate analgesics . There are some DISPATCHER ELECTRIC POWER neuromodul ators that when combined can provide some modest relief. These fall into the drug categories of antidepres sants, anticonvul sants, DISPATCHER ELECTRIC POWER Stimulants , central acting muscle relaxants, and alpha agonists. There are several associated symptoms effecting the DISPATCHER ELECTRIC POWER, GI, Musculoske letal and Neurologic organ systems. Patient is educated regarding expectatio ns of current pharmacolo gical therapy. [id number] FRANC CORTES NP [facility] [address] [place] [address] 04/14/2022 07:42:36 04/14/2022 15:03:39 Degeneration of lumbar intervertebral disc 65178202 M51.36 Continue current plan of care, he/she is generally satisfied with current treatment, understand s this is a chronic pain condition and his/her expectatio ns for pain relief and functional ity are reasonable . Long-term current use of opiate analgesic drug 8872851014 20369 Z79.891 During the time of this visit [...] this course of therapy Long-term drug therapy 213681822 Z79.899 Previous urine drug screen no discrepanc ies prescripti on monitoring program accessed no discrepanc ies. Fibromyalgia 469095522 M 79.7 currently prescribed Cymbalta 30 mg twice per day by her primary care physician for fibromyalg ia. Fibromyalg ia is a Central Pain Syndrome that is frequently resistant to therapy, particular ly opiate analgesics . There are some DISPATCHER ELECTRIC POWER neuromodul ators that when combined can provide some modest relief. These fall into the drug categories of antidepres sants, anticonvul sants, DISPATCHER ELECTRIC POWER Stimulants , central acting muscle relaxants, and alpha agonists. There are several associated symptoms effecting the DISPATCHER ELECTRIC POWER, GI, Musculoske letal and Neurologic organ systems. Patient is educated regarding expectatio ns of current pharmacolo gical therapy. [id number] FRANC CORTES NP [facility] [address] [place] [address] 05/15/2022 13:05:06 05/15/2022 14:18:21 Degeneration of lumbar intervertebral disc 01891771 M51.36 Continue current plan of care, he/she is generally satisfied with current treatment, understand s this is a chronic pain condition and his/her expectatio ns for pain relief and functional ity are reasonable . Long-term current use of opiate analgesic drug 3399406737 58203 Z79.891 During the time of this visit [...] this course of therapy Long-term drug therapy 069685691 Z79.899 Previous urine drug screen no discrepanc ies prescripti on monitoring program accessed no discrepanc ies. Fibromyalgia 415749052 M 79.7 Currently prescribed Cymbalta 30 mg twice per day by her primary care physician for fibromyalg ia. Fibromyalg ia is a Central Pain Syndrome that is frequently resistant to therapy, particular ly opiate analgesics . There are some DISPATCHER ELECTRIC POWER neuromodul ators that when combined can provide some modest relief. These fall into the drug categories of antidepres sants, anticonvul sants, DISPATCHER ELECTRIC POWER Stimulants , central acting muscle relaxants, and alpha agonists. There are several associated symptoms effecting the DISPATCHER ELECTRIC POWER, GI, Musculoske letal and Neurologic organ systems. Patient is educated regarding expectatio ns of current pharmacolo gical therapy. Body mass index 40+ - severely obese 128471937 Z68.43 anticipate s gastric bypass surgery June 12, 2022. [id number] JAZLYN BERNABE NP [facility] [address] [place] [address] 07/02/2022 13:00:04 07/02/2022 14:00:19 Degeneration of lumbar intervertebral disc 43801801 M51.36 Establishe d problem, stable continuati on, [...] this form of therapy. Long-term drug therapy 151929657 Z79.899 Patient is on chronic opioid therapy, [...] of the contract with her with a [employer] interprete [employer] was verified and consistent with prescribed regimen. Fibromyalgia 366089885 M 79.7 Currently prescribed Cymbalta 30 mg twice per day by her primary care physician for fibromyalg ia. Body mass index 40+ - severely obese 468378341 Z68.43 Patient had gastric bypass surgery on 06/12/22. She will continue to follow up with her surgeon as deemed necessary. [id number] JAZLYN BERNABE NP [facility] [address] [place] [address] 08/13/2022 12:32:13 08/13/2022 13:13:33 Degeneration of lumbar intervertebral disc 42888393 M51.36 Establishe d problem, stable continuati on, [...] this form of therapy. Long-term drug therapy 743122864 Z79.899 Patient is on chronic opioid therapy, [...] and consistent with current drug therapy. Fibromyalgia 852978305 M 79.7 Currently prescribed Cymbalta 30 mg twice per day by her primary care physician for fibromyalg ia. Body mass index 40+ - severely obese 730917201 Z68.43 Patient had gastric bypass surgery on 06/12/22. She will continue to follow up with her surgeon as deemed necessary. [id number] CHRISTIANA CARSON NP [facility] [address] [place] [address] 09/11/2022 12:38:20 09/11/2022 13:37:56 Degeneration of lumbar intervertebral disc 43287354 M51.36 Establishe d problem, stable continuati on, [...] are no discrepanc ies. Long-term drug therapy 593786482 Z79.899 The patient is on chronic opioid [...] repeat urine obtained at today's visit. Fibromyalgia 086845376 M 79.7 Fibromyalg ia is a Central Pain Syndrome that is frequently resistant to therapy, particular ly opiate analgesics . There are some DISPATCHER ELECTRIC POWER neuromodul ators that when combined can provide some modest relief. These fall into the drug categories of antidepres sants, anticonvul sants, DISPATCHER ELECTRIC POWER Stimulants , central acting muscle relaxants, alpha agonists and benzodiaze pines. There are several associated symptoms affecting the DISPATCHER ELECTRIC POWER, GI, Musculoske letal and Neurologic organ systems. Body mass index 40+ - severely obese 237608209 Z68.43 Patient had gastric bypass surgery on 06/12/2022. She will continue to follow up with her surgeon as needed. Chronic pain 30517679 G8 9.29 Establishe d problem, stable continuati on, I will continue to monitor for any progressio n of this condition. [id number] FRANC CORTES NP [facility] [address] [place] [address] 11/10/2022 11:44:51 11/10/2022 14:02:48 Body mass index 40+ - severely obese 928896350 Z68.43 Had intention of having gastric bypass surgery late summer 2021 this is not yet occurred however she is discussing with her primary care physician and will be meeting with cierra Smith on of lumbar intervertebral disc 84553732 M51.36 Continue current plan of care, he/she is generally satisfied with current treatment, understand s this is a chronic pain condition and his/her expectatio ns for pain relief and functional ity are reasonable . Long-term current use of opiate analgesic drug 7503075668 94020 Z79.891 During the time of this visit [...] benefit of continuing this course of therapy [id number] FRANC CORTES NP [facility] [address] [place] [address] 12/08/2022 14:23:33 12/08/2022 15:36:17 Degeneration of lumbar intervertebral disc 94750701 M51.36 Continue current plan of care, he/she is generally satisfied with current treatment, understand s this is a chronic pain condition and his/her expectatio ns for pain relief and functional ity are reasonable . Long-term current use of opiate analgesic drug 8354171841 00003 Z79.891 During the time of this visit [...] course of therapy Chronic pain syndrome 37 3386793 G89.4 Patient reports having occasional difficulty with [...] effective. Encouraged to focus on capabiliti es. [id number] FRANC CORTES NP [facility] [address] [place] [address] 01/05/2023 12:24:16 01/05/2023 15:42:51 Degeneration of lumbar intervertebral disc 41736137 M51.36 Continue current plan of care, he/she is generally satisfied with current treatment, understand s this is a chronic pain condition and his/her expectatio ns for pain relief and functional ity are reasonable . Long-term current use of opiate analgesic drug 7328067123 25421 Z79.891 During the time of this visit [...] course of therapy Chronic pain syndrome 37 3333850 G89.4 Patient reports having occasional difficulty with [...] effective. Encouraged to focus on capabiliti es. [id number] BRANDI VACA [facility] [address] [place] [address] 02/02/2023 13:15:34 02/02/2023 14:06:39 Degeneration of lumbar intervertebral disc 70212433 M51.36 Establishe d problem, stable continuati on, [...] Long-term current use of opiate analgesic drug 7841762180 39989 Z79.891 Patient is on chronic opioid therapy, [...] no discrpeanc y. Chronic pain syndrome 37 8161875 G89.4 Patient is currently satisfied with current level of pain control, level of function, and medication management . Long-term drug therapy 035051549 Z79.899 [id number] FRANC CORTES NP [facility] [address] [place] [address] 03/02/2023 12:02:41 03/02/2023 13:06:06 Degeneration of lumbar intervertebral disc 91185036 M51.36 Continue current plan of care, he/she is generally satisfied with current treatment, understand s this is a chronic pain condition and his/her expectatio ns for pain relief and functional ity are reasonable . Long-term current use of opiate analgesic drug 2682546074 66803 Z79.891 During the time of this visit [...] course of therapy Chronic pain syndrome 37 7028990 G89.4 Patient reports having occasional difficulty with [...] effective. Encouraged to focus on capabiliti es. [id number] JAZLYN BERNABE NP [facility] [address] [place] [address] 03/30/2023 13:15:36 03/30/2023 13:52:01 Degeneration of lumbar intervertebral disc 60886399 M51.36 Establishe d problem, stable continuati on, [...] Long-term current use of opiate analgesic drug 4294955030 01419 Z79.891 Patient is on chronic opioid therapy, [...] with prescribed regimen. Chronic pain syndrome 37 4487219 G89.4 Will continue plan of care - patient is satisfied with the current treatment and understand s chronic pain and the expectatio ns for functional ity and pain control are reasonable . [id number] RADHA JOLLY NP [facility] [address] [place] [address] 05/03/2023 11:29:53 05/03/2023 11:51:24 Degeneration of lumbar intervertebral disc 65047957 M51.36 Establishe d problem, stable continuati on, [...] Long-term current use of opiate analgesic drug 9274759532 97035 Z79.891 Patient is on chronic opioid therapy, [...] with prescribed regimen. Chronic pain syndrome 37 4233448 G89.4 Will continue plan of care - patient is satisfied with the current treatment and understand s chronic pain and the expectatio ns for functional ity and pain control are reasonable . [id number] BRANDI VACA [facility] [address] [place] [address] 06/01/2023 11:51:23 06/01/2023 12:41:07 Degeneration of lumbar intervertebral disc 87361280 M51.36 Establishe d problem, stable continuati on, [...] Long-term current use of opiate analgesic drug 7844983819 24884 Z79.891 Patient is on chronic opioid therapy, [...] no discrpeanc y. Chronic pain syndrome 37 8076821 G89.4 Patient is currently satisfied with current level of pain control, level of function, and medication management . Pain of ri ght knee region 8235645118 20668 M25.561 Increased right knee pain for 2 weeks. Has an appointmen t with PCP on 06/20/23 for further evaluation . [id number] CHRISTIANA CARSON NP [facility] [address] [place] [address] 07/13/2023 14:41:35 07/13/2023 15:49:13 Degeneration of lumbar intervertebral disc 12507510 M51.36 Establishe d problem, stable continuati on, [...] no discrepanc ies. Chronic pain syndrome 37 0079158 G89.4 Patient is satisfied with current level of pain control, level of function, and medication management . Long-term drug therapy 360634335 Z79.899 The patient is on chronic opioid [...] obtained at today's visit. Lumbar radiculopathy 128 367895 M54.16 Establishe d problem, increased pain, I will continue to monitor for any progressio n of this condition. She reports that she previously had injections that helped with this pain and she would like to repeat if possible. Looking back, she last had lumbar epidural steroid injections in 2019 so will schedule repeat injection. [id number] BRANDI VACA [facility] [address] [place] [address] 08/09/2023 14:29:29 08/09/2023 15:14:27 Degeneration of lumbar intervertebral disc 69868565 M51.36 Establishe d problem, increased pain, patient [...] Long-term current use of opiate analgesic drug 3085798020 81895 Z79.891 Patient is on chronic opioid therapy, [...] no discrpeanc y. Chronic pain syndrome 37 7083870 G89.4 Patient is currently satisfied with current level of pain control, level of function, and medication management . Long-term drug therapy 885905982 Z79.899 [id number] MADELINE TERESA MD [facility] [address] [place] [address] 09/14/2023 13:06:42 09/14/2023 14:37:19 Chronic pain syndrome 840129828 G89.4 Degenerati on of lumbar intervertebral disc 03416709 M51.36 INTRACTABL E PAIN WITH CONTINUED NEED [...] file. Lumbar dis c prolapse with radiculopathy 317382433 M51.16 [id number] CHRISTIANA CARSON NP [facility] [address] [place] [address] 10/12/2023 14:37:55 10/12/2023 15:11:02 Degeneration of lumbar intervertebral disc 78051705 M51.36 Establishe d problem, decreased pain post [...] no discrepanc ies. Chronic pain syndrome 37 4943322 G89.4 Patient is satisfied with current level of pain control, level of function, and medication management . Long-term drug therapy 121239821 Z79.899 Patient is on chronic opioid therapy, [...] is consistent with metabolite s of oxycodone. [id number] CHRISTIANA CARSON NP [facility] [address] [place] [address] 11/09/2023 13:16:42 11/09/2023 13:49:11 Degeneration of lumbar intervertebral disc 16258051 M51.36 Establishe d problem, stable continuati on, [...] no discrepanc ies. Chronic pain syndrome 37 8915702 G89.4 Patient is satisfied with current level of pain control, level of function, and medication management . Long-term drug therapy 793828749 Z79.899 Patient is on chronic opioid therapy, [...] oxycodone. Repeat urine obtained at today's visit. [id number] CHRISTIANA CARSON NP [facility] [address] [place] [address] 12/07/2023 07:13:50 12/07/2023 15:03:50 Degeneration of lumbar intervertebral disc [id number] M51.36 Establishe d problem, stable continuati on, [...] no discrepanc ies. Chronic pain syndrome 37 7738704 G89.4 Patient is satisfied with current level of pain control, level of function, and medication management . Long-term drug therapy 238934273 Z79.899 Patient is on chronic opioid therapy, [...] and is consistent with prescribed opioid, +THC. [id number] RADHA JOLLY NP [facility] [address] [place] [address] 01/10/2024 10:37:57 01/10/2024 11:47:38 Chronic pain syndrome 214201967 G89.4 Will continue plan of care - patient is satisfied with the current treatment and understand s chronic pain and the expectatio ns for functional ity and pain control are reasonable . Degenerati on of lumbar intervertebral disc 26854022 M51.36 Establishe d problem, stable continuati on, [...] are no discrepanc ies. Long-term drug therapy 862782186 Z79.899 Patient is on chronic opioid therapy, [...] and is consistent with prescribed opioid, +THC. [id number] BRANDI VACA [facility] [address] [place] [address] 02/07/2024 12:38:15 02/07/2024 14:03:52 Chronic pain syndrome 502515477 G89.4 Patient is currently satisfied with current level of pain control, level of function, and medication management . Degenerati on of lumbar intervertebral disc 30997427 M51.36 Establishe d problem, stable continuati on, [...] this form of therapy. Long-term drug therapy 402616421 Z79.899 Patient is on chronic opioid therapy, [...] monitor for any progressio n of this. [id number] JAZLYN BERNABE NP [facility] [address] [place] [address] 03/07/2024 13:22:27 03/07/2024 14:12:04 Chronic pain syndrome 725734921 G89.4 Will continue plan of care - patient is satisfied with the current treatment and understand s chronic pain and the expectatio ns for functional ity and pain control are reasonable . Degenerati on of lumbar intervertebral disc 46495885 M51.36 Establishe d problem, stable continuati on, [...] this form of therapy. Long-term drug therapy 938198575 Z79.899 Patient is on chronic opioid therapy, [...] for any progressio n of this condition. [id number] FRANC CORTES NP [facility] [address] [place] [address] 04/11/2024 13:43:26 04/11/2024 14:43:58 Degeneration of lumbar intervertebral disc 73873025 M51.36 Continue current plan of care, he/she is generally satisfied with current treatment, understand s this is a chronic pain condition and his/her expectatio ns for pain relief and functional ity are reasonable . Long-term current use of opiate analgesic drug 5078921797 19951 Z79.891 During the time of this visit [...] benefit of continuing this course of therapy [id number] JAZLYN BERNABE NP [facility] [address] [place] [address] 05/09/2024 13:00:42 05/09/2024 14:02:02 Degeneration of lumbar intervertebral disc 84967202 M51.36 Establishe d problem, stable continuati on, [...] this form of therapy. Long-term drug therapy 058711773 Z79.899 Patient is on chronic opioid therapy, [...] accessed with no discrepanc y. Chronic pain 96203431 G8 9.29 Will continue plan of care - patient is satisfied with the current treatment and understand s chronic pain and the expectatio ns for functional ity and pain control are reasonable . [id number] FRANC CORTES NP [facility] [address] [place] [address] 06/05/2024 11:44:31 06/05/2024 14:19:08 Long-term current use of opiate analgesic drug 9083159229 59222 Z79.891 During the time of this visit [...] therapy Degenerati on of lumbar intervertebral disc 18233713 M51.36 Continue current plan of care, he/she is generally satisfied with current treatment, understand s this is a chronic pain condition and his/her expectatio ns for pain relief and functional ity are reasonable . Body mass index 40+ - severely obese 687627709 Z68.43 Had intention of having gastric bypass surgery this is not yet occurred however she is discussing with her primary care physician and [facility] [id number] FRANC CORTES NP [facility] [address] [place] [address] 07/10/2024 12:20:14 07/10/2024 14:22:30 Degeneration of lumbar intervertebral disc 70841987 M51.36 Continue current plan of care, he/she is generally satisfied with current treatment, understand s this is a chronic pain condition and his/her expectatio ns for pain relief and functional ity are reasonable . Chronic pain syndrome 37 6600821 G89.4 Patient reports having occasional difficulty with [...] Long-term current use of opiate analgesic drug 2190189564 31430 Z79.891 During the time of this visit [...] benefit of continuing this course of therapy [id number] CHRISTIANA CARSON NP [facility] [address] [place] [address] 08/22/2024 13:40:54 08/22/2024 14:15:49 Degeneration of lumbar intervertebral disc 31954541 M51.362 Establishe d problem, stable continuati on, [...] no discrepanc ies. Chronic pain syndrome 37 7749956 G89.4 Patient is satisfied with current level of pain control, level of function, and medication management . Long-term drug therapy 592504711 Z79.899 Patient is on chronic opioid therapy, [...] +THC. Repeat urine obtained at today's visit. [id number] BRANDI VACA [facility] [address] [place] [address] 09/18/2024 12:42:16 09/18/2024 14:12:49 Degeneration of lumbar intervertebral disc 02044701 M51.362 Establishe d problem, stable continuati on, [...] of therapy.45 MME Chronic pain syndrome 37 0047185 G89.4 Patient is satisfied with current level of pain control, level of function, and medication management . Long-term drug therapy 477654935 Z79.899 Patient is on chronic opioid therapy, [...] [employer] was accessed with no discrepanc y. [id number] FRANC CORTES NP [facility] [address] [place] [address] 10/23/2024 12:05:13 10/23/2024 12:54:41 Degeneration of lumbar intervertebral disc 80884275 M51.369 Continue current plan of care, he/she is generally satisfied with current treatment, understand s this is a chronic pain condition and his/her expectatio ns for pain relief and functional ity are reasonable . Long-term current use of opiate analgesic drug 3777763447 24073 Z79.891 During the time of this visit [...] course of therapy Chronic pain syndrome 37 7092327 G89.4 Patient reports having occasional difficulty with [...] anxiety that would be suitable and effective. [id number] FRANC CORTES NP [facility] [address] [place] [address] 11/23/2024 11:34:47 11/23/2024 12:43:36 Long-term current use of opiate analgesic drug 6330228459 67295 Z79.891 During the time of this visit [...] therapy Degenerati on of lumbar intervertebral disc 45445209 M51.369 Continue current plan of care, he/she is generally satisfied with current treatment, understand s this is a chronic pain condition and his/her expectatio ns for pain relief and functional ity are reasonable . Chronic pain syndrome 37 0470898 G89.4 Patient reports having occasional difficulty with [...] anxiety that would be suitable and effective. [id number] FRANC CORTES NP [facility] [address] [place] [address] 12/19/2024 13:13:07 12/19/2024 14:18:31 Degeneration of lumbar intervertebral disc 46685686 M51.369 Continue current plan of care, he/she is generally satisfied with current treatment, understand s this is a chronic pain condition and his/her expectatio ns for pain relief and functional ity are reasonable . Long-term current use of opiate analgesic drug 2130527637 74612 Z79.891 During the time of this visit [...] course of therapy Chronic pain syndrome 37 4791401 G89.4 Patient reports having occasional difficulty with coping with chronic pain conditions . Reporting frustratio n and depression , regarding physical limitation s, unlikely ability to fill work obligation s, increased stressI discussed pacing activities , finding activities to help distract from chronic pain. Also encouraged to appropriat e self-care, and ways to decrease feelings of anxiety that would be suitable and effective. [id number] CHRISTIANA CARSON NP [facility] [address] [place] [address] 01/16/2025 11:20:55 01/16/2025 12:32:58 Degeneration of lumbar intervertebral disc 15361689 M51.369 Establishe d problem, stable continuati on, [...] no discrepanc ies. Chronic pain syndrome 37 5378727 G89.4 Patient is satisfied with current level of pain control, level of function, and medication management . Long-term drug therapy 413117319 Z79.899 Patient is on chronic opioid therapy, [...] Guarantor Name 09/18/2024 1 [place]ia [place] [id number] Alexia [place] 10/23/2024 1 [place] Alexia [place] [id number] Alexia [place] 11/23/2024 1 [place] Alexia [place] [id number] Alexia [place] 12/19/2024 1 [place] Alexia [place] [id number] Alexia [place] 01/16/2025 1 [place] Alexia [place] [id number] Alexia [place] Notes Date Note Type Note Provider [...] with prescribed oxycodone, +THC. BRANDI VACA [address] [place], [address], [facility] 09/18/2024 13:21:00 10/23/2024 text/html Icelandic speaking technical lead Alan [id number] Plaza is a 49-year-old female who has [...] accessed no discrepancies. FRANC CORTES NP [address] [place], [address], [facility] 10/23/2024 13:41:39 11/23/2024 text/html Icelandic speaking technical lead Latia [id number] Mrs Núñez is a 49-year-old female who [...] accessed no discrepancies. FRANC CORTES, RINKU [address] [place], [address], [facility] 11/23/2024 13:08:16 12/19/2024 text/html Icelandic speaking technical lead Ada [id number] Mrs Núñez is a 49-year-old female who [...] accessed no discrepancies. FRANC CORTES NP [address] [place], [address], [facility] 12/19/2024 14:25:10 01/16/2025 text/html Protective Signal Repairer Helper ServicesReported bypatient.Notes:Dayron robert refused quality cloth tester today Ms. Núñez was seen today for [...] at today's visit. CHRISTIANA CARSON NP [address] [place], [address], [facility] 01/16/2025 11:42:23 OBGyn Episode No OBEpisode recorded.
--- OUTSIDE RECORDS SUMMARY | 2025-02-05 10:46 | XMS_ITS | Encounter Summary ---
Author Organization [employer] Address [address] [facility] 7 [place] [address] Care Team Providers Care Milk Hauler Name Role Phone Latoya Ruiz MD Primary Care Provider +1- [phone] Yoni Portillo MD Unavailable Irlanda Kaur Unavailable Encounter Details Date Type Department Care Team ([facility] Contact Info) Description 12/01/2022 Abstract [facility] MEDICINE [address] [place] [address] Latoya Ruiz MD [address] [place] [address] Social History Tobacco Use Types Packs/Day Years [...] Department Care Team (Late Contact Info) Description 02/07/2025 9:00 AM EDT Office Visit [facility] OPTOMETRY [address] [place] [address] Smita Lopez OD [address] [place] [address] documented as of this encounter Procedures Procedure [...] on filedocumented in this encounter Care Teams Milk Hauler Relationship Specialty Start Date End Date Latoya Ruiz MD [address] [place] [address] PCP - General Family Medicine 10/25/18 Yoni Portillo MD [address] [place] [address] Dr [address] [place] [address] Orthopaedic Surgery 10/10/24 Irlanda Kaur [address] 3rd [place] [address] Gastroenterology 02/01/25 Eros Aldana NP [facility] Pain Medicine 10/26/24 documented as of this encounter
--- OUTSIDE RECORDS SUMMARY | 2025-02-05 10:46 | XMS_ITS | Clinical Summary ---
Author Organization [address] [facility] Address [address] [place] [address] Phone Care Team Providers Care Oyster Grower Name Role Phone Latoya Ruiz MD Primary Care Provider +1- [phone] Allergies No known active allergies Medications cholecalcifero [...] every 4 hours as needed. Active pancrelipase, Gik-Lyvs-Djbb, (CREON) 3,000-9,500- 15,000 unit capsule Take by [...] (BMI) of 37.0 to 37.9 in adult ([facility] V24, [facility] V28) 09/25/2024 Abnormal ECG 06/10/2022 Benign [...] for surgery on Wednesday. Chronic hepatitis C ([facility]/HCC V24, [facility] V28) 0 03/18/2022 Eating disorder, unspecified 03/18/2022 Overview (09/25/2024): Dr Natali Jarvis History of recurrent spontan eous , not currently 03/18/2022 Hypothyroidism 03/18/2022 Major depressive disorder, single episode, unspe cified 03/18/2022 Vitamin D deficiency 03/18/2022 Encounters Date Type Department Care Team Description 01/08/2025 1:00 PM EDT Office Visit Bariatric Surgery - [address] [place] [address] Laura Pérez MD Class 3 [...] of bariatric surgery; COMMENT: Gastric bypass 2006, [facility]. Major depressive disorder, s mellisa episode, unspecified [...] 9:30 AM EDT Nutrition Bariatric Surgery - [address] [address] Livia Null, RD [address] [address] 05/15/2025 9:15 AM EDT Office Visit Bariatric Surgery - [place] 175 [facility] [address] [place] [address] Laura Pérez MD [address] [id number] Health Maintenance Due Date Last Done Comments [...] Maintenance Insurance MEDICA[place] - [place] Care Teams Oyster Grower Relationship Specialty Start Date End Date Sara, MD Latoya [address] [place] [phone] PCP - General 07/25/10
--- OUTSIDE RECORDS SUMMARY | 2025-02-05 10:46 | XMS_ITS | Encounter Summary ---
Author Organization [employer] Address [address] [place] [address] 7 [place] [address] Care Team Providers Care Hoop Cutter Name Role Phone Latoya Ruiz MD Primary Care Provider +1- [phone] Yoni Portillo MD Unavailable Irlanda Kaur Unavailable Reason for Visit * Reason Comments Med Refill Encounter Details Date Type Department Care Team (Late st Contact Info) Description 03/17/[address] [facility] MEDICINE [address] [place], [place] [phone] Cristal Sun MD [address] [place], [place] [phone] Moderate episode of recurrent major depressive disorder [...] Description 02/07/2025 9:00 AM EDT Office [address] [facility] OPTOMETRY [address] [place], [place] [phone] John, Smita, OD [address] [place] [address] documented as of this encounter Goals Goal [...] documented as of this encounter Care Teams Hoop Cutter Relationship Specialty Start Date End Date Latoya Ruiz MD [address] [place] [address] PCP - General Family Medicine 10/25/18 Yoni Portillo MD [address] [place] [address] [address] [place] [address] Orthopaedic Surgery 10/10/24 Irlanda Kaur [address] [place] [address] Gastroenterology 02/01/25 Eros Aldana NP [facility] Pain Medicine 10/26/24 documented as of this encounter
--- OUTSIDE RECORDS SUMMARY | 2025-02-05 10:47 | XMS_ITS | Encounter Summary ---
Author Organization [employer] Address 75 [facility] 7 [place] [address] Care Team Providers Care General Magistrate Name Role Phone Latoya Ruiz MD Primary Care Provider +1- [phone] Yoni Portillo MD Unavailable Reason for Visit * Reason Onset Date Comments chartprep 01/31/2025 Encounter Details Date Type Department Care Team (Late st Contact Info) Description 01/31/2025 Telephone [facility] MEDICINE [address] [place], [place] [phone] Latoya Ruiz MD [address] [place], [place] [phone] chartprep Social History Tobacco Use Types Packs/Day [...] 02/07/2025 9:00 AM EDT Office Visit [facility] OPTOMETRY [address] [place] [address] John, Smita, OD [address] [place] [address] documented as of this encounter Goals Goal [...] documented as of this encounter Care Teams General Magistrate Relationship Specialty Start Date End Date Latoya Ruiz MD [address] [place] [address] PCP - General Family Medicine 10/25/18 Yoni Portillo MD [address] [place] [address] Orthopaedic Surgery 10/10/24 Eros Aldana NP [facility] Pain Medicine 10/26/24 documented as of this encounter
--- OUTSIDE RECORDS SUMMARY | 2025-02-05 10:47 | XMS_ITS | Encounter Summary ---
Author Organization [employer] Address 75 [facility] 7t [place] [address] Care Team Providers Care Project Buyer Name Role Phone Latoya Ruiz MD Primary Care Provider +1- [phone] Yoni Portillo MD Unavailable Irlanda Kaur Unavailable Reason for Visit * Reason Onset Date Comments Faxed mammogram screening 02/01/2025 Encounter Details Date Type Department Care Team (Late st Contact Info) Description 02/01/2025 Telephone [facility] MEDICINE [address] [place] [address] Dickson Garrido [place] Faxed mammogram screening Social [...] Description 02/07/2025 9:00 AM EDT Office Visit [facility] OPTOMETRY [address] [place] [address] John, Smita, OD [address] [place] [address] documented as of this encounter Goals Goal [...] documented as of this encounter Care Teams Project Buyer Relationship Specialty Start Date End Date Latoya Ruiz MD [address] [place] [address] PCP - General Family Medicine 10/25/18 Yoni Portillo MD [address] [place] [address] [place] [address] Orthopaedic Surgery 10/10/24 Irlanda Kaur [address]rd [place] [address] Gastroenterology 02/01/25 Eros Aldana NP [facility] Pain Medicine 10/26/24 documented as of this encounter
--- OUTSIDE RECORDS SUMMARY | 2025-02-05 10:47 | XMS_ITS | Encounter Summary ---
Author Organization [employer] Address [address] [facility] [address] 7[address] [place] [address] Care Team Providers Care Systems Manager Name Role Phone Latoya Ruiz MD Primary Care Provider +1- [phone] Yoni Portillo MD Unavailable Irlanda Kaur Unavailable Encounter Details Date Type Department Care Team (Latest Contact Info) Description 02/02/2025 Travel Social History Tobacco Use Types Packs/Day [...] Description 02/07/2025 9:00 AM EDT Office Visit [facility] OPTOMETRY [address] [place] [address] John, Smita, OD [address] [place] [address] documented as of this encounter Goals Goal [...] documented as of this encounter Care Teams Systems Manager Relationship Specialty Start Date End Date Latoya Ruiz MD [address] [place] [address] PCP - General Family Medicine 10/25/18 Yoni Portillo MD [address] [place] [address] [address] [place] [address] Orthopaedic Surgery 10/10/24 Irlanda Kaur [address] [place] [address] Drive 3rd [place] [address] Gastroenterology 02/01/25 Eros Aldana NP [facility] Pain Medicine 10/26/24 documented as of this encounter
--- OUTSIDE RECORDS SUMMARY | 2025-02-05 10:47 | XMS_ITS | Encounter Summary ---
Author Organization [employer] [facility] Address [address] [place] [address] 7 [place] [address] Care Team Providers Care Decontamination Worker Name Role Phone Latoya Ruiz MD Primary Care Provider +1- [phone] Yoni Portillo MD Unavailable Irlanda Kaur Unavailable Encounter Details Date Type Department Care Team (Latest Contact Info) Description 05/29/2019 Abstract [facility] CONVERSIONS Dental, Provider, DDS Social History Tobacco [...] Description 02/07/2025 9:00 AM EDT Office Visit [facility] OPTOMETRY [address] [place] [address] John, Smita, OD [address] [place] [address] documented as of this encounter Visit Diagnoses Not on filedocumented in this encounter Care Teams Decontamination Worker Relationship Specialty Start Date End Date Latoya Ruiz MD [address] [place], [place] [phone] PCP - General Family Medicine 10/25/18 Yoni Portillo MD [address] [place] [address] [address] [place] [address] Orthopaedic Surgery 10/10/24 Irlanda Kaur [address] [place] [address] Drive 3rd [place] [address] Gastroenterology 02/01/25 Eros Aldana NP [facility] Pain Medicine 10/26/24 documented as of this encounter
--- OUTSIDE RECORDS SUMMARY | 2025-02-05 10:47 | XMS_ITS | Encounter Summary ---
Author Organization [employer] Address [address] [facility] 7[address] [place] [address] Care Team Providers Care Mercantile Reporter Name Role Phone Latoya Ruiz MD Primary Care Provider +1- [phone] Yoni Portillo MD Unavailable Irlanda Kaur Unavailable Reason for Referral * Imaging (Routine) - Closed Specialty Diagnoses / Procedures Referred By Contac t Referred To Contact Radiology Diagnoses Inguinal lymphadenopathy Procedures CT Abdomen Pelvis w/ Contrast Latoya Ruiz MD [address] [place] [address] Phone: tel: fax: [address] Phone: tel: fax: Referral ID Status Reason Start Date Expiration Date Visits Re quested Visits Authorized [id number] Closed 06/17/2023 06/16/2024 1 1 * Imaging (Routine) - Closed Specialty Diagnoses / Procedures Referred By Contac t Referred To Contact Radiology Diagnoses Transaminitis Procedures US Abdomen Latoya Ruiz MD [address] [place] [address] Phone: tel: fax: [address] Phone: tel: fax: Referral ID Status Reason Start Date Expiration Date Visits Re quested Visits Authorized [id number] Closed 06/17/2023 06/16/2024 1 1 Encounter Details Date Type Department Care Team (Late Contact Info) Description 06/16/2023 Orders Only [facility] [address] [place] [address] Latoya Ruiz MD [address] [place] [address] Hypothyroidism, unspecified type (Primary Dx); Transaminitis; Inguinal [...] 9:00 AM EDT Office Visit [facility] [address] [place] [address] John, Smita, OD [address] [place] [address] Scheduled Orders Name Type Priority Associated Diagnoses [...] EST Narrative 09/03/2023 2:51 PM EST ? [facility] ?[address] ?[place] [address] ? CT Scan Report ? Signed ? Patient: Hartselle,Alexia ?MR#: [id number] ?? 8 ? : 1975 ?Acct:[id number] ? Age/Sex: 48 / F ?ADM Date: 08/31/23 ? Loc: HO.CT ? Attending Dr: Latoya Ruiz MD ? Ordering Physician: Latoya Ruiz MD ?? Date of Service: 08/31/23 ?? Procedure(s): CT abdomen pelvis w IV con ?? Accession Number(s): [id number] ? cc: Latoya Ruiz MD ? EXAMINATION: [...] 1447 ? DD/ 1050 ? TD/TT: ? Home Coordinator: ELLIOTT ? Procedure Note Donotuseinterpreter, Image - 09/03/[address] [place] [address] [address] Scan Report Signed Patient: Alexia NúñezMR#: [id number] 8 : 1975Acct:[id number] Age/Sex: 48 / FADM Date: 08/31/23 Loc: HO.CT Attending Dr: Latoya Ruiz MD Ordering Physician: Latoya Ruiz MD Date of Service: 08/31/23 Procedure(s): CT abdomen pelvis w IV con Accession Number(s): [id number] cc: Latoya Ruiz MD EXAMINATION: CT ABDOMEN [...] in OV> 09/03/23 1447 DD/ 1050 TD/TT: Home Coordinator: ELLIOTT Latoya Ruiz MD IMG CT PROCEDURES Final Re sult * Hepatitis C Viral RNA, Quantitative, Real-Time PCR (06/30/2023 9:19 AM EDT) Hepatitis C Viral Load <15 NOT DETECTED NOT DETECTED IU/mL [facility] HCV Log PCR <1.18 NOT DETECTED NOT DETECTED Log IU/mL [facility] Comment:This test was perfor med using Real-Time Polymerase ChainReaction.Reportable Range: 15 IU/mL to 100,000,000 IU/mL(1.18 Log IU/mL to 8.00 Log IU/mL).The analytical performance characteristics of thisassay have been determined by [employer].The modifications have not been cleared or approved bythe FDA. This assay has been validated pursuant to theCLIA regulations and is used for clinical purposes.For more information on this test, go to:http://education.iWeebo/faq/KDU89u7(This link is being provided for informational/educational purposes only.)THIS TEST WAS PERFORMED AT:[employer] [place] [id number] CHUN MD Blood 06/30/2023 9:19 AM EDT 06/30/2023 11:16 AM EDT Latoya Ruiz MD LAB BLOOD ORDERABLES Final Result Performing Organization Address [facility] Phone Number [facility] [address] [place] [phone] * C-reactive Protein (06/30/2023 9:19 AM EDT) C Reactive Protein <0.10 < or = 0.50 mg/dL [facility] Blood Venous blood specimen / Unknown 06/30/2023 9:19 AM EDT 06/30/2023 11:16 AM EDT Latoya Ruiz MD LAB BLOOD ORDERABLES Final Result Performing Organization Address [facility] Phone Number [facility] [address] [place] [phone] * (ABNORMAL) Lactate dehydrogenase (06/30/2023 9:19 AM EDT) Lactate Dehydrogenase 325(H) 122 - 220 U/L [facility] Blood Venous blood specimen / Unknown 06/30/2023 9:19 AM EDT 06/30/2023 11:16 AM EDT Latoya Ruiz MD LAB BLOOD ORDERABLES Final Result Performing Organization Address [facility] Phone Number [facility] [address] [place] [phone] * RPR (Monitor) with Reflex to??Titer (06/30/2023 9:19 AM EDT) RPR (Monitor) w/Refl Titer NON-REACTI VE NON-REACT GIULIA [facility] Comment:THIS TEST WAS PERFOR MED AT:[facility] [place] [id number] CHUN MD Rapid Plasma Reagin Ab Titer TNP [facility] Blood Venous blood specimen / Unknown 06/30/2023 9:19 AM EDT 06/30/2023 11:16 AM EDT Latoya Ruiz MD LAB BLOOD ORDERABLES Final Result [facility] [address] [place], [place] [phone] * (ABNORMAL) CBC auto differential (06/30/2023 9:19 AM EDT) White Blood Count 4.4(L) 4.8 - 10.8 X10*3/uL [facility] Red Blood Count 3.80(L) 4.20 - 5.50 X10*6/uL [facility] Hemoglobin 11.6(L) 12.0 - 16.0 g/dl [facility] Hematocrit 36.2(L) 37.0 - 47.0 % [facility] Mean Corpuscular Volume 95.3 80.0 - 98.0 fL [facility] Mean Corpuscular Hemoglobin 30.5 27.0 - 33.0 pg [facility] Mean Corpuscular HGB Conc 32.0 31.0 - 35.0 g/dl [facility] Red Cell Distribution Width 13.2 11.0 - 16.0 % [facility] Platelet Count 162 160 - 400 X10*3/uL [facility] Mean Platelet Volume 12.2 9.4 - 12.3 fL [facility] Neutrophils Percent Auto 68.2 45 - 73 % [facility] Imm Gran Pct Auto 0.2 0.0 - 0.4 % [facility] Lymphocytes Percent Auto 24.8 20 - 40 % [facility] Monocytes Percent Auto 6.8 2 - 11 % [facility] Eosinophils Percent Auto 0.0 0 - 4 % [facility] Basophils Percent Auto 0.0 0 - 2 % [facility] NRBC Pct Auto 0.0 0.0 - 0.2 /100WBC [facility] Neutrophils Absolute Auto 3.0 2.0 - 8.3 x10*3/uL [facility] Imm Gran Abs Auto 0.01 0.00 - 0.03 X10*3/uL [facility] Lymphocytes Absolute Auto 1.1(L) 1.2 - 4.9 X10*3/uL [facility] Monocytes Absolute Auto 0.3 0.1 - 1.2 X10*3/uL [facility] Eosinophils Absolute Auto 0.0 0.0 - 0.4 X10*3/uL [facility] Basophils Absolute Auto 0.0 0.0 - 0.2 X10*3/uL [facility] NRBC Abs Auto 0.000 0.0 - 0.012 X10*3/uL [facility] Blood Venous blood specimen / Unknown 06/30/2023 9:19 AM EDT 06/30/2023 11:16 AM EDT us Latoya Ruiz MD LAB BLOOD ORDERABLES Final Result [facility] [address] [place] [address] [phone] documented in this encounter Visit Diagnoses Diagnosis Hypothyroidism, unspecified type- Primary Transaminitis Nonspecific elevation of levels of transaminase or lactic acid dehydrogenase (LDH) Inguinal lymphadenopathy Enlargement of lymph nodes documented in this encounter Additional Health Concerns Assessment Noted Time PHQ-9 Depression Total Score: 2 06/16/20 23 8:57 AM EDT documented as of this encounter Care Teams Mercantile Reporter Relationship Specialty Start Date End Date Latoya Ruiz MD [address] [place] [address] PCP - General Family Medicine 10/25/18 Yoni Portillo MD [address] [place] [address] [address] [place] [address] Orthopaedic Surgery 10/10/24 Irlanda Kaur [address] 3rd [place] [address] Gastroenterology 02/01/25 Eros Aldana NP [facility] Pain Medicine 10/26/24 documented as of this encounter
--- OUTSIDE RECORDS SUMMARY | 2025-02-05 10:47 | XMS_ITS | Encounter Summary ---
Author Organization [employer] [facility] Address [address] [place] [address] 7 [place] [address] Care Team Providers Care Duck Bill Operator Name Role Phone Latoya Ruiz MD Primary Care Provider +1- [phone] Yoni Portillo MD Unavailable Irlanda Kaur Unavailable Encounter Details Date Type Department Care Team (Latest Contact Info) Description 11/15/2020 Abstract [facility] CONVERSIONS Dental, Provider, DDS Social History [...] Upcoming Encounters Date Type Department Care Team ( st Contact Info) Description 02/07/2025 9:00 AM EDT Office Visit [facility] [address] [place] [address] John, Smita, OD [address] [place] [address] documented as of this encounter Visit Diagnoses Not on filedocumented in this encounter Care Teams Duck Bill Operator Relationship Specialty Start Date End Date Latoya Ruiz MD [address] [place], [place] [phone] PCP - General Family Medicine 1/1/19 Yoni Portillo MD [address] [place] [address] Dr [address] [place] [address] Orthopaedic Surgery 10/10/24 Irlanda Kaur [address] [place] [address] Drive 3rd [place] [address] Gastroenterology 02/01/25 Eros Aldana NP [facility] Pain Medicine 10/26/24 documented as of this encounter
--- OUTSIDE RECORDS SUMMARY | 2025-02-05 10:47 | XMS_ITS | Encounter Summary ---
Author Organization [employer] Address [address] [facility] 7t [place] [address] Care Team Providers Care Glass Lined Tank Repairer Name Role Phone Latoya Ruiz MD Primary Care Provider +1- [phone] Yoni Portillo MD Unavailable Irlanda Kaur Unavailable Reason for Referral * Imaging (Routine) - Closed Specialty Diagnoses / Procedures Referred By Julián robert Referred To Contact Radiology Diagnoses Screening mammogram for breast cancer Procedures BI Mammogram Screening Tomosynthesis Bilateral Latoya Ruiz MD [address] [place] [address] Phone: tel: fax: [address] Phone: tel: fax: Referral ID Status Reason Start Date Expiration Date Visits Re quested Visits Authorized [id number] Closed 02/01/2025 02/01/2026 1 1 * Consultation (Routine) - Authorized Specialty Diagnoses / Procedures Referred By Julián robert Referred To Contact Family Medicine Diagnoses Fibromyalgia Latoya Ruiz MD [address] [place] [address] Phone: tel: fax: Referral ID Status Reason Start Date Expiration Date Visits Requested Visits Authorized [id number] Authorized Consult and Treat 02/01/2025 02/01/2026 1 1 Reason for Visit * Reason Comments Annual Exam Encounter Details Date Type Department Care Team (Late st Contact Info) Description 02/01/2025 10:45 AM EDT Office Visit [facility] [address] [place] [address] Latoya Ruiz MD [address] [place] [address] Fixed dilated pupil (Primary Dx); Inguinal lymphadenopathy; [...] in this encounter Progress Notes * Latoya Ruiz MD - 02/01/2025 10:45 AM EDT Subjective [...] Recommend correlation with colonoscopy. CT faxed to [facility] and new referral placed. Brad by Bertha Mercedes 12/21/[address] fax [address] to make sure they are aware. Acquired hypothyroidism Benign essential hypertension 01/08/2022 -Blood pressure is at goal -Continue lifestyle modifications -Continue current medications Chiari malformation type I (CMS/HCC) 06/2022 on MRI, mild Chronic pain syndrome 06/14/2023 Followed by pain management with Jessica Salcedo NP at [facility] and on choric [...] HPV. ASCUS HPV+ -Outgoing call placed to [facility] for plan of care on 11/2019 Lyubov [...] Recommend correlation with colonoscopy. CT faxed to [facility] and new referral placed. Sseen [...] D deficiency Lab Results Component Value Date [id number] 25.8 (L) 01/19/2024 -ordered repeat level 02/01/25 Relevant Orders TSH with Reflex to Free T4 CBC auto differential Iron deficiency Lab Results Component Value Date FERRITIN 64 01/19/2024 HGB 11.8 (L) 01/19/2024 HGB 11.1 (L) 10/22/2023 HGB 12.4 08/14/2022 HGB 12.7 08/06/2021 HEMATOCRIT 36.7 08/14/2022 HEMATOCRIT 38.7 08/06/2021 -ordered repeat panel 02/01/25 Chronic right shoulder pain -followed by Dr. Portillo at [facility] -10/04/24 MR/MR shoulder RT Mild supraspinatus tendinosis. 2.6 x 1.5 cm full- thickness tear of the supraspinatus and anterior fibers infraspinatus. Additional articular surface fraying/partial tear of the tendon proximal to this. Mild infraspinatus tendinosis. Juuyrxlo-gmry-rajkv partial tear of the distal subscapularis tendon [...] over time. She will continue with her wqobv-tp-achouf exercises to prevent stiffness. She will contact me prior to her follow-up appointment in 6 months should her symptoms worsen in any way. -referred to chronic pin group 02/01/25 Chronic pain syndrome Followed by pain management with Jessica Salcedo NP at [facility] and on choric opoid PRESCRIBED BY PAIN MANAGEMENT. -referred to chronic pin group 02/01/25 Chronically on opiate therapy On chronic opiates with [facility] pain management Cyndi Aldana NP -referred [...] HPV. ASCUS HPV+ -Outgoing call placed to [facility] for plan of care on 11/2019 Lyubov [...] Recommend correlation with colonoscopy. CT faxed to [facility] and new referral placed. Brad [...] index (BMI) of39.0 to 39.9 in adult ([facility]) Discussed weight, diet, exercise with patient in [...] Pt in Group Adult Foster Care with [employer] [facility] [phone], admitted 08/24/23. business process manager Fatou GONZALEZ nurse: Joy Ventura RN Direct Animal Care Worker: [facility] Screening mammogram for breast cancer 02/15/24 BI-RADS 1 - Negative -ordered repeat mammogram 02/01/25 Relevant Orders FLU VACCINE TRIVALENT (Fluarix) 6 mo + BI Mammogram Screening Tomosynthesis Bilateral Ambulates with cane Other specified health status -next comprehensive annual evaluation due after 02/01/25 -eye care facilitated by [facility] -dental home is [facility] -health care proxy filed on 02/28/2024 [...] year (around 02/01/2026) for physical. I, Yenny Sailnas, am serving as a scribe to document [...] Recommend correlation with colonoscopy. CT faxed to [facility] and new referral placed. Brad [...] Recommend correlation with colonoscopy. CT faxed to [facility] and new referral placed. Brad by Bertha Mercdees 12/21/[address] to make sure they are aware. Colonoscopy with Leda Fournier, 04/07/24 done, showed hemorrhoids prep poor, needs repeat 2 yrs. * Assessment & Plan Note - ElenTipjoyer - 02/01/2025 11:36 AM EDTAssociated Problem(s): Vitamin D deficiency Lab Results Component Value Date [id number] 25.8 (L) 01/19/2024 -ordered repeat level 02/01/25 * Assessment & Plan Note - ElenTipjoyer - 02/01/2025 11:36 AM EDTAssociated Problem(s): Iron deficiency Lab Results Component Value Date FERRITIN 64 01/19/2024 HGB 11.8 (L) 01/19/2024 HGB 11.1 (L) 10/22/2023 HGB 12.4 08/14/2022 HGB 12.7 08/06/2021 HEMATOCRIT 36.7 08/14/2022 HEMATOCRIT 38.7 08/06/2021 -ordered repeat panel 02/01/25 * Assessment & Plan Note - ElenTipjoyer - 02/01/2025 11:36 AM EDTAssociated Problem(s): Transaminitis [...] HPV. ASCUS HPV+ -Outgoing call placed to [facility] for plan of care on 11/2019 Lyubov [...] pain management with Jessica Salcedo NP at [facility] and on [...] shoulder pain -followed by Dr. Portillo at [facility] -10/04/24 MR/MR shoulder RT Mild supraspinatus tendinosis. 2.6 x 1.5 cm full- thickness tear of the supraspinatus and anterior fibers infraspinatus. Additional articular surface fraying/partial tear of the tendon proximal to this. Mild infraspinatus tendinosis. Frzgkxsw-gewa-lkhun partial tear of the distal subscapularis tendon [...] over time. She will continue with her jnlgp-mh-choyvu exercises to prevent stiffness. She will contact me prior to her follow-up appointment in 6 months should her symptoms worsen in any way. -referred to chronic pin group 02/01/25 * Assessment & Plan Note - Yenny Salinas - 02/01/2025 11:29 AM EDTAssociated Problem(s): Other specified health status -next comprehensive annual evaluation due after 02/01/25 -eye care facilitated by [facility] -dental home is [facility] -health care proxy filed on 02/28/2024 * Assessment & Plan Note - Yenny Salinas - 02/01/2025 11:26 AM EDTAssociated Problem(s): Counseling and coordination of care Pt in Group Adult Foster Care with [employer] [phone], admitted 08/24/23. business process manager Fatou GONZALEZ nurse: Joy Ventura RN Direct Animal Care Worker: [employer] * Assessment & Plan Note - Elengerda Brad - 02/01/2025 11:26 AM EDTAssociated Problem(s): Colon cancer screening Colonoscopy with Leda Fournier, 04/07/24 done, showed hemorrhoids prep poor, needs repeat 2 yrs. * Assessment & Plan Note - Yenny Salinas - 02/01/2025 11:26 AM EDTAssociated Problem(s): Chronically on opiate therapy On chronic opiates with [facility] pain management Cyndi Aldana, ORGAN TEACHER -referred to chronic pin group 02/01/25 * [...] Description 02/07/2025 9:00 AM EDT Office Visit [facility] [address] [place] [address] Smita Lopez, OD [address] [place] [address] Scheduled Orders Name Type Priority Associated Diagnoses Orde r Schedule BI Mammogram Screening Tomosynthesis Bilateral Imaging Routine Screening mammogram for breast cancer Expected: 02/01/2025, Expires: 04/03/2026 Pap Smear Pathology and Cytology Routine Hx of abnormal cervical Pap smear Ordered: 02/01/2025 Hemoglobin A1c Lab Routine Class [...] Calli Katz documented as of this encounter Procedures Procedure Name Priority Date/Time Associated Diagnosis Comments CHLAMYDIA/N. GONORRHOEAE AND T. VAGINALIS RNA, QUAL,TMA Routine 02/01/2025 11:46 AM EDT Routine screening for STI (sexually transmitted infection) documented in this encounter Results * STI testing add on (NG, CT, Trich) (02/01/2025 11:46 AM EDT) [facility] Signature Trichomonas (NAAT) NOT DETECTED NOT DETECTED [facility] Comment:The analytical perfo rmance characteristics of thisassay have been determined by [employer]. Themodifications have not been cleared or approved bythe FDA. This assay has been validated pursuant to theCLIA regulations and is used for clinical purposes.For additional information, please refer tohttp://education.EyeIC/faq/Trichomonastma(This link is being provided for information/educational purposes only.)THIS TEST WAS PERFORMED AT:[employer] [place] [id number] CHUN MD CTNG Ref Lab NOT DETECTED NOT DETECTED [facility] NG Ref Lab NOT DETECTED NOT DETECTED [facility] Swab Cervix uteri structure / Unknown 02/01/2025 11:46 AM EDT 02/02/2025 6:04 AM EDT us Latoya Ruiz MD LAB CYTOLOGY ORDERABLES Fi nal Result [facility] [address] [place] [phone] documented in this encounter Visit Diagnoses Diagnosis Fixed dilated [...] documented as of this encounter Care Teams Glass Lined Tank Repairer Relationship Specialty Start Date End Date Latoya Ruiz MD [address] [place] [phone] PCP - General Family Medicine 10/25/18 Yoni Portillo MD [address] [place] [address] [address] [place] [address] Orthopaedic Surgery 10/10/24 Irlanda Kaur [address] [place] [address] Drive 3rd [place] [address] Gastroenterology 02/01/25 Eros Aldana NP [facility] Pain Medicine 10/26/24 documented as of this encounter
--- OUTSIDE RECORDS SUMMARY | 2025-02-05 10:47 | XMS_ITS | Encounter Summary ---
Author Organization [employer] Address [address] [facility] 7t [place] [address] Care Team Providers Care Post Framer Name Role Phone Latoya Ruiz MD Primary Care Provider +1- [phone] Yoni Portillo MD Unavailable Irlanda Kaur Unavailable Reason for Visit * Reason Comments Follow-up Encounter Details Date Type Department Care Team (Late st Contact Info) Description 02/02/2025 10:00 AM EDT Office Visit [facility] [address] [place] [address] John, Smita, OD [address] [place] [address] Corneal ulcer of left eye (Primary Dx) Social History Tobacco Use Types Packs/Day Years [...] Description 02/07/2025 9:00 AM EDT Office Visit [facility] [address] [place] [address] JohnSmita rivera, OD [address] [place] [address] documented as of this encounter Goals Goal Patient Goal Type Associated Problems Recent Progress Patient-Stated? Author Blood Pressure < 140/90 Blood Pressure 124/73(2024 10:54 AM EDT) No Calli Katz Record your blood pressure once per day Blood Pressure No Calli Katz documented as of this encounter Visit Diagnoses Diagnosis Corneal ulcer of left eye- Primary documented in this encounter Additional Health Concerns Assessment Noted Time PHQ-9 Depression Total Score: 25 025 11:13 AM EDT documented as of this encounter Care Teams Post Framer Relationship Specialty Start Date End Date Latoya Ruiz MD [address] [place] [address] PCP - General Family Medicine 10/25/18 Yoni Portillo MD [address] [place] [address] Dr [address] [place] [address] Orthopaedic Surgery 10/10/24 Irlanda Kaur [address] 3rd [place] [address] Gastroenterology 02/01/25 Eros Aldana NP [facility] Pain Medicine 10/26/24 documented as of this encounter
--- OUTSIDE RECORDS SUMMARY | 2025-02-05 10:47 | XMS_ITS | Encounter Summary ---
Author Organization [employer] Address [address] [place] [address] Care Team Providers Care Metal Tile Lather Name Role Phone Latoya Ruiz MD Primary Care Provider +1- [phone] Yoni Portillo MD Unavailable Irlanda Kaur Unavailable Encounter Details Date Type Department Care Team (Late st Contact Info) Description 01/26/2024 Orders Only [facility] [address] [place] [address] Flor Brown, JOHNATHAN Social History Tobacco Use [...] Description 02/07/2025 9:00 AM EDT Office Visit [facility] OPT[facility] [address] [place] [address] John, Smita, OD [address] [place] [address] documented as of this encounter Visit Diagnoses Not on filedocumented in this encounter Additional Health Concerns Assessment Noted Time PHQ-9 Depression Total Score: 13 024 10:50 AM EDT documented as of this encounter Care Teams Metal Tile Lather Relationship Specialty Start Date End Date Latoya Ruiz MD [address] [place] [address] PCP - General Family Medicine 10/25/18 Yoni Portillo MD [address] [place] [address] [address] [place] [address] Orthopaedic Surgery 10/10/24 Irlanda Kaur [address] 3rd [place] [address] Gastroenterology 02/01/25 Eros Aldana NP [facility] Pain Medicine 10/26/24 documented as of this encounter
--- OUTSIDE RECORDS SUMMARY | 2025-02-05 10:47 | XMS_ITS | Encounter Summary ---
Author Organization [employer] Address [address] [place] [address] Care Team Providers Care Cutter Inspector Name Role Phone Latoya Ruiz MD Primary Care Provider [phone]- [phone] Yoni Portillo MD Unavailable Irlanda Kaur Unavailable [...] Description 02/07/2025 9:00 AM EDT Office Visit [facility] [address] [place] [address] John, Smita, OD [address] [place] [address] documented as of this encounter Goals Goal [...] documented as of this encounter Care Teams Cutter Inspector Relationship Specialty Start Date End Date Latoya Ruiz MD [address] [place] [address] PCP - General Family Medicine 10/25/18 Yoni Portillo MD [address] [place] [address] Dr [address] [place] [address] Orthopaedic Surgery 10/10/24 Irlanda Kaur [address] [place] [address] Drive 3rd [place] [address] Gastroenterology 02/01/25 Eros Aldana NP [facility] Pain Medicine 10/26/24 documented as of this encounter
--- OUTSIDE RECORDS SUMMARY | 2025-02-05 10:47 | XMS_ITS | Clinical Summary ---
Author Organization [employer] Address [address]t [place] [address] Care Team Providers Care Scrape Gatherer Name Role Phone Latoya Ruiz MD Primary Care Provider [phone]- [phone] Yoni Portillo MD Unavailable Irlanda Kaur Unavailable [...] per pt had las pap smear at [facility] ------ requested to RADHA- Kena Velazco Last pap smear and last FOOD SAFETY COORDINATOR note -MM per pt done in 2022 [...] 12/21/2024 Overview (02/01/2025): On chronic opiates with [facility] pain management Cyndi Aldana NP -referred to chronic pin group 02/01/25 Assessment & Plan (02/01/2025 11:26 AM EDT): On chronic opiates with [facility] pain management Cyndi Aldana NP -referred to chronic pin group 02/01/25 Counseling and coordination of care 03/01/2024 Overview (03/01/2024): Pt in Group Adult Foster Care with [employer] [phone], admitted 08/24/23. senior corporate strategy manager Fatou GONZALEZ nurse: Joy Ventura RN Direct International Marketing Specialist: [employer] Assessment & Plan (02/01/2025 11:26 AM EDT): Pt in Group Adult Foster Care with [employer] [phone], admitted 08/24/23. senior corporate strategy manager Fatou GONZALEZ nurse: Joy Ventura RN Direct International Marketing Specialist: [facility] Poly[facility] 01/19/2024 Ambulates with [...] with ongoing chronic pain. 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 Portillo at [facility] -10/04/24 MR/MR shoulder RT Mild supraspinatus tendinosis. 2.6 x 1.5 cm full-thickness tear of the supraspinatus and anterior fibers infraspinatus. Additional articular surface fraying/partial tear of the tendon proximal to this. Mild infraspinatus tendinosis. Pyhiuyrx-nwhu-rpemj partial tear of the distal subscapularis tendon [...] over time. She will continue with her foylz-au-iwzvjp exercises to prevent stiffness. She will contact me prior to her follow-up appointment in 6 months should her symptoms worsen in any way. -referred to chronic pin group 02/01/25 Assessment & Plan (02/01/2025 11:30 AM EDT): -followed by Dr. Portillo at [facility] -10/04/24 MR/MR shoulder RT Mild supraspinatus tendinosis. 2.6 x 1.5 cm full-thickness tear of the supraspinatus and anterior fibers infraspinatus. Additional articular surface fraying/partial tear of the tendon proximal to this. Mild infraspinatus tendinosis. Petjixgj-hrar-pmdyx partial tear of the distal subscapularis tendon [...] over time. She will continue with her vrewd-zl-mthgbc exercises to prevent stiffness. She will contact [...] Recommend correlation with colonoscopy. CT faxed to [facility] and new referral placed. Sseen by [...] Recommend correlation with colonoscopy. CT faxed to [facility] and new referral placed. Sseen by [...] Recommend correlation with colonoscopy. CT faxed to [facility] and new referral placed. Sseen by [...] Recommend correlation with colonoscopy. CT faxed to [facility] and new referral placed. Sseen by [...] Recommend correlation with colonoscopy. CT faxed to [facility] and new referral placed. Sseen by [...] pain management with Jessica Salcedo NP at [facility] and on choric opoid PRESCRIBED BY PAIN MANAGEMENT. -referred to chronic pin group 02/01/25 Assessment & Plan (02/01/2025 11:30 AM EDT): Followed by pain management with Jessica Salcedo NP at [facility] and on choric opoid PRESCRIBED BY PAIN MANAGEMENT. -referred to chronic pin group 02/01/25 Degeneration of lumbar intervertebral disc 06/14 Overview (12/21/2024): -Followed by pain management, On chronic opiates with [facility] pain management Cyndi Aldana NP History of cholecystectomy 06/14/2023 Other specified health status 06/14/2023 Overview (02/01/2025): -next comprehensive annual evaluation due after 02/01/25 -eye care facilitated by [facility] -dental home is [facility] -health care proxy filed on 02/28/2024 Assessment & Plan (02/01/2025 11:29 AM EDT): -next comprehensive annual evaluation due after 02/01/25 -eye care facilitated by [facility] -dental home is [facility] -health care proxy filed on 02/28/2024 Assessment & Plan (02/28/2024 11:36 AM EDT): -next physical exam due after January 18 2025 -eye care facilitated by [facility] -dental home is [facility] -health care proxy filed on 02/28/2024 Assessment & Plan (01/19/2024 1:29 PM EDT): -next physical exam due after January 18 2025 -eye care facilitated by [facility] -dental home is [facility] Assessment & Plan (06/16/2023 9:15 AM EDT): [...] Assessment & Plan (12/21/2023 6:29 PM EST): -information security 10/2023 seen for fixed dilated left pupil [...] HPV. ASCUS HPV+ -Outgoing call placed to [facility] for plan of care on 11/2019 Lyubov [...] HPV. ASCUS HPV+ -Outgoing call placed to [facility] for plan of care on 11/2019 Lyubov [...] HPV. ASCUS HPV+ -Outgoing call placed to [facility] for plan of care on 11/2019 Lyubov [...] Overview (02/01/2025): Lab Results Component Value Date [id number] 25.8 (L) 01/19/2024 -ordered repeat level 02/01/25 Assessment & Plan (02/01/2025 11:36 AM EDT): Lab Results Component Value Date [id number] 25.8 (L) 01/19/2024 -ordered repeat level 02/01/25 [...] Encounters Date Type Department Care Team Description 02/02/2025 10:00 AM EDT Office Visit [facility] OPTOM[facility]RY [address] [place] [address] John, Smita, OD Corneal ulcer of left eye (Primary Dx) 02/02/2025 Travel 02/01/2025 10:45 AM EDT Office Visit [facility] [address] [place] [address] Latoya Ruiz MD Fixed dilated pupil (Primary [...] test for low risk patient 02/01/2025 Telephone [facility] [address] [place] [address] Dickson Garrido [place] Faxed mammogram screening 02/01/2025 Travel 01/31/2025 Telephone [facility] [address] [place] [address] Latoya Ruiz MD chartprep 01/29/2025 2:00 PM EDT Office Visit [facility] OPT[facility] [address] [place] [address] John, Smita, OD Adie's tonic pupil, left (Primary Dx); Corneal ulcer of left eye; Presbyopia 01/29/2025 Travel 01/22/2025 Patient Outreach [facility] [address] [place] [address] Latoya Ruiz MD Pre-visit Planning (SDOH Screening negative and Tobacco screening negative) 01/05/2025 Population Health Risk Score [facility] () Department [address] [phone] Provider, Population Health Generic 12/15/2024 Refill [facility] [address] [place] [address] Latoya Ruiz MD Hx of gastric bypass from Last 3 Months Immunizations Name Administration [...] Description 02/07/2025 9:00 AM EDT Office Visit [facility] [address] [place] [address] John, Smita, OD [address] [place] [address] Health Maintenance Due Date Last Done Comments [...] Routine screening for STI (sexually transmitted infection) HM COLONOSCOPY Routine 04/07/2024 3:31 PM EDT BI MAMMOGRAM SCREENING TOMOSYNTHESIS BILATERAL Routine 02/15/2024 9:15 AM EDT Breast cancer screening by mammogram LIPID PANEL, STANDARD Routine 01/19/2024 10:30 AM EDT Severe obesity (BMI >= 40) (CMS/HCC) HIV ANTIBODY/ANTIGEN ([facility]) Routine 06/30/2023 9:19 AM EDT PAP SMEAR Routine 11/17/2019 12:00 AM EST [facility] HISTORICAL HPV E6/E7 RFLX JOSEPH 16 18/45 Routine 06/03/2018 9:45 AM EDT from Last 3 Months or Most Recently Relevant to Health Maintenance Results * STI testing add on (NG, CT, Trich) (02/01/2025 11:46 AM EDT) Trichomonas (NAAT) NOT DETECTED NOT DETECTED [facility] Comment:The analytical perfo rmance characteristics of thisassay have been determined by [employer]. Themodifications have not been cleared or approved bythe FDA. This assay has been validated pursuant to theCLIA regulations and is used for clinical purposes.For additional information, please refer tohttp://education.[employer]/faq/Trichomonastma(This link is being provided for information/educational purposes only.)THIS TEST WAS PERFORMED AT:[facility] [id number] CHUN MD CTNG Ref Lab NOT DETECTED NOT DETECTED [facility] NG Ref Lab NOT DETECTED NOT DETECTED [facility] Swab Cervix uteri structure / Unknown 02/01/2025 11:46 AM EDT 02/02/2025 6:04 AM EDT us Latoya Ruiz MD LAB CYTOLOGY ORDERABLES Fi nal Result [facility] [address] [place] [phone] * Hm Colonoscopy (04/07/2024 3:31 PM EDT) Colonoscopy Normal Normal Comment:repeat 1-2 year us Historical Provider MD HEALTH MAINTENANCE Final Result * BI Mammogram Screening Tomosynthesis Bilateral (02/15/2024 9:15 AM EDT) Anatomical Region Laterality Modality Breast Bilateral Mammography 02/15/2024 9:15 AM EDT Narrative 02/26/2024 7:21 AM EDT ? [facility] ? [address] ?[place] [address] ? Mammography Report ? Signed ? Patient: Buskirk,Alexia ?MR#: [id number] ?? 8 ? : 1975 ?Acct:[id number] ? Age/Sex: 48 / F ?ADM Date: 02/15/24 ? Loc: HO.MAMMO ? Attending Dr: Latoya Ruiz MD ? Ordering Physician: Latoya Ruiz MD ?Results: 1N ?? egative ? Date of Service: 02/15/24 ?Follow Up: 1 Year From Orig ?? inal Mammogram ? Procedure(s): MM tomosynthesis screening BI ?? Accession Number(s): [id number] ? cc: Latoya Ruiz MD ? EXAMINATION: ?? MM SCREENING DIGITAL BREAST TOMOSYNTHESIS, BILATERAL ? CLINICAL INFORMATION: ? Screening. Asymptomatic. ? COMPARISON: ?? Mammography: This study is compared with prior exams dating back to ?? 2018. ? TECHNIQUE: ?? Digital breast tomosynthesis is [...] MD in OV> ? 02/26/24716 ? DD/ 0915 ? TD/TT: ? Professor Of Theater: ? Procedure Note Nba Evans - 02/26/2024 [facility] [address] [place] [address] Mammography Report Signed Patient: Alexia NúñezMR#: [id number] 8 : 1975Acct:[id number] Age/Sex: 48 / FADM Date: 02/15/24 Loc: HO.MAMMO Attending Dr: Latoya Ruiz MD Ordering Physician: Latoya Ruiz MDResults: 1N egative Date of Service: 02/15/24Follow Up: 1 Year From Orig inal Mammogram Procedure(s): MM tomosynthesis screening BI Accession Number(s): [id number] cc: Latoya Ruiz MD EXAMINATION: MM SCREENING [...] signed by Shahrzad Hernandez MD in OV> 02/26/24716 DD/ 4 TD/TT: Professor Of Theater: Latoya Ruiz MD IM BI PROCEDURES Edited R esult - Final * Lipid Panel, Standard (01/19/2024 10:30 AM EDT) Triglycerides 48 <150 mg/dL [facility] Comment:Desirable Triglyceri de: less than 150 mg/dLBorderline High Triglyceride 150-199 mg/dLHigh Triglyceride: 200-499 mg/dLVery High Triglyceride: greater than or equal to 5OO mg/dL Cholesterol 170 <200 mg/dL [facility] Comment:Desirable Cholestero l: less than 200 mg/dLBorderline High Cholesterol: 200-239 mg/dLHigh Cholesterol: greater than 239 mg/dL LDL Cholesterol Calculated 93 <100 mg/dL [facility] Comment:Desirable LDL: less than 100 mg/dLNear Optimal/Above Optimal LDL: 110- 129 mg/dLBorderline High LDL: 130-159 mg/dLHigh LDL: 160-189 mg/dLVery High LDL: greater than or equal to 190 mg/dL HDL Cholesterol 68 >40 mg/dL [facility] Comment:Desirable HDL: great er than 40 mg/dL Note: This HDL assay may give artificially low results in patients with liver disease. Blood Venous blood specimen / Unknown 01/19/2024 10:30 AM EDT 01/19/2024 1:27 PM EDT Latoya Ruiz MD LAB BLOOD ORDERABLES Final Result Performing Organization Address [facility]/ZIP Co de Phone Number [facility] [address] [place] [address] [phone] * HIV Ab/Ag ([facility]) (06/30/2023 9:19 AM EDT) [facility] HIV AB/AG Nonreactive Nonreactive [facility] Comment:HIV-1 p24 Ag and/or HIV-1/HIV-2 Ab not detected.A test result that is nonreactive does not exclude thepossibility of exposure to or infection with HIV-1 and/orHIV-2. Nonreactive results in this assay for individualswith prior exposure to HIV-1 and/or HIV-2 may be due toantigen and antibody levels that are below the limit ofdetection of this assay.The [employer] HIV Ag/Ab Combo assay result andsupplemental assay results should be interpreted inconjunction with the patient's clinical presentation,history and other laboratory results. If the results areinconsistent with clinical evidence, additional testing issuggested to confirm the result. 06/30/2023 9:19 AM EDT 06/30/2023 11:16 AM EDT Latoya Ruiz MD LAB BLOOD ORDERABLES Final Result Performing Organization Address [facility]/ZIP Co de Phone Number [facility] [address] [place] [address] [phone] * Pap Smear (11/17/2019 12:00 AM EST) Swab Historical Provider LAB CYTOLOGY ORDERABLES F inal Result IMAGING * (ABNORMAL) HPV E6/E7 RFLX JOSEPH 16 18/45 (06/03/2018 9:45 AM EDT) HPV 16 RNA NOT DETECTED NOT DETECTED [facility] HPV 18/45 RNA DETECTED(AA ) NOT DETECTED [facility] Comment: This test was performed using the APTIMA HPV 16, 18/45 genotype assay ([employer] The assay can differentiate HPV 16 from HPV 18 and/or HPV 45, but does not differentiate between HPV 18 and HPV 45. Test Performed by [facility], [address] [place] [address] Austin Quinn M.D., Ph.D., Director of Laboratories , CLIA [id number] HPV mRNA E6/E7 DETECTED(AA ) NOT DETECTED [facility] Comment: This test was performed using the APTIMA(R) HPV Assay ([employer] This assay detects E6/E7 viral messenger RNA (mRNA) from 14 high-risk HPV types (16,18,31,33,35,39,45,51, 52,56,58,59,66,68). For additional information please refer to: http://education.[employer]zing[employer]/faq/DRO400t5 (This link is being provided for informational/ educational purposes only.) The analytical performance characteristics of this assay have been determined by [employer] [place], [place]. The modifications have not been cleared or approved by the FDA. This assay has been validated pursuant to the CLIA regulations and is used for clinical purposes. Please note: ??Effective 07/06/2016, HPV testing will be performed using [employer] APTIMA test which targets mRNA. Detecting mRNA instead of DNA, as in older methods, offers significant improvements in specificity. ADDITIONAL TESTING Has been added. () [facility] Comment: Test Performed by [facility], [address] [place], [place] Austin Quinn M.D., Ph.D., Director of Laboratories , CLIA [id number] 06/03/2018 9:45 AM EDT Latoya Ruiz MD HISTORICAL/NON ORDERABLE L ABS Final Result [facility] [address] from Last 3 Months or Most Recently Relevant to Health Maintenance Insurance [facility] [place] [address] [facility] [address] [place] [address] Advance Directives Documents on File Type Date Recorded Patient Dog Food Dough Mixer Expl anation Advance Directives and Living Will 02/28/2024 Health Care Proxy 02/28/24 Care Teams Scrape Gatherer Relationship Specialty Start Date End Date Latoya Ruiz MD [address] [place] [address] [place] PCP - General Family Medicine 10/25/18 Yoni Portillo MD [address] [place] [address] Dr [address] [place] Orthopaedic Surgery 10/10/24 Irlanda Kaur [address]rd [place] [address] Gastroenterology 02/01/25 Eros Aldana NP [facility] Pain Medicine 10/26/24
[2025-02-05 11:16] LABS: MANUAL DIFF FLAG NO
[2025-02-05 11:23] LABS: Hematocrit 37.8 % (37.0-47.0); Hemoglobin 12.2 g/dl (12.0-16.0); Imm Gran Abs Auto 0.01 X10*3/uL (0.00-0.03); Imm Gran Pct Auto 0.2 % (0.0-0.4); Lymphocytes Absolute Auto 1.3 X10*3/uL (1.2-4.9); Lymphocytes Percent Auto 30.1 % (20-40); Mean Corpuscular HGB Conc 32.3 g/dl (31.0-35.0); Mean Corpuscular Volume 99.2 fL (80.0-98.0); Mean Platelet Volume 11.4 fL (9.4-12.3); Monocytes Absolute Auto 0.3 X10*3/uL (0.1-1.2); Monocytes Percent Auto 6.4 % (2-11); Neutrophils Absolute Auto 2.8 x10*3/uL (2.0-8.3); Neutrophils Percent Auto 63.3 % (45-73); Platelet Count 187 X10*3/uL (160-400); Red Blood Count 3.81 X10*6/uL (4.20-5.50); Red Cell Distribution Width 12.9 % (11.0-16.0); White Blood Count 4.4 X10*3/uL (4.8-10.8)
[2025-02-05 11:32] LABS: Estimated Average Glucose 88 mg/dL; Hemoglobin A1C 92.2166 umol/L; Hemoglobin A1c % 4.7 % (<6.0); Total Hemoglobin (HGBA1C) 3322.1572 umol/L
[2025-02-05 11:51] LABS: Alanine Aminotransferase 128 U/L (0-31); Albumin Level 3.8 g/dL (3.5-5.0); Alkaline Phosphatase 62 U/L (39-117); Anion Gap 8 (12-20); Aspartate Amino Transferase 88 U/L (5-31); Bilirubin Direct 0.3 mg/dL (0.0-0.5); Bilirubin Total 0.8 mg/dL (0.0-1.0); Blood Urea Nitrogen 20 mg/dL (9-16); Calcium 8.9 mg/dL (8.4-10.2); Carbon Dioxide 27 mmol/L (22-29); Chloride 109 mmol/L (96-108); Cholesterol 201 mg/dL (<200); Estimated Glomerular Filt Rate > 60; Glucose Random 78 mg/dL (60-115); HDL Cholesterol 73 mg/dL (>40); LDL Cholesterol Calculated 115 mg/dL (<100); Magnesium 1.8 mg/dL (1.6-2.6); Potassium 4.2 mmol/L (3.3-5.1); Sodium 140 mmol/L (135-145); Total Protein 6.9 g/dL (6.5-8.0); Triglycerides 69 mg/dL (<150)
[2025-02-05 12:09] LABS: TSH reflex Free T4 91.01 uIU/mL (0.32-4.0); Vitamin D 25-OH Total 21.1 ng/mL (>30)
[2025-02-05 12:12] LABS: HIV AB/AG Nonreactive (Nonreactive); HIV Num 1 0.06 S/CO (0.00-0.99); ~HepC Num1 6.05 S/CO (0.00-0.79); ~Hepatitis C Antibody Reactive (Nonreactive)
[2025-02-05 12:47] LABS: Free T4 (Free Thyroxine) 0.53 ng/dL (0.71-1.85)
[2025-02-05 13:00] LABS: Syphilis Screen Nonreactive (Nonreactive)
[2025-02-09 19:59] LABS: HCV Log PCR <1.18 NOT DETECTED Log IU/mL (NOT DETECTED); HepC Viral Load <15 NOT DETECTED IU/mL (NOT DETECTED)
== END 2025-02-05 09:39 | disposition home or self-care (01) ==
LOC: HO.HHCL 09:38
PROVIDERS: Visit Provider Family Medicine
DX: Z98.84 Bariatric surgery status (principal); E55.9 Vitamin D deficiency, unspecified; E03.9 Hypothyroidism, unspecified; R74.01 Elevation of levels of liver transaminase levels; Z11.59 Encounter for screening for other viral diseases; E66.812 Obesity, class 2; E66.01 Morbid (severe) obesity due to excess calories; Z68.39 Body mass index [BMI] 39.0-39.9, adult
CPT/HCPCS: 36415; 80048; 80061; 80076; 82306; 83036; 83735; 84439; 84443; 85025; 86780; 86803; 87389; 87522

== ENCOUNTER 2025-03-08 10:40 | Outpatient (AMB) | payer MEDICAID, SELFPAY ==
--- NOTE | 2025-03-08 10:40 | A.OFFVIS_ITS ---
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 Buffs: Assembler Finger Buffs Present (Shae) Accompanied by: Self / Same As Patient Allergies No Known Allergies Allergy (Verified 09/28/24 10:12) Medication List - Last Reconciled 03/08/25 by Ivis Segura CNM acetaminophen (Tylenol Extra Strength) 500 mg PO Q6H PRN cholecalciferol (vitamin D3) 50 mcg PO DAILY duloxetine (Cymbalta) 60 mg PO DAILY ibuprofen 600 mg PO Q6H PRN levothyroxine (Tirosint) 250 mcg (2 x 125 mcg) PO DAILY 30 days oxycodone-acetaminophen 10-325 mg 1 tab PO Q8H PRN zinc gluconate 30 mg PO DAILY Is last menstrual period known: No Post menopausal: Yes Patient : No HPI HPI High Risk HPV: Details: Patient is here today because she has a Pap smear that was abnormal with positive H BV. This Pap smear was done at [facility] on 02/02/2025 patient tells me she has a history of abnormal Pap smears in the past and in the past she has seen assessment technician at hospital, and she has had colposcopies and biopsies. Today she was given this appointment but she went to the hospital 1st because that is where she thought the appointment was and they told her it was down here at [facility] so she came down here to [facility] where she has seen me now. 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 She had been hopeful that everything would of been clear after the last evaluation with him but the Pap smear has again come back abnormal she says she has had various infections since she was a young girl. She does have other medical problems and pain with fibromyalgia and shoulder pain and other issues with arthritis so she does take oxycodone she does not take it all the time just when she really needs it but she has been on it for about 3 years. She has some test next week following up on her liver or kidneys. FOR[facility]LY [facility] Medical History Pain in right shoulder B12 deficiency Vitamin D deficiency Hypothyroidism Surgical History History of gastric bypass Hx laparoscopic cholecystectomy History of esophagogastroduodenoscopy (EGD) Hx of lithotripsy Family History Mother Type 2 diabetes mellitus Myocardial infarction CVD (cardiovascular disease) Heart disease Father Type 2 diabetes mellitus Hypertension Social History Household Members: Spouse Alcohol intake: current Alcohol intake frequency: does not drink Patient Tobacco Use Status: Never used Tobacco Female Reproductive History Menstrual Age of Menarche: 13 control method: none Total pregnancies: 7 Premature: 3 Ab spontaneous: 4 Date of last pap smear: 02/01/25 (+ hpv) History of abnormal pap smear: Yes Date of Mammogram: 02/15/24 (bi rad 1) Physical Exam Vital Signs: Last Vital Signs BP 128/76 03/08/25 10:49 BMI result Body Mass Index 36.0 Const Other: deferred Results Reviewed Results Reviewed: Name: Alexia Núñez Age/Sex: 49/F Attending: Latoya Ruiz MD : 1975 Submitted by: Latoya Ruiz MD Copies to: MR #: [id number] Status: DEP REF [facility]: [facility]01[facility]25 [facility]: [facility] Interpretation General Category: Epithelial cell abnormality. Adequacy: Endocervical component present. Interpretation: Atypical squamous cells of undetermined significance. Abundant acute inflammation. Coccobacilli consistent with shift in vaginal rajat. HPV High Risk: Positive HPV Genotyping 16: Negative HPV Genotyping 18: Negative Clinical Information LMP:Unknown date Previous PAP test:11/17/2019 NIL HPV. ASCUS HPV + Material Received ThinPrep-Cervical Electronically Signed By: Zully Slaughter 02/06/25 [id number] As of August 16, 2024, the technical services to include automated prescreening performed by the ThinPrep Imaging System, PAP screening and HPV testing will be performed at [facility] (CLIA #[id number]), [address] [place] [address]. Testing for HPV was performed using the [employer] system. The presence of HPV in the female genital tract is associated with a number of diseases, including cervical carcinoma. The HPV DNA high risk pool tests for HPV 31, 33, 35, 39, 45, 51, 52, 56, 58, 59, 66 and 68. The testing for HPV 16 and 18 genotypes has also been performed. A positive result indicates detection of nucleic acid sequences from one or more subtypes, whereas a negative result indicates such sequences were not detected. All professional services are performed by [facility] ([address] [place] [address]; ; CLIA #[id number]). The PAP Test is a screening procedure with the inherent possibility of both false negative and false positive results. Results should be interpreted in the context of historic and current clinical findings. Reliability of the PAP Test is enhanced by performing the test on a regular repetitive basis. Patient: Alexia Núñez Age/Sex: 49/F MR#: [id number] Page 1 of 1 Assessment & Plan Assessment & Plan (1) ASCUS with positive high risk HPV cervical: Comment: This is not her 1st abnormal Pap history of colposcopy in the past. Pap smear positive 02/02/2025 via [facility] PCC Dr. Ruiz-patient needs to be redirected for colposcopy.. Code(s): R87.610 - Atypical squamous cells of undetermined significance on cytologic smear of cervix (ASC-US); R87.810 - Cervical high risk human papillomavirus (HPV) DNA test positive Category: Medical Plan This appointment with CNM seems to have been given in her. I reviewed the patient's history with her and what had occurred and in fact she does have a history of past abnormal Pap smears in the past and she remembers having biopsies with assessment technician of the hospital. She recently had seen her primary care provider Dr. Ruiz here at the [facility] in the Pap smear came back abnormal with ASCUS with positive HPV so she has an idea of what tests and biopsies need to be done when she is seen at the hospital. I apologized for the confusion as the patient went to the hospital this morning and was redirected here. Patient we will be assisted in obtaining the correct appointment with assessment technician at the 5th floor office for her colposcopy. She did not need any other exam from me today and had no pressing pouring crane operator concerns except for this issue. I reviewed her other medical conditions with her. Coding Level of Care Code New Pt Level 3 (06371) Diagnoses ASCUS with positive high risk HPV cervical R87.610; R87.810
[2025-03-08 10:49] VITALS: BP 128/76; BMI 36.0
--- OUTSIDE RECORDS SUMMARY | 2025-03-08 11:46 | XMS_ITS | Clinical Summary ---
Author Organization [employer] Address [address] [place] [address] Care Team Providers Care Credit Manager Name Role Phone Latoya Ruiz MD Primary Care Provider [phone] Yoni Portillo MD Unavailable Irlanda Kaur Unavailable Allergies No known active allergies Medications * This document contains information received from the source organization and may not represent a complete record from that organization. oxyCODONE-aceta minophen (Percocet) 10-325 MG tablet Take 1 tablet by mouth every 8 (eight) hours if needed. 3 Active cholecalciferol (Vitamin D-3) 25 MCG (1000 UT) capsuleIndicati ons:Vitamin D deficiency TAKE 1 TABLET BY MOUTH EVERY DAY 90 capsule 3 4 Active Diclofenac Sodium 1 % gelIndications: Chronic pain syndrome APPLY 1 APPLICATION TOPICALLY IF NEEDED EACH DAY (SHOULDER PAIN). 100 g 4 Active Lidocaine 5 % creamIndication s:Right shoulder pain, unspecified chronicity Apply topically bid 30 g 3 4 Active Multiple Vitamin (multivitamin) tabletIndicatio ns:Hx of gastric bypass Take 1 tablet by mouth Once per day. 90 tablet 3 4 Active DULoxetine (Cymbalta) [address] capsuleIndicati ons:Moderate episode of recurrent major depressive disorder (CMS/HCC) TAKE 1 CAPSULE BY MOUTH EVERYDAY AT NOON 90 capsule 3 4 Active Zinc 30 MG capsuleIndicati ons:Hx of gastric bypass TAKE 1 TABLET BY MOUTH EVERYDAY AT NOON 90 capsule 5 Active metroNIDAZOLE (Metrogel) 0.75 % vaginal gelIndications: Bacterial Vaginosis Insert one applicator into vagina at bedtime for 7 nights 45 g 5 Active levothyroxine (Synthroid) 150 MCG tabletIndicatio ns:Hypothyroidi sm, unspecified type Take 1 tablet (150 mcg) by mouth Once per day. 30 tablet 11 5 02/07/20 26 Active Acetaminophen Extra Strength 500 MG tablet Take 1 tablet by mouth every 6 (six) hours if needed for pain. 4 Active buPROPion XL (Wellbutrin XL) 150 MG 24 hr tablet TAKE 1 TABLET BY MOUTH EVERYDAY AT NOON Active ofloxacin (Ocuflox) 0.3 % ophthalmic solution INSTILL 1 DROP IN THE LEFT EYE FOUR TIMES DAILY FOR 10 DAYS 5 Active ofloxacin (Ocuflox) 0.3 % ophthalmic solution Administer 1 drop into the left eye 4 times daily for 10 days. 5 mL 5 02/09/20 25 Active Problems Problem Noted Date Diagnosed Date B12 deficiency 02/21/2025 Left ankle sprain 02/21/2025 Encounter for screening colonoscopy 02/21/2025 Class 2 severe obesity due t o [...] in added sugars, saturated fat, and sodium. Screening mammogram for breast cancer 02/01/2025 Overview (02/01/2025): 02/15/24 BI-RADS 1 - Negative -ordered repeat mammogram 02/01/25 Assessment & Plan (02/01/2025 11:28 AM EDT): >>ASSESSMENT AND PLAN FOR BREAST SCREENING WRITTEN ON 12/21/2023 6:31 PM BY LEXI BANKS MD -pap smear 10/2019 neg/HPV neg ,2018 + HPV--per pt repeated but unsure date ---request record to [facility] today, per pt had las pap smear at [facility] ------ requested to [facility]- Kena Velazco Last pap smear and last LABELS MOLDER note -MM per pt done in 2022 [...] 1 - Negative -ordered repeat mammogram 02/01/25 Chronically on opiate therapy 12/21/2024 Overview (02/01/2025): On chronic opiates with [facility] pain management Cyndi Aldana NP -referred to chronic pin group 02/01/25 Assessment & Plan (02/01/2025 11:26 AM EDT): On chronic opiates with [facility] pain management Cyndi Aldana NP -referred to chronic pin group 02/01/25 Ambulates with cane 01/19/2024 Major depressive disorder 01/11/2024 Overview (01/19/2024): -Improved. Continue with therapist. Eric psychiatrist. Restart Cymbalta at 20mg daily 07/2021 -On waiting list for therapist and psychiatrist reported on 01/19/2024 -Saw behavioral health on 01/19/2024 Assessment & Plan (02/01/2025 11:31 AM EDT): -Improved. Continue with therapist. Eric psychiatrist. Restart Cymbalta at 20mg daily 07/2021 [...] with ongoing chronic pain. 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 PLAN: (check all that apply) Continue with current services (defined as services in the past 12 months) . Referral already in placed for OP and psychopharmacology with [facility]. Assessment & Plan (01/19/2024 9:59 AM EDT): -Improved. Continue with therapist. Eric psychiatrist. Restart Cymbalta at 20mg daily 07/2021 [...] Health Integration Plan Internal Follow up with [facility] External OP therapy referral Patient Self Plan Patient to utilize skills provided in intervention , Patient to reach out to [facility] team as needed, and Patient to engage [...] Overview (02/01/2025): -followed by Dr. Portillo at [facility] -10/04/24 MR/MR shoulder RT Mild supraspinatus tendinosis. 2.6 x 1.5 cm full-thickness tear of the supraspinatus and anterior fibers infraspinatus. Additional articular surface fraying/partial tear of the tendon proximal to this. Mild infraspinatus tendinosis. Mrwaofja-fseq-ukchl partial tear of the distal subscapularis tendon [...] over time. She will continue with her faxsr-xc-[id number] exercises to prevent stiffness. She will contact me prior to her follow-up appointment in 6 months should her symptoms worsen in any way. -referred to chronic pin group 02/01/25 Assessment & Plan (02/01/2025 11:30 AM EDT): -followed by Dr. Portillo at [facility] -10/04/24 MR/MR shoulder RT Mild supraspinatus tendinosis. 2.6 x 1.5 cm full-thickness tear of the supraspinatus and anterior fibers infraspinatus. Additional articular surface fraying/partial tear of the tendon proximal to this. Mild infraspinatus tendinosis. Gueucwse-ajqy-mgxzx partial tear of the distal subscapularis tendon [...] over time. She will continue with her rgrxu-vu-wuzgtu exercises to prevent stiffness. She will contact [...] faxed to [facility] and new referral placed. Sseen by [...] faxed to [facility] and new referral placed. Sseen by [...] faxed to [facility] and new referral placed. Sseen by [...] faxed to [facility] and new referral placed. Sseen by [...] faxed to [facility] and new referral placed. Sseen by [...] is 1. -Pt agrees with the plan 6, not currently 06/14/2023 Chronic pain syndrome 06/14/2023 Overview (02/21/2025): Followed by pain management with Jessica Salcedo NP at [facility] and on choric opoid PRESCRIBED BY PAIN MANAGEMENT. -referred to chronic pain group 02/01/25 Assessment & Plan (02/21/2025 3:48 PM EDT): Pt attended and participated in chronic pain group today - good engagement with group model of care - continue to use combination of non-pharmacological modalities to address pain - followup in one month for theme painting and potting Assessment & Plan (02/01/2025 11:30 AM EDT): Followed by pain management with Jessica Salcedo NP at [facility] and on choric opoid PRESCRIBED BY PAIN MANAGEMENT. -referred to chronic pin group 02/01/25 Degeneration of lumbar intervertebral disc 06/14 Overview (12/21/2024): -Followed by pain management, On chronic opiates with [facility] pain management Cyndi Aldana NP History of cholecystectomy 06/14/2023 Colon cancer screening 06/14/2023 Overview (02/01/2025): Colonoscopy [...] she has lost 25lbs since May 2022. Fibromyalgia 06/14/2023 Overview (02/01/2025): Pt was previously [...] of abnormal cervical Pap smear 06/14/2023 Overview (02/06/2025): -ASCUS with High risk HPV positive 03/2017 s/p colpo 03/2017 which was unremarkable with no biopsies taken. -co-testing July 2018 ASCUS with High risk HPV positive. Seen by Diane giang was done Dr. Bowden 08/2018 came back CONNIE 1 -pap done 11/17/2019 was NIL HPV. ASCUS HPV+ -Outgoing call placed to [facility] for plan of care on 11/2019 Lyubov who stated that patient has a f/u appointment on 01/19/2020. Plan of care will be discussed on that visit. Pt believes she missed it. Will ask women's health to assist with setting up. -PAP done 02/01/25, ASCUS, HPV positive, per ASCCP guidelines referred to Pediatric Dental Assistant for colpo -STI testing offered, PreP offered 02/01/25 -Preventative care and harm reduction discussed Assessment & Plan (02/06/2025 6:26 PM EDT): -ASCUS with High risk HPV positive 03/2017 s/p colpo 03/2017 which was unremarkable with no biopsies taken. -co-testing July 2018 ASCUS with High risk HPV positive. Seen by Diane giang was done Dr. Bowden 08/2018 came back CONNIE 1 -pap done 11/17/2019 was NIL HPV. ASCUS HPV+ -Outgoing call placed to [facility] for plan of care on 11/2019 Lyubov who stated that patient has a f/u appointment on 01/19/2020. Plan of care will be discussed on that visit. Pt believes she missed it. Will ask women's health to assist with setting up. -PAP done 02/01/25, ASCUS, HPV positive, per ASCCP guidelines referred to Pediatric Dental Assistant for colpo -STI testing offered, PreP offered 02/01/25 -Preventative care and harm reduction discussed Assessment [...] HPV. ASCUS HPV+ -Outgoing call placed to [facility] for plan of care on 11/2019 Lyubov who stated that patient has a f/u appointment on 01/19/2020. Plan of care will be discussed on that visit. Pt believes she missed it. Will ask women's health to assist with setting up. Chronic hepatitis C 03/18/2022 Eating disorder, unspecified 03/18/2022 Overview (02/21/2025): Dr Natali Jarvis History of recurrent spontan eous , not currently 03/18/2022 Benign essential hypertension 01/08/2022 Overview (02/01/2025): -Blood [...] goal -Continue lifestyle modifications -Continue current medications Iron deficiency 01/08/2022 Overview (02/01/2025): Lab Results [...] Overview (02/01/2025): Lab Results Component Value Date [id number] 25.8 (L) 01/19/2024 -ordered repeat level 02/01/25 Assessment & Plan (02/01/2025 11:36 AM EDT): Lab Results Component Value Date [id number] 25.8 (L) 01/19/2024 -ordered repeat level 02/01/25 Hypothyroidism 12/14/2012 Overview (02/06/2025): Lab Results Component Value Date TSH 91.01 (H) 02/05/2025 TSH 64.16 (H) 01/19/2024 TSH 0.29 (L) 06/16/2023 -levothyroxine increased from 125 to 150 daily 03/08/25, recheck in 4-6 weeks Assessment & Plan (02/01/2025 11:41 AM EDT): Lab Results Component Value Date TSH 64.16 (H) 01/19/2024 Continue levothyroxine 112mcg daily. -ordered repeat level 02/01/25 Assessment & Plan (02/28/2024 11:32 AM EDT): No results found for: TSH Continue levothyroxine 112mcg daily. Assessment & Plan (06/16/2023 9:06 AM EDT): No results found for: TSH Continue levothyroxine 112mcg daily. Miscarriage 12/14/2012 Resolved Problems Problem Noted Date Diagnosed Date Resolved Date Exercise counseling 02/01/2025 02/22/20 Assessment & Plan (02/01/2025 11:40 AM EDT): Exercise Recommendations: At least 150 minutes of moderate-intensity physical activity per week, or an equivalent combination of moderate- and vigorous-intensity activity. Bacterial vaginosis 02/01/2025 02/22/20 Overview (02/01/2025): Bacterial vaginosis noted during PAP. [...] symptoms persist/recur. -abstain from sex during treatment. Counseling and coordination of care 03/01/2024 02/21/2025 Overview (03/01/2024): Pt in Group Adult Foster Care with [employer] [phone], admitted 08/24/23. digital sales manager Fatou GONZALEZ nurse: Joy Ventura RN Direct Agricultural Commodities Grader: [facility] Assessment & Plan (02/01/2025 11:26 AM EDT): Pt in Group Adult Foster Care with [employer] [phone], admitted 08/24/23. digital sales manager Fatou GONZALEZ nurse: Joy Ventura, RN Direct Agricultural Commodities Grader: [facility] 01/19/2024 02/21/2025 Severe obesity (BMI >= 40) 06/14/2023 0 02/21/2025 Assessment & Plan (12/21/2023 6:30 PM EST): -Advised pt to improve diet and exercise,discussed healthy life style -s/p bariatric surgery last year Other specified health status 06/14/2023 02/21/2025 Overview (02/01/2025): -next comprehensive annual evaluation due after 02/01/25 -eye care facilitated by [facility] -dental home is [facility] -health care proxy filed on 02/28/2024 Assessment & Plan (02/01/2025 11:29 AM EDT): -next comprehensive annual evaluation due after 02/01/25 -eye care facilitated by [facility] -dental home is [facility] -health care proxy filed on 02/28/2024 Assessment & Plan (02/28/2024 11:36 AM EDT): -next physical exam due after January 18 2025 -eye care facilitated by [facility] -dental home is [facility] -health care proxy filed on 02/28/2024 Assessment & Plan (01/19/2024 1:29 PM EDT): -next physical exam due after January 18 2025 -eye care facilitated by [facility] -dental home is [facility] Assessment & Plan (06/16/2023 9:15 AM EDT): -next physical exam due after 08/14/2023 -eye care facilitated by -dental home is 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 Hepatitis C antibody test positive 01/08/2022 02/21/2025 Encounters Date Type Department Care Team Description 03/08/2025 Refill [facility] [address] [place], [place] [phone] Sadie Acevedo, RINKU Hx of gastric bypass 03/08/2025 Refill [facility] [address] [place] [phone] Latoya Ruiz MD Vitamin D deficiency; Hx of gastric bypass 02/19/2025 11:00 AM EDT Office Visit [address] [address] Sadie Davenport MD Fibromyalgia (Primary Dx); Chronic pain syndrome; Chronically on opiate therapy; Chronic right shoulder pain 02/19/2025 Travel 02/15/2025 9:15 AM EDT Office Visit [facility] [address] [place] [address] Tarcarmella Janny, OD Corneal ulcer of left eye (Primary Dx) 02/15/2025 Travel 02/08/[address] [address] Latoya Ruiz MD [facility] 02/07/2025 2:00 PM EDT Office Visit [facility] [address] [place] [address] Smita Lopez, OD Corneal ulcer of left eye (Primary Dx) 02/07/2025 Travel 02/07/[address] [address] Latoya Ruiz MD Results 02/06/2025 Orders Only [facility] [address] [place] [phone] Latoya Ruiz MD Hypothyroidism, unspecified type (Primary Dx) 02/06/[address] [place] [address] Argelia Ruby, RN Results 02/06/2025 Orders Only [facility] [address] [place] [address] Latoya Ruiz MD Hypothyroidism, unspecified type (Primary Dx); Transaminitis 02/05/2025 Orders Only [facility] [address] [place] [address] Latoya Ruiz MD 02/02/2025 10:00 AM EDT Office Visit [facility] [address] [place] [address] John, Smita, OD Corneal ulcer of left eye (Primary Dx) 02/02/2025 Travel 02/01/2025 10:45 AM EDT Office Visit [facility] [address] [place] [address] Latoya Ruiz MD ASCUS with positive high risk HPV cervical (Primary Dx); Hx of abnormal cervical Pap smear; Fixed dilated pupil; Inguinal lymphadenopathy; Benign essential hypertension; Fibromyalgia; Hypothyroidism, unspecified type; Transaminitis; Vitamin D deficiency; Iron deficiency; Chronic right shoulder pain; Chronic pain syndrome; Chronically on opiate therapy; Moderate episode of recurrent major depressive disorder ([facility]/HCC); Hx of gastric bypass; Bacterial vaginosis; Abnormal CT scan; Colon cancer screening; Class 2 severe obesity due to excess calories with serious comorbidity and body mass index (BMI) of 39.0 to 39.9 in adult ([facility]/HCC); Dietary counseling; Exercise counseling; Counseling and coordination of care; Encounter for immunization; Screening mammogram for breast cancer; Routine screening for STI (sexually transmitted infection); Ambulates with cane; Other specified health status; Encounter for hepatitis C screening test for low risk patient 02/01/2025 Orders Only [address] [address] Latoya Ruiz MD 02/01/[address] [address] Dickson Garrido [place] Faxed mammogram screening 02/01/2025 Travel 01/31/[address] [address] Latoya Ruiz MD chartprep 01/29/2025 2:00 PM EDT Office Visit [facility] [address] [place] [address] Smita Lopez, OD Adie's tonic pupil, left (Primary Dx); Corneal ulcer of left eye; Dry eyes; Presbyopia 01/29/2025 Travel 01/22/2025 Patient Outreach [facility] [address] [place] [address] Latoya Ruiz MD Pre-visit Planning (SDOH Screening negative and Tobacco screening negative) 01/05/2025 Population Health Risk Score [facility] () Department [address] [facility] [facility] [address] [place] [address] Provider, Population Health Generic 12/15/2024 Refill [facility] [address] [place], [place] [phone] Latoya Ruiz MD Hx of gastric bypass from Last 3 Months Immunizations Immunization Administration Dates Next Due Hep A, Adult 07/12/2012,05/19/2007 Hep B, adult 07/12/2012, 7,11/19/2006,09/15 Influenza injectable quadriv alent IIV4 with preservative 08/11/2018 Influenza injectable quadriv alent preservative free 12/21/2023,08/14/2022,08/06/2021,08/15 Influenza, IIV3, injectable 07/03/2011 Influenza, Split (incl. claudia fied surface antigen) 08/11/2013,07/12/2012 Influenza, seasonal, injecta ble, preservative free 08/06/2021 Pneumococcal Polysaccharide PPSV23 07/12/2012 Pneumococcal, Unspecified 07/12/2012 [...] Q2 Not on file 02/01/2025 Comments No Intention Date Recorded No desire to become (finding) 0 02/01/2025 Sex and Gender Information Value Date Recorded [...] 02/28/2024 11:12 AM EDT Plan of Treatment Health Maintenance Due Date Last Done Comments CT Colonography 1977 FIT DNA/Cologuard 1977 FIT 1977 FOBT 1977 Sigmoidoscopy 1977 Pneumococcal Vaccine: Pediatrics (0 to 5 Years) and At-Risk Patients (6 to 49) Years) (2 of 2 - PCV) 07/12/2013 07/12/2012, 07/12/2012 Influenza Vaccine (#1) 2024 , 08/14/2022, 08/06/2021, Additional history exists Colposcopy 02/02/2025 Alcohol/Substance Use Screening 02/01/2026 02/01/2025 COVID-19 Vaccine ( season) 2026 05/20/2022, 2021, 02/14/2021 Postponed from 06/25/2024 (Patient Refused) Depression Screening 02/01/2026 02/01/2025, 02/02/20 25 Family Planning (PISQ) 02/01/2026 02/01/2025 SDOH Screening 02/01/2026 02/01/2025 Mammogram 02/14/2026 02/15/2024, 11/25, 12/08/2021, Additional history exists Tobacco Screening 02/27/2026 02/27/2025 Colonoscopy 04/07/2026 04/07/2024 Colorectal Cancer Screening 04/07/2026 Zoster Vaccines (1 of 2) 2027 DTaP/Tdap/Td Vaccines (2 - Td or Tdap) 04/02/2027 04/02/2017 Cervical Cancer Screening 02/01/2030 HPV/Cotest 02/01/2030 02/01/2025, 05/25, 04/02/2017 Pap Smear 02/01/2030 02/01/2025, 11/17/2019 Lipid Panel 02/05/2030 02/05/2025, 12/24, 06/16/2023, Additional history exists RSV Patients and Patients Aged 60 years or older (1 - 1-dose 75+ series) 2052 Hepatitis A Vaccines Completed 07/12/2012, 05/19/20 07 Hepatitis B Vaccines Completed 07/12/2012, 05/19/2007, 11/19/2006, Additional history exists HIV Screening Completed 02/05/2025, 090 03/2023, 08/14/2022, Additional history exists HIB Vaccines Aged Out [...] Procedure Name Priority Date/Time Associated Diagnosis Comments HEPATITIS C VIRAL RNA, QUANTITATIVE, REAL-TIME PCR Routine 02/05/2025 9:41 AM EDT T4, FREE Routine 02/05/2025 9:41 AM EDT HEPATITIS C AB W/REFL TO HCV RNA, QN, PCR Routine 02/05/2025 9:41 AM EDT Transaminitis SYPHILIS SCREEN Routine 02/05/2025 9:41 AM EDT Encounter for hepatitis C screening test for low risk patient HIV 1/2 ANTIGEN/ANTIBODY, FOURTH GENERATION W/RFL Routine 02/05/2025 9:41 AM EDT Encounter for hepatitis C screening test for low risk patient VITAMIN D,25-OH,TOTAL,IA Routine 02/05/2025 9:41 AM EDT Transaminitis CBC WITH AUTO DIFFERENTIAL Routine 02/05/2025 9:41 AM EDT Vitamin D deficiency BASIC METABOLIC PANEL Routine 02/05/2025 9:41 AM EDT Hx of gastric bypass LIPID PANEL, STANDARD Routine 02/05/2025 9:41 AM EDT Hx of gastric bypass MAGNESIUM Routine 02/05/2025 9:41 AM EDT Hx of gastric bypass HEPATIC FUNCTION PANEL Routine 9:41 AM EDT Transaminitis HEMOGLOBIN A1C Routine 02/05/2025 9:41 AM EDT Class 2 severe obesity due to excess calories with serious comorbidity and body mass index (BMI) of 39.0 to 39.9 in adult ([facility]) TSH W/REFLEX TO FT4 Routine 02/05/2025 9 :41 AM EDT Hypothyroidism, unspecified type CHLAMYDIA/N. GONORRHOEAE AND T. VAGINALIS RNA, QUAL,TMA Routine 02/01/2025 11:46 AM EDT Routine screening for STI (sexually transmitted infection) PAP SMEAR Routine 02/01/2025 11:46 AM EDT Hx of abnormal cervical Pap smear HPV DNA, LOW/HIGH RISK Routine 12:00 AM EDT HM COLONOSCOPY Routine 04/07/2024 3:31 PM EDT BI MAMMOGRAM SCREENING TOMOSYNTHESIS BILATERAL Routine 02/15/2024 9:15 AM EDT Breast cancer screening by mammogram from Last 3 Months or Most Recently Relevant to Health Maintenance Results * Syphilis Screen (02/05/2025 9:41 AM EDT) Syphilis Screen Nonreactive Nonreactive [facility] Blood Venous blood specimen / Unknown 02/05/2025 9:41 AM EDT 02/05/2025 11:15 AM EDT Latoya Ruiz MD LAB BLOOD ORDERABLES Final Result [facility] [address] [place] [phone] * (ABNORMAL) Vitamin D, 25-Hydroxy, Total, Immunoassay (02/05/2025 9:41 AM EDT) Pathologist [facility] Vitamin D 25-OH Total 21.1(L) >30 ng/mL [facility] Comment: Health Based Reference Values*< 20 ??ng/mL ??Sbzatydha76-31 ng/mL ??Insufficient> 30 ??ng/mL ??Sufficient*Migdalia SANTACRUZ. N Engl J Med. 2007;357:266-280There is no well-established upper level of normal vitamin Dlevels. Some laboratories use 50 ng/mL as an upper limit ofnormal. However, toxicity is patient-dependent and may occurat any level. Careful correlation with the patient'spresentation is necessary and, if there is concern forvitamin D toxicity, treatment should be consideredirrespective of the serum level.Care must be taken in interpreting Vitamin D results fromdifferent laboratories and methodologies. ??Published datademonstrated that results from patients undergoinghemodialysis may show a negative bias when tested withvarious automated 25-OH vitamin D assays when compared toLC- MS/MS.When testing samples from patients whose predominant form ofVitamin D is Vitamin D2, such as patients receiving VitaminD2 supplementation, results that are subtherapeutic shouldbe confirmed with another method such as LC-MS/MS. Blood 02/05/2025 9:41 AM EDT 02/05/2025 11:13 AM EDT Latoya Ruiz MD LAB BLOOD ORDERABLES Final Result [facility] [address] [place] [phone] * (ABNORMAL) TSH W/Reflex to FT4 (02/05/2025 9:41 AM EDT) [facility] TSH reflex Free T4 91.01(H) 0.32 - 4.0 uIU/mL [facility] Blood Venous blood specimen / Unknown 02/05/2025 9:41 AM EDT 02/05/2025 11:13 AM EDT Latoya Ruiz MD LAB BLOOD ORDERABLES Final Result Performing Organization Address [facility] Co de Phone Number [facility] [address] [place] [phone] * Hepatitis C Viral RNA, Quantitative, Real-Time PCR (02/05/2025 9:41 AM EDT) [facility] Hepatitis C Viral Load <15 NOT DETECTED NOT DETECTED IU/mL [facility] HCV Log PCR <1.18 NOT DETECTED NOT DETECTED Log IU/mL [facility] Comment:For additional infor mation, please refer [email or web address](This link is being provided for informational/educational purposes only.)THIS TEST WAS PERFORMED AT:[employer] [facility] [place] [phone] CHUN MD 02/05/2025 9:41 AM EDT 02/08/2025 10:50 AM EDT Latoya Ruiz MD LAB BLOOD ORDERABLES Final Result Performing Organization Address [facility] Co de Phone Number [facility] [address] [place] [phone] * (ABNORMAL) CBC auto differential (02/05/2025 9:41 AM EDT) [facility] White Blood Count 4.4(L) 4.8 - 10.8 X10*3/uL [facility] Red Blood Count 3.81(L) 4.20 - 5.50 X10*6/uL [facility] Hemoglobin 12.2 12.0 - 16.0 g/dl [facility] Hematocrit 37.8 37.0 - 47.0 % [facility] Mean Corpuscular Volume 99.2(H) 80.0 - 98.0 fL [facility] Mean Corpuscular Hemoglobin 32.0 27.0 - 33.0 pg [facility] Mean Corpuscular HGB Conc 32.3 31.0 - 35.0 g/dl [facility] Red Cell Distribution Width 12.9 11.0 - 16.0 % [facility] Platelet Count 187 160 - 400 X10*3/uL [facility] Mean Platelet Volume 11.4 9.4 - 12.3 fL [facility] Neutrophils Percent Auto 63.3 45 - 73 % [facility] Imm Gran Pct Auto 0.2 0.0 - 0.4 % [facility] Lymphocytes Percent Auto 30.1 20 - 40 % [facility] Monocytes Percent Auto 6.4 2 - 11 % [facility] Eosinophils Percent Auto 0.0 0 - 4 % [facility] Basophils Percent Auto 0.0 0 - 2 % [facility] NRBC Pct Auto 0.0 0.0 - 0.2 /100WBC [facility] Neutrophils Absolute Auto 2.8 2.0 - 8.3 x10*3/uL [facility] Imm Gran Abs Auto 0.01 0.00 - 0.03 X10*3/uL [facility] Lymphocytes Absolute Auto 1.3 1.2 - 4.9 X10*3/uL [facility] Monocytes Absolute Auto 0.3 0.1 - 1.2 X10*3/uL [facility] Eosinophils Absolute Auto 0.0 0.0 - 0.4 X10*3/uL [facility] Basophils Absolute Auto 0.0 0.0 - 0.2 X10*3/uL [facility] NRBC Abs Auto 0.000 0.0 - 0.012 X10*3/uL [facility] Blood Venous blood specimen / Unknown 02/05/2025 9:41 AM EDT 02/05/2025 11:13 AM EDT Latoya Ruiz MD LAB BLOOD ORDERABLES Final Result Performing Organization Address City/[facility]/ZIP Co de Phone Number [facility] [address] [place] [phone] * (ABNORMAL) Hepatitis C Antibody with Reflex to HCV, RNA, Quantitative, Real- Time PCR (02/05/2025 9:41 AM EDT) Pathologist [facility] Hepatitis C Antibody Reactive( A) Nonreactive [facility] Comment:Presumptive evidence of antibodies to HCV. Blood Venous blood specimen / Unknown 02/05/2025 9:41 AM EDT 02/05/2025 11:13 AM EDT Latoya Ruiz MD LAB BLOOD ORDERABLES Final Result Performing Organization Address [facility] Co de Phone Number [facility] [address] [place] [phone] * HIV-1/2 Antigen and Antibodies, Fourth Generation, with Reflexes (02/05/2025 9:41 AM EDT) Pathologist [facility] HIV AB/AG Nonreactive Nonreactive [facility] Comment:HIV-1 p24 Ag and/or HIV-1/HIV-2 Ab not detected.A test result that is nonreactive does not exclude thepossibility of exposure to or infection with HIV-1 and/orHIV-2. Nonreactive results in this assay for individualswith prior exposure to HIV-1 and/or HIV-2 may be due toantigen and antibody levels that are below the limit ofdetection of this assay.The [employer] HIV Ag/Ab Combo assay result andsupplemental assay results should be interpreted inconjunction with the patient's clinical presentation,history and other laboratory results. If the results areinconsistent with clinical evidence, additional testing issuggested to confirm the result. Blood Venous blood specimen / Unknown 02/05/2025 9:41 AM EDT 02/05/2025 11:13 AM EDT Latoya Ruiz MD LAB BLOOD ORDERABLES Final Result Performing Organization Address City/[facility]/ZIP Co de Phone Number [facility] [address] [place] [phone] * (ABNORMAL) T4, Free (02/05/2025 9:41 AM EDT) Free T4 (Free Thyroxine) 0.53(L) 0.71 - 1.85 ng/dL [facility] 02/05/2025 9:41 AM EDT 02/05/2025 11:13 AM EDT Latoya Ruiz MD LAB BLOOD ORDERABLES Final Result Performing Organization Address [facility] Co de Phone Number [facility] [address] [place] [phone] * Magnesium (02/05/2025 9:41 AM EDT) Pathologist [facility] Magnesium 1.8 1.6 - 2.6 mg/dL [facility] Blood Venous blood specimen / Unknown 02/05/2025 9:41 AM EDT 02/05/2025 11:13 AM EDT Latoya Ruiz MD LAB BLOOD ORDERABLES Final Result Performing Organization Address [facility] Co de Phone Number [facility] [address] [place] [phone] * Hemoglobin A1c (02/05/2025 9:41 AM EDT) Hemoglobin A1c 4.7 <6.0 % [facility] Comment:Hemoglobin A1C Refer ence Range Adults: 4.8 - 6.0 % Non diabetic: < 6.0 % Goal: < 7.0 %Additional Action Suggested: > 8.0 %Note: Hemoglobin A1c results are invalid for patients with abnormal amounts of HbF. Blood transfusions may impact the HbA1c concentration in the patient sample. Estimated Average Glucose 88 mg/dL [facility] Comment:eAG = Estimated ave rage glucose which is %A1C expressed asaverage glucose, using the formula of the [id number]-[id number] Glucose study (ADAG), Diabetes Care, Vol.31,#8,May. 2007 Blood Venous blood specimen / Unknown 02/05/2025 9:41 AM EDT 02/05/2025 11:13 AM EDT Latoya Ruiz MD LAB BLOOD ORDERABLES Final Result Performing Organization Address [facility]/ZIP Co de Phone Number [facility] [address] [place] [phone] * (ABNORMAL) Hepatic Function Panel (02/05/2025 9:41 AM EDT) Bilirubin, Total 0.8 0.0 - 1.0 mg/dL [facility] Bilirubin, Direct 0.3 0.0 - 0.5 mg/dL [facility] Aspartate Amino Transferase 88(H) 5 - 31 U/L [facility] Alanine Aminotransferase 128(H) 0 - 31 U/L [facility] Total Protein 6.9 6.5 - 8.0 g/dL [facility] Albumin Level 3.8 3.5 - 5.0 g/dL [facility] Alkaline Phosphatase 62 39 - 117 U/L [facility] Blood Venous blood specimen / Unknown 02/05/2025 9:41 AM EDT 02/05/2025 11:13 AM EDT Latoya Ruiz MD LAB BLOOD ORDERABLES Final Result Performing Organization Address [facility]/ZIP Co de Phone Number [facility] [address] [place] [address] [phone] * (ABNORMAL) Lipid Panel, Standard (02/05/2025 9:41 AM EDT) Triglycerides 69 <150 mg/dL [facility] Comment:Desirable Triglyceri de: less than 150 mg/dLBorderline High Triglyceride 150-199 mg/dLHigh Triglyceride: 200-499 mg/dLVery High Triglyceride: greater than or equal to 5OO mg/dL Cholesterol 201(H) <200 mg/dL [facility] Comment:Desirable Cholestero l: less than 200 mg/dLBorderline High Cholesterol: 200-239 mg/dLHigh Cholesterol: greater than 239 mg/dL LDL Cholesterol Calculated 115(H) <100 mg/dL [facility] Comment:Desirable LDL: less than 100 mg/dLNear Optimal/Above Optimal LDL: 110- 129 mg/dLBorderline High LDL: 130-159 mg/dLHigh LDL: 160-189 mg/dLVery High LDL: greater than or equal to 190 mg/dL HDL Cholesterol 73 >40 mg/dL [facility] Comment:Desirable HDL: great er than 40 mg/dL Note: This HDL assay may give artificially low results in patients with liver disease. Blood Venous blood specimen / Unknown 02/05/2025 9:41 AM EDT 02/05/2025 11:13 AM EDT us Latoya Ruiz MD LAB BLOOD ORDERABLES Final Result [facility] [address] [place] [phone] * (ABNORMAL) Basic Metabolic Panel (02/05/2025 9:41 AM EDT) Sodium 140 135 - 145 mmol/L [facility] Potassium 4.2 3.3 - 5.1 mmol/L [facility] Chloride 109(H) 96 - 108 mmol/L [facility] Carbon Dioxide 27 22 - 29 mmol/L [facility] Anion Gap 8(L) 12 - 20 [facility] Urea Nitrogen (BUN) 20(H) 9 - 16 mg/dL [facility] Creatinine, Serum 0.78 0.5 - 1.4 mg/dL [facility] Estimated Glomerular Filt Rate >60 [facility] Comment:Chronic Kidney Disea se: Estimated GFR < 60 mL/min/1.75w2Hwutlq Kidney Disease: Estimated GFR < 15 mL/min/1.73m2 Glucose 78 60 - 115 mg/dL [facility] Calcium 8.9 8.4 - 10.2 mg/dL [facility] Blood Venous blood specimen / Unknown 02/05/2025 9:41 AM EDT 02/05/2025 11:13 AM EDT Latoya Ruiz MD LAB BLOOD ORDERABLES Final Result Performing Organization Address [facility] Co de Phone Number [facility] [address] [place] [phone] * STI testing add on (NG, CT, Trich) (02/01/2025 11:46 AM EDT) Trichomonas (NAAT) NOT DETECTED NOT DETECTED [facility] Comment:The analytical perfo rmance characteristics of thisassay have been determined by [employer]. Themodifications have not been cleared or approved bythe FDA. This assay has been validated pursuant to theIA regulations and is used for clinical purposes.For additional information, please refer [email or web address]/faq/Trichomonastma(This link is being provided for information/educational purposes only.)THIS TEST WAS PERFORMED AT:[facility] [place] [phone] CHUN MD CTNG Ref Lab NOT DETECTED NOT DETECTED [facility] NG Ref Lab NOT DETECTED NOT DETECTED [facility] Swab Cervix uteri structure / Unknown 02/01/2025 11:46 AM EDT 02/02/2025 6:04 AM EDT Latoya Ruiz MD LAB CYTOLOGY ORDERABLES Fi nal Result [facility] [address] [place] [phone] * Pap Smear (02/01/2025 11:46 AM EDT) Swab Cervix uteri structure / Unknown 02/01/2025 11:46 AM EDT 02/02/2025 6:04 AM EDT Narrative [facility] - 02/06/2025 5:36 PM EDT ----- ------- Name: Alexia Núñez ?Age/Sex: 49/F ? : 1975 Unit#: [id number] ?? Attend Dr: Latoya Ruiz MD ?Re02/01/25 ?Status: DEP REF ? Location: HO.HHCLNP ? Disch: ? ----- ------- SPEC : [id number] ? RECD: 02/02/25-603 ? STATUS: ??SOUT ? REQ NUM: [id number] ? JORGE: 02/01/25-1146 ? SUBM DR: Latoya Ruiz MD ? ENTERED: ??02/02/25 ?SP TYPE: Pap Smr ?OTHR DR: ? ORDERED: ??Pap Smear, PAP path review ? Interpretation ?? General Category: ?? Epithelial cell abnormality. ?? Adequacy: ?Endocervical component present. ?? Interpretation: ?Atypical squamous cells of undetermined significance. ?Abundant acute inflammation. ?Coccobacilli consistent with shift in vaginal rajat. ? HPV High Risk: ??Positive ? HPV Genotyping 16: ??Negative ?? HPV Genotyping 18: ??Negative ?Clinical Information LMP:Unknown date Previous PAP test:11/17/2019 NIL HPV. ASCUS HPV + ? Material Received ?? ThinPrep-Cervical ----- ------- Signed (signature on file) Zully Slaughter 02/06/25 0706 ? ----- ------- ? END OF REPORT ? Latoya Ruiz MD LAB CYTOLOGY ORDERABLES Fi nal Result [facility] [address] [place] [address] [phone] * (ABNORMAL) HPV DNA, Low/High Risk (02/01/2025 12:00 AM EDT) HPV High Risk Positive(A) Negative [facility] HPV Genotype 16 Negative Negative [facility] HPV Genotype 18 Negative Negative [facility] Comment:HPV testing performe d at [facility] (CLIA#[id number]), [address] [place] [address].Testing for HPV was performed using the [employer] AM[employer] 6800system. The presence of HPV in the female genital tract isassociated with a number of diseases, including cervicalcarcinoma. The HPV DNA high risk pool tests for HPV 31, 33,35, 39, 45, 51, 52, 56, 58, 59, 66 and 68. The testing forHPV 16 and 18 genotypes has also been performed. A positiveresult indicates detection of nucleic acid sequences fromone or more subtypes, whereas a negative result indicatessuch sequences were not detected. 02/01/2025 02/02/2025 6:0 4 AM EDT Latoya Ruiz MD LAB BLOOD ORDERABLES Final Result [facility] [address] [place] [phone] * Hm Colonoscopy (04/07/2024 3:31 PM EDT) Colonoscopy Normal Normal Comment:repeat 1-2 year us Historical Provider HEALTH MAINTENANCE Final Result * BI Mammogram Screening Tomosynthesis Bilateral (02/15/2024 9:15 AM EDT) Anatomical Region Laterality Modality Breast Bilateral Mammography 02/15/2024 9:15 AM EDT Narrative 02/26/2024 7:21 AM EDT ? [facility] ? [address] ?[place] [address] ? Mammography Report ? Signed ? Patient: Austin,Alexia ?MR#: [id number] ?? 8 ? : 1975 ?Acct:[id number] ? Age/Sex: 48 / F ?ADM Date: 02/15/24 ? Loc: HO.MAMMO ? Attending Dr: Latoya Ruiz MD ? Ordering Physician: Latoya Ruiz MD ?Results: 1N ?? egative ? Date of Service: 02/15/24 ?Follow Up: 1 Year From Orig ?? inal Mammogram ? Procedure(s): MM tomosynthesis screening BI ?? Accession Number(s): [id number] ? cc: Latoya Ruiz MD ? EXAMINATION: [...] by Shahrzad Hernandez MD in OV> ? 02/26/24 0717 ? DD/ 09 ? TD/TT: ? Field Irrigation Worker: ? Procedure Note Nba Evans - 02/26/2024 [facility] [address] [place], [place] [address] Mammography Report Signed Patient: Alexia Núñez#: [id number] 8 : 1975Acct:[id number] Age/Sex: 48 / FADM Date: 02/15/24 Loc: HO.MAMMO Attending Dr: Latoya Ruiz MD Ordering Physician: Latoya Ruizesults: 1N egative Date of Service: 02/15/24Follow Up: 1 Year From Orig inal Mammogram Procedure(s): MM tomosynthesis screening BI Accession Number(s): [id number] cc: Latoya Ruiz MD EXAMINATION: MM SCREENING [...] Hernandez MD in OV> 02/26/24 0717 DD/ 0915 TD/TT: Field Irrigation Worker: Latoya Ruiz MD IMG BI PROCEDURES Edited R esult - Final from Last 3 Months or Most Recently Relevant to Health Maintenance Insurance [facility] C3 Advance Directives Documents on File Type Date Recorded 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
--- OUTSIDE RECORDS SUMMARY | 2025-03-08 11:46 | XMS_ITS | Data Portability ---
Author Organization [facility], [facility] Address [address] [place] [address] Care Team Providers Care Tyre Fitter Name Role Phone SHI, DENNIS Primary Care [...] Details Appointments Clinic Visit 15 min 2024 01:15P Faviola BERNABE NP Not available Not available Not available Lab drug screen, 14 drugs (detectim ed), urine 2024 025 NEELA [facility], [address], [place], [address], 02/24/2025 18:05:36 drug screen, 14 drugs (detectim ed), urine 2024 025 NEELA [facility], [address], [place], [address], 01/23/2025 16:06:30 Referral None recorded. Procedures None recorded. Surgeries None recorded. Imaging XR, lumbosacr al spine, 2 or 3 view - increased low back pain s/p fall 3 weeks ago 2024 [facility]), [address] [place], [address], 03/02/2025 07:25:18 Medication Orders oxycodone -acetamin ophen 10 mg-325 mg tablet 2024 025 [facility], [address], [place], [id number], 02/19/2025 12:22:57 oxycodone -acetamin ophen 10 mg-325 mg tablet 2024 025 [facility], [address] [place] [address], [id number], 01/19/2025 11:25:30 oxycodone -acetamin ophen 10 mg-325 mg tablet 2024 025 [facility], [address], [place], [id number], 12/22/2024 12:25:22 oxycodone -acetamin ophen 10 mg-325 mg tablet 2024 025 [email or web address] [facility], [address] [place] [address], [id number], 12/19/2024 13:46:12 oxycodone -acetamin ophen 10 mg-325 mg tablet 2023 024 [email or web address] [facility], [address] [place] [address], [id number], 11/23/2024 11:47:28 Patient TargetsNo targets recorded. Patient InstructionsNo instructions recorded. Reason for Referral None Reported. 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 Procedures Surgical History Date Name Laterality Status Provider Name and Address Organization Details Recorded Time 09/14/20 23 ED - LESI Radiculitis completed MADELINE TERESA MD [address] [place] [address], [id number] 09/14/2023 17:16:09 09/14/20 23 PMC Procedure completed Tonya Salcedo [facility] 09/14/2023 14:35:33 08/16/20 19 cholecystectomy completed Gabby Rosa [facility] 08/13/2021 22:44:16 [facility] 22[facility]44:07 Imaging Results None recorded. Procedure [...] Updated DateTime 10/23/2024 157.48 cm 37.1 kg/m2 21475.25 g Fred Rascon [facility] 10/23/2024 12:41:14 Date Recorded Body height Body mass index (BMI) Body weight Provider Name and Address Organization Details Last Updated DateTime 11/23/2024 157.48 cm 37.1 kg/m2 08899.25 g Katey Polanco [facility] 11/23/2024 11:45:47 Date Recorded Body height Body mass index (BMI) Body weight Provider Name and Address Organization Details Last Updated DateTime 12/19/2024 157.48 cm 37.1 kg/m2 36710.25 g Rere Carson [facility] 12/19/2024 13:45:27 Date Recorded Body height Body mass index (BMI) Body weight Provider Name and Address Organization Details Last Updated DateTime 01/16/2025 157.48 cm 37.1 kg/m2 77927.25 g Rere Carson [facility] 01/16/2025 11:34:50 Date Recorded Body height Body mass index (BMI) Body weight Provider Name and Address Organization Details Last Updated DateTime 02/16/2025 157.48 cm 37.1 kg/m2 27301.25 g Maggi Honeycutt [facility] 02/16/2025 13:44:20 Social History Question Answer Notes LastModified by Organizat ion Details LastModified Time Tobacco Smoking Status Former Smoker Gabby arias [facility] 08/13/2021 22:45:52 Do You Feel Safe At Home? Yes Information not available 08/15/2021 Are You Being Threatened/ Abused By Someone? No Information not available 08/15/2021 Are You Worried That In The Next Few Months, You May Not Have Safe Housing? No [email or web address] Information not available 12/19/2024 What Was The Date Of Your Most Recent Tobacco Screening? 02/16/2025 Former Smoker Information not available 02/16/2025 Has Tobacco Cessation Counseling Been Provided? No [email or web address] Information not available 09/14/2023 Do You Have Difficulty Walking Or Climbing Stairs? Yes Patient Uses A Cane [email or web address] Information not available 05/15/2022 Sex: Unknown Functional Status Question Answer Note LastModified by Organizat ion Details LastModified Time Do you use any illicit or recreational drugs? No Information not available 08/13/2021 Do you or have you ever used any other forms of tobacco or nicotine? No Information not available 08/13/2021 What is your level of alcohol consumption? None Information not available 08/13/2021 Mental Status None recorded. Family History Relationship [...] SNOMED-CT Code Diagnosis ICD10 Code Diagnosis Note [id number] MADELINE TERESA MD [facility] [address] [place] [address] 08/15/2021 13:13:18 08/15/2021 13:44:45 Degeneration of lumbar intervertebral disc 92634138 M51.36 INTRACTABL E PAIN WITH CONTINUED NEED [...] Long-term current use of opiate analgesic drug 3986153229 90364 Z79.891 URINE TOX SCREEN RESULTS CHECKED AND CONSISTENT WITH PRESCRIBED OPIOID REGIMEN. FULL RESULTS IN LAB SECTION. [id number] MADELINE TERESA MD [facility] [address] [place] [address] 09/12/2021 11:40:09 09/12/2021 13:04:32 Degeneration of lumbar intervertebral disc 50147615 M51.36 Establishe d problem, stable continuati on, [...] Long-term current use of opiate analgesic drug 3614284112 64555 Z79.891 The patient is on chronic opioid [...] Body mass index 40+ - severely obese 711332408 Z68.43 Morbid obesity impacts chronic pain, likewise poorly controlled pain affects metabolic disorder. When both conditions co-exist as in this patient pain management is more problemati c and time intensive. [id number] MADELINE TERESA MD [facility] [address] [place] [address] 09/24/2021 08:17:05 09/24/2021 16:19:05 Degeneration of lumbar intervertebral disc 33463943 M51.36 INTRACTABL E PAIN WITH CONTINUED NEED [...] Long-term current use of opiate analgesic drug 9566362136 50664 Z79.891 URINE TOX SCREEN RESULTS CHECKED AND CONSISTENT WITH PRESCRIBED OPIOID REGIMEN. FULL RESULTS IN LAB SECTION. [id number] RAIMUNDO IZAGUIRRE MD [facility] [address] [place] [address] 11/07/2021 07:47:46 11/07/2021 15:33:08 Degeneration of lumbar intervertebral disc 03021175 M51.36 Establishe d problem, stable continuati on, [...] Long-term current use of opiate analgesic drug 0796460043 12870 Z79.891 Patient is on chronic opioid therapy, [...] reviewed and is consistent with prescribed oxycodone. [employer] was accessed with no discrepanc y. Body mass index 40+ - severely obese 690098462 Z68.43 Morbid obesity impacts chronic pain, likewise poorly controlled pain affects metabolic disorder. When both conditions co-exist as in this patient pain management is more problemati c and time intensive. [id number] RAIMUNDO IZAGUIRRE MD [facility] [address] [place] [address] 12/19/2021 07:52:15 12/19/2021 12:54:05 Degeneration of lumbar intervertebral disc 57684877 M51.36 Establishe d problem, stable continuati on, [...] Long-term current use of opiate analgesic drug 3714791163 91567 Z79.891 Patient is on chronic opioid therapy, [...] reviewed and is consistent with prescribed oxycodone. [employer] was accessed with no discrepanc y. Body mass index 40+ - severely obese 284534084 Z68.43 Morbid obesity impacts chronic pain, likewise poorly controlled pain affects metabolic disorder. When both conditions co-exist as in this patient pain management is more problemati c and time intensive. [id number] RAIMUNDO IZAGUIRRE MD [facility] [address] [place] [address] 01/16/2022 13:22:59 01/16/2022 14:30:01 Degeneration of lumbar intervertebral disc 94616808 M51.36 Establishe d problem, stable continuati on, [...] Long-term current use of opiate analgesic drug 4473350392 04924 Z79.891 Patient is on chronic opioid therapy, [...] Body mass index 40+ - severely obese 000632560 Z68.43 Morbid obesity impacts chronic pain, likewise poorly controlled pain affects metabolic disorder. When both conditions co-exist as in this patient pain management is more problemati c and time intensive. [id number] RAIMUNDO IZAGUIRRE MD [facility] [address] [place] [address] 02/16/2022 07:25:42 02/16/2022 12:39:49 Degeneration of lumbar intervertebral disc 44767158 M51.36 Establishe d problem, stable continuati on, [...] Long-term current use of opiate analgesic drug 3928207591 43431 Z79.891 Patient is on chronic opioid therapy, [...] Body mass index 40+ - severely obese 925211990 Z68.43 Morbid obesity impacts chronic pain, likewise poorly controlled pain affects metabolic disorder. When both conditions co-exist as in this patient pain management is more problemati c and time intensive. [id number] MADELINE TERESA MD [facility] [address] [place] [address] 03/16/2022 11:55:44 03/16/2022 13:21:23 Degeneration of lumbar intervertebral disc 41381400 M51.36 Continue current plan of care, he/she is generally satisfied with current treatment, understand s this is a chronic pain condition and his/her expectatio ns for pain relief and functional ity are reasonable . Long-term current use of opiate analgesic drug 6037522965 87437 Z79.891 During the time of this visit [...] this course of therapy Long-term drug therapy 462361076 Z79.899 Previous urine drug screen no discrepanc ies will recheck today prescripti on monitoring program accessed no discrepanc ies. Fibromyalgia 244624729 M 79.7 currently prescribed Cymbalta 30 mg twice per day by her primary care physician for fibromyalg ia. Fibromyalg ia is a Central Pain Syndrome that is frequently resistant to therapy, particular ly opiate analgesics . There are some RABBLE F[employer]NACE [employer]ER neuromodul ators that when combined can provide some modest relief. These fall into the drug categories of antidepres sants, anticonvul sants, RABBLE FURNACE TENDER Stimulants , central acting muscle relaxants, and alpha agonists. There are several associated symptoms effecting the RABBLE FURNACE TENDER, GI, Musculoske letal and Neurologic organ systems. Patient is educated regarding expectatio ns of current pharmacolo gical therapy. [id number] MADELINE TERESA MD [facility] [address] [place] [address] 04/14/2022 07:42:36 04/14/2022 15:03:39 Degeneration of lumbar intervertebral disc 68846218 M51.36 Continue current plan of care, he/she is generally satisfied with current treatment, understand s this is a chronic pain condition and his/her expectatio ns for pain relief and functional ity are reasonable . Long-term current use of opiate analgesic drug 2457032476 04879 Z79.891 During the time of this visit [...] this course of therapy Long-term drug therapy 507940296 Z79.899 Previous urine drug screen no discrepanc ies prescripti on monitoring program accessed no discrepanc ies. Fibromyalgia 039783658 M 79.7 currently prescribed Cymbalta 30 mg twice per day by her primary care physician for fibromyalg ia. Fibromyalg ia is a Central Pain Syndrome that is frequently resistant to therapy, particular ly opiate analgesics . There are some RABBLE FURNACE T[employer]ER neuromodul ators that when combined can provide some modest relief. These fall into the drug categories of antidepres sants, anticonvul sants, RABBLE FURNACE TENDER Stimulants , central acting muscle relaxants, and alpha agonists. There are several associated symptoms effecting the RABBLE FURNACE TENDER, GI, Musculoske letal and Neurologic organ systems. Patient is educated regarding expectatio ns of current pharmacolo gical therapy. [id number] MADELINE TERESA MD [facility] [address] [place] [address] 05/15/2022 13:05:06 05/15/2022 14:18:21 Degeneration of lumbar intervertebral disc 94825930 M51.36 Continue current plan of care, he/she is generally satisfied with current treatment, understand s this is a chronic pain condition and his/her expectatio ns for pain relief and functional ity are reasonable . Long-term current use of opiate analgesic drug 1817349288 07808 Z79.891 During the time of this visit [...] this course of therapy Long-term drug therapy 667939267 Z79.899 Previous urine drug screen no discrepanc ies prescripti on monitoring program accessed no discrepanc ies. Fibromyalgia 371245016 M 79.7 Currently prescribed Cymbalta 30 mg twice per day by her primary care physician for fibromyalg ia. Fibromyalg ia is a Central Pain Syndrome that is frequently resistant to therapy, particular ly opiate analgesics . There are some RABBLE FURNACE TENDER neuromodul ators that when combined can provide some modest relief. These fall into the drug categories of antidepres sants, anticonvul sants, RABBLE FURNACE TENDER Stimulants , central acting muscle relaxants, and alpha agonists. There are several associated symptoms effecting the RABBLE FURNACE TENDER, GI, Musculoske letal and Neurologic organ systems. Patient is educated regarding expectatio ns of current pharmacolo gical therapy. Body mass index 40+ - severely obese 912558588 Z68.43 anticipate s gastric bypass surgery June 12, 2022. [id number] MADELINE TERESA MD [facility] [address] [place] [address] 07/02/2022 13:00:04 07/02/2022 14:00:19 Degeneration of lumbar intervertebral disc 67012729 M51.36 Establishe d problem, stable continuati on, [...] this form of therapy. Long-term drug therapy 663385664 Z79.899 Patient is on chronic opioid therapy, [...] of the contract with her with a [place] interprete r. [employer] was verified and consistent with prescribed regimen. Fibromyalgia 054773124 M 79.7 Currently prescribed Cymbalta 30 mg twice per day by her primary care physician for fibromyalg ia. Body mass index 40+ - severely obese 230389196 Z68.43 Patient had gastric bypass surgery on 06/12/22. She will continue to follow up with her surgeon as deemed necessary. [id number] MADELINE TERESA MD [facility] [address] [place] [address] 08/13/2022 12:32:13 08/13/2022 13:13:33 Degeneration of lumbar intervertebral disc 94661883 M51.36 Establishe d problem, stable continuati on, [...] this form of therapy. Long-term drug therapy 106875160 Z79.899 Patient is on chronic opioid therapy, [...] and consistent with current drug therapy. Fibromyalgia 909774098 M 79.7 Currently prescribed Cymbalta 30 mg twice per day by her primary care physician for fibromyalg ia. Body mass index 40+ - severely obese 875260222 Z68.43 Patient had gastric bypass surgery on 06/12/22. She will continue to follow up with her surgeon as deemed necessary. [id number] ARVIND SÁNCHEZ MD [facility] [address] [place] [address] 09/11/2022 12:38:20 09/11/2022 13:37:56 Degeneration of lumbar intervertebral disc 76368406 M51.36 Establishe d problem, stable continuati on, [...] are no discrepanc ies. Long-term drug therapy 963651000 Z79.899 The patient is on chronic opioid [...] repeat urine obtained at today's visit. Fibromyalgia 272028609 M 79.7 Fibromyalg ia is a Central Pain Syndrome that is frequently resistant to therapy, particular ly opiate analgesics . There are some RABBLE FURNACE TENDER neuromodul ators that when combined can provide some modest relief. These fall into the drug categories of antidepres sants, anticonvul sants, RABBLE FURNACE TENDER Stimulants , central acting muscle relaxants, alpha agonists and benzodiaze pines. There are several associated symptoms affecting the RABBLE FURNACE TENDER, GI, Musculoske letal and Neurologic organ systems. Body mass index 40+ - severely obese 110505032 Z68.43 Patient had gastric bypass surgery on 06/12/2022. She will continue to follow up with her surgeon as needed. Chronic pain 62954497 G8 9.29 Establishe d problem, stable continuati on, I will continue to monitor for any progressio n of this condition. [id number] MADELINE TERESA MD [facility] [address] [place] [address] 11/10/2022 11:44:51 11/10/2022 14:02:48 Body mass index 40+ - severely obese 807955331 Z68.43 Had intention of having gastric bypass surgery late summer 2021 this is not yet occurred however she is discussing with her primary care physician and will be meeting with nutritioni [facility] [place] on of lumbar intervertebral disc 55897682 M51.36 Continue current plan of care, he/she is generally satisfied with current treatment, understand s this is a chronic pain condition and his/her expectatio ns for pain relief and functional ity are reasonable . Long-term current use of opiate analgesic drug 5934591631 49912 Z79.891 During the time of this visit [...] benefit of continuing this course of therapy [id number] MADELINE TERESA MD [facility] [address] [place] [address] 12/08/2022 14:23:33 12/08/2022 15:36:17 Degeneration of lumbar intervertebral disc 64737798 M51.36 Continue current plan of care, he/she is generally satisfied with current treatment, understand s this is a chronic pain condition and his/her expectatio ns for pain relief and functional ity are reasonable . Long-term current use of opiate analgesic drug 2285980982 09512 Z79.891 During the time of this visit [...] course of therapy Chronic pain syndrome 37 2879769 G89.4 Patient reports having occasional difficulty with [...] effective. Encouraged to focus on capabiliti es. [id number] MADELINE TERESA MD [facility] [address] [place] [address] 01/05/2023 12:24:16 01/05/2023 15:42:51 Degeneration of lumbar intervertebral disc 01766691 M51.36 Continue current plan of care, he/she is generally satisfied with current treatment, understand s this is a chronic pain condition and his/her expectatio ns for pain relief and functional ity are reasonable . Long-term current use of opiate analgesic drug 4942237769 70282 Z79.891 During the time of this visit [...] course of therapy Chronic pain syndrome 37 9583253 G89.4 Patient reports having occasional difficulty with [...] effective. Encouraged to focus on capabiliti es. [id number] ARVIND SÁNCHEZ MD [facility] [address] [place] [address] 02/02/2023 13:15:34 02/02/2023 14:06:39 Degeneration of lumbar intervertebral disc 33406176 M51.36 Establishe d problem, stable continuati on, [...] Long-term current use of opiate analgesic drug 8244984874 10891 Z79.891 Patient is on chronic opioid therapy, [...] consistent with prescribed oxycodone. Will repeat today. [employer] was accessed with no discrpeanc y. Chronic pain syndrome 37 4837552 G89.4 Patient is currently satisfied with current level of pain control, level of function, and medication management . Long-term drug therapy 845359239 Z79.899 [id number] MADELINE TERESA MD [facility] [address] [place] [address] 03/02/2023 12:02:41 03/02/2023 13:06:06 Degeneration of lumbar intervertebral disc 18455325 M51.36 Continue current plan of care, he/she is generally satisfied with current treatment, understand s this is a chronic pain condition and his/her expectatio ns for pain relief and functional ity are reasonable . Long-term current use of opiate analgesic drug 4892857780 53816 Z79.891 During the time of this visit [...] course of therapy Chronic pain syndrome 37 7084824 G89.4 Patient reports having occasional difficulty with [...] effective. Encouraged to focus on capabiliti es. [id number] MADELINE TERESA MD [facility] [address] [place] [address] 03/30/2023 13:15:36 03/30/2023 13:52:01 Degeneration of lumbar intervertebral disc 74496644 M51.36 Establishe d problem, stable continuati on, [...] Long-term current use of opiate analgesic drug 9610788364 22294 Z79.891 Patient is on chronic opioid therapy, [...] with prescribed regimen. Chronic pain syndrome 37 1575605 G89.4 Will continue plan of care - patient is satisfied with the current treatment and understand s chronic pain and the expectatio ns for functional ity and pain control are reasonable . [id number] RADHA JOLLY NP [facility] [address] [place] [address] 05/03/2023 11:29:53 05/03/2023 11:51:24 Degeneration of lumbar intervertebral disc 71831276 M51.36 Establishe d problem, stable continuati on, [...] Long-term current use of opiate analgesic drug 8931038768 61177 Z79.891 Patient is on chronic opioid therapy, [...] with prescribed regimen. Chronic pain syndrome 37 0921505 G89.4 Will continue plan of care - patient is satisfied with the current treatment and understand s chronic pain and the expectatio ns for functional ity and pain control are reasonable . [id number] ARVIND SÁNCHEZ MD [facility] [address] [place] [address] 06/01/2023 11:51:23 06/01/2023 12:41:07 Degeneration of lumbar intervertebral disc 96529116 M51.36 Establishe d problem, stable continuati on, [...] Long-term current use of opiate analgesic drug 7243821123 10475 Z79.891 Patient is on chronic opioid therapy, [...] no discrpeanc y. Chronic pain syndrome 37 9124928 G89.4 Patient is currently satisfied with current level of pain control, level of function, and medication management . Pain of ri t knee region 1902910688 60255 M25.561 Increased right knee pain for 2 weeks. Has an appointmen t with PCP on 06/20/23 for further evaluation . [id number] ARVIND SÁNCHEZ MD [facility] [address] [place] [address] 07/13/2023 14:41:35 07/13/2023 15:49:13 Degeneration of lumbar intervertebral disc 04531521 M51.36 Establishe d problem, stable continuati on, [...] no discrepanc ies. Chronic pain syndrome 37 3499305 G89.4 Patient is satisfied with current level of pain control, level of function, and medication management . Long-term drug therapy 660719995 Z79.899 The patient is on chronic opioid [...] obtained at today's visit. Lumbar radiculopathy 128 538783 M54.16 Establishe d problem, increased pain, I will continue to monitor for any progressio n of this condition. She reports that she previously had injections that helped with this pain and she would like to repeat if possible. Looking back, she last had lumbar epidural steroid injections in 2019 so will schedule repeat injection. [id number] ARVIND SÁNCHEZ MD [facility] [address] [place] [address] 08/09/2023 14:29:29 08/09/2023 15:14:27 Degeneration of lumbar intervertebral disc 64215193 M51.36 Establishe d problem, increased pain, patient [...] Long-term current use of opiate analgesic drug 6485713096 87427 Z79.891 Patient is on chronic opioid therapy, [...] no discrpeanc y. Chronic pain syndrome 37 3257890 G89.4 Patient is currently satisfied with current level of pain control, level of function, and medication management . Long-term drug therapy 116856144 Z79.899 [id number] MADELINE TERESA MD [facility] [address] [place] [address] 09/14/2023 13:06:42 09/14/2023 14:37:19 Chronic pain syndrome 302267714 G89.4 Degenerati on of lumbar intervertebral disc 74186770 M51.36 INTRACTABL E PAIN WITH CONTINUED NEED [...] file. Lumbar dis c prolapse with radiculopathy 207949527 M51.16 [id number] ARVIND SÁNCHEZ MD [facility] [address] [place] [address] 10/12/2023 14:37:55 10/12/2023 15:11:02 Degeneration of lumbar intervertebral disc 37996600 M51.36 Establishe d problem, decreased pain post [...] no discrepanc ies. Chronic pain syndrome 37 9832856 G89.4 Patient is satisfied with current level of pain control, level of function, and medication management . Long-term drug therapy 594325195 Z79.899 Patient is on chronic opioid therapy, [...] is consistent with metabolite s of oxycodone. [id number] ARVIND SÁNCHEZ MD [facility] [address] [place] [address] 11/09/2023 13:16:42 11/09/2023 13:49:11 Degeneration of lumbar intervertebral disc 28883238 M51.36 Establishe d problem, stable continuati on, [...] no discrepanc ies. Chronic pain syndrome 37 2899126 G89.4 Patient is satisfied with current level of pain control, level of function, and medication management . Long-term drug therapy 960537676 Z79.899 Patient is on chronic opioid therapy, [...] oxycodone. Repeat urine obtained at today's visit. [id number] ARVIND SÁNCHEZ MD [facility] [address] [place] [address] 12/07/2023 07:13:50 12/07/2023 15:03:50 Degeneration of lumbar intervertebral disc 78599298 M51.36 Establishe d problem, stable continuati on, [...] no discrepanc ies. Chronic pain syndrome 37 3572899 G89.4 Patient is satisfied with current level of pain control, level of function, and medication management . Long-term drug therapy 681757092 Z79.899 Patient is on chronic opioid therapy, [...] and is consistent with prescribed opioid, +THC. [id number] RADHA JOLLY NP [facility] [place] [facility] [address] [place] [address] 01/10/2024 10:37:57 01/10/2024 11:47:38 Chronic pain syndrome 614047953 G89.4 Will continue plan of care - patient is satisfied with the current treatment and understand s chronic pain and the expectatio ns for functional ity and pain control are reasonable . Degenerati on of lumbar intervertebral disc 26821661 M51.36 Establishe d problem, stable continuati on, [...] are no discrepanc ies. Long-term drug therapy 837300875 Z79.899 Patient is on chronic opioid therapy, [...] and is consistent with prescribed opioid, +THC. [id number] BRANDI VACA [facility] [address] [place] [address] 02/07/2024 12:38:15 02/07/2024 14:03:52 Chronic pain syndrome 091164657 G89.4 Patient is currently satisfied with current level of pain control, level of function, and medication management . Degenerati on of lumbar intervertebral disc 49070484 M51.36 Establishe d problem, stable continuati on, [...] this form of therapy. Long-term drug therapy 197094912 Z79.899 Patient is on chronic opioid therapy, [...] with no discrepanc y. Lumbar radiculopathy 128 747203 M54.16 Establishe d problem, stable continuati on, I will continue to monitor for any progressio n of this. [id number] ARVIND SÁNCHEZ MD [facility] [address] [place] [address] 03/07/2024 13:22:27 03/07/2024 14:12:04 Chronic pain syndrome 492554907 G89.4 Will continue plan of care - patient is satisfied with the current treatment and understand s chronic pain and the expectatio ns for functional ity and pain control are reasonable . Degenerati on of lumbar intervertebral disc 81528029 M51.36 Establishe d problem, stable continuati on, [...] this form of therapy. Long-term drug therapy 245985156 Z79.899 Patient is on chronic opioid therapy, [...] with no discrepanc y. Lumbar radiculopathy 128 973451 M54.16 Establishe d problem, stable continuati on, I will continue to monitor for any progressio n of this condition. [id number] MADELINE TERESA MD [facility] [address] [place] [address] 04/11/2024 13:43:26 04/11/2024 14:43:58 Degeneration of lumbar intervertebral disc 88044007 M51.36 Continue current plan of care, he/she is generally satisfied with current treatment, understand s this is a chronic pain condition and his/her expectatio ns for pain relief and functional ity are reasonable . Long-term current use of opiate analgesic drug 4998720373 59718 Z79.891 During the time of this visit [...] benefit of continuing this course of therapy [id number] MADELINE TERESA MD [facility] [place] [facility] [address] [place] [address] 05/09/2024 13:00:42 05/09/2024 14:02:02 Degeneration of lumbar intervertebral disc 04249558 M51.36 Establishe d problem, stable continuati on, [...] this form of therapy. Long-term drug therapy 173540033 Z79.899 Patient is on chronic opioid therapy, [...] accessed with no discrepanc y. Chronic pain 97640813 G8 9.29 Will continue plan of care - patient is satisfied with the current treatment and understand s chronic pain and the expectatio ns for functional ity and pain control are reasonable . [id number] MADELINE TERESA MD [facility] [address] [place] [address] 06/05/2024 11:44:31 06/05/2024 14:19:08 Long-term current use of opiate analgesic drug 3863426827 49521 Z79.891 During the time of this visit [...] therapy Degenerati on of lumbar intervertebral disc 09201410 M51.36 Continue current plan of care, he/she is generally satisfied with current treatment, understand s this is a chronic pain condition and his/her expectatio ns for pain relief and functional ity are reasonable . Body mass index 40+ - severely obese 285645697 Z68.43 Had intention of having gastric bypass surgery this is not yet occurred however she is discussing with her primary care physician and will be meeting with [facility] [id number] MADELINE TERESA MD [facility] [address] [place] [address] 07/10/2024 12:20:14 07/10/2024 14:22:30 Degeneration of lumbar intervertebral disc 51728884 M51.36 Continue current plan of care, he/she is generally satisfied with current treatment, understand s this is a chronic pain condition and his/her expectatio ns for pain relief and functional ity are reasonable . Chronic pain syndrome 37 7290128 G89.4 Patient reports having occasional difficulty with [...] Long-term current use of opiate analgesic drug 2753240272 52768 Z79.891 During the time of this visit [...] benefit of continuing this course of therapy [id number] MADELINE TERESA MD [facility] [address] [place] [address] 08/22/2024 13:40:54 08/22/2024 14:15:49 Degeneration of lumbar intervertebral disc 91095174 M51.362 Establishe d problem, stable continuati on, [...] no discrepanc ies. Chronic pain syndrome 37 3044110 G89.4 Patient is satisfied with current level of pain control, level of function, and medication management . Long-term drug therapy 298775643 Z79.899 Patient is on chronic opioid therapy, [...] +THC. Repeat urine obtained at today's visit. [id number] ARVIND SÁNCHEZ MD [facility] [address] [place] [address] 09/18/2024 12:42:16 09/18/2024 14:12:49 Degeneration of lumbar intervertebral disc 02265326 M51.362 Establishe d problem, stable continuati on, [...] of therapy.45 MME Chronic pain syndrome 37 2368079 G89.4 Patient is satisfied with current level of pain control, level of function, and medication management . Long-term drug therapy 018108329 Z79.899 Patient is on chronic opioid therapy, [...] and is consistent with prescribed oxycodone, +THC. [employer] was accessed with no discrepanc y. [id number] MADELINE TERESA MD [facility] [address] [place] [address] 10/23/2024 12:05:13 10/23/2024 12:54:41 Degeneration of lumbar intervertebral disc 18876643 M51.369 Continue current plan of care, he/she is generally satisfied with current treatment, understand s this is a chronic pain condition and his/her expectatio ns for pain relief and functional ity are reasonable . Long-term current use of opiate analgesic drug 9203779613 98738 Z79.891 During the time of this visit [...] course of therapy Chronic pain syndrome 37 2155660 G89.4 Patient reports having occasional difficulty with [...] anxiety that would be suitable and effective. [id number] MADELINE TERESA MD [facility] [address] [place] [address] 11/23/2024 11:34:47 11/23/2024 12:43:36 Long-term current use of opiate analgesic drug 0180740745 85292 Z79.891 During the time of this visit [...] therapy Degenerati on of lumbar intervertebral disc 72750004 M51.369 Continue current plan of care, he/she is generally satisfied with current treatment, understand s this is a chronic pain condition and his/her expectatio ns for pain relief and functional ity are reasonable . Chronic pain syndrome 37 3900353 G89.4 Patient reports having occasional difficulty with [...] anxiety that would be suitable and effective. [id number] MADELINE TERESA MD [facility] [address] [place] [address] 12/19/2024 13:13:07 12/19/2024 14:18:31 Degeneration of lumbar intervertebral disc 37946512 M51.369 Continue current plan of care, he/she is generally satisfied with current treatment, understand s this is a chronic pain condition and his/her expectatio ns for pain relief and functional ity are reasonable . Long-term current use of opiate analgesic drug 3014570757 62247 Z79.891 During the time of this visit [...] course of therapy Chronic pain syndrome 37 1912640 G89.4 Patient reports having occasional difficulty with coping with chronic pain conditions . Reporting frustratio n and depression , regarding physical limitation s, unlikely ability to fill work obligation s, increased stressI discussed pacing activities , finding activities to help distract from chronic pain. Also encouraged to appropriat e self-care, and ways to decrease feelings of anxiety that would be suitable and effective. [id number] MADELINE TERESA MD [facility] [address] [place] [address] 01/16/2025 11:20:55 01/16/2025 12:32:58 Degeneration of lumbar intervertebral disc 42377411 M51.369 Establishe d problem, stable continuati on, [...] no discrepanc ies. Chronic pain syndrome 37 8417524 G89.4 Patient is satisfied with current level of pain control, level of function, and medication management . Long-term drug therapy 748939490 Z79.899 Patient is on chronic opioid therapy, [...] +THC. Repeat urine obtained at today's visit. [id number] ARVIND SÁNCHEZ MD [facility] [address] [place] [address] 02/16/2025 13:26:29 02/16/2025 14:04:53 Degeneration of lumbar intervertebral disc 48297690 M51.369 Establishe d problem, increased pain, patient had a fall 3 weeks ago and remains with severe pain in her low back since the fall. She has been treating with heat and topical pain creams without any relief. Will obtain x-ray to rule out acute injury. I will continue to monitor for any progressio n of this condition. Continue current analgesic regimen. The patient continues to derive the benefit of pain reduction with chronic opiate therapy without evidence of harm. This will be reconsider ed at each visit to determine the risk vs. benefit to continuing this form of therapy. Chronic pain syndrome 37 0630437 G89.4 Will continue plan of care - patient is satisfied with the current treatment and understand s chronic pain and the expectatio ns for functional ity and pain control are reasonable . Long-term drug therapy 037093076 Z79.899 Patient is on chronic opioid therapy, [...] therapy outweighs the risks. Urine tox from 01/16/25 was reviewed and consistent with current drug therapy, metabolite s only. Last reported dose was morning of collection . Will repeat today. [employer] was verified and consistent with prescribed regimen. Health Concerns Section Related Observation LastModified by Organization Detai ls LastModified Time None Recorded Concern Status LastModified by Organization Details LastModified Time None Recorded Advance Directives Directive None Recorded Payers Insurance Date Sequence Insurance Name Policy Number Policy Whitfield Covered Member ID Whitfield Member ID Guarantor Name 07/11/2024 1 [place]: [employer] Alexia Núñez [id number] Alexia Floresdee Riggins 07/11/2024 [facility] Alexia Núñez [id number] Alexia Núñez Gilson Notes Date Note Type Note Provider Name and Address Organization Details Recorded Time 10/23/2024 text/html Nicaraguan speaking client services director Alan [id number] Wilton is a 49-year-old female who has [...] accessed no discrepancies. FRANC CORTES NP [address] [place], [address], [facility] 10/23/2024 13:41:39 11/23/2024 text/html Nicaraguan speaking client services director Latia [id number] Mrs Núñez is a 49-year-old female who [...] accessed no discrepancies. FRANC CORTES NP [address] [place], [address], [facility] 11/23/2024 13:08:16 12/19/2024 text/html Nicaraguan speaking client services director Belinda [id number] Mrs Núñez is a 49-year-old female who [...] cream she purchased when she was in [place] that has some component of THC product [...] accessed no discrepancies. FRANC CORTES NP [address] [place], [address], [facility] 12/19/2024 14:25:10 01/16/2025 text/html Tack Cleaner ServicesReported bypatient.Notes:Collettenola robert refused senior architect/design manager today Ms. Núñez was seen today for [...] Repeat urine obtained at today's visit. CHRISTIANA CARSON, RINKU [address] [place] [address], [phone], [facility] 01/16/2025 11:42:23 02/16/2025 text/html Tack Cleaner ServicesReported bycritical access hospital.Notes:Noel owens #[id number] Ms. Wilton Riggins was evaluated today for ongoing evaluation and management of the above chief complaints. On a Numeric Verbal Rating Scale the pain today was rated as an 8/10. The pain is described as severe, exacerbated by physical activity and alleviated by rest and medication. SINCE THE LAST VISIT, the patient continues to report adequate pain relief with the prescribed oxycodone. She reports increased pain in her low back s/p a fall about 3 weeks ago. She has been resting, applying heat and topical pain creams without any relief. Was not evaluated after the fall. States prior to this fall, due to treatment regimen, continues to be able to complete activities [...] related behavior. LABORATORY: Urine toxicology screen from 01/16/25 was reviewed today and found to be consistent with prescribed opioid regimen. JAZLYN BERNABE NP [address] [facility], [place], [address], [facility] 02/16/2025 14:05:17 OBGyn Episode No OBEpisode recorded.
--- OUTSIDE RECORDS SUMMARY | 2025-03-08 11:46 | XMS_ITS | Encounter Summary ---
Author Organization [employer] Address [address] [facility] 7t [place] [address] Care Team Providers Care Partition Setter Name Role Phone Latoya Ruiz MD Primary Care Provider +1- [phone] Yoni Portillo MD Unavailable Irlanda Kaur Unavailable Reason for Visit * Reason Comments Med Refill Encounter Details Date Type Department Care Team (Late st Contact Info) Description 02/27/2024 Refill [facility] [address] [place], [place] [phone] Latoya Ruiz MD [address] [place], [place] [phone] Vitamin D deficiency Social History Tobacco Use [...] as of this encounter Plan of Treatment Not on file documented as of this encounter Goals Goal [...] documented as of this encounter Care Teams Partition Setter Relationship Specialty Start Date End Date Latoya Ruiz MD [address] [place] [address] PCP - General Family Medicine 10/25/18 Yoni Portillo MD [address] [place] [address] Dr [address] [place] [address] Orthopaedic Surgery 10/10/24 Irlanda Kaur [address] [place] [address] Drive 3rd [place] [address] Gastroenterology 02/01/25 Eros Aldana NP [facility] Pain Medicine 10/26/24 documented as of this encounter
--- OUTSIDE RECORDS SUMMARY | 2025-03-08 11:46 | XMS_ITS | Encounter Summary ---
Author Organization [employer] Address [address] [facility] 7t [place] [address] Care Team Providers Care Art Appraiser Name Role Phone Latoya Ruiz MD Primary Care Provider +1- [phone] Yoni Portillo MD Unavailable Irlanda Kaur Unavailable Encounter Details Date Type Department Care Team (Late st Contact Info) Description 12/01/[address] [facility] MEDICINE [address] [place] [address] Latoya Ruiz MD [address] [place], [place] [phone] Social History Tobacco Use Types Packs/Day Years [...] on file documented as of this encounter Procedures Procedure Name Priority Date/Time Associated Diagnosis Comments HM MAMMOGRAPHY Routine 12/08/2021 PAP SMEAR Routine 11/17/2019 12:00 AM EST documented in this encounter Results * Hm Mammography (12/08/2021) Mammogram BIRADS 1 Anatomical Region Laterality Modality Other Historical Provider HEALTH MAINTENANCE Final Result * Pap Smear (11/17/2019 12:00 AM EST) Swab us Historical Provider LAB CYTOLOGY ORDERABLES F inal Result IMAGING documented in this encounter Visit Diagnoses Not on filedocumented in this encounter Care Teams Art Appraiser Relationship Specialty Start Date End Date Latoya Ruiz MD [address] [place] [address] PCP - General Family Medicine 10/25/18 Yoni Portillo MD [address] [place] [address] Dr [address] [place] [address] Orthopaedic Surgery 10/10/24 Irlanda Kaur [address] [place] [address] Drive 3rd [place] [address] Gastroenterology 02/01/25 Eros Aldana NP [facility] Pain Medicine 10/26/24 documented as of this encounter
--- OUTSIDE RECORDS SUMMARY | 2025-03-08 11:46 | XMS_ITS | Encounter Summary ---
Author Organization [facility] [employer] Address [address] [place] [address] [address] [place] [address] Care Team Providers Care Band Machine Operator Name Role Phone Latoya Ruiz MD Primary Care Provider +1- [phone] Yoni Portillo MD Unavailable Irlanda Kaur Unavailable Reason for Visit * Reason Comments Med Refill Encounter Details Date Type Department Care Team (Late st Contact Info) Description 03/17/2024 Refill [facility] MEDICINE [address] [place] [address] Cristal Sun MD [address] [place], [place] [phone] Moderate episode of recurrent major depressive disorder [...] documented as of this encounter Care Teams Band Machine Operator Relationship Specialty Start Date End Date Latoya Ruiz MD [address] [place] [address] PCP - General Family Medicine 10/25/18 Yoni Portillo MD [address] [place] [address] Dr [address] [place] [address] Orthopaedic Surgery 10/10/24 Irlanda Kaur [address] 3rd [place] [address] Gastroenterology 02/01/25 Eros Aldana NP [facility] Pain Medicine 10/26/24 documented as of this encounter
--- OUTSIDE RECORDS SUMMARY | 2025-03-08 11:46 | XMS_ITS | Encounter Summary ---
Author Organization [employer] Address 75 [facility] 7t [place] [address] Care Team Providers Care Cable Layer Name Role Phone Latoya Ruiz MD Primary Care Provider +1- [phone] Yoni Portillo MD Unavailable Irlanda Kaur Unavailable Reason for Referral * Imaging (Routine) - Closed Specialty Diagnoses / Procedures Referred By Julián t Referred To Contact Radiology Diagnoses Inguinal lymphadenopathy Procedures CT Abdomen Pelvis w/ Contrast Latoya Ruiz MD [address] [place] [address] Phone: tel: fax: [address] Phone: tel: fax: Referral ID Status Reason Start Date Expiration Date Visits Re quested Visits Authorized [id number] Closed 06/17/2023 06/16/2024 1 1 * Imaging (Routine) - Closed Specialty Diagnoses / Procedures Referred By Contrenate t Referred To Contact Radiology Diagnoses Transaminitis Procedures US Abdomen Latoya Ruiz MD [address] [place] [address] Phone: tel: fax: [address] Phone: tel: fax: Referral ID Status Reason Start Date Expiration Date Visits Re quested Visits Authorized [id number] Closed 06/17/2023 06/16/2024 1 1 Encounter Details Date Type Department Care Team (Late st Contact Info) Description 06/16/2023 Orders Only [facility] [address] [place] [address] Latoya Ruiz MD [address] [place] [address] Hypothyroidism, unspecified type (Primary Dx); Transaminitis; Inguinal [...] AM EDT documented as of this encounter Functional Status * Over the past 2 weeks, how often have you been bothered by any of the following problems? Question Answer Date of Assessment Author Patient Health Questionnaire-2 Score 2 05/26 8:57 AM FEDERICAT Ghislaine Liu MA * If you checked off any problems on this questionnaire so far, Question Answer Date of Assessment Author How difficult have these problems made it for you to do your work, take care of things at home, or get along with other people? Not difficult at all 06/16/2023 8:57 AM FEDERICAT Ghislaine Liu M A * Over the past 2 weeks, how often have you been bothered by any of the following problems? Question Answer Date of Assessment Author Little interest or pleasure in doing things Several days 06/16/2023 8:57 AM Ghislaine Ahumada MA Feeling down, depressed, or hopeless Several days 06/16/2023 8:57 AM FEDERICAT Ghislaine Liu MA Trouble falling or staying asleep, or sleeping too much Not at all 06/16/2023 8:57 AM Odalis Ahumada MA Feeling tired or having juli le energy Not at all 06/16/2023 8:57 AM Ghislaine Ahumada MA Poor appetite or overeating Not at all 06/16/2023 8: 57 AM Ghislaine Ahumada MA Feeling bad about yourself - or that you are a failure or have let yourself or your family down Not at all 06/16/2023 8:57 AM Ghislaine Ahumada MA Trouble concentrating on things, such as reading the newspaper or watching television Not at all 06/16/2023 8:57 AM Ghislaine Ahumada MA Moving or speaking so slowly that other people could have noticed? Or the opposite - being so fidgety or restless that you have been moving around a lot more than usual. Not at all 06/16/2023 8:57 AM Ghislaine Ahumada MA Thoughts that you would be better off or hurting yourself in some way Not at all 06/16/2023 8:57 AM Ghislaine Ahumada M A Patient Health Questionnaire -9 Score 2 06/16/2023 8:57 AM Ghislaine Ahumada MA documented as of this encounter Plan of Treatment Scheduled Orders Name Type Priority Associated Diagnoses [...] EST Narrative 09/03/2023 2:51 PM EST ? [facility] ?[address] ?[place] [address] ? CT Scan Report ? Signed ? Patient: [place],Alexia ?MR#: [id number] ?? 8 ? : 1975 ?Acct:[id number] ? Age/Sex: 48 / F ?ADM Date: 08/31/23 ? Loc: HO.CT ? Attending Dr: Latoya Ruiz MD ? Ordering Physician: Latoya Ruiz MD ?? Date of Service: 08/31/23 ?? Procedure(s): CT abdomen pelvis w IV con ?? Accession Number(s): [id number] ? cc: Latoya Ruiz MD ? EXAMINATION: [...] signed by Clive Talamantes MD in OV> ?09/03/23 1447 ? DD/ 1050 ? TD/TT: ? Etiquette Teacher: JK ? Procedure Note Nba Evans - 09/03/[address] [address] [address] Scan Report Signed Patient: Alexia NúñezMR#: [id number] 8 : 1975Acct:[id number] Age/Sex: 48 / FADM Date: 08/31/23 Loc: HO.CT Attending Dr: Latoya Ruiz MD Ordering Physician: Latoya Ruiz MD Date of Service: 08/31/23 Procedure(s): CT abdomen pelvis w IV con Accession Number(s): [id number] cc: Latoya Ruiz MD EXAMINATION: CT ABDOMEN [...] in OV> 09/03/23 1447 DD/ 1050 TD/TT: Etiquette Teacher: ELLIOTT Latoya Ruiz MD IMG CT PROCEDURES Final Re sult * Hepatitis C Viral RNA, Quantitative, Real-Time PCR (06/30/2023 9:19 AM EDT) Hepatitis C Viral Load <15 NOT DETECTED NOT DETECTED IU/mL [facility] HCV Log PCR <1.18 NOT DETECTED NOT DETECTED Log IU/mL [facility] Comment:This test was perfor med using Real-Time Polymerase ChainReaction.Reportable Range: 15 IU/mL to 100,000,000 IU/mL(1.18 Log IU/mL to 8.00 Log IU/mL).The analytical performance characteristics of thisassay have been determined by [employer].The modifications have not been cleared or approved bythe FDA. This assay has been validated pursuant to theCLIA regulations and is used for clinical purposes.For more information on this test, go to:http://education.PinBridge/faq/DOX26f6(This link is being provided for informational/educational purposes only.)THIS TEST WAS PERFORMED AT:[employer] [place] [id number] CHUN MD Blood 06/30/2023 9:19 AM EDT 06/30/2023 11:16 AM EDT Latoya Ruiz MD LAB BLOOD ORDERABLES Final Result [facility] [address] [place] [phone] * C-reactive Protein (06/30/2023 9:19 AM EDT) Pathologist [facility] C Reactive Protein <0.10 < or = 0.50 mg/dL [facility] Blood Venous blood specimen / Unknown 06/30/2023 9:19 AM EDT 06/30/2023 11:16 AM EDT Latoya Ruiz MD LAB BLOOD ORDERABLES Final Result Performing Organization Address [facility]/ZIP Co de Phone Number [facility] [address] [place] [phone] * (ABNORMAL) Lactate dehydrogenase (06/30/2023 9:19 AM EDT) Pathologist [facility] Lactate Dehydrogenase 325(H) 122 - 220 U/L [facility] Blood Venous blood specimen / Unknown 06/30/2023 9:19 AM EDT 06/30/2023 11:16 AM EDT Latoya Ruiz MD LAB BLOOD ORDERABLES Final Result Performing Organization Address [facility] Co de Phone Number [facility] [address] [place] [phone] * RPR (Monitor) with Reflex to??Titer (06/30/2023 9:19 AM EDT) Pathologist [facility] RPR (Monitor) w/Refl Titer NON-REACTI VE NON-REACT GIULIA [facility] Comment:THIS TEST WAS PERFOR MED AT:[employer] [place] [id number] CHUN MD Rapid Plasma Reagin Ab Titer TNP [facility] Blood Venous blood specimen / Unknown 06/30/2023 9:19 AM EDT 06/30/2023 11:16 AM EDT Latoya Ruiz MD LAB BLOOD ORDERABLES Final Result [facility] [address] [place], [place] [phone] * (ABNORMAL) CBC auto differential (06/30/2023 9:19 AM EDT) White Blood Count 4.4(L) 4.8 - 10.8 X10*3/uL [facility] Red Blood Count 3.80(L) 4.20 - 5.50 X10*6/uL [facility] Hemoglobin 11.6(L) 12.0 - 16.0 g/dl [facility] Hematocrit 36.2(L) 37.0 - 47.0 % [facility] Mean Corpuscular Volume 95.3 80.0 - 98.0 fL [facility] Mean Corpuscular Hemoglobin 30.5 27.0 - 33.0 pg [facility] Mean Corpuscular HGB Conc 32.0 31.0 - 35.0 g/dl [facility] Red Cell Distribution Width 13.2 11.0 - 16.0 % [facility] Platelet Count 162 160 - 400 X10*3/uL [facility] Mean Platelet Volume 12.2 9.4 - 12.3 fL [facility] Neutrophils Percent Auto 68.2 45 - 73 % [facility] Imm Gran Pct Auto 0.2 0.0 - 0.4 % [facility] Lymphocytes Percent Auto 24.8 20 - 40 % [facility] Monocytes Percent Auto 6.8 2 - 11 % [facility] Eosinophils Percent Auto 0.0 0 - 4 % [facility] Basophils Percent Auto 0.0 0 - 2 % [facility] NRBC Pct Auto 0.0 0.0 - 0.2 /100WBC [facility] Neutrophils Absolute Auto 3.0 2.0 - 8.3 x10*3/uL [facility] Imm Gran Abs Auto 0.01 0.00 - 0.03 X10*3/uL [facility] Lymphocytes Absolute Auto 1.1(L) 1.2 - 4.9 X10*3/uL [facility] Monocytes Absolute Auto 0.3 0.1 - 1.2 X10*3/uL [facility] Eosinophils Absolute Auto 0.0 0.0 - 0.4 X10*3/uL [facility] Basophils Absolute Auto 0.0 0.0 - 0.2 X10*3/uL [facility] NRBC Abs Auto 0.000 0.0 - 0.012 X10*3/uL [facility] Blood Venous blood specimen / Unknown 06/30/2023 9:19 AM EDT 06/30/2023 11:16 AM EDT us Latoya Ruiz MD LAB BLOOD ORDERABLES Final Result [facility] [address] [place] [phone] documented in this encounter Visit Diagnoses Diagnosis Hypothyroidism, unspecified type- Primary Transaminitis Nonspecific elevation of levels of transaminase or lactic acid dehydrogenase (LDH) Inguinal lymphadenopathy Enlargement of lymph nodes documented in this encounter Additional Health Concerns Assessment Noted Time PHQ-9 Depression Total Score: 2 06/16/20 23 8:57 AM EDT documented as of this encounter Care Teams Cable Layer Relationship Specialty Start Date End Date Latoya Ruiz MD [address] [place] [phone] PCP - General Family Medicine 10/25/18 Yoni Portillo MD [address] [place] [address] [address] [place] [address] Orthopaedic Surgery 10/10/24 Irlanda Kaur [address] 3rd [place] [address] Gastroenterology 02/01/25 Eros Aldana NP [facility] Pain Medicine 10/26/24 documented as of this encounter
--- OUTSIDE RECORDS SUMMARY | 2025-03-08 11:46 | XMS_ITS | Clinical Summary ---
Author Organization [facility] Address [address] [place] [address] Phone Care Team Providers Care Pick Pack Worker Name Role Phone Latoya Ruiz MD Primary Care Provider +1- [phone] Allergies No known active allergies Medications cholecalciferol (VITAMIN D-3) 1,250 mcg (50,000 unit) capsule Take 1 Capsule by mouth once a week. 4 Active duloxetine HCl (CYMBALTA ORAL) Take 40 mg by mouth. Active ferrous sulfate 325 mg (65 mg iron) EC tablet Take 1 tablet by mouth daily. 1 Active ibuprofen (ADVIL,MOTRIN) 400 mg tablet Take 400 mg by mouth every 6 hours as needed. Active levothyroxine sodium (TIROSINT) 125 mcg capsule Take by mouth daily. 1 time a week takes 2 tablet daily Active naproxen (NAPROSYN) 500 mg tablet Take 500 mg by mouth 2 times daily (with meals). Active ondansetron (ZOFRAN) 4 mg tablet Take by mouth as needed. Active oxyCODONE-aceta minophen (LYNOX) 10-300 mg per tablet Take 1 tablet by mouth every 4 hours as needed. Active pancrelipase, Iea-Svvr-Xkah, (CREON) 3,000-9,500- 15,000 unit capsule Take by mouth. Activ e polyethylene glycol (MIRALAX) 17 gram packet Take 1 Packet by mouth daily as needed for Constipation for up to 14 days. 2 Active wheat dextrin (BENEFIBER HEALTHY SHAPE ORAL) Take 4 g by mouth daily. 2 Active zinc glycinate 30 mg capsule Take 1 Capsule by mouth daily. 4 Active buPROPion XL (WELLBUTRIN XL) 150 mg 24 hr tabletIndicatio ns:Obesity, class 2 TAKE 1 TABLET BY MOUTH EVERYDAY AT NOON 30 tablet 3 5 Active Active Problems Problem Noted Date Diagnosed Date Class 2 severe obesity due t o excess calories with serious comorbidity and body mass index (BMI) of 37.0 to 37.9 in adult ([facility] V24, [facility] V28) 09/25/2024 Abnormal ECG 06/10/2022 Benign [...] for surgery on Wednesday. Chronic hepatitis C ([facility] V24, [facility] V28) 0 03/18/2022 Eating disorder, unspecified 03/18/2022 Overview (09/25/2024): Dr Natali Jarvis History of recurrent spontan eous , not currently 03/18/2022 Hypothyroidism 03/18/2022 Major depressive disorder, single episode, unspe cified 03/18/2022 Vitamin D deficiency 03/18/2022 Encounters Date Type Department Care Team Description 01/08/2025 1:00 PM EDT Office Visit Bariatric Surgery - [address] [place] [address] Laura Pérez MD Class 3 severe obesity due to excess calories with body mass index (BMI) of 40.0 to 44.9 in adult, unspecified whether serious comorbidity present ([facility] V24, [facility] V28) (Primary Dx) from Last 3 Months [...] of bariatric surgery; COMMENT: Gastric bypass 2006, [facility]. Major depressive disorder, s mellisa episode, unspecified 03/18/2022 DX:Major depressive disorder , single episode, unspecified Eating disorder, unspecified 03/18/2022 DX: Eating disorder, unspecified; COMMENT: Dr Natali Jarvis Chronic hepatitis C ([facility] V24, [facility] V28) 03/18/2022 DX:Chronic hepatitis C (HCC) Class 3 severe obesity due t o excess calories with serious comorbidity and body mass index (BMI) of 50.0 to 59.9 in adult ([facility] V24, [facility] V28) 10/19/2019 DX:Class 3 severe obesity due to excess calories [...] Care Team (Late st Contact Info) Description 05/15/2025 9:15 AM EDT Office Visit Bariatric Surgery - [place] [address] [place] [phone] Laura Pérez MD [address] [place] [address] Health Maintenance Due Date Last Done Comments [...] Results * Annual BMP Blood Test (02/23/2023) Pathologist [facility] Annual BMP Blood Test Abstracted Historical Provider HEALTH MAINTENANCE Final Result * (ABNORMAL) Lipid panel (06/03/2021) Pathologist [facility] LDL/HDL Ratio 3 0 - 4 Triglycerides 56 0 - 150 mg/dL Cholesterol 196 0 - 200 mg/dL HDL 77 >=40 mg/dL LDL Cholesterol 108(A) 0 - 100 mg/dL Blood Venous blood specimen / Unknown Historical Provider LAB BLOOD ORDERABLES Sabrina l Result from Last 3 Months or Most Recently Relevant to Health Maintenance Insurance MEDICAID - [place] Care Teams Pick Pack Worker Relationship Specialty Start Date End Date Sara, MD Latoya [address] [phone] PCP - General 07/25/10
--- OUTSIDE RECORDS SUMMARY | 2025-03-08 11:47 | XMS_ITS | Encounter Summary ---
Author Organization [employer] Address 75 [facility] 7 [place] [address] Care Team Providers Care Extra Gang Supervisor Name Role Phone Latoya Ruiz MD Primary Care Provider +1- [phone] Yoni Portillo MD Unavailable Irlanda Kaur Unavailable Encounter Details Date Type Department Care Team (Latest Contact Info) Description 11/15/2020 Abstract [facility] CONVERSIONS Dental, Provider, DDS Social History Tobacco [...] on file documented as of this encounter Visit Diagnoses Not on filedocumented in this encounter Care Teams Extra Gang Supervisor Relationship Specialty Start Date End Date Latoya Ruiz MD [address] [place] [address] PCP - General Family Medicine 10/25/18 Yoni Portillo MD [address] [place] [address] [address] [place] [address] Orthopaedic Surgery 10/10/24 Irlanda Kaur [address] [place] [address] Drive 3rd [place] [address] Gastroenterology 02/01/25 Eros Aldana NP [facility] Pain Medicine 10/26/24 documented as of this encounter
--- OUTSIDE RECORDS SUMMARY | 2025-03-08 11:47 | XMS_ITS | Encounter Summary ---
Author Organization [employer] Address [address] [facility] [address] 7t [place] [address] Care Team Providers Care Full Stack Net Developer Name Role Phone Latoya Ruiz MD Primary Care Provider +1- [phone] Yoni Portillo MD Unavailable Irlanda Kaur Unavailable Encounter Details Date Type Department Care Team (Late st Contact Info) Description 01/26/2024 Orders Only [facility] MED[facility]INE [address] [place] [address] Flor Brown, JOHNATHAN Social History Tobacco Use [...] documented as of this encounter Care Teams Full Stack Net Developer Relationship Specialty Start Date End Date Latoya Ruiz MD [address] [place] [address] PCP - General Family Medicine 10/25/18 Yoni Portillo MD [address] [place] [address] [address] [place] [address] Orthopaedic Surgery 10/10/24 Irlanda Kaur [address] [place] [address] 3rd [place] [address] Gastroenterology 02/01/25 Eros Aldana NP [facility] Pain Medicine 10/26/24 documented as of this encounter
--- OUTSIDE RECORDS SUMMARY | 2025-03-08 11:47 | XMS_ITS | Encounter Summary ---
Author Organization [employer] Address 75 [facility] 7 [place] [address] Care Team Providers Care Finished Hardware Erector Name Role Phone Latoya Ruiz MD Primary Care Provider +1- [phone] Yoni Portillo MD Unavailable Irlanda Kaur Unavailable Encounter Details Date Type Department Care Team (Latest Contact Info) Description 05/29/2019 Abstract [facility] CONVERSIONS Dental, Provider, DDS Social History Tobacco [...] on filedocumented in this encounter Care Teams Finished Hardware Erector Relationship Specialty Start Date End Date Latoya Ruiz MD [address] [place] [address] PCP - General Family Medicine 10/25/18 Yoni Portillo MD [address] [place] [address] [address] [place] [address] Orthopaedic Surgery 10/10/[address] 3rd [place] [address] Gastroenterology 02/01/25 Eros Aldana NP [facility] Pain Medicine 10/26/24 documented as of this encounter
--- OUTSIDE RECORDS SUMMARY | 2025-03-08 11:47 | XMS_ITS | Encounter Summary ---
Author Organization [employer] Address 75 [facility] 7t [place] [address] Care Team Providers Care Senior Business Development Analyst Name Role Phone Latoya Ruiz MD Primary Care Provider +1- [phone] Yoni Portillo MD Unavailable Irlanda Kaur Unavailable Reason for Visit * Reason Comments Med Refill Encounter Details Date Type Department Care Team (Late st Contact Info) Description 03/08/2025 Refill [facility] [address] [place] [address] Latoya Ruiz MD [address] [place], [place] [phone] Vitamin D deficiency; Hx of gastric bypass Social History Tobacco Use Types Packs/Day Years [...] encounter Visit Diagnoses Diagnosis Vitamin D deficiency Hx of gastric bypass documented in this encounter Additional Health Concerns Assessment Noted Time PHQ-9 Depression Total Score: 25 025 11:13 AM EDT documented as of this encounter Care Teams Senior Business Development Analyst Relationship Specialty Start Date End Date Latoya Ruiz MD [address] [place] [address] PCP - General Family Medicine 10/25/18 Yoni Portillo MD [address] [place] [address] [address] [place] [address] Orthopaedic Surgery 10/10/24 Irlanda Kaur [address] 3rd [place] [address] Gastroenterology 02/01/25 Eros Aldana NP [facility] Pain Medicine 10/26/24 documented as of this encounter
--- OUTSIDE RECORDS SUMMARY | 2025-03-08 11:47 | XMS_ITS | Encounter Summary ---
Author Organization [employer] Address [address] [facility] 7t [place] [address] Care Team Providers Care Administrative Support Manager Name Role Phone Latoya Ruiz MD Primary Care Provider +1- [phone] Yoni Portillo MD Unavailable Irlanda Kaur Unavailable Reason for Visit * Reason Comments Med Refill Encounter Details Date Type Department Care Team ([facility] st Contact Info) Description 03/08/2025 Refill [facility] [address] [place], [place] [phone] Sadie Acevedo, RINKU [address] [place], [place] [phone] Hx of gastric bypass Social History Tobacco [...] as of this encounter Visit Diagnoses Diagnosis Hx of gastric bypass documented in this encounter Additional Health Concerns Assessment Noted Time PHQ-9 Depression Total Score: 25 025 11:13 AM EDT documented as of this encounter Care Teams Administrative Support Manager Relationship Specialty Start Date End Date Latoya Ruiz MD [address] [place] [address] PCP - General Family Medicine 10/25/18 Yoni Portillo MD [address] [place] [address] [address] [place] [address] Orthopaedic Surgery 10/10/24 Irlanda Kaur [address] [place] [address] Drive 3rd [place] [address] Gastroenterology 02/01/25 RINKU [facility] Pain Medicine 10/26/24 documented as of this encounter
== END 2025-03-08 11:27 | disposition home or self-care (01) ==
LOC: HO.HWSM 10:40
PROVIDERS: PCP Family Medicine; Visit Provider Advanced Practice Midwife
DX: R87.610 Atypical squamous cells of undetermined significance on cytologic smear of cervix (ASC-US) (principal); R87.810 Cervical high risk human papillomavirus (HPV) DNA test positive
CPT/HCPCS: 99203

== ENCOUNTER → 2025-03-08 10:40 | Outpatient (BNVA) | payer MEDICAID, SELFPAY | PROVIDERS: PCP Family Medicine; Visit Provider Advanced Practice Midwife | DX: R87.610 Atypical squamous cells of undetermined significance on cytologic smear of cervix (ASC-US) (principal); R87.810 Cervical high risk human papillomavirus (HPV) DNA test positive; M79.7 Fibromyalgia | CPT/HCPCS: 99212 ==

== ENCOUNTER 2025-03-26 14:46 | Outpatient (REF) | payer MEDICAID, SELFPAY ==
--- OUTSIDE RECORDS SUMMARY | 2025-03-26 16:02 | XMS_ITS | Encounter Summary ---
Author Organization [employer] Address [address] [place] [address] 7 [place] [address] Care Team Providers Care Jewel Hole Finish Opener Name Role Phone Latoya Ruiz MD Primary Care Provider +1- [phone] Yoni Portillo MD Unavailable Irlanda Kaur Unavailable Encounter Details Date Type Department Care Team (Late st Contact Info) Description 12/01/2022 Abstract [facility] MEDICINE [address] [place] [address] Latoya Ruiz MD [address] [place], [place] [phone] Social History Tobacco Use Types Packs/Day Years [...] on filedocumented in this encounter Care Teams Jewel Hole Finish Opener Relationship Specialty Start Date End Date Latoya Ruiz MD [address] [place] [address] PCP - General Family Medicine 10/25/18 Yoni Portillo MD [address] [place] [address] [address] [place] [address] Orthopaedic Surgery 10/10/24 Irlanda Kaur [address] [place] [address] Drive 3rd [place] [address] Gastroenterology 02/01/25 Eros Aldana NP [facility] Pain Medicine 10/26/24 documented as of this encounter
== END 2025-03-26 14:47 | disposition home or self-care (01) ==
LOC: HO.MAMMO 14:46
PROVIDERS: PCP Family Medicine; Visit Provider Family Medicine
DX: Z12.31 Encounter for screening mammogram for malignant neoplasm of breast (principal)
CPT/HCPCS: 77063; 77067

== ENCOUNTER → 2025-03-26 15:15 | Outpatient (BNV) | payer MEDICAID, SELFPAY | PROVIDERS: PCP Family Medicine; Visit Provider Internal Medicine | DX: Z12.31 Encounter for screening mammogram for malignant neoplasm of breast (principal) | CPT/HCPCS: 77063; 77067 ==

== ENCOUNTER 2025-05-22 10:51 | Outpatient (AMB) | payer MEDICAID, SELFPAY ==
[2025-05-22 10:56] VITALS: BMI 40.2
--- NOTE | 2025-05-22 10:56 | MHC.OFFVIS ---
Vital Signs 05/22/25 10:56 Height 5 ft 2 in Weight 220 lb BMI 40.2 Intake Visit Reasons: Right shoulder pain and weakness Intake Note: Alexia is a 50 year old female who presents with complaints of progressively worsening of her right shoulder pain and weakness. The patient states that she aggravated her right shoulder several months ago while lifting a heavy object. Since that time she has had worsening of her pain and weakness. The patient states that she has difficulty lifting her right hand up to shoulder height. She has failed the last 6 weeks of conservative treatment which has included Tylenol, ibuprofen, a home exercise program and physical therapy exercises. At this point her right shoulder pain and weakness or interfering with her activities of daily living and her ability to sleep well through the night. Graphics Edit Technician Required: Yes Graphics Edit Technician Name: Benjie [id number] Allergies No Known Allergies Allergy (Verified 05/22/25 11:01) Medication List - Last Reconciled 05/22/25 by Yoni Portillo MD acetaminophen (Tylenol Extra Strength) 500 mg PO Q6H PRN cholecalciferol (vitamin D3) 50 mcg PO DAILY duloxetine (Cymbalta) 60 mg PO DAILY ibuprofen 600 mg PO Q6H PRN levothyroxine (Tirosint) 250 mcg (2 x 125 mcg) PO DAILY 30 days oxycodone-acetaminophen 10-325 mg 1 tab PO Q8H PRN zinc gluconate 30 mg PO DAILY PFSH Medical History Pain in right shoulder B12 deficiency Vitamin D deficiency Hypothyroidism Surgical History History of gastric bypass Hx laparoscopic cholecystectomy History of esophagogastroduodenoscopy (EGD) Hx of lithotripsy Family History Mother Type 2 diabetes mellitus Myocardial infarction CVD (cardiovascular disease) Heart disease Father Type 2 diabetes mellitus Hypertension Social History Household Members: Spouse Alcohol intake: current Alcohol intake frequency: does not drink Patient Tobacco Use Status: Never used Tobacco Female Reproductive History Menstrual Age of Menarche: 13 Physical Exam Vital Signs: BMI result Body Mass Index 40.2 Const Other: Well-nourished well-developed very friendly female awake alert and oriented x3 in no acute distress Extrem Other: Right shoulder examination shows decreased range of motion when compared to her left shoulder, 3/5 strength with supraspinatus testing, positive impingement signs, tenderness over her acromioclavicular joint, no instability Assessment & Plan Assessment & Plan (1) Rotator cuff insufficiency of right shoulder: Code(s): M25.311 - Other instability, right shoulder Category: Medical Plan Ms. Núñez presents with progressively worsening of her right shoulder pain and weakness possibly due to worsening of her rotator cuff tear. Thus, I will send her for an MRI of her right shoulder for further evaluation. If her rotator cuff tear has increased in size I will recommend surgical repair to optimize her future functional level. I will see her back once the MRI is completed to discuss the findings. Feel free to call me at any time should questions regarding her orthopedic management arise. I spent 20 minutes in reviewing the patient's records and imaging studies, seeing the patient and documenting in the medical record. Orders: Orders MR shoulder RT wo con 05/23/25 M25.311 - Other instability, right shoulder Coding Level of Care Code Est Pt Level 3 (49714) Complex EM visit Add On G2211 Diagnoses Rotator cuff insufficiency of right shoulder M25.311
--- OUTSIDE RECORDS SUMMARY | 2025-05-22 12:03 | XMS_ITS | Clinical Summary ---
Author Organization [address] [place] [address] Address [address] [place] [address] Phone Care Team Providers Care Pressure Testing Technician Name Role Phone Latoya Ruiz MD Primary Care Provider [phone] Allergies No known active allergies Medications cholecalciferol [...] every 4 hours as needed. Active pancrelipase, Ngw-Wygi-Llwv, (CREON) 3,000-9,500- 15,000 unit capsule Take by [...] AT NOON 30 tablet 3 5 Active phentermine 15 mg capsule Take 1 capsule (15 mg total) by mouth 1 (one) time each day before breakfast. Max Daily Amount: 15 mg 30 each 5 08/13/20 25 Active Active Problems Problem Noted Date Diagnosed Date Class 2 severe obesity due t o excess calories with serious comorbidity and body mass index (BMI) of 37.0 to 37.9 in adult ([facility] V24, [facility] V28) 09/25/2024 Abnormal ECG 06/10/2022 Benign essential [...] on Wednesday. Chronic hepatitis C ([facility] V24, [facility] V28) 0 03/18/2022 Eating disorder, unspecified 03/18/2022 Overview (09/25/2024): Dr Natali Jarvis History of recurrent spontan eous , not currently 03/18/2022 Hypothyroidism 03/18/2022 Major depressive disorder, single episode, unspe cified 03/18/2022 Vitamin D deficiency 03/18/2022 Encounters Date Type Department Care Team Description 05/15/2025 9:15 AM EDT Office Visit Bariatric Surgery - [address] [place] [address] Laura Pérez MD Class 3 severe obesity due to excess calories with body mass index (BMI) of 40.0 to 44.9 in adult, unspecified whether serious comorbidity present ([facility] V24, [facility] V28) (Primary Dx) from Last 3 Months [...] of bariatric surgery; COMMENT: Gastric bypass 2006, [facility]. Major depressive disorder, s mellisa episode, unspecified 03/18/2022 DX:Major depressive disorder , single episode, unspecified Eating disorder, unspecified 03/18/2022 DX: Eating disorder, unspecified; COMMENT: Dr Natali Jarvis Chronic hepatitis C ([facility] V24, [facility] V28) 03/18/2022 DX:Chronic hepatitis C (HCC) Class 3 severe obesity due t o excess calories with serious comorbidity and body mass index (BMI) of 50.0 to 59.9 in adult (CMS/HCC V24, CMS/HCC V28) 10/19/2019 DX:Class 3 severe obesity due [...] Sign Reading Time Taken Comments Blood Pressure 143/76 05/15/2025 9:16 AM EDT Pulse 59 05/15/2025 9:16 AM EDT Temperature 36.6 C (97.8 F) 05/15/2025 9:16 AM EDT Respiratory Rate - - Oxygen Saturation - - Inhaled Oxygen Concentration - - Weight 102 kg (225 lb) 05/15/2025 9:16 AM EDT Height 157.5 cm (5' 2 ) 05/15/2025 9:16 AM EDT Body Mass Index 41.15 05/15/2025 9:16 AM EDT Plan of Treatment Upcoming Encounters Date Type Department Care Team (Late st Contact Info) Description 11/01/2025 8:45 AM EST Office Visit Bariatric Surgery - [place] [address] [address] Laura Pérez MD [address] [facility] [address] [place] [address] Health Maintenance Due Date Last Done Comments Breast Cancer Screening 1975 Pneumococcal Vaccine: Pediatrics (0 to 5 Years) and At-Risk Patients (6 to 49 Years) (2 of 2 - PCV) 07/12/2013 07/12/2012, 07/12/2012 Colorectal Cancer Screening: Colonoscopy 10/03/2022 Hepatitis C Screening 10/03/2022 Social Influencers of Health Screening 10/03/2022 Hypertension/CHF/CAD Annual BMP Blood Test 02/24/2024 02/23/2023 COVID-19 Vaccine ( season) 2024 05/20/2022, 2021, 02/14/2021 Depression Screening 10/25/2024 Influenza Vaccine (#1) 2025 , 08/14/2022, 08/06/2021, Additional history exists DTaP,Tdap,and Td Vaccines (2 - Td or Tdap) 04/02/2027 04/02/2017 Cervical Cancer Screening: Pap Smear 02/02/2028 02/01/2025, 11/17/2019 Cholesterol Screening (Lipid Panel) 02/05/2030 02/05/2025, 01/19/2024, 06/03/2021 Hepatitis A Vaccines Aged Out 07/12/2012, 05/19/20 07 No longer eligible based on patient's age to complete this topic Hepatitis B Vaccines Completed 07/12/2012, 05/19/2007, 11/19/2006, Additional history exists HIV Screening Completed 02/05/2025 HIB Vaccines Aged Out No longer eligi [...] Name Priority Date/Time Associated Diagnosis Comments HM ANNUAL BMP BLOOD TEST Routine 02/23/2023 LIPID [...] Maintenance Insurance MEDICAID - [place] Care Teams Pressure Testing Technician Relationship Specialty Start Date End Date [place], MD Latoya [address] [id number] PCP - General 07/25/10
--- OUTSIDE RECORDS SUMMARY | 2025-05-22 12:04 | XMS_ITS | Data Portability ---
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 Plan of Treatment Reminders Order Date Submit Date Provider Last Modified By Organization Details Last Modified Time Details Appointments Clinic Visit 15 min 2024 01:00P Faviola JOLLY NP Not available Not available Not available Lab drug screen, 14 drugs (detectim ed), urine 2024 025 NEELA [facility], [address], [id number], 02/24/2025 18:05:36 drug screen, 14 drugs (detectim ed), urine 2024 025 NEELA [facility], [address], [address], 01/23/2025 16:06:30 Referral None recorded. Procedures None recorded. Surgeries None recorded. Imaging XR, lumbosacr al spine, 2 or 3 view - increased low back pain s/p fall 3 weeks ago 2024 025 [facility] (Imaging), [address] [place], [address], 03/15/2025 13:50:42 XR, lumbosacr al spine, 2 or 3 view - increased low back pain s/p fall 3 weeks ago 2024 025 [facility] (Imaging), [address] [place], [address], 03/02/2025 07:25:18 Medication Orders oxycodone -acetamin ophen 10 mg-325 mg tablet 2024 025 [facility], [address], [place], [id number], 05/17/2025 10:09:05 oxycodone -acetamin ophen 10 mg-325 mg tablet 2024 025 [facility], [address] [place] [address], [id number], 04/18/2025 10:49:49 oxycodone -acetamin ophen 10 mg-325 mg tablet 2024 025 [facility], [address], [place], [id number], 03/20/2025 10:18:09 oxycodone -acetamin ophen 10 mg-325 mg tablet 2024 025 [facility], [address], [place], [id number], 02/19/2025 12:22:57 oxycodone -acetamin ophen 10 mg-325 mg tablet 2024 025 [facility], [address] [place] [address], [id number], 01/19/2025 11:25:30 Patient TargetsNo targets recorded. Patient InstructionsNo instructions recorded. Reason for Referral None Reported. Results Created Date Observation Date Name Description Value Unit Range Abnormal Flag Note LastModifiedBy Organization Detail LastModifiedTime 02/17/2002/24/2025 COMPL IANCE DRUG REENA SIS, UR summary [...] ripti on Verif icati on Oxyco done 1756 EXPEC RODOLFO ng/mg creat Oxymo rphon e 350 EXPEC RODOLFO ng/mg creat Norox ycodo ne 1896 EXPEC RODOLFO ng/mg creat Norox ymorp gerson 261 EXPEC RODOLFO ng/mg creat Sourc es of oxyco done are sched uled presc ripti on medic ation s. Oxymo rphon e, norox ycodo ne, and norox ymorp gerson are expec rodolfo metab olite s of oxyco done. Oxymo rphon e is also avail able as a sched uled presc ripti on medic ation . Aceta minop hen PRESE NT EXPEC RODOLFO Drug Prese nt not Decla red for Presc ripti on Verif icati on [place] xybup ropio n PRESE NT UNEXP ECTED [place] xybup ropio n is an expec rodolfo metab olite of bupro pion. Drug Absen t but Decla red for Presc ripti on Verif icati on Dulox etine Not Detec rodolfo UNEXP ECTED ===== ===== ===== ===== ===== ===== ===== ===== ===== ===== ===== ===== ===== === Test Resul t Flag Units Ref Range Creat inine 72 mg/dL >=20 ===== ===== ===== ===== ===== [...] s: Dulox etine (Cymb rosalinda) Oxyco done (Oxyc odone Aceta minop hen) Not e: The testi ng scope of this panel does not inclu de small to moder ate amoun ts of these repor rodolfo medic ation s: Aceta minop hen (Oxyc odone Aceta minop hen) Not e: The testi ng scope of this panel does not inclu de follo wing repor rodolfo medic ation s: Levot hyrox ine Vitam in A Vitam in C Zinc ===== ===== ===== ===== ===== ===== ===== ===== ===== ===== ===== ===== ===== === For clini maira consu ltati on, pleas e call [phone]. ===== ===== ===== ===== ===== ===== ===== ===== ===== ===== ===== ===== ===== === Not Available [facility] ([facility]) [address] [facility], [place], [address], 02/24/2025 18:05:36 02/17/20 25 02/24/2025 COMPL IANCE DRUG REENA SIS, UR pdf . Not Available [facility] ([facility]) [address], [place], [address], 02/24/2025 18:05:36 Result Notes None recorded. Problems Name Problem SNOMED Code Status Onset Date Resolution Date Notes Provider Name and Address Organization Details Recorded Time Chronic pain syndrome 070161346 Active Gabby arias [facility] 22:38:18 Chronic pain following trauma 822770049 Active Gabby Earlteresa arias [facility] 22:38:47 Long-term current use of opiate analgesic drug 6370669200302 08 Active Gabby arias [facility] 22:38:56 Degeneratio n of lumbar interverteb ral disc 07010307 Active Gabby arias [facility] 22:39:03 Body mass index 40+ - severely obese 529384233 Active Gabby Earlo [facility] 22:39:24 Problem Notes None recorded. Procedures Surgical History Date Name Laterality Status Provider Name and Address Organization Details Recorded Time 09/14/20 23 ED - LESI Radiculitis completed MADELINE TERESA MD [address] [place] [address], [phone], [facility] 09/14/2023 17:16:09 09/14/20 23 PMC Procedure completed Tonya Salcedo [facility] 09/14/2023 14:35:33 08/16/20 19 cholecystectomy completed Gabby Moe [facility] 08/13/2021 22:44:16 gastric bypass completed Gabby Earlo [facility] 08/13/2021 22:44:07 Imaging Results None recorded. [...] a day by oral route. 2020 active LD: 025 10am Not Available Not Available Not Available zinc take daily as directed 2020 active Not Available Not Available Not Avai lable Vitals Date Recorded Body height Body mass index (BMI) Body weight Provider Name and Address Organization Details Last Updated DateTime 01/16/2025 157.48 cm 37.1 kg/m2 94387.25 g Rere Carson [facility] 01/16/2025 11:34:50 Date Recorded Body height Body mass index (BMI) Body weight Provider Name and Address Organization Details Last Updated DateTime 02/16/2025 157.48 cm 37.1 kg/m2 97150.25 g Maggi Honeycutt [facility] 02/16/2025 13:44:20 Date Recorded Body height Body mass index (BMI) Body weight Provider Name and Address Organization Details Last Updated DateTime 03/15/2025 157.48 cm 37.1 kg/m2 85923.25 g Gertrudis Melton [facility] 03/15/2025 12:45:57 Date Recorded Body height Body mass index (BMI) Body weight Provider Name and Address Organization Details Last Updated DateTime 04/12/2025 157.48 cm 40.2 kg/m2 58134.32 g Megan Julio [facility] 04/12/2025 11:57:50 Date Recorded Body height Body mass index (BMI) Body weight Provider Name and Address Organization Details Last Updated DateTime 05/09/2025 157.48 cm 39.7 kg/m2 60973.54 g Megan Julio [facility] 05/09/2025 13:20:35 Social History Question Answer Notes LastModified by Suja Juice Details LastModified Time Tobacco Smoking Status Former Smoker Gabbytammy Rosa [facility] 08/13/2021 22:45:52 Do You Feel Safe At Home? Yes Information not available 08/15/2021 Are You Being Threatened/ Abused By Someone? No Information not available 08/15/2021 Are You Worried That In The Next Few Months, You May Not Have Safe Housing? No [email or web address] Information not available 12/19/2024 What Was The Date Of Your Most Recent Tobacco Screening? 05/09/2025 Former Smoker [email or web address] Information not available 05/09/2025 Has Tobacco Cessation Counseling Been Provided? No [email or web address] Information not available 09/14/2023 Do You Have Difficulty Walking Or Climbing Stairs? Yes Patient Uses A Cane [email or web address] Information not available 05/15/2022 Sex: Unknown Functional Status Question Answer Note LastModified by Organizat [email or web address] Details LastModified Time Do you use any [...] 22:46:11 Medical History Condition Response other Y GERD/REFLUX Y HYPERTENSION Y Gynecological HistoryNo gynecological history recorded. Obstetrics History GPAL:G 0 P 0 0 0 0 Past Encounters Encounter ID Performer Location Encounter Start Date Encounter Closed Date Diagnosis/Indication Diagnosis SNOMED-CT Code Diagnosis ICD10 Code Diagnosis Note [id number] MADELINE TERESA MD [facility] [address] [place] [address] 08/15/2021 13:13:18 08/15/2021 13:44:45 Degeneration of lumbar intervertebral disc 73695137 M51.36 INTRACTABL E PAIN WITH CONTINUED NEED [...] Long-term current use of opiate analgesic drug 9190685997 74712 Z79.891 URINE TOX SCREEN RESULTS CHECKED AND CONSISTENT WITH PRESCRIBED OPIOID REGIMEN. FULL RESULTS IN LAB SECTION. [id number] MADELINE TERESA MD [facility] [address] [place] [address] 09/12/2021 11:40:09 09/12/2021 13:04:32 Degeneration of lumbar intervertebral disc 09322874 M51.36 Establishe d problem, stable continuati on, [...] Long-term current use of opiate analgesic drug 4116710466 28050 Z79.891 The patient is on chronic opioid [...] Body mass index 40+ - severely obese 753796100 Z68.43 Morbid obesity impacts chronic pain, likewise poorly controlled pain affects metabolic disorder. When both conditions co-exist as in this patient pain management is more problemati c and time intensive. [id number] MADELINE TERESA MD [facility] [address] [place] [address] 09/24/2021 08:17:05 09/24/2021 16:19:05 Degeneration of lumbar intervertebral disc 53532060 M51.36 INTRACTABL E PAIN WITH CONTINUED NEED [...] Long-term current use of opiate analgesic drug 6433505004 62177 Z79.891 URINE TOX SCREEN RESULTS CHECKED AND CONSISTENT WITH PRESCRIBED OPIOID REGIMEN. FULL RESULTS IN LAB SECTION. [id number] RAIMUNDO IZAGUIRRE MD [facility] [address] [place] [address] 11/07/2021 07:47:46 11/07/2021 15:33:08 Degeneration of lumbar intervertebral disc 79137986 M51.36 Establishe d problem, stable continuati on, [...] Long-term current use of opiate analgesic drug 3083162101 13996 Z79.891 Patient is on chronic opioid therapy, [...] reviewed and is consistent with prescribed oxycodone. MassHunieT was accessed with no discrepanc y. Body mass index 40+ - severely obese 410881342 Z68.43 Morbid obesity impacts chronic pain, likewise poorly controlled pain affects metabolic disorder. When both conditions co-exist as in this patient pain management is more problemati c and time intensive. [id number] RAIMUNDO IZAGUIRRE MD [facility] [address] [place] [address] 12/19/2021 07:52:15 12/19/2021 12:54:05 Degeneration of lumbar intervertebral disc 83660974 M51.36 Establishe d problem, stable continuati on, [...] Long-term current use of opiate analgesic drug 7270965100 49342 Z79.891 Patient is on chronic opioid therapy, [...] reviewed and is consistent with prescribed oxycodone. Zounds was accessed with no discrepanc y. Body mass index 40+ - severely obese 925394012 Z68.43 Morbid obesity impacts chronic pain, likewise poorly controlled pain affects metabolic disorder. When both conditions co-exist as in this patient pain management is more problemati c and time intensive. [id number] RAIMUNDO IZAGUIRRE MD [facility] [address] [place] [address] 01/16/2022 13:22:59 01/16/2022 14:30:01 Degeneration of lumbar intervertebral disc 70349248 M51.36 Establishe d problem, stable continuati on, [...] Long-term current use of opiate analgesic drug 8039297504 94006 Z79.891 Patient is on chronic opioid therapy, [...] Body mass index 40+ - severely obese 830593236 Z68.43 Morbid obesity impacts chronic pain, likewise poorly controlled pain affects metabolic disorder. When both conditions co-exist as in this patient pain management is more problemati c and time intensive. [id number] RAIMUNDO IZAGUIRRE MD [facility] [address] [place] [address] 02/16/2022 07:25:42 02/16/2022 12:39:49 Degeneration of lumbar intervertebral disc 93941394 M51.36 Establishe d problem, stable continuati on, [...] Long-term current use of opiate analgesic drug 2887997407 75088 Z79.891 Patient is on chronic opioid therapy, [...] Body mass index 40+ - severely obese 182806484 Z68.43 Morbid obesity impacts chronic pain, likewise poorly controlled pain affects metabolic disorder. When both conditions co-exist as in this patient pain management is more problemati c and time intensive. [id number] MADELINE TERESA MD [facility] [address] [place] [address] 03/16/2022 11:55:44 03/16/2022 13:21:23 Degeneration of lumbar intervertebral disc 87129872 M51.36 Continue current plan of care, he/she is generally satisfied with current treatment, understand s this is a chronic pain condition and his/her expectatio ns for pain relief and functional ity are reasonable . Long-term current use of opiate analgesic drug 5763019904 84658 Z79.891 During the time of this visit [...] this course of therapy Long-term drug therapy 067739724 Z79.899 Previous urine drug screen no discrepanc ies will recheck today prescripti on monitoring program accessed no discrepanc ies. Fibromyalgia 119307930 M 79.7 currently prescribed Cymbalta 30 mg twice per day by her primary care physician for fibromyalg ia. Fibromyalg ia is a Central Pain Syndrome that is frequently resistant to therapy, particular ly opiate analgesics . There are some GYPSUM BLOCK SETTER neuromodul ators that when combined can provide some modest relief. These fall into the drug categories of antidepres sants, anticonvul sants, GYPSUM BLOCK SETTER Stimulants , central acting muscle relaxants, and alpha agonists. There are several associated symptoms effecting the GYPSUM BLOCK SETTER, GI, Musculoske letal and Neurologic organ systems. Patient is educated regarding expectatio ns of current pharmacolo gical therapy. [id number] MADELINE TERESA MD [facility] [address] [place] [address] 04/14/2022 07:42:36 04/14/2022 15:03:39 Degeneration of lumbar intervertebral disc 59722995 M51.36 Continue current plan of care, he/she is generally satisfied with current treatment, understand s this is a chronic pain condition and his/her expectatio ns for pain relief and functional ity are reasonable . Long-term current use of opiate analgesic drug 2796751208 26321 Z79.891 During the time of this visit [...] this course of therapy Long-term drug therapy 550309348 Z79.899 Previous urine drug screen no discrepanc ies prescripti on monitoring program accessed no discrepanc ies. Fibromyalgia 006083599 M 79.7 currently prescribed Cymbalta 30 mg twice per day by her primary care physician for fibromyalg ia. Fibromyalg ia is a Central Pain Syndrome that is frequently resistant to therapy, particular ly opiate analgesics . There are some GYPSUM BLOCK SETTER neuromodul ators that when combined can provide some modest relief. These fall into the drug categories of antidepres sants, anticonvul sants, GYPSUM BLOCK SETTER Stimulants , central acting muscle relaxants, and alpha agonists. There are several associated symptoms effecting the GYPSUM BLOCK SETTER, GI, Musculoske letal and Neurologic organ systems. Patient is educated regarding expectatio ns of current pharmacolo gical therapy. [id number] MADELINE TERESA MD [facility] [address] [place] [address] 05/15/2022 13:05:06 05/15/2022 14:18:21 Degeneration of lumbar intervertebral disc 89032871 M51.36 Continue current plan of care, he/she is generally satisfied with current treatment, understand s this is a chronic pain condition and his/her expectatio ns for pain relief and functional ity are reasonable . Long-term current use of opiate analgesic drug 7246074189 35877 Z79.891 During the time of this visit [...] this course of therapy Long-term drug therapy 674176258 Z79.899 Previous urine drug screen no discrepanc ies prescripti on monitoring program accessed no discrepanc ies. Fibromyalgia 201831992 M 79.7 Currently prescribed Cymbalta 30 mg twice per day by her primary care physician for fibromyalg ia. Fibromyalg ia is a Central Pain Syndrome that is frequently resistant to therapy, particular ly opiate analgesics . There are some GYPSUM BLOCK SETTER neuromodul ators that when combined can provide some modest relief. These fall into the drug categories of antidepres sants, anticonvul sants, GYPSUM BLOCK SETTER Stimulants , central acting muscle relaxants, and alpha agonists. There are several associated symptoms effecting the GYPSUM BLOCK SETTER, GI, Musculoske letal and Neurologic organ systems. Patient is educated regarding expectatio ns of current pharmacolo gical therapy. Body mass index 40+ - severely obese 853723442 Z68.43 anticipate s gastric bypass surgery June 12, 2022. [id number] MADELINE TERESA MD [facility] [address] [place] [address] 07/02/2022 13:00:04 07/02/2022 14:00:19 Degeneration of lumbar intervertebral disc 99127152 M51.36 Establishe d problem, stable continuati on, [...] this form of therapy. Long-term drug therapy 361512425 Z79.899 Patient is on chronic opioid therapy, [...] of the contract with her with a [employer]. GerardoPAT was verified and consistent with prescribed regimen. Fibromyalgia 165179216 M 79.7 Currently prescribed Cymbalta 30 mg twice per day by her primary care physician for fibromyalg ia. Body mass index 40+ - severely obese 439921199 Z68.43 Patient had gastric bypass surgery on 06/12/22. She will continue to follow up with her surgeon as deemed necessary. [id number] MADELINE TERESA MD [facility] [address] [place] [address] 08/13/2022 12:32:13 08/13/2022 13:13:33 Degeneration of lumbar intervertebral disc 71072679 M51.36 Establishe d problem, stable continuati on, [...] this form of therapy. Long-term drug therapy 972072798 Z79.899 Patient is on chronic opioid therapy, [...] and consistent with current drug therapy. Fibromyalgia 846432901 M 79.7 Currently prescribed Cymbalta 30 mg twice per day by her primary care physician for fibromyalg ia. Body mass index 40+ - severely obese 301700753 Z68.43 Patient had gastric bypass surgery on 06/12/22. She will continue to follow up with her surgeon as deemed necessary. [id number] ARVIND SÁNCHEZ MD [facility] [address] [place] [address] 09/11/2022 12:38:20 09/11/2022 13:37:56 Degeneration of lumbar intervertebral disc 50213356 M51.36 Establishe d problem, stable continuati on, [...] are no discrepanc ies. Long-term drug therapy 158589400 Z79.899 The patient is on chronic opioid [...] repeat urine obtained at today's visit. Fibromyalgia 180759180 M 79.7 Fibromyalg ia is a Central Pain Syndrome that is frequently resistant to therapy, particular ly opiate analgesics . There are some GYPSUM BLOCK SETTER neuromodul ators that when combined can provide some modest relief. These fall into the drug categories of antidepres sants, anticonvul sants, GYPSUM BLOCK SETTER Stimulants , central acting muscle relaxants, alpha agonists and benzodiaze pines. There are several associated symptoms affecting the GYPSUM BLOCK SETTER, GI, Musculoske letal and Neurologic organ systems. Body mass index 40+ - severely obese 656128001 Z68.43 Patient had gastric bypass surgery on 06/12/2022. She will continue to follow up with her surgeon as needed. Chronic pain 09908476 G8 9.29 Establishe d problem, stable continuati on, I will continue to monitor for any progressio n of this condition. [id number] MADELINE TERESA MD [facility] [address] [place] [address] 11/10/2022 11:44:51 11/10/2022 14:02:48 Body mass index 40+ - severely obese 694225555 Z68.43 Had intention of having gastric bypass surgery late summer 2021 this is not yet occurred however she is discussing with her primary care physician and will be meeting with cierra Smith on of lumbar intervertebral disc 01693225 M51.36 Continue current plan of care, he/she is generally satisfied with current treatment, understand s this is a chronic pain condition and his/her expectatio ns for pain relief and functional ity are reasonable . Long-term current use of opiate analgesic drug 0970360642 62957 Z79.891 During the time of this visit [...] benefit of continuing this course of therapy [id number] MADELINE TERESA MD [facility] [address] [place] [address] 12/08/2022 14:23:33 12/08/2022 15:36:17 Degeneration of lumbar intervertebral disc 72651008 M51.36 Continue current plan of care, he/she is generally satisfied with current treatment, understand s this is a chronic pain condition and his/her expectatio ns for pain relief and functional ity are reasonable . Long-term current use of opiate analgesic drug 0511456177 24307 Z79.891 During the time of this visit [...] course of therapy Chronic pain syndrome 37 4979965 G89.4 Patient reports having occasional difficulty with [...] effective. Encouraged to focus on capabiliti es. [id number] MADELINE TERESA MD [facility] [address] [place] [address] 01/05/2023 12:24:16 01/05/2023 15:42:51 Degeneration of lumbar intervertebral disc 59607161 M51.36 Continue current plan of care, he/she is generally satisfied with current treatment, understand s this is a chronic pain condition and his/her expectatio ns for pain relief and functional ity are reasonable . Long-term current use of opiate analgesic drug 8497047128 58096 Z79.891 During the time of this visit [...] course of therapy Chronic pain syndrome 37 0334433 G89.4 Patient reports having occasional difficulty with [...] effective. Encouraged to focus on capabiliti es. [id number] ARVIND SÁNCHEZ MD [facility] [address] [place] [address] 02/02/2023 13:15:34 02/02/2023 14:06:39 Degeneration of lumbar intervertebral disc 88240053 M51.36 Establishe d problem, stable continuati on, [...] Long-term current use of opiate analgesic drug 6877391111 69375 Z79.891 Patient is on chronic opioid therapy, [...] no discrpeanc y. Chronic pain syndrome 37 1324889 G89.4 Patient is currently satisfied with current level of pain control, level of function, and medication management . Long-term drug therapy 983533955 Z79.899 [id number] MADELINE TERESA MD [facility] [address] [place] [address] 03/02/2023 12:02:41 03/02/2023 13:06:06 Degeneration of lumbar intervertebral disc 08961997 M51.36 Continue current plan of care, he/she is generally satisfied with current treatment, understand s this is a chronic pain condition and his/her expectatio ns for pain relief and functional ity are reasonable . Long-term current use of opiate analgesic drug 3774562277 88534 Z79.891 During the time of this visit [...] course of therapy Chronic pain syndrome 37 5812857 G89.4 Patient reports having occasional difficulty with [...] effective. Encouraged to focus on capabiliti es. [id number] MADELINE TERESA MD [facility] [address] [place] [address] 03/30/2023 13:15:36 03/30/2023 13:52:01 Degeneration of lumbar intervertebral disc 92054309 M51.36 Establishe d problem, stable continuati on, [...] Long-term current use of opiate analgesic drug 1228196412 82852 Z79.891 Patient is on chronic opioid therapy, [...] with prescribed regimen. Chronic pain syndrome 37 7902149 G89.4 Will continue plan of care - patient is satisfied with the current treatment and understand s chronic pain and the expectatio ns for functional ity and pain control are reasonable . [id number] RADHA JOLLY NP [facility] [address] [place] [address] 05/03/2023 11:29:53 05/03/2023 11:51:24 Degeneration of lumbar intervertebral disc 39016343 M51.36 Establishe d problem, stable continuati on, [...] Long-term current use of opiate analgesic drug 5394614518 72466 Z79.891 Patient is on chronic opioid therapy, [...] with prescribed regimen. Chronic pain syndrome 37 1611267 G89.4 Will continue plan of care - patient is satisfied with the current treatment and understand s chronic pain and the expectatio ns for functional ity and pain control are reasonable . [id number] ARVIND SÁNCHEZ MD [facility] [address] [place] [address] 06/01/2023 11:51:23 06/01/2023 12:41:07 Degeneration of lumbar intervertebral disc 94513127 M51.36 Establishe d problem, stable continuati on, [...] Long-term current use of opiate analgesic drug [id number] 74646 Z79.891 Patient is on chronic opioid therapy, [...] no discrpeanc y. Chronic pain syndrome 37 8448138 G89.4 Patient is currently satisfied with current level of pain control, level of function, and medication management . Pain of ri ght knee region [id number] 66596 M25.561 Increased right knee pain for 2 weeks. Has an appointmen t with PCP on 06/20/23 for further evaluation . [id number] ARVIND SÁNCHEZ MD [facility] [address] [place] [address] 07/13/2023 14:41:35 07/13/2023 15:49:13 Degeneration of lumbar intervertebral disc 61418473 M51.36 Establishe d problem, stable continuati on, [...] no discrepanc ies. Chronic pain syndrome 37 4249903 G89.4 Patient is satisfied with current level of pain control, level of function, and medication management . Long-term drug therapy 976294677 Z79.899 The patient is on chronic opioid [...] obtained at today's visit. Lumbar radiculopathy 128 841787 M54.16 Establishe d problem, increased pain, I will continue to monitor for any progressio n of this condition. She reports that she previously had injections that helped with this pain and she would like to repeat if possible. Looking back, she last had lumbar epidural steroid injections in 2019 so will schedule repeat injection. [id number] ARVIND SÁNCHEZ MD [facility] [address] [place] [address] 08/09/2023 14:29:29 08/09/2023 15:14:27 Degeneration of lumbar intervertebral disc 91457737 M51.36 Establishe d problem, increased pain, patient [...] Long-term current use of opiate analgesic drug 1879229009 44442 Z79.891 Patient is on chronic opioid therapy, [...] compound to be present. Will repeat today. Zounds was accessed with no discrpeanc y. Chronic pain syndrome 37 6986230 G89.4 Patient is currently satisfied with current level of pain control, level of function, and medication management . Long-term drug therapy 506876020 Z79.899 [id number] MADELINE TERESA MD [facility] [address] [place] [address] 09/14/2023 13:06:42 09/14/2023 14:37:19 Chronic pain syndrome 531622339 G89.4 Degenerati on of lumbar intervertebral disc 72741027 M51.36 INTRACTABL E PAIN WITH CONTINUED NEED [...] file. Lumbar dis c prolapse with radiculopathy 281325520 M51.16 [id number] ARVIND SÁNCHEZ MD [facility] [address] [place] [address] 10/12/2023 14:37:55 10/12/2023 15:11:02 Degeneration of lumbar intervertebral disc 23627229 M51.36 Establishe d problem, decreased pain post [...] no discrepanc ies. Chronic pain syndrome 37 3127711 G89.4 Patient is satisfied with current level of pain control, level of function, and medication management . Long-term drug therapy 516950782 Z79.899 Patient is on chronic opioid therapy, [...] is consistent with metabolite s of oxycodone. [id number] ARVIND SÁNCHEZ MD [facility] [address] [place] [address] 11/09/2023 13:16:42 11/09/2023 13:49:11 Degeneration of lumbar intervertebral disc 95737561 M51.36 Establishe d problem, stable continuati on, [...] no discrepanc ies. Chronic pain syndrome 37 8126944 G89.4 Patient is satisfied with current level of pain control, level of function, and medication management . Long-term drug therapy 403685380 Z79.899 Patient is on chronic opioid therapy, [...] oxycodone. Repeat urine obtained at today's visit. [id number] ARVIND SÁNCHEZ MD [facility] [address] [place] [address] 12/07/2023 07:13:50 12/07/2023 15:03:50 Degeneration of lumbar intervertebral disc 44718095 M51.36 Establishe d problem, stable continuati on, [...] no discrepanc ies. Chronic pain syndrome 37 3569748 G89.4 Patient is satisfied with current level of pain control, level of function, and medication management . Long-term drug therapy 709191282 Z79.899 Patient is on chronic opioid therapy, [...] and is consistent with prescribed opioid, +THC. [id number] RADHA JOLLY NP [facility] [address] [place] [address] 01/10/2024 10:37:57 01/10/2024 11:47:38 Chronic pain syndrome 601916122 G89.4 Will continue plan of care - patient is satisfied with the current treatment and understand s chronic pain and the expectatio ns for functional ity and pain control are reasonable . Degenerati on of lumbar intervertebral disc 91003994 M51.36 Establishe d problem, stable continuati on, [...] are no discrepanc ies. Long-term drug therapy 725709770 Z79.899 Patient is on chronic opioid therapy, [...] and is consistent with prescribed opioid, +THC. [id number] BRANDI VACA [facility] [address] [place] [address] 02/07/2024 12:38:15 02/07/2024 14:03:52 Chronic pain syndrome 663352926 G89.4 Patient is currently satisfied with current level of pain control, level of function, and medication management . Degenerati on of lumbar intervertebral disc 64451796 M51.36 Establishe d problem, stable continuati on, [...] this form of therapy. Long-term drug therapy 858940970 Z79.899 Patient is on chronic opioid therapy, [...] with no discrepanc y. Lumbar radiculopathy 128 791422 M54.16 Establishe d problem, stable continuati on, I will continue to monitor for any progressio n of this. [id number] ARVIND SÁNCHEZ MD [facility] [address] [place] [address] 03/07/2024 13:22:27 03/07/2024 14:12:04 Chronic pain syndrome 638368199 G89.4 Will continue plan of care - patient is satisfied with the current treatment and understand s chronic pain and the expectatio ns for functional ity and pain control are reasonable . Degenerati on of lumbar intervertebral disc 76546287 M51.36 Establishe d problem, stable continuati on, [...] this form of therapy. Long-term drug therapy 678344250 Z79.899 Patient is on chronic opioid therapy, [...] with no discrepanc y. Lumbar radiculopathy 128 944291 M54.16 Establishe d problem, stable continuati on, I will continue to monitor for any progressio n of this condition. [id number] MADELINE TERESA MD [facility] [address] [place] [address] 04/11/2024 13:43:26 04/11/2024 14:43:58 Degeneration of lumbar intervertebral disc 38544545 M51.36 Continue current plan of care, he/she is generally satisfied with current treatment, understand s this is a chronic pain condition and his/her expectatio ns for pain relief and functional ity are reasonable . Long-term current use of opiate analgesic drug 1400350935 43537 Z79.891 During the time of this visit [...] benefit of continuing this course of therapy [id number] MADELINE TERESA MD [facility] [address] [place] [address] 05/09/2024 13:00:42 05/09/2024 14:02:02 Degeneration of lumbar intervertebral disc 25761636 M51.36 Establishe d problem, stable continuati on, [...] this form of therapy. Long-term drug therapy 747816022 Z79.899 Patient is on chronic opioid therapy, [...] accessed with no discrepanc y. Chronic pain 39376275 G8 9.29 Will continue plan of care - patient is satisfied with the current treatment and understand s chronic pain and the expectatio ns for functional ity and pain control are reasonable . [id number] MADELINE TERESA MD [facility] [address] [place] [address] 06/05/2024 11:44:31 06/05/2024 14:19:08 Long-term current use of opiate analgesic drug 4148461929 42671 Z79.891 During the time of this visit [...] therapy Degenerati on of lumbar intervertebral disc 98119578 M51.36 Continue current plan of care, he/she is generally satisfied with current treatment, understand s this is a chronic pain condition and his/her expectatio ns for pain relief and functional ity are reasonable . Body mass index 40+ - severely obese 015816123 Z68.43 Had intention of having gastric bypass surgery this is not yet occurred however she is discussing with her primary care physician and will be meeting with [facility] [id number] MADELINE TERESA MD [facility] [address] [place] [address] 07/10/2024 12:20:14 07/10/2024 14:22:30 Degeneration of lumbar intervertebral disc 96273075 M51.36 Continue current plan of care, he/she is generally satisfied with current treatment, understand s this is a chronic pain condition and his/her expectatio ns for pain relief and functional ity are reasonable . Chronic pain syndrome 37 4115210 G89.4 Patient reports having occasional difficulty with [...] Long-term current use of opiate analgesic drug 7747760503 87655 Z79.891 During the time of this visit [...] benefit of continuing this course of therapy [id number] MADELINE TERESA MD [facility] [address] [place] [address] 08/22/2024 13:40:54 08/22/2024 14:15:49 Degeneration of lumbar intervertebral disc 18828897 M51.362 Establishe d problem, stable continuati on, [...] no discrepanc ies. Chronic pain syndrome 37 1549140 G89.4 Patient is satisfied with current level of pain control, level of function, and medication management . Long-term drug therapy 652150160 Z79.899 Patient is on chronic opioid therapy, [...] +THC. Repeat urine obtained at today's visit. [id number] ARVIND SÁNCHEZ MD [facility] [address] [place] [address] 09/18/2024 12:42:16 09/18/2024 14:12:49 Degeneration of lumbar intervertebral disc 19490761 M51.362 Establishe d problem, stable continuati on, [...] of therapy.45 MME Chronic pain syndrome 37 4027601 G89.4 Patient is satisfied with current level of pain control, level of function, and medication management . Long-term drug therapy 131888632 Z79.899 Patient is on chronic opioid therapy, [...] and is consistent with prescribed oxycodone, +THC. Zounds was accessed with no discrepanc y. [id number] MADELINE TERESA MD [facility] [address] [place] [address] 10/23/2024 12:05:13 10/23/2024 12:54:41 Degeneration of lumbar intervertebral disc 25853550 M51.369 Continue current plan of care, he/she is generally satisfied with current treatment, understand s this is a chronic pain condition and his/her expectatio ns for pain relief and functional ity are reasonable . Long-term current use of opiate analgesic drug 5847015199 47267 Z79.891 During the time of this visit [...] course of therapy Chronic pain syndrome 37 7671796 G89.4 Patient reports having occasional difficulty with [...] anxiety that would be suitable and effective. [id number] MADELINE TERESA MD [facility] [address] [place] [address] 11/23/2024 11:34:47 11/23/2024 12:43:36 Long-term current use of opiate analgesic drug 7462981608 57062 Z79.891 During the time of this visit [...] therapy Degenerati on of lumbar intervertebral disc 04517740 M51.369 Continue current plan of care, he/she is generally satisfied with current treatment, understand s this is a chronic pain condition and his/her expectatio ns for pain relief and functional ity are reasonable . Chronic pain syndrome 37 0307975 G89.4 Patient reports having occasional difficulty with [...] anxiety that would be suitable and effective. [id number] MADELINE TERESA MD [facility] [address] [place] [address] 12/19/2024 13:13:07 12/19/2024 14:18:31 Degeneration of lumbar intervertebral disc 61614033 M51.369 Continue current plan of care, he/she is generally satisfied with current treatment, understand s this is a chronic pain condition and his/her expectatio ns for pain relief and functional ity are reasonable . Long-term current use of opiate analgesic drug 9617268274 56877 Z79.891 During the time of this visit [...] course of therapy Chronic pain syndrome 37 0031547 G89.4 Patient reports having occasional difficulty with coping with chronic pain conditions . Reporting frustratio n and depression , regarding physical limitation s, unlikely ability to fill work obligation s, increased stressI discussed pacing activities , finding activities to help distract from chronic pain. Also encouraged to appropriat e self-care, and ways to decrease feelings of anxiety that would be suitable and effective. [id number] MADELINE TERESA MD [facility] [address] [place] [address] 01/16/2025 11:20:55 01/16/2025 12:32:58 Degeneration of lumbar intervertebral disc 03519516 M51.369 Establishe d problem, stable continuati on, [...] no discrepanc ies. Chronic pain syndrome 37 9997243 G89.4 Patient is satisfied with current level of pain control, level of function, and medication management . Long-term drug therapy 878260403 Z79.899 Patient is on chronic opioid therapy, [...] +THC. Repeat urine obtained at today's visit. [id number] ARVIND SÁNCHEZ MD [facility] [address] [place] [address] 02/16/2025 13:26:29 02/16/2025 14:04:53 Degeneration of lumbar intervertebral disc 60076722 M51.369 Establishe d problem, increased pain, patient [...] form of therapy. Chronic pain syndrome 37 7910267 G89.4 Will continue plan of care - patient is satisfied with the current treatment and understand s chronic pain and the expectatio ns for functional ity and pain control are reasonable . Long-term drug therapy 167012390 Z79.899 Patient is on chronic opioid therapy, [...] was verified and consistent with prescribed regimen. [id number] ARVIND SÁNCHEZ MD [facility] [address] [place] [address] 03/15/2025 12:27:51 03/15/2025 13:00:59 Degeneration of lumbar intervertebral disc 74887038 M51.369 Establishe d problem, increased pain, patient had a fall 7 weeks ago and had reported severe pain, reports some improvemen t but remains with pain in the low back that is worse than baseline. She did not obtain the ordered x-ray but would still like to do so. Will resend the order and see back in 4 weeks. I will continue to monitor for any progressio n of this condition. Continue current analgesic regimen. The patient continues to derive the benefit of pain reduction with chronic opiate therapy without evidence of harm. This will be reconsider ed at each visit to determine the risk vs. benefit to continuing this form of therapy. Chronic pain syndrome 37 1482042 G89.4 Will continue plan of care - patient is satisfied with the current treatment and understand s chronic pain and the expectatio ns for functional ity and pain control are reasonable . Long-term drug therapy 447927862 Z79.899 Patient is on chronic opioid therapy, [...] therapy outweighs the risks. Urine tox from 02/16/25 was reviewed and consistent with current drug therapy. MassPAT was verified and consistent with prescribed regimen. [id number] ARVIND SÁNCHEZ MD [facility] [address] [place] [address] 04/12/2025 11:45:48 04/12/2025 12:05:17 Degeneration of lumbar intervertebral disc 17764515 M51.369 Establishe d problem, stable continuati on, I will continue to monitor for any progressio n of this condition. Continue current analgesic regimen. The patient continues to derive the benefit of pain reduction with chronic opiate therapy without evidence of harm. This will be reconsider ed at each visit to determine the risk vs. benefit to continuing this form of therapy. Patient had reported increased low back pain after a fall, multiple x-ray orders were sent in and not completed by the patient. She reports stable pain today. Chronic pain syndrome 37 4681747 G89.4 Will continue plan of care - patient is satisfied with the current treatment and understand s chronic pain and the expectatio ns for functional ity and pain control are reasonable . Long-term drug therapy 699471987 Z79.899 Patient is on chronic opioid therapy, [...] therapy outweighs the risks. Urine tox from 02/16/25 was reviewed and consistent with current drug therapy. MassPAT was verified and consistent with prescribed regimen. [id number] MADELINE TERESA MD [facility] [address] [place] [address] 05/09/2025 12:50:28 05/09/2025 13:33:57 Degeneration of lumbar intervertebral disc 19819832 M51.369 Establishe d problem, stable continuati on, [...] no discrepanc ies. Chronic pain syndrome 37 2670013 G89.4 Patient is satisfied with current level of pain control, level of function, and medication management . Long-term drug therapy 492252668 Z79.899 Patient is on chronic opioid therapy, [...] outweighs the risks. Urine drug screen from 02/16/2025 was reviewed today and is consistent with prescribed opioid. Health Concerns Section Related Observation LastModified by Organization Detai ls LastModified Time None Recorded Concern Status LastModified by Organization Details LastModified Time None Recorded Advance Directives Directive None Recorded Payers Insurance Date Sequence Insurance Name Policy Number Policy Whitfield Covered Member ID Whitfield Member ID Guarantor Name 07/11/2024 1 [place] [facility] Alexia Núñez [id number] Alexia Riggins 07/11/2024 [facility] Alexia Núñez [id number] Alexia Riggins OBGyn Episode No OBEpisode recorded.
== END 2025-05-22 11:11 | disposition home or self-care (01) ==
LOC: HO.HOS 10:52
PROVIDERS: PCP Family Medicine; Visit Provider Orthopaedic Surgery
DX: M25.311 Other instability, right shoulder (principal)
CPT/HCPCS: 99213

== ENCOUNTER → 2025-05-22 10:51 | Outpatient (BNVA) | payer MEDICAID, SELFPAY | PROVIDERS: PCP Family Medicine; Visit Provider Orthopaedic Surgery | DX: M25.511 Pain in right shoulder (principal); R53.1 Weakness; M25.311 Other instability, right shoulder | CPT/HCPCS: 99212 ==

== ENCOUNTER → 2025-05-28 09:52 | Outpatient (BNV) | payer MEDICAID, SELFPAY | PROVIDERS: PCP Family Medicine; Visit Provider Radiology Diagnostic Radiology | DX: M75.121 Complete rotator cuff tear or rupture of right shoulder, not specified as traumatic (principal) | CPT/HCPCS: 73221 ==

== ENCOUNTER 2025-05-28 09:54 | Outpatient (REF) | payer MEDICAID, SELFPAY ==
--- NOTE | ~2025-05-28 | MR_ITS ---
EXAMINATION: MR SHOULDER WITHOUT CONTRAST, RIGHT CLINICAL INFORMATION: Right shoulder pain, rotator cuff tear COMPARISON: X-ray on September 06, 2024 TECHNIQUE: MRI of the shoulder without contrast was performed on a high-field scanner. FINDINGS: Rotator Cuff: There is a full-thickness tear of supraspinatus tendon near junction with infraspinatus tendon with 13 mm retraction. Supraspinatus tendon fibers are intact far anteriorly. There is intrasubstance delamination of infraspinatus tendon posterior to the humeral head and extending to the level of glenoid articular surface measuring 2.5 cm in length. There is likely a full thickness nonretracted tear of the upper subscapularis tendon. Labrum: Labrum is intact. Long biceps tendon: Long biceps tendon is medially displaced from biceps groove. The tendon is frayed and irregular as it courses over lesser tuberosity. Acromioclavicular joint: There is mild degenerative irregularity and thickening of the superior acromioclavicular tendon. Acromial morphology is flat, type I. There is fluid within the AC joint. The inferior acromioclavicular ligament is thinned and irregular. There is fluid in the subacromial subdeltoid bursa. Axillary pouch: The axillary pouch is intact. Articular cartilage: There are no articular cartilage defects. Bones/Marrow: Degenerative cystic marrow signal changes are present in the anterior greater tuberosity. There is reactive marrow signal in the lesser tuberosity, likely chronic secondary to long biceps tendon subluxation. Soft tissues: There is minimal fatty streaking of shoulder musculature from deconditioning. There is no muscle edema. MR/MR shoulder RT wo con IMPRESSION: There is a full-thickness rotator cuff tear at the junction of supraspinatus and infraspinatus tendons with 13 mm retraction. Long biceps tendon is medially subluxed from biceps groove and there is associated marrow edema like signal in the lesser tuberosity. There is probably an associated full-thickness and retracted tear of the upper subscapularis tendon that is not well-demonstrated. The biceps tendon appears frayed and irregular. There is 2.5 cm intrasubstance delamination tear of the infraspinatus tendon that extends from posterior humeral head to the plane of glenoid articular cartilage. Mild AC joint arthropathy with AC joint effusion, thickening of superior acromioclavicular ligament, and attenuation and probable tear of the inferior acromioclavicular ligament. Electronically signed by: Edwin Torres MD 05/28/2025 11:01 AM EDT
--- OUTSIDE RECORDS SUMMARY | 2025-05-28 10:31 | XMS_ITS | Clinical Summary ---
Author Organization [facility] Address [address] [place] [address] Phone Care Team Providers Care Engineer System Administrator Name Role Phone Latoya Ruiz MD Primary Care Provider [phone]- [phone] Allergies No known active allergies Medications cholecalciferol [...] every 4 hours as needed. Active pancrelipase, Obr-Twgk-Inbi, (CREON) 3,000-9,500- 15,000 unit capsule Take by [...] (BMI) of 37.0 to 37.9 in adult ([facility] V24, [facility] V28) 09/25/2024 Abnormal ECG 06/10/2022 Benign essential [...] for surgery on Wednesday. Chronic hepatitis C ([facility] V24, [facility] V28) 0 03/18/2022 Eating disorder, unspecified 03/18/2022 Overview (09/25/2024): Dr Natali Jarvis History of recurrent spontan eous , not currently 03/18/2022 Hypothyroidism 03/18/2022 Major depressive disorder, single episode, unspe cified 03/18/2022 Vitamin D deficiency 03/18/2022 Encounters Date Type Department Care Team Description 05/15/2025 9:15 AM EDT Office Visit Bariatric Surgery - [address] [place] [address] Laura Pérez MD Class 3 severe obesity due to excess calories with body mass index (BMI) of 40.0 to 44.9 in adult, unspecified whether serious comorbidity present ([facility] V24, [facility] V28) (Primary Dx) from Last 3 Months [...] of bariatric surgery; COMMENT: Gastric bypass 2006, [facility]. Major depressive disorder, s mellisa episode, unspecified 03/18/2022 DX:Major depressive disorder , single episode, unspecified Eating disorder, unspecified 03/18/2022 DX: Eating disorder, unspecified; COMMENT: Dr Natali Jarvis Chronic hepatitis C ([facility] V24, [facility] V28) 03/18/2022 DX:Chronic hepatitis C (HCC) Class [...] AM EST Office Visit Bariatric Surgery - [place] [address] [address] Laura Pérez MD [address] [facility] [address] [place] [address] Health Maintenance Due Date Last Done Comments [...] Maintenance Insurance MEDICA[place] - [place] Care Teams Engineer System Administrator Relationship Specialty Start Date End Date Sara, MD Latoya [address] [address] PCP - General 07/25/10
--- OUTSIDE RECORDS SUMMARY | 2025-05-28 10:31 | XMS_ITS | Encounter Summary ---
Author Organization [employer] Address [address] [place] [address] 7 [place] [address] Care Team Providers Care Cook Restaurant Name Role Phone Latoya Ruiz MD Primary Care Provider +1- [phone] Yoni Portillo MD Unavailable Irlanda Kaur Unavailable Encounter Details Date Type Department Care Team (Late st Contact Info) Description 12/01/2022 Abstract [facility] MEDICINE [address] [place] [address] Latoya Ruiz MD [address] [place], [place] [phone] Social History Tobacco Use Types Packs/Day Years [...] on filedocumented in this encounter Care Teams Cook Restaurant Relationship Specialty Start Date End Date Latoya Ruiz MD [address] [place] [id number] PCP - General Family Medicine 10/25/18 Yoni Portillo MD [address] [place] [address] Dr [address] [place] [address] Orthopaedic Surgery 10/10/24 Irlanda Kaur [address] [place] [address] Drive [address] [place] [address] Gastroenterology 02/01/25 Eros Aldana NP [facility] Pain Medicine 10/26/24 documented as of this encounter
== END 2025-05-28 09:55 | disposition home or self-care (01) ==
LOC: HO.MRI 09:54
PROVIDERS: PCP Family Medicine; Visit Provider Orthopaedic Surgery
DX: M25.311 Other instability, right shoulder (principal)
CPT/HCPCS: 73221

== ENCOUNTER 2025-05-29 10:36 | Outpatient (AMB) | payer MEDICAID, SELFPAY ==
--- NOTE | 2025-05-29 10:39 | A.OFFVIS_ITS ---
Vital Signs 05/29/25 10:43 Height 5 ft 2 in Weight 220 lb BMI 40.2 BP 125/82 Blood Pressure Location Rt brachial Position Sitting Pulse 60 Intake Visit Reasons: OV-Right Shoulder MRI review Intake Note: Alexia is a 50 year old right hand dominant female who presents with complaints of progressively worsening right shoulder pain and weakness. The patient states that her symptoms have gotten worse over the last few years. She reports difficulty lifting her right hand above shoulder height. Purchasing Clerk Required: Yes Purchasing Clerk Services: Purchasing Clerk Present Purchasing Clerk Name: [id number] Allergies No Known Allergies Allergy (Verified 05/29/25 10:44) Medication List - Last Reconciled 05/29/25 by Yoni Portillo MD acetaminophen (Tylenol Extra Strength) 500 mg PO Q6H PRN cholecalciferol (vitamin D3) 50 mcg PO DAILY duloxetine (Cymbalta) 60 mg PO DAILY ibuprofen 600 mg PO Q6H PRN levothyroxine (Tirosint) 250 mcg (2 x 125 mcg) PO DAILY 30 days oxycodone-acetaminophen 10-325 mg 1 tab PO Q8H PRN zinc gluconate 30 mg PO DAILY PFSH Medical History Pain in right shoulder B12 deficiency Vitamin D deficiency Hypothyroidism Surgical History History of gastric bypass Hx laparoscopic cholecystectomy History of esophagogastroduodenoscopy (EGD) Hx of lithotripsy Family History Mother Type 2 diabetes mellitus Myocardial infarction CVD (cardiovascular disease) Heart disease Father Type 2 diabetes mellitus Hypertension Social History Household Members: Spouse Alcohol intake: current Alcohol intake frequency: does not drink Patient Tobacco Use Status: Never used Tobacco Female Reproductive History Menstrual Age of Menarche: 13 Physical Exam Vital Signs: Last Vital Signs Pulse 60 05/29/25 10:43 BP 125/82 05/29/25 10:43 BMI result Body Mass Index 40.2 Extrem Other: Right shoulder examination shows decreased range of motion when compared to her left shoulder, 3/5 strength with supraspinatus testing, positive impingement signs Results Reviewed Results Reviewed: MRI of the patient's right shoulder shows a large rotator cuff tear with retraction almost care home to the glenoid lip Assessment & Plan Assessment & Plan (1) Rotator cuff insufficiency of right shoulder: Code(s): M25.311 - Other instability, right shoulder Category: Medical Plan Ms. Núñez presents with progressively worsening right shoulder pain and weakness due to a large rotator cuff tear. I had a lengthy discussion with the patient regarding the treatment options. At this point she appears to be failing continued non operative treatments. She is interested in undergoing right shoulder surgery. Based on the size and chronicity of her tear I am not sure that a primary repair is possible at this point. She may need a grafting procedure to reinforce the repair or possible reverse total shoulder replacement surgery. Thus, I will have her evaluated by my partner, Dr. Finney, who can further discuss her surgical options. She will follow-up as instructed. Feel free to call me at any time should questions regarding her orthopedic management arise. I spent 20 minutes in reviewing the patient's records and imaging studies, seeing the patient and documenting in the medical record. Coding Level of Care Code Est Pt Level 3 (91818) Complex EM visit Add On G2211 Diagnoses Rotator cuff insufficiency of right shoulder M25.311
[2025-05-29 10:43] VITALS: BP 125/82; PULSE 60; BMI 40.2
--- OUTSIDE RECORDS SUMMARY | 2025-05-29 11:16 | XMS_ITS | Clinical Summary ---
Author Organization 175 [facility] Address 175 [place] [address] Phone Care Team Providers Care Financial Management Name Role Phone Latoya Ruiz MD Primary Care Provider +1- [phone] Allergies No known active allergies Medications cholecalciferol [...] every 4 hours as needed. Active pancrelipase, Tbe-Cfwv-Awki, (CREON) 3,000-9,500- 15,000 unit capsule Take by [...] (BMI) of 37.0 to 37.9 in adult ([facility] V24, [facility] V28) 09/25/2024 Abnormal ECG 06/10/2022 [...] for surgery on Wednesday. Chronic hepatitis C ([facility] V24, [facility] V28) 0 03/18/2022 Eating disorder, unspecified 03/18/2022 Overview (09/25/2024): Dr Natali Jarvis History of recurrent spontan eous , not currently 03/18/2022 Hypothyroidism 03/18/2022 Major depressive disorder, single episode, unspe cified 03/18/2022 Vitamin D deficiency 03/18/2022 Encounters Date Type Department Care Team Description 05/15/2025 9:15 AM EDT Office Visit Bariatric Surgery - [address] [place] [address] Laura Pérez MD Class 3 severe obesity due to excess calories with body mass index (BMI) of 40.0 to 44.9 in adult, unspecified whether serious comorbidity present ([facility] V24, [facility] V28) (Primary Dx) from Last [...] of bariatric surgery; COMMENT: Gastric bypass 2006, [facility]. Major depressive disorder, s mellisa episode, unspecified 03/18/2022 DX:Major depressive disorder , single episode, unspecified Eating disorder, unspecified 03/18/2022 DX: Eating disorder, unspecified; COMMENT: Dr Natali Jarvis Chronic hepatitis C ([facility] V24, [facility] V28) 03/18/2022 DX:Chronic hepatitis C [...] Alive Brother 2 Félix Alive Brother 3 Baelardo Alive Brother 4 Jair Alive Brother 5 [...] AM EST Office Visit Bariatric Surgery - [place] [address] [address] Laura Pérez MD 175 [facility] 120 [place] [address] Health Maintenance Due Date Last Done Comments [...] Maintenance Insurance MEDICAID - [place] Care Teams Financial Management Relationship Specialty Start Date End Date Sara, MD Latoya [address] [address] PCP - General 07/25/10
--- OUTSIDE RECORDS SUMMARY | 2025-05-29 11:16 | XMS_ITS | Encounter Summary ---
Author Organization [employer] Address [address] [place] [address] 7 [place] [address] Care Team Providers Care Pmo Consultant Name Role Phone Latoya Ruiz MD Primary Care Provider +1- [phone] Yoni Portillo MD Unavailable Irlanda Kaur Unavailable Encounter Details Date Type Department Care Team (Late st Contact Info) Description 12/01/2022 Abstract [facility] MEDICINE [address] [place] [address] Latoya Ruiz MD 230 [place], [place] [id number] Social History Tobacco Use Types Packs/Day Years [...] on filedocumented in this encounter Care Teams Pmo Consultant Relationship Specialty Start Date End Date Latoya Ruiz MD [address] [place] [address] PCP - General Family Medicine 10/25/18 Yoni Portillo MD [address] [place] [address] Dr [address] [place] [address] Orthopaedic Surgery 10/10/24 Irlanda Kaur [address] [place] [address] Drive 3rd [place] [address] Gastroenterology 02/01/25 Eros Aldana NP [facility] Pain Medicine 10/26/24 documented as of this encounter
== END 2025-05-29 10:56 | disposition home or self-care (01) ==
LOC: HO.HOS 10:37
PROVIDERS: PCP Family Medicine; Visit Provider Orthopaedic Surgery
DX: M25.311 Other instability, right shoulder (principal)
CPT/HCPCS: 99213

== ENCOUNTER → 2025-05-29 10:36 | Outpatient (BNVA) | payer MEDICAID, SELFPAY | PROVIDERS: PCP Family Medicine; Visit Provider Orthopaedic Surgery | DX: Z71.2 Person consulting for explanation of examination or test findings (principal); M25.511 Pain in right shoulder; M25.311 Other instability, right shoulder | CPT/HCPCS: 99212 ==

== ENCOUNTER 2025-06-06 09:28 | Outpatient (AMB) | payer MEDICAID, SELFPAY ==
[2025-06-06 09:47] VITALS: BMI 40.2
--- NOTE | 2025-06-06 09:47 | A.OFFVIS_ITS ---
Vital Signs 06/06/25 09:47 Height 5 ft 2 in Weight 220 lb BMI 40.2 Intake Visit Reasons: Abnormal pap/colpo Airborne Electronics Analyst Required: Yes Airborne Electronics Analyst Language: Pbx Supervisor Services: Airborne Electronics Analyst Present (in person) Airborne Electronics Analyst Name: Luli MARTIN Information Interpreted: non-clinical & clinical Online Trader: Online Trader Present (Luli MARTIN) Accompanied by: Self / Same As Patient Allergies No Known Allergies Allergy (Verified 06/06/25 09:59) HPI Comments Details: Presenting for abnormal Pap smear showing ASCUS HPV high-risk positive, HPV 16/18 negative [facility] Medical History Pain in right shoulder B12 deficiency Vitamin D deficiency Hypothyroidism Surgical History History of gastric bypass Hx laparoscopic cholecystectomy History of esophagogastroduodenoscopy (EGD) Hx of lithotripsy Family History Mother Type 2 diabetes mellitus Myocardial infarction CVD (cardiovascular disease) Heart disease Father Type 2 diabetes mellitus Hypertension Social History Household Members: Spouse Alcohol intake: current Alcohol intake frequency: does not drink Patient Tobacco Use Status: Never used Tobacco Female Reproductive History Menstrual Age of Menarche: 13 Review of Systems Const All systems reviewed & are unremarkable except as noted in HPI and below Reports as per HPI and Reports no additional complaints GI Reports no additional complaints Reports no additional complaints Physical Exam Vital Signs: BMI result Body Mass Index 40.2 Office Procedures Colposcopy Colposcopy: Pre-Procedure Counseling: Before beginning the procedure, I conducted comprehensive counseling with the patient. We thoroughly discussed the procedure itself, including its details, alternatives, and all associated risks. This included but not limited to the following complications such as bleeding, infection, and injury to the vagina, bladder, and vessels, as well as the potential need for transfusion with all its associated risks. Subsequently, the patient sign the consent. Pap smear result: Ascus HPV positive, HPV 16/18 negative Urine test in office = Negative Procedure: During the procedure, the following steps were performed: A speculum was inserted, and acetic acid was applied. Colposcopy was conducted, allowing visualization of the transformation zone. Acetowhite lesions were identified at the 6+11+12+1 o'clock position. Cervical biopsies were obtained from the 6+11+12+1 o'clock position, followed by an endocervical curettage (ECC). Vaginoscopy of the upper vagina revealed no evidence of aceto-white lesions. Hemostasis was achieved using Monsel solution, and the patient tolerated the procedure well. Post-Procedure Instructions: The patient was advised to promptly contact the office or the after hours answering service or go to the emergency room if experiencing a temperature exceeding 100.4?F, abdominal pain, nausea/vomiting, or bleeding. Additionally, the patient was instructed to abstain from vaginal intercourse and bathtub use. The patient confirmed understanding of these instructions. Discharge Instructions: The patient was instructed to schedule a follow-up appointment in 2 weeks for further evaluation and management. Please note that this note was generated using a voice recognition program, and errors may have occurred during biofuels production technician. [id number] of cervix including upper vagina with biopsy and ECC Procedure code (CPT) selection complete Results AMB Test Urine AMB Test Urine Negative Last Edit by Luli Dong CMA on 10:01 Assessment & Plan Assessment & Plan (1) ASCUS with positive high risk HPV cervical: Code(s): R87.610 - Atypical squamous cells of undetermined significance on cytologic smear of cervix (ASC-US); R87.810 - Cervical high risk human papillomavirus (HPV) DNA test positive Category: Medical Plan: Discussed with the patient the result of her abnormal pap, its significance, risk of progression, persistence, and regression. the false positive/negative rate of a Pap smear as a screening test in detecting cervical cancer and the indication for a diagnostic test -colposcopy, biopsy, endocervical curettage. The patient verbalized understanding and agreed with the plan, all questions answered. Colposcopy, biopsy /ECC done, see procedure note Orders: Orders AMB HCG Urine Test Today Z32.02 - Encounter for test, result negative AMB Colposcopy Today R87.610 - Atypical squamous cells of undetermined significance on cytologic smear of cervix (ASC-US), R87.810 - Cervical high risk human papillomavirus (HPV) DNA test positive Coding Level of Care Code Procedure Only Diagnoses ASCUS with positive high risk HPV cervical R87.610; R87.810 CPT Codes Colposcopy - CPT: 47431-Hwhnnfsaf of cervix including upper vagina with biopsy and ECC ([id number])
--- OUTSIDE RECORDS SUMMARY | 2025-06-06 09:57 | XMS_ITS | Encounter Summary ---
Author Organization [employer] Address [address] [place] [address] 7 [place] [address] Care Team Providers Care Office Cashier Name Role Phone Latoya Ruiz MD Primary Care Provider +1- [phone] Yoni Portillo MD Unavailable Irlanda Kaur Unavailable Encounter Details Date Type Department Care Team (Late st Contact Info) Description 12/01/2022 Abstract [facility] MEDICINE 230 [place] [address] Latoya Ruiz MD 230 [place], [place] [id number] Social History Tobacco Use Types Packs/Day Years [...] on filedocumented in this encounter Care Teams Office Cashier Relationship Specialty Start Date End Date Latoya Ruiz MD [address] [place] [address] PCP - General Family Medicine 10/25/18 Yoni Portillo MD [address] [place] [address] [address] [place] [address] Orthopaedic Surgery 10/10/24 Irlanda Kaur [address] [place] [address] Drive 3rd [place] [address] Gastroenterology 02/01/25 Eros Aldana NP [facility] Pain Medicine 10/26/24 documented as of this encounter
--- OUTSIDE RECORDS SUMMARY | 2025-06-06 09:57 | XMS_ITS | Clinical Summary ---
Author Organization 175 [facility] Address [address] [place] [address] Phone Care Team Providers Care Purchasing Contracting Clerk Name Role Phone Latoya Ruiz MD Primary Care Provider +1- [phone] Allergies No known active allergies Medications cholecalciferol [...] every 4 hours as needed. Active pancrelipase, Xpj-Nqdd-Seiw, (CREON) 3,000-9,500- 15,000 unit capsule Take by [...] (BMI) of 37.0 to 37.9 in adult ([facility] V24, [facility] V28) 09/25/2024 Abnormal ECG 06/10/2022 [...] for surgery on Wednesday. Chronic hepatitis C ([facility] V24, [facility] V28) 0 03/18/2022 Eating disorder, unspecified 03/18/2022 Overview (09/25/2024): Dr Natali Jarvis History of recurrent spontan eous , not currently 03/18/2022 Hypothyroidism 03/18/2022 Major depressive disorder, single episode, unspe cified 03/18/2022 Vitamin D deficiency 03/18/2022 Encounters Date Type Department Care Team Description 05/15/2025 9:15 AM EDT Office Visit Bariatric Surgery - [address] [place] [address] Laura Pérez MD Class 3 severe obesity due to excess calories with body mass index (BMI) of 40.0 to 44.9 in adult, unspecified whether serious comorbidity present ([facility] V24, [facility] V28) (Primary Dx) from Last [...] of bariatric surgery; COMMENT: Gastric bypass 2006, [facility]. Major depressive disorder, s mellisa episode, unspecified 03/18/2022 DX:Major depressive disorder , single episode, unspecified Eating disorder, unspecified 03/18/2022 DX: Eating disorder, unspecified; COMMENT: Dr Natali Jarvis Chronic hepatitis C ([facility] V24, [facility] V28) 03/18/2022 DX:Chronic hepatitis C [...] AM EST Office Visit Bariatric Surgery - [place] [address] [address] Laura Pérez MD 175 [facility] 120 [place] [address] Health Maintenance Due Date Last Done Comments [...] Maintenance Insurance MEDICAID - [place] Care Teams Purchasing Contracting Clerk Relationship Specialty Start Date End Date [place], [place] Latoya [address] [address] PCP - General 07/25/10
== END 2025-06-06 10:33 | disposition home or self-care (01) ==
LOC: HO.HWS 09:28
PROVIDERS: PCP Family Medicine; Visit Provider Obstetrics & Gynecology
DX: R87.610 Atypical squamous cells of undetermined significance on cytologic smear of cervix (ASC-US) (principal); R87.810 Cervical high risk human papillomavirus (HPV) DNA test positive; Z32.02 Encounter for pregnancy test, result negative
CPT/HCPCS: 57454

== ENCOUNTER 2025-06-06 09:28 | Outpatient (REF) | payer MEDICAID, SELFPAY | END 2025-06-06 09:29 | disposition home or self-care (01) | LOC: HO.LNP 09:28 | PROVIDERS: PCP Family Medicine; Visit Provider Obstetrics & Gynecology | DX: R87.610 Atypical squamous cells of undetermined significance on cytologic smear of cervix (ASC-US) (principal); R87.810 Cervical high risk human papillomavirus (HPV) DNA test positive; Z32.02 Encounter for pregnancy test, result negative | CPT/HCPCS: 57454; 81025; 88305 ==

== ENCOUNTER 2025-07-03 10:33 | Outpatient (AMB) | payer MEDICAID, SELFPAY ==
--- NOTE | 2025-07-03 10:33 | A.OFFVIS_ITS ---
Intake Visit Reasons: Colpo results Academic Affairs Vice President Required: Yes Academic Affairs Vice President Language: Quality Assurance Monitor Final Services: Academic Affairs Vice President Present (in person) Academic Affairs Vice President Name: Luli MARTIN Information Interpreted: non-clinical & clinical Allergies No Known Allergies Allergy (Verified 07/03/25 10:34) HPI Comments Details: Presenting post colpo for follow-up. The patient is doing well with no complaints. The pathology showed the following: A. Endocervix, curettage: Minute fragment of squamous mucosa; no endocervical component seen; negative for squamous intraepithelial lesion. B. Cervix, 1 o'clock, biopsy: Squamous mucosa within normal limits; no endocervical component seen; negative for squamous intraepithelial lesion. C. Cervix, 6 o'clock, biopsy: Squamous mucosa within normal limits; negative for squamous intraepithelial lesion. D. Cervix, 11 o'clock, biopsy: Squamous mucosa within normal limits; no endocervical component seen; negative for squamous intraepithelial lesion. E. Cervix, 12 o'clock, biopsy: Squamous mucosa within normal limits; no endocervical component seen; negative for squamous intraepithelial lesion. COMMENT: The atypical cells noted on the patient's recent Pap smear ([id number]; ASCUS; HPV+) are not seen in the current biopsy findings PFSH Medical History Pain in right shoulder B12 deficiency Vitamin D deficiency Hypothyroidism Surgical History History of gastric bypass Hx laparoscopic cholecystectomy History of esophagogastroduodenoscopy (EGD) Hx of lithotripsy Family History Mother Type 2 diabetes mellitus Myocardial infarction CVD (cardiovascular disease) Heart disease Father Type 2 diabetes mellitus Hypertension Social History Household Members: Spouse Alcohol intake: current Alcohol intake frequency: does not drink Patient Tobacco Use Status: Never used Tobacco Female Reproductive History Menstrual Age of Menarche: 13 Review of Systems Const All systems reviewed & are unremarkable except as noted in HPI and below Reports as per HPI and Reports no additional complaints GI Reports no additional complaints Reports no additional complaints Telehealth Telehealth Telehealth Platform: [facility] Location of provider rendering services: practice address Location of patient: address on file Patient Identification confirmed using: Name, : Yes Telehealth method: video Patient verbally consented to treatment: Yes Patient verbally consented to billing insurance company: Yes Patient informed of any privacy concerns related to visit: Yes Minutes spent on Phone/Video with Pt.: 2 Assessment & Plan Assessment & Plan (1) ASCUS with positive high risk HPV cervical: Code(s): R87.610 - Atypical squamous cells of undetermined significance on cytologic smear of cervix (ASC-US); R87.810 - Cervical high risk human papillomavirus (HPV) DNA test positive Category: Medical Plan: Discussed with the patient the pathology results of the colposcopy biopsies & endocervical curettage . Discussed with the patient the sensitivity specificity, positive and negative predictive value in detecting cervical cancer in addition discussed the regression, persistence and progression rates. Recommended co-testing in 12 months, if cytology and or HPV are abnormal will proceed was colposcopy biopsy and endocervical curettage. Instructions given to the patient to schedule a co test appointment in 1 year. All questions answered the patient verbalized understanding. I spent a total of 20 minutes reviewing the chart, talking to the patient via video and documenting in the medical record. Coding Level of Care Code Tele Est Pt Level 3 (86586) Diagnoses ASCUS with positive high risk HPV cervical R87.610; R87.810
--- OUTSIDE RECORDS SUMMARY | 2025-07-03 12:23 | XMS_ITS | Encounter Summary ---
Author Organization [employer] Address [address] [place] [address] 7 [place] [address] Care Team Providers Care Academic Director Name Role Phone Latoya Ruiz MD Primary Care Provider +1- [phone] Yoni Portillo MD Unavailable Irlanda Kaur Unavailable Reji Bowden MD Unavailable Encounter Details Date Type Department Care Team (Latest Contact Info) Description 11/15/2020 Abstract [facility] CONVERSIONS Dental, Provider, DDS Social History Tobacco [...] on filedocumented in this encounter Care Teams Academic Director Relationship Specialty Start Date End Date Latoya uRiz MD [address] [place] [address] PCP - General Family Medicine 10/25/18 Yoni Portillo MD [address] [place] [address] Dr [address] [place] [address] Orthopaedic Surgery 10/10/24 Irlanda Kaur [address] 3rd [place] [address] Gastroenterology 02/01/25 Reji Bowden MD [address] [place] [address] [address] [facility] [address] Obstetrics and Gynecology 06/06/25 Eros Aldana NP [facility] Pain Medicine 10/26/24 documented as of this encounter
--- OUTSIDE RECORDS SUMMARY | 2025-07-03 12:23 | XMS_ITS | Encounter Summary ---
Author Organization [employer] Address [address] [place] [address] 7 [place] [address] Care Team Providers Care Sanitation Inspector Name Role Phone Latoya Ruiz MD Primary Care Provider +1- [phone] Yoni Portillo MD Unavailable Irlanda Kaur Unavailable Reji Bowden MD Unavailable Reason for Visit * Reason Comments Med Refill Encounter Details Date Type Department Care Team (Late st Contact Info) Description 03/17/2024 Refill [facility] MEDICINE 230 [place] [address] Cristal Sun MD 230 [place], [place] [phone] Moderate episode of recurrent major depressive disorder [...] documented as of this encounter Care Teams Sanitation Inspector Relationship Specialty Start Date End Date Latoya Ruiz MD [address] [place] [address] PCP - General Family Medicine 10/25/18 Yoni Portillo MD [address] [place] [address] Dr [address] [place] [address] Orthopaedic Surgery 10/10/24 Irlanda Kaur [address] 3rd [place] [address] Gastroenterology 02/01/25 Reji Bowden MD [address] [place] [address] Obstetrics and Gynecology 06/06/25 Eros Aldana NP [facility] Pain Medicine 10/26/24 documented as of this encounter
--- OUTSIDE RECORDS SUMMARY | 2025-07-03 12:23 | XMS_ITS | Encounter Summary ---
Author Organization [employer] Address [address] [place] [address] Care Team Providers Care Complaint Adjuster Name Role Phone Latoya Ruiz MD Primary Care Provider +1- [phone] Yoni Portillo MD Unavailable Irlanda Kaur Unavailable Reji Bowden MD Unavailable Encounter Details Date Type Department Care Team (Late st Contact Info) Description 01/26/2024 Orders Only [facility] MEDICINE [address] [place] [address] Flor Brown, JOHNATHAN Social History Tobacco Use [...] documented as of this encounter Care Teams Complaint Adjuster Relationship Specialty Start Date End Date Latoya Ruiz MD [address] [place] [address] PCP - General Family Medicine 10/25/18 Yoni Portillo MD [address] [place] [address] [address] [place] [address] Orthopaedic Surgery 10/10/24 Irlanda Kaur [address] [place] [address] [place] [address] Gastroenterology 02/01/25 Reji Bowden MD [address] [address] Obstetrics and Gynecology 06/06/25 Eros Aldana NP [facility] Pain Medicine 10/26/24 documented as of this encounter
--- OUTSIDE RECORDS SUMMARY | 2025-07-03 12:23 | XMS_ITS | Encounter Summary ---
Author Organization [facility] Address [address] [place] [address] 7 [place] [address] Care Team Providers Care Administration Internship Name Role Phone Latoya Ruiz MD Primary Care Provider +1- [phone] Yoni Portillo MD Unavailable Irlanda Kaur Unavailable Reji Bowden MD Unavailable Encounter Details Date Type Department Care Team (Latest Contact Info) Description 05/29/2019 Abstract [facility] Dental, Provider, DDS Social History [...] on filedocumented in this encounter Care Teams Administration Internship Relationship Specialty Start Date End Date Latoya Ruiz MD [address] [place] [phone] PCP - General Family Medicine 10/25/18 Yoni Portillo MD [address] [place] [address] [address] [place] [address] Orthopaedic Surgery 10/10/24 Irlanda Kaur [address] [place] [address] Drive 3rd [place] [address] Gastroenterology 02/01/25 Reji Bowden MD [address] [place] [address] [place] [address] Obstetrics and Gynecology 06/06/25 Eros Aldana NP [facility] Pain Medicine 10/26/24 documented as of this encounter
--- OUTSIDE RECORDS SUMMARY | 2025-07-03 12:23 | XMS_ITS | Encounter Summary ---
Author Organization [employer] Address [address] [place] [address] 7 [place] [address] Care Team Providers Care Import/Export Agent Name Role Phone Latoya Ruiz MD Primary Care Provider +1- [phone] Yoni Portillo MD Unavailable Irlanda Kaur Unavailable Reji Bowden MD Unavailable Reason for Referral * Imaging (Routine) - Closed Specialty Diagnoses / Procedures Referred By Julián robert Referred To Contact Radiology Diagnoses Inguinal lymphadenopathy Procedures CT Abdomen Pelvis w/ Contrast Latoya Ruiz MD [address] [place] [address] Phone: tel: fax: [address] Phone: tel: fax: Referral ID Status Reason Start Date Expiration Date Visits Re quested Visits Authorized [id number] Closed 06/17/2023 06/16/2024 1 1 * Imaging (Routine) - Closed Specialty Diagnoses / Procedures Referred By Julián robert Referred To Contact Radiology Diagnoses Transaminitis Procedures US Abdomen Latoya Ruiz MD [address] [place] [address] Phone: tel: fax: [address] Phone: tel: fax: Referral ID Status Reason Start Date Expiration Date Visits Re quested Visits Authorized [id number] Closed 06/17/2023 06/16/2024 1 1 Encounter Details Date Type Department Care Team (Late st Contact Info) Description 06/16/2023 Orders Only [facility] [address] [place] [address] Latoya Ruiz MD [address] [place] [address] Hypothyroidism, unspecified type (Primary Dx); Transaminitis; Inguinal [...] or hopeless Several days 06/16/2023 8:57 AM Ghislaine Ahumada [place] Trouble falling or staying asleep, or [...] AM EST Narrative 09/03/2023 2:51 PM EST [place] [address] CT Scan Report Signed Patient: Alexia Núñez MR#: [id number] 8 : 1975 Acct:[id number] Age/Sex: 48 / F ADM Date: 08/31/23 Loc: HO.CT Attending Dr: Latoya Ruiz MD Ordering Physician: Latoya Ruiz MD Date of Service: 08/31/23 Procedure(s): CT abdomen pelvis w IV con Accession Number(s): [id number] cc: Latoya Ruiz MD EXAMINATION: CT ABDOMEN [...] in OV> 09/03/23 1447 DD/ 1050 TD/TT: Gas Appliance Servicer: ELLIOTT Procedure Note Donotuseinterpreter, Image - 09/03/[address] [address] [address] Scan Report Signed Patient: Alexia NúñezMR#: [id number] 8 : 1975Acct:[id number] Age/Sex: 48 / FADM Date: 08/31/23 Loc: HO.CT Attending Dr: Latoya Ruiz MD Ordering Physician: Latoya Ruiz MD Date of Service: 08/31/23 Procedure(s): CT abdomen pelvis w IV con Accession Number(s): [id number] cc: Latoya Ruiz MD EXAMINATION: CT ABDOMEN [...] in OV> 09/03/23 1447 DD/ 1050 TD/TT: Gas Appliance Servicer: ELLIOTT us Latoya Ruiz MD IMG CT PROCEDURES Final Re sult * Hepatitis C Viral RNA, Quantitative, Real-Time PCR (06/30/2023 9:19 AM EDT) Pathologist [facility] Hepatitis C Viral Load <15 NOT DETECTED NOT DETECTED IU/mL [facility] HCV Log PCR <1.18 NOT DETECTED NOT DETECTED Log IU/mL [facility] Comment:This test was perfor med using Real-Time Polymerase ChainReaction.Reportable Range: 15 IU/mL to 100,000,000 IU/mL(1.18 Log IU/mL to 8.00 Log IU/mL).The analytical performance characteristics of thisassay have been determined by [employer].The modifications have not been cleared or approved bythe FDA. This assay has been validated pursuant to theCLIA regulations and is used for clinical purposes.For more information on this test, go to:http://education.[employer]/faq/KCK37p9(This link is being provided for informational/educational purposes only.)THIS TEST WAS PERFORMED AT:[employer] [place] [id number] CHUN MD Blood 06/30/2023 9:19 AM EDT 06/30/2023 11:16 AM EDT Latoya Ruiz MD LAB BLOOD ORDERABLES Final Result Performing Organization Address [facility]/ZIP Co de Phone Number [facility] [address] [place] [phone] * C-reactive Protein (06/30/2023 9:19 AM EDT) [facility] C Reactive Protein <0.10 < or = 0.50 mg/dL [facility] Blood Venous blood specimen / Unknown 06/30/2023 9:19 AM EDT 06/30/2023 11:16 AM EDT Latoya Ruiz MD LAB BLOOD ORDERABLES Final Result Performing Organization Address [facility] Co de Phone Number [facility] [address] [place] [address] [phone] * (ABNORMAL) Lactate dehydrogenase (06/30/2023 9:19 AM EDT) Pathologist [facility] Lactate Dehydrogenase 325(H) 122 - 220 U/L [facility] Blood Venous blood specimen / Unknown 06/30/2023 9:19 AM EDT 06/30/2023 11:16 AM EDT Latoya Ruiz MD LAB BLOOD ORDERABLES Final Result Performing Organization Address [facility] de Phone Number [facility] [address] [place] [address] [phone] * RPR (Monitor) with Reflex to??Titer (06/30/2023 9:19 AM EDT) Pathologist [facility] RPR (Monitor) w/Refl Titer NON-REACTI VE NON-REACT GIULIA [facility] Comment:THIS TEST WAS PERFOR MED AT:[employer] [place] [id number] CHUN MD Rapid Plasma Reagin Ab Titer TNP [facility] Blood Venous blood specimen / Unknown 06/30/2023 9:19 AM EDT 06/30/2023 11:16 AM EDT Latoya Ruiz MD LAB BLOOD ORDERABLES Final Result Performing Organization Address City/[facility]/ZIP Co de Phone Number [facility] [address] [place] [address] [phone] * (ABNORMAL) CBC auto differential (06/30/2023 9:19 AM EDT) Pathologist [facility] White Blood Count 4.4(L) 4.8 - 10.8 X10*3/uL [facility] Red Blood Count 3.80(L) 4.20 - 5.50 X10*6/uL [facility] Hemoglobin 11.6(L) 12.0 - 16.0 g/dl [facility] Hematocrit 36.2(L) 37.0 - 47.0 % [facility] Mean Corpuscular Volume 95.3 80.0 - 98.0 fL [facility] Mean Corpuscular Hemoglobin 30.5 27.0 - 33.0 pg [facility] Mean Corpuscular HGB Conc 32.0 31.0 - 35.0 g/dl [facility] Red Cell Distribution Width 13.2 11.0 - 16.0 % [facility] Platelet Count 162 160 - 400 X10*3/uL [facility] Mean Platelet Volume 12.2 9.4 - 12.3 fL [facility] Neutrophils Percent Auto 68.2 45 - 73 % [facility] Imm Gran Pct Auto 0.2 0.0 - 0.4 % [facility] Lymphocytes Percent Auto 24.8 20 - 40 % [facility] Monocytes Percent Auto 6.8 2 - 11 % [facility] Eosinophils Percent Auto 0.0 0 - 4 % [facility] Basophils Percent Auto 0.0 0 - 2 % [facility] NRBC Pct Auto 0.0 0.0 - 0.2 /100WBC [facility] Neutrophils Absolute Auto 3.0 2.0 - 8.3 x10*3/uL [facility] Imm Gran Abs Auto 0.01 0.00 - 0.03 X10*3/uL [facility] Lymphocytes Absolute Auto 1.1(L) 1.2 - 4.9 X10*3/uL [facility] Monocytes Absolute Auto 0.3 0.1 - 1.2 X10*3/uL [facility] Eosinophils Absolute Auto 0.0 0.0 - 0.4 X10*3/uL [facility] Basophils Absolute Auto 0.0 0.0 - 0.2 X10*3/uL [facility] NRBC Abs Auto 0.000 0.0 - 0.012 X10*3/uL [facility] Blood Venous blood specimen / Unknown 06/30/2023 9:19 AM EDT 06/30/2023 11:16 AM EDT Latoya Ruiz MD LAB BLOOD ORDERABLES Final Result [facility] [address] [place] [address] [phone] documented in this encounter Visit Diagnoses Diagnosis Hypothyroidism, unspecified type- Primary Transaminitis Nonspecific elevation of levels of transaminase or lactic acid dehydrogenase (LDH) Inguinal lymphadenopathy Enlargement of lymph nodes documented in this encounter Additional Health Concerns Assessment Noted Time PHQ-9 Depression Total Score: 2 06/16/20 23 8:57 AM EDT documented as of this encounter Care Teams Import/Export Agent Relationship Specialty Start Date End Date Latoya Ruiz MD [address] [place] [address] PCP - General Family Medicine 10/25/18 Yoni Portillo MD [address] [place] [address] Dr [address] [place] [address] Orthopaedic Surgery 10/10/24 Irlanda Kaur [address] [place] [address] Gastroenterology 02/01/25 Reji Bowden MD [address] [place] [address] Obstetrics and Gynecology 06/06/25 Eros Aldana NP [facility] Pain Medicine 10/26/24 documented as of this encounter
--- OUTSIDE RECORDS SUMMARY | 2025-07-03 12:23 | XMS_ITS | Encounter Summary ---
Author Organization [employer] Address [address] [place] [address] 7 [place] [address] Care Team Providers Care Paper Cup Handle Machine Operator Name Role Phone Latoya Ruiz MD Primary Care Provider +1- [phone] Yoni Portillo MD Unavailable Irlanda Kaur Unavailable Reji Bowden MD Unavailable Encounter Details Date Type Department Care Team (Late st Contact Info) Description 12/01/2022 Abstract [facility] [address] [place], [place] [phone] Latoya Ruiz MD [address] [place], [place] [phone] Social History Tobacco Use Types Packs/Day Years [...] in this encounter Results * Mammography (12/08/2021) Mammogram BIRADS 1 Anatomical Region Laterality Modality Other Historical Provider HEALTH MAINTENANCE Final Result * Pap Smear (11/17/2019 12:00 AM EST) Swab Historical Provider LAB CYTOLOGY ORDERABLES F inal Result IMAGING documented in this encounter Visit Diagnoses Not on filedocumented in this encounter Care Teams Paper Cup Handle Machine Operator Relationship Specialty Start Date End Date Latoya Ruiz MD [address] [place] [phone] PCP - General Family Medicine 10/25/18 Yoni Portillo MD [address] [place] [address] Dr [address] [place] [address] Orthopaedic Surgery 10/10/24 Irlanda Kaur [address] [place] [phone] Gastroenterology 02/01/25 Reji Bowden MD [address] [place] [phone] Obstetrics and Gynecology 06/06/25 Eros Aldana NP [facility] Pain Medicine 10/26/24 documented as of this encounter
--- OUTSIDE RECORDS SUMMARY | 2025-07-03 12:23 | XMS_ITS | Clinical Summary ---
Author Organization [employer] Address [address] [facility] [address] [place] [address] Care Team Providers Care Strip Presser Name Role Phone Latoya Ruiz MD Primary Care Provider [phone] Yoni Portillo MD Unavailable Irlanda Kaur Unavailable Reji Bowden MD Unavailable Allergies No known active allergies Medications * This document contains information received from the source organization and may not represent a complete record from that organization. oxyCODONE-aceta minophen (Percocet) 10-325 MG tablet Take 1 tablet by mouth every 8 (eight) hours if needed. 03/30/20 23 Active Diclofenac Sodium 1 % gelIndications: Chronic pain syndrome APPLY 1 APPLICATION TOPICALLY IF NEEDED EACH DAY (SHOULDER PAIN). 100 g 02/01/20 24 Active Lidocaine 5 % creamIndication s:Right shoulder pain, unspecified chronicity Apply topically bid 30 g 3 02/28/20 24 Active DULoxetine (Cymbalta) [address] capsuleIndicati ons:Moderate episode of recurrent major depressive disorder (CMS/HCC) TAKE 1 CAPSULE BY MOUTH EVERYDAY AT NOON 90 capsule 3 08/17/20 24 Active metroNIDAZOLE (Metrogel) 0.75 % vaginal gelIndications: Bacterial Vaginosis Insert one applicator into vagina at bedtime for 7 nights 45 g 02/02/20 25 Active levothyroxine (Synthroid) 150 MCG tabletIndicatio ns:Hypothyroidi sm, unspecified type Take 1 tablet (150 mcg) by mouth Once per day. 30 tablet 11 02/07/20 25 026 Active Acetaminophen Extra Strength 500 MG tablet Take 1 tablet by mouth every 6 (six) hours if needed for pain. 09/06/20 24 Active buPROPion XL (Wellbutrin XL) 150 MG 24 hr tablet TAKE 1 TABLET BY MOUTH EVERYDAY AT NOON Active ofloxacin (Ocuflox) 0.3 % ophthalmic solution INSTILL 1 DROP IN THE LEFT EYE FOUR TIMES DAILY FOR 10 DAYS 01/30/20 25 Active Multiple Vitamin (Multivitamin) tabletIndicatio ns:Hx of gastric bypass TAKE 1 TABLET BY MOUTH EVERYDAY AT NOON 90 tablet 06/19/20 25 Active cholecalciferol (D3-1000) 25 MCG (1000 UT) capsuleIndicati ons:Vitamin D deficiency TAKE 1 CAPSULE BY MOUTH EVERYDAY AT NOON 90 capsule 06/19/20 25 Active Zinc 30 MG capsuleIndicati ons:Hx of gastric bypass TAKE 1 TABLET BY MOUTH EVERYDAY AT NOON 90 capsule 06/19/20 25 Active cholecalciferol (D3-1000) 25 MCG (1000 UT) capsuleIndicati ons:Vitamin D deficiency TAKE 1 CAPSULE BY MOUTH EVERYDAY AT NOON 90 capsule 03/08/20 25 025 Discontinued Multiple Vitamin (Multivitamin) tabletIndicatio ns:Hx of gastric bypass TAKE 1 TABLET BY MOUTH EVERYDAY AT NOON 90 tablet 03/08/20 25 025 Discontinued Zinc 30 MG capsuleIndicati ons:Hx of gastric bypass TAKE 1 CAPSULE BY MOUTH EVERYDAY AT NOON 90 capsule 03/08/20 25 025 Discontinued Active Problems Problem Noted Date Diagnosed Date [...] per [place] [facility] [place] requested to RADHA- Kena Velazco Last pap smear and last AUTOMATIC TOE LASTER note -MM per pt done in 2022 [...] 12/21/2024 Overview (02/01/2025): On chronic opiates with [facility] pain management 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 Portillo at [facility] -10/04/24 MR/MR shoulder RT Mild supraspinatus tendinosis. 2.6 x 1.5 cm full-thickness tear of the supraspinatus and anterior fibers infraspinatus. Additional articular surface fraying/partial tear of the tendon proximal to this. Mild infraspinatus tendinosis. Yocsugzu-xoye-rjifr partial tear of the distal subscapularis tendon [...] over time. She will continue with her outtk-rf-vsrgws exercises to prevent stiffness. She will contact me prior to her follow-up appointment in 6 months should her symptoms worsen in any way. -referred to chronic pin group 02/01/25 -note from Dr. Portillo 05/22/25 reviewed, MRI ordered -MRI 05/28/25 There is a full-thickness rotator cuff tear at the junction of supraspinatus and infraspinatus tendons with 13 mm retraction. Long biceps tendon is medially subluxed from biceps groove and there is associated marrow edema like signal in the lesser tuberosity. There is probably an associated full-thickness and retracted tear of the upper subscapularis tendon that is not well-demonstrated. The biceps tendon appears frayed and irregular. There is 2.5 cm intrasubstance delamination tear of the infraspinatus tendon that extends from posterior humeral head to the plane of glenoid articular cartilage. Mild AC joint arthropathy with AC joint effusion, thickening of superior acromioclavicular ligament, and attenuation and probable tear of the inferior acromioclavicular ligament. -seen by Dr. Portillo 05/29/25 Options discussed. She is interested in undergoing right shoulder surgery. Assessment & Plan (02/01/2025 11:30 AM EDT): -followed by Dr. Portillo at [facility] -10/04/24 MR/MR shoulder RT Mild supraspinatus tendinosis. 2.6 x 1.5 cm full-thickness tear of the supraspinatus and anterior fibers infraspinatus. Additional articular surface fraying/partial tear of the tendon proximal to this. Mild infraspinatus tendinosis. Zyjrdbtx-qdyk-glkuc partial tear of the distal subscapularis tendon [...] over time. She will continue with her qwtwn-ka-nhrfcc exercises to prevent stiffness. She will contact [...] Recommend correlation with colonoscopy. CT faxed to [facility] and new referral placed. Sseen [...] Recommend correlation with colonoscopy. CT faxed to [facility] and new referral placed. Sseen [...] Recommend correlation with colonoscopy. CT faxed to [facility] and new referral placed. Sseen [...] Recommend correlation with colonoscopy. CT faxed to [facility] and new referral placed. Sseen [...] Recommend correlation with colonoscopy. CT faxed to [facility] and new referral placed. Sseen [...] pain management with Jessica Salcedo NP at [facility] and on choric opoid [...] pain management with Jessica Salcedo NP at [facility] and on choric opoid PRESCRIBED BY PAIN MANAGEMENT. -referred to chronic pin group 02/01/25 Degeneration of lumbar intervertebral disc 06/14 Overview (12/21/2024): -Followed by pain management, On chronic opiates with [facility] pain management Cyndi Aldana NP History [...] of abnormal cervical Pap smear 06/14/2023 Overview (06/07/2025): -ASCUS with High risk HPV positive 03/2017 s/p colpo 03/2017 which was unremarkable with no biopsies taken. -co-testing July 2018 ASCUS with High risk HPV positive. Seen by Diane -colpo was done Dr. Bowden 08/2018 came back CONNIE 1 -pap done 11/17/2019 was NIL HPV. ASCUS HPV+ -Outgoing call placed to [facility] for plan of care on 11/2019 Lyubov who stated that patient has a f/u appointment on 01/19/2020. Plan of care will be discussed on that visit. Pt believes she missed it. Will ask women's health to assist with setting up. -PAP done 02/01/25, ASCUS, HPV positive, per ASCCP guidelines referred to Product Management Specialist for colpo -colpo done with Dr. Bowden 06/06/25, ECC and biopsies negative for squamous intraepithelial lesion. Assessment & Plan (02/06/2025 6:26 PM EDT): -ASCUS with High risk HPV positive 03/2017 s/p colpo 03/2017 which was unremarkable with no biopsies taken. -co-testing July 2018 ASCUS with High risk HPV positive. Seen by Diane giang was done Dr. Bowden 08/2018 came back CONNIE 1 -pap done 11/17/2019 was NIL HPV. ASCUS HPV+ -Outgoing call placed to [facility] for plan of care on 11/2019 Lyubov who stated that patient has a f/u appointment on 01/19/2020. Plan of care will be discussed on that visit. Pt believes she missed it. Will ask women's health to assist with setting up. -PAP done 02/01/25, ASCUS, HPV positive, per ASCCP guidelines referred to Product Management Specialist for colpo -STI testing offered, PreP offered [...] HPV. ASCUS HPV+ -Outgoing call placed to [facility] for plan of care on 11/2019 Lyubov [...] Overview (02/01/2025): Lab Results Component Value Date [id number] 25.8 (L) 01/19/2024 -ordered repeat level 02/01/25 Assessment & Plan (02/01/2025 11:36 AM EDT): Lab Results Component Value Date [id number] 25.8 (L) 01/19/2024 -ordered repeat level 02/01/25 [...] Adult Foster Care with [employer] [phone], admitted 08/24/23. 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 nurse: Joy Ventura RN Direct Claim Clinician: [facility] Polypharmacy 01/19/2024 02/21/2025 Severe obesity (BMI >= 40) 06/14/2023 0 02/21/2025 Assessment & Plan (12/21/2023 6:30 PM EST): -Advised pt to improve diet and exercise,discussed healthy life style -s/p bariatric surgery last year Other specified health status 06/14/2023 02/21/2025 Overview (02/01/2025): -next comprehensive annual evaluation due after 02/01/25 -eye care facilitated by [facility] -dental home is [facility] -health care proxy filed on 02/28/2024 Assessment & Plan (02/01/2025 11:29 AM EDT): -next comprehensive annual evaluation due after 02/01/25 -eye care facilitated by [facility] -dental home is [facility] -health care proxy filed on 02/28/2024 Assessment & Plan (02/28/2024 11:36 AM EDT): -next physical exam due after January 18 2025 -eye care facilitated by [facility] -dental home is [facility] -health care proxy filed on 02/28/2024 Assessment & Plan (01/19/2024 1:29 PM EDT): -next physical exam due after January 18 2025 -eye care facilitated by [facility] -dental home is [facility] Assessment & Plan (06/16/2023 9:15 AM EDT): -next physical exam due after 08/14/2023 -eye care facilitated by -dental home is Fixed dilated pupil 06/14/2023 02/22/20 25 Overview (02/01/2025): Left pupil, present since prior [...] Assessment & Plan (12/21/2023 6:29 PM EST): -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 fixed dilated left pupil [...] Encounters Date Type Department Care Team Description 06/18/2025 Refill [facility] [address] [place] [address] [place] MD Hx of gastric bypass; Vitamin D deficiency 06/06/2025 Orders Only GENERIC EXTERNAL DATA DEPARTMENT Provider, Generic External Data Hx of abnormal cervical Pap smear (Primary Dx) 05/28/2025 Orders Only [facility] External Provider, [facility] Chronic right shoulder pain (Primary Dx) 04/23/2025 Travel 04/10/2025 Travel from Last 3 Months Immunizations Immunization Administration [...] 67 02/01/2025 10:54 AM EDT Temperature 37.2 C (98.9 F) 02/28/2024 11:12 AM EDT Respiratory Rate 16 02/01/2025 10:54 AM EDT [...] Years) and At-Risk Patients (6 to 49) Years (2 of 2 - PCV) 07/12/2013 07/12/2012, 07/12/2012 COVID-19 Vaccine ( season) 2025 05/20/2022, 2021, 02/14/2021 Influenza Vaccine (#1) 2025 , 08/14/2022, 08/06/2021, Additional history exists Depression Monitoring 08/03/2025 02/01/2025, 025 Alcohol/Substance Use Screening 02/01/2026 02/01/2025 Family Planning (PISQ) 02/01/2026 02/01/2025 SDOH Screening 02/01/2026 02/01/2025 Tobacco Screening 02/27/2026 02/27/2025 Colonoscopy 04/07/2026 04/07/2024 Colorectal Cancer Screening 04/07/2026 Disability Screening 04/23/2026 04/23/2025 Cervical Cancer Screening 06/06/2026 HPV/Cotest 06/06/2026 02/01/2025, 05/25, 04/02/2017 Pap Smear 06/06/2026 02/01/2025, 11/17/2019 Zoster Vaccines (1 of 2) 2027 Mammogram 03/26/2027 03/26/2025, 01/24, 12/08/2021, Additional history exists DTaP/Tdap/Td Vaccines (2 - Td or Tdap) 04/02/2027 04/02/2017 Lipid Panel 02/05/2030 02/05/2025, 12/24, 06/16/2023, Additional history exists RSV Patients and Patients Aged 60 years or older (1 - 1-dose 75+ series) 2052 Hepatitis A Vaccines Completed 07/12/2012, 05/19/20 07 Hepatitis B Vaccines Completed 07/12/2012, 05/19/2007, 11/19/2006, Additional history exists HIV Screening Completed 02/05/2025, 090 03/2023, 08/14/2022, Additional history exists Colposcopy Discontinued 06/06/2025 HIB Vaccines Aged Out No longer eligi [...] 140/90 Blood Pressure 124/73(2024 10:54 AM EDT) Calli Adrian Record your blood pressure once per day Blood Pressure No Calli Katz Procedures Procedure Name Priority Date/Time Associated Diagnosis Comments HEMATOXYLIN AND EOSIN STAIN Routine 06/06/2025 10:31 AM EDT COLPOSCOPY Routine 06/06/2025 12:00 AM EDT MR SHOULDER WO CONTRAST RIGHT Routine 05/28/2025 9:45 AM EDT BI MAMMOGRAM SCREENING TOMOSYNTHESIS BILATERAL Routine 03/26/2025 2:50 PM EDT Screening mammogram for breast cancer HIV 1/2 ANTIGEN/ANTIBODY, FOURTH GENERATION W/RFL Routine 02/05/2025 9:41 AM EDT Encounter for hepatitis C screening test for low risk patient LIPID PANEL, STANDARD Routine 02/05/2025 9:41 AM EDT Hx of gastric bypass PAP SMEAR Routine 02/01/2025 11:46 AM EDT Hx of abnormal cervical Pap smear HPV DNA, LOW/HIGH RISK Routine 12:00 AM EDT HM COLONOSCOPY Routine 04/07/2024 3:31 PM EDT from Last 3 Months or Most Recently Relevant to Health Maintenance Results * Hematoxylin and Eosin Stain (06/06/2025 10:31 AM EDT) 06/06/2025 10:3 1 AM EDT 06/06/2025 10:53 AM EDT [facility] - 06/07/2025 1:50 PM EDT ----- ------- Name: Alexia Núñez Age/Sex: 50/F : 1975 Unit#: [id number] Attend Dr: Reji Bowden MD Re06/06/25 Status: DEP REF Location: [facility] Disch: ----- ------- SPEC : [id number] RECD: 06/06/25-105 STATUS: [facility] NUM: [id number] JORGE: 06/06/25-[address] [facility] DR: Reji Bowden MD ENTERED: 06/06/25-1107 SP TYPE: Surgical OTHR DR: Latoya Ruiz MD ORDERED: HE Stain/14, Gross Micro L4/5 Diagnosis A. Endocervix, curettage: Minute fragment of squamous mucosa; no endocervical component seen; negative for squamous intraepithelial lesion. B. Cervix, 1 o'clock, biopsy: Squamous mucosa within normal limits; no endocervical component seen; negative for squamous intraepithelial lesion. C. Cervix, 6 o'clock, biopsy: Squamous mucosa within normal limits; negative for squamous intraepithelial lesion. D. Cervix, 11 o'clock, biopsy: Squamous mucosa within normal limits; no endocervical component seen; negative for squamous intraepithelial lesion. E. Cervix, 12 o'clock, biopsy: Squamous mucosa within normal limits; no endocervical component seen; negative for squamous intraepithelial lesion. COMMENT: The atypical cells noted on the patient's recent Pap smear ([id number]; ASCUS; HPV+) are not seen in the current biopsy findings. Clinical History ASCUS with positive HPV cervical Microscopic Description Microscopic sections reviewed. Material Received A. ECC B. Cx bx 1 o'clock C. Cx bx 6 o'clock D. Cx bx 11 o'clock E. Cx bx 12 o'clock Gross Description Received in five parts. Part A: Received in formalin labeled ECC is a minute evonne of porras tissue versus mucus, submitted in toto in a cassette labeled A. Part B: Received in formalin labeled cx bx 1 are two rubbery, hanley-white and porras-pink CONTINUED ON NEXT PAGE ----- ------- Name: Alexia Núñez Age/Sex: 50/F : 1975 Unit#: [id number] Attend Dr: Reji Bowden MD Re06/06/25 Status: DEP REF Location: [facility] Disch: ----- ------- SPEC : [id number] RECD: 06/06/25-1052 STATUS: [facility] NUM: [id number] JORGE: 06/06/25-[address] [facility] DR: Reji Bowden MD ENTERED: 06/06/25-110 SP TYPE: Surgical OTHR DR: Latoya Ruiz MD ORDERED: HE Stain/14, Gross Micro L4/5 Gross Description (Continued) irregular and wedge-shaped fragments of mucosa measuring 0.2 and 0.35 cm, submitted in toto in a cassette labeled B. Part C: Received in formalin labeled cx bx 6 is a 0.35 cm rubbery, porras-pink wedge-shaped fragment of mucosa, submitted in toto in a cassette labeled C. Part D: Received in formalin labeled cx bx 11 are three hanley-white irregular fragments of mucosa ranging 0.15-0.2 cm, submitted in toto in a cassette labeled D. Part E: Received in formalin labeled cx bx 12 is a 0.3 cm rubbery, hanley-white wedge- shaped fragment of mucosa, submitted in toto in a cassette labeled E. CEDS IHC S/NG Disclaimer NOTE: Unless otherwise stated, all tissue is formalin-fixed and paraffin-embedded. Some or all of the immunohistochemical tests reported herein may have been developed and their performance characteristics determined by [facility]. They have not been cleared or approved by the U.S. Food and Drug Administration (FDA). However, the FDA has determined that such clearance or approval is not necessary. This laboratory is certified under the Clinical Laboratory Improvement Amendments of 1988 (CLIA) as qualified to perform high complexity clinical laboratory testing. Copies To: Latoya Ruiz MD [address] [address] Reji Bowden MD [facility] [place] [place] [facility] [address] [place] [address] Drive [address] [place] [id number] ----- ------- Signed (signature on file) Gely Kenny MD 06/07/25 0800 ----- ------- END OF REPORT us Generic External Data Provider LAB BLOOD ORDERAB LES Final Result [facility] [address] [place] [phone] * Colposcopy (06/06/2025 12:00 AM EDT) Narrative Yael Gongora - 06/06/2025 12:00 AM EDT See results under patients labs us Historical Provider MD IN CLINIC/BEDSIDE ORDERAB LES Edited Result - Final * MR Shoulder w/o Contrast Right (05/28/2025 9:45 AM EDT) Anatomical Region Laterality Modality Upper Extremities, Shoulder Right Magn etic Resonance 05/28/2025 9:45 AM EDT Narrative 05/28/2025 11:04 AM EDT [address] [address] Magnetic Resonance Report Signed Patient: Alexia Núñez MR#: [id number] 8 : 1975 Acct:[id number] Age/Sex: 50 / F ADM Date: 05/28/25 Loc: HO.MRI Attending Dr: Yoni Portillo MD Ordering Physician: Yoni Portillo MD Date of Service: 05/28/25 Procedure(s): MR shoulder RT wo con Accession Number(s): [id number] cc: Latoya Ruiz MD; Yoni Portillo MD EXAMINATION: MR SHOULDER WITHOUT CONTRAST, RIGHT CLINICAL INFORMATION: Right shoulder pain, rotator cuff tear COMPARISON: X-ray on September 06, 2024 TECHNIQUE: MRI of the shoulder without contrast was performed on a high-field scanner. FINDINGS: Rotator Cuff: There is a full-thickness tear of supraspinatus tendon near junction with infraspinatus tendon with 13 mm retraction. Supraspinatus tendon fibers are intact far anteriorly. There is intrasubstance delamination of infraspinatus tendon posterior to the humeral head and extending to the level of glenoid articular surface measuring 2.5 cm in length. There is likely a full thickness nonretracted tear of the upper subscapularis tendon. Labrum: Labrum is intact. Long biceps tendon: Long biceps tendon is medially displaced from biceps groove. The tendon is frayed and irregular as it courses over lesser tuberosity. Acromioclavicular joint: There is mild degenerative irregularity and thickening of the superior acromioclavicular tendon. Acromial morphology is flat, type I. There is fluid within the AC joint. The inferior acromioclavicular ligament is thinned and irregular. There is fluid in the subacromial subdeltoid bursa. Axillary pouch: The axillary pouch is intact. Articular cartilage: There are no articular cartilage defects. Bones/Marrow: Degenerative cystic marrow signal changes are present in the anterior greater tuberosity. There is reactive marrow signal in the lesser tuberosity, likely chronic secondary to long biceps tendon subluxation. Soft tissues: There is minimal fatty streaking of shoulder musculature from deconditioning. There is no muscle edema. MR/MR shoulder RT wo con IMPRESSION: There is a full-thickness rotator cuff tear at the junction of supraspinatus and infraspinatus tendons with 13 mm retraction. Long biceps tendon is medially subluxed from biceps groove and there is associated marrow edema like signal in the lesser tuberosity. There is probably an associated full-thickness and retracted tear of the upper subscapularis tendon that is not well-demonstrated. The biceps tendon appears frayed and irregular. There is 2.5 cm intrasubstance delamination tear of the infraspinatus tendon that extends from posterior humeral head to the plane of glenoid articular cartilage. Mild AC joint arthropathy with AC joint effusion, thickening of superior acromioclavicular ligament, and attenuation and probable tear of the inferior acromioclavicular ligament. Electronically signed by: Edwin Torres MD 05/28/2025 11:01 AM EDT Dictated By: Edwin Torres MD Signed By: <Electronically signed by Edwin Torres MD in OV> 05/28/25 1101 DD/ 0945 TD/TT: 05/28/25 1030 Photographer'S Model: Procedure Note Donotuseinterpreter, Image - 05/28/[address] [address] Magnetic Resonance Report Signed Patient: Alexia NúñezMR#: [id number] 8 : 1975Acct:[id number] Age/Sex: 50 / FADM Date: 05/28/25 Loc: HO.MRI Attending Dr: Yoni Portillo MD Ordering Physician: Yoni Portillo MD Date of Service: 05/28/25 Procedure(s): MR shoulder RT wo con Accession Number(s): [id number] cc: Latoya Ruiz MD; Yoni Portillo MD EXAMINATION: MR SHOULDER WITHOUT CONTRAST, RIGHT CLINICAL INFORMATION: Right shoulder pain, rotator cuff tear COMPARISON: X-ray on September 06, 2024 TECHNIQUE: MRI of the shoulder without contrast was performed on a high-field scanner. FINDINGS: Rotator Cuff: There is a full-thickness tear of supraspinatus tendon near junction with infraspinatus tendon with 13 mm retraction. Supraspinatus tendon fibers are intact far anteriorly. There is intrasubstance delamination of infraspinatus tendon posterior to the humeral head and extending to the level of glenoid articular surface measuring 2.5 cm in length. There is likely a full thickness nonretracted tear of the upper subscapularis tendon. Labrum: Labrum is intact. Long biceps tendon: Long biceps tendon is medially displaced from biceps groove. The tendon is frayed and irregular as it courses over lesser tuberosity. Acromioclavicular joint: There is mild degenerative irregularity and thickening of the superior acromioclavicular tendon. Acromial morphology is flat, type I. There is fluid within the AC joint. The inferior acromioclavicular ligament is thinned and irregular. There is fluid in the subacromial subdeltoid bursa. Axillary pouch: The axillary pouch is intact. Articular cartilage: There are no articular cartilage defects. Bones/Marrow: Degenerative cystic marrow signal changes are present in the anterior greater tuberosity. There is reactive marrow signal in the lesser tuberosity, likely chronic secondary to long biceps tendon subluxation. Soft tissues: There is minimal fatty streaking of shoulder musculature from deconditioning. There is no muscle edema. MR/MR shoulder RT wo con IMPRESSION: There is a full-thickness rotator cuff tear at the junction of supraspinatus and infraspinatus tendons with 13 mm retraction. Long biceps tendon is medially subluxed from biceps groove and there is associated marrow edema like signal in the lesser tuberosity. There is probably an associated full-thickness and retracted tear of the upper subscapularis tendon that is not well-demonstrated. The biceps tendon appears frayed and irregular. There is 2.5 cm intrasubstance delamination tear of the infraspinatus tendon that extends from posterior humeral head to the plane of glenoid articular cartilage. Mild AC joint arthropathy with AC joint effusion, thickening of superior acromioclavicular ligament, and attenuation and probable tear of the inferior acromioclavicular ligament. Electronically signed by: Edwin Torres MD 05/28/2025 11:01 AM EDT Dictated By: Edwin Torres MD Signed By: <Electronically signed by Edwin Torres MD in OV> 05/28/25 1101 DD/ 0945 TD/TT: 05/28/25 1030 Photographer'S Model: [facility] External Provider IMG MRI PROCEDURES Final Result * BI Mammogram Screening Tomosynthesis Bilateral (03/26/2025 2:50 PM EDT) Anatomical Region Laterality Modality Breast Bilateral Mammography 03/26/2025 2:50 PM EDT Narrative 03/31/2025 9:50 PM EDT [facility] [address] [place] [address] Mammography Report Signed Patient: Alexia Núñez MR#: [id number] 8 : 1975 Acct:[id number] Age/Sex: 50 / F ADM Date: 03/26/25 Loc: HO.MAMMO Attending Dr: Latoya Ruiz MD Ordering Physician: Latoya Ruiz MD Results: 1N egative Date of Service: 03/26/25 Follow Up: 1 Year From Orig inal Mammogram Procedure(s): MM tomosynthesis screening BI Accession Number(s): [id number] cc: Latoya Ruiz MD EXAMINATION: MM SCREENING DIGITAL BREAST TOMOSYNTHESIS, BILATERAL CLINICAL INFORMATION: Screening. Asymptomatic. COMPARISON: Mammography: Comparison is made with available priors TECHNIQUE: Digital breast mammography with tomosynthesis is performed in both the craniocaudal and mediolateral oblique views along with computer-aided detection (CAD). FINDINGS: There are scattered areas of fibroglandular [...] target due date for their next mammogram. Electronically signed by: Nela Miranda DO 03/31/2025 09:47 PM EDT Dictated By: Nela Miranda DO Signed By: <Electronically signed by Nela Miranda DO in OV> 03/31/25 2147 DD/ 1450 TD/TT: 03/26/25 1508 Photographer'S Model: Procedure Note Donotuseinterpreter, Image - 03/31/20[facility] [address] [place] [address] Mammography Report Signed Patient: Alexia NúñezMR#: [id number] 8 : 1975Acct:[id number] Age/Sex: 50 / FADM Date: 03/26/25 Loc: HO.MAMMO Attending Dr: Latoya Ruiz MD Ordering Physician: Latoya Ruiz MDResults: 1N egative Date of Service: 03/26/25Follow Up: 1 Year From Orig inal Mammogram Procedure(s): MM tomosynthesis screening BI Accession Number(s): [id number] cc: Latoya Ruiz MD EXAMINATION: MM SCREENING DIGITAL BREAST TOMOSYNTHESIS, BILATERAL CLINICAL INFORMATION: Screening. Asymptomatic. COMPARISON: Mammography: Comparison is made with available priors TECHNIQUE: Digital breast mammography with tomosynthesis is performed in both the craniocaudal and mediolateral oblique views along with computer-aided detection (CAD). FINDINGS: There are scattered areas of fibroglandular [...] target due date for their next mammogram. Electronically signed by: Nela Miranda DO 03/31/2025 09:47 PM EDT Dictated By: Nela Miranda DO Signed By: <Electronically signed by Nela Miranda DO in OV> 03/31/25 2147 DD/ 1450 TD/TT: 03/26/25 1508 Photographer'S Model: Latoya Ruiz MD IM BI PROCEDURES Edited R esult - Final * HIV-1/2 Antigen and Antibodies, Fourth Generation, with Reflexes (02/05/2025 9:41 AM EDT) HIV AB/AG Nonreactive Nonreactive [facility] Comment:HIV-1 p24 Ag and/or HIV-1/HIV-2 Ab not detected.A test result that is nonreactive does not exclude thepossibility of exposure to or infection with HIV-1 and/orHIV-2. Nonreactive results in this assay for individualswith prior exposure to HIV-1 and/or HIV-2 may be due toantigen and antibody levels that are below the limit ofdetection of this assay.The [email or web address] HIV Ag/Ab Combo assay result andsupplemental assay results should be interpreted inconjunction with the patient's clinical presentation,history and other laboratory results. If the results areinconsistent with clinical evidence, additional testing issuggested to confirm the result. Blood Venous blood specimen / Unknown 02/05/2025 9:41 AM EDT 02/05/2025 11:13 AM EDT Latoya Ruiz MD LAB BLOOD ORDERABLES Final Result Performing Organization Address [facility]/ZIP Co de Phone Number [facility] [address] [place] [phone] * (ABNORMAL) Lipid Panel, Standard (02/05/2025 9:41 AM EDT) Triglycerides 69 <150 mg/dL [facility] Comment:Desirable Triglyceri de: less than 150 mg/dLBorderline High Triglyceride 150-199 mg/dLHigh Triglyceride: 200-499 mg/dLVery High Triglyceride: greater than or equal to 5OO mg/dL Cholesterol 201(H) <200 mg/dL [facility] Comment:Desirable Cholestero l: less than 200 mg/dLBorderline High Cholesterol: 200-239 mg/dLHigh Cholesterol: greater than 239 mg/dL LDL Cholesterol Calculated 115(H) <100 mg/dL [facility] Comment:Desirable LDL: less than 100 mg/dLNear Optimal/Above Optimal LDL: 110- 129 mg/dLBorderline High LDL: 130-159 mg/dLHigh LDL: 160-189 mg/dLVery High LDL: greater than or equal to 190 mg/dL HDL Cholesterol 73 >40 mg/dL [facility] Comment:Desirable HDL: great er than 40 mg/dL Note: This HDL assay may give artificially low results in patients with liver disease. Blood Venous blood specimen / Unknown 02/05/2025 9:41 AM EDT 02/05/2025 11:13 AM EDT Latoya Ruiz MD LAB BLOOD ORDERABLES Final Result Performing Organization Address City/[facility]/ZIP Co de Phone Number [facility] [address] [place] [phone] * Pap Smear (02/01/2025 11:46 AM EDT) Swab Cervix uteri structure / Unknown 02/01/2025 11:46 AM EDT 02/02/2025 6:04 AM EDT [facility] - 02/06/2025 5:36 PM EDT ----- ------- Name: Alexia Núñez Age/Sex: 49/F : 1975 Unit#: [id number] Attend Dr: Latoya Ruiz MD Re02/01/25 Status: [facility]ch[facility] ----- ------- SPEC : [id number] RECD: 02/02/25 STATUS: HERRERA ALONSO NUM: [id number] JORGE: 02/01/25-[address] [facility] DR: Latoya Ruiz MD ENTERED: 02/02/25 SP TYPE: Pap Smr [facility] DR: ORDERED: Pap Smear, PAP path review Interpretation General Category: Epithelial cell abnormality. Adequacy: Endocervical component present. Interpretation: Atypical squamous cells of undetermined significance. Abundant acute inflammation. Coccobacilli consistent with shift in vaginal rajat. HPV High Risk: Positive HPV Genotyping 16: Negative HPV Genotyping 18: Negative Clinical Information LMP:Unknown date Previous PAP test:11/17/2019 NIL HPV. ASCUS HPV + Material Received ThinPrep-Cervical ----- ------- Signed (signature on file) Zully Sukhjinder 02/06/25 1736 ----- ------- END OF REPORT Latoya Ruiz MD LAB CYTOLOGY ORDERABLES Fi nal Result [facility] [address] [place] [phone] * (ABNORMAL) HPV DNA, Low/High Risk (02/01/2025 12:00 AM EDT) Pathologist [facility] HPV High Risk Positive(A) Negative [facility] HPV Genotype 16 Negative Negative [facility] HPV Genotype 18 Negative Negative [facility] Comment:HPV testing performe d at [facility] (CLIA#[id number]), [address] [place] [address].Testing for HPV was performed using the [employer] [...] Ruiz MD LAB BLOOD ORDERABLES Final Result [facility] [address] [place] [phone] * Colonoscopy (04/07/2024 3:31 PM EDT) [facility] Colonoscopy Normal Normal Comment:repeat 1-2 year Historical Provider HEALTH MAINTENANCE Final Result from Last 3 Months or Most Recently Relevant to Health Maintenance [facility] [place] [address] Advance Directives Documents on File Type Date Recorded Patient Shirt Creaser Expl anation Advance Directives and Living Will 02/28/2024 Health Care Proxy 02/28/24 Care Teams Strip Presser Relationship Specialty Start Date End Date Latoya Ruiz MD [address] [place] [address] PCP - General Family Medicine 10/25/18 Yoni Portillo MD [address] [place] [address] [address] [place] [address] Orthopaedic Surgery 10/10/24 Irlanda Kaur [address] [place] [address] Gastroenterology 02/01/25 Reji Bowden MD [address] [place] [address] Obstetrics and Gynecology 06/06/25 Eros Aldana NP [facility] Pain Medicine 10/26/24
--- OUTSIDE RECORDS SUMMARY | 2025-07-03 12:23 | XMS_ITS | Encounter Summary ---
Author Organization [employer] Address [address] [facility] 7 [place] [address] Care Team Providers Care Window Sash Installer Name Role Phone Latoya Ruiz MD Primary Care Provider +1- [phone] Yoni Portillo MD Unavailable Irlanda Kaur Unavailable Reji Bowden MD Unavailable Reason for Visit * Reason Comments Med Refill Encounter Details Date Type Department Care Team (Late st Contact Info) Description 02/27/2024 Refill [facility] MEDICINE [address] [place], [place] [phone] Latoya Ruiz MD [address] [place], [place] [phone] Vitamin D deficiency Social History Tobacco Use [...] documented as of this encounter Care Teams Window Sash Installer Relationship Specialty Start Date End Date Latoya Ruiz MD [address] [place] [phone] PCP - General Family Medicine 10/25/18 Yoni Portillo MD [address] [place] [address] Dr [address] [place] [address] Orthopaedic Surgery 10/10/24 Irlanda Kaur [address] [place] [address] Gastroenterology 02/01/25 Reji Bowden MD [address] [place] [address] [place] [address] Obstetrics and Gynecology 06/06/25 Eros Aldana NP [facility] Pain Medicine 10/26/24 documented as of this encounter
--- OUTSIDE RECORDS SUMMARY | 2025-07-03 12:23 | XMS_ITS | Clinical Summary ---
Author Organization [address] [place] [address] Address [address] [place] [address] Phone Care Team Providers Care Expeditionary Fighting Vehicle Crewman Name Role Phone Latoya Ruiz MD Primary Care Provider +1- [phone] Allergies No known active allergies Medications cholecalcifero [...] every 4 hours as needed. Active pancrelipase, She-Tfin-Wayj, (CREON) 3,000-9,500- 15,000 unit capsule Take by [...] NOON 30 tablet 3 12/18/19 25 Active phentermine 15 mg capsule TAKE 1 CAPSULE BY MOUTH EVERY MORNING BEFORE BREAKFAST 30 capsule 06/27/20 25 Active phentermine 15 mg capsule Take 1 capsule (15 mg total) by mouth 1 (one) time each day before breakfast. Max Daily Amount: 15 mg 30 each 05/15/20 25 025 Discontinued Active Problems Problem Noted Date Diagnosed Date Class 2 severe obesity due t o excess calories with serious comorbidity and body mass index (BMI) of 37.0 to 37.9 in adult ([facility] V24, [facility] V28) 09/25/2024 Abnormal ECG 06/10/2022 Benign [...] for surgery on Wednesday. Chronic hepatitis C (CMS/HCC V24, CMS/HCC V28) 0 03/18/2022 Eating disorder, unspecified 03/18/2022 Overview (09/25/2024): Dr Natali Jarvis History of recurrent spontan eous , not currently 03/18/2022 Hypothyroidism 03/18/2022 Major depressive disorder, single episode, unspe cified 03/18/2022 Vitamin D deficiency 03/18/2022 Encounters Date Type Department Care Team Description 05/15/2025 9:15 AM EDT Office Visit Bariatric Surgery - [address] [place] [address] Laura Pérez MD Class 3 severe obesity due to excess calories with body mass index (BMI) of 40.0 to 44.9 in adult, unspecified whether serious comorbidity present (CMS/HCC V24, [facility] V28) (Primary Dx) from Last 3 [...] of bariatric surgery; COMMENT: Gastric bypass 2006, [facility]. Major depressive disorder, s mellisa episode, unspecified 03/18/2022 DX:Major depressive disorder , single episode, unspecified Eating disorder, unspecified 03/18/2022 DX: Eating disorder, unspecified; COMMENT: Dr Natali Jarvis Chronic hepatitis C ([facility]/HCC V24, [facility] V28) 03/18/2022 DX:Chronic hepatitis C (HCC) [...] AM EST Office Visit Bariatric Surgery - [address] [place] [address] Laura Pérez MD [address] [place] [phone] Health Maintenance Due Date Last Done Comments Breast Cancer Screening 1975 Pneumococcal Vaccine: Pediatrics (0 to 5 Years) and At-Risk Patients (6 to 49 Years) (2 of 2 - PCV) 07/12/2013 07/12/2012, 07/12/2012 Colorectal Cancer Screening: Colonoscopy 10/03/2022 Hepatitis C Screening 10/03/2022 Social Influencers of Health Screening 10/03/2022 Hypertension/CHF/CAD Annual BMP Blood Test 02/24/2024 02/23/2023 Depression Screening 10/25/2024 COVID-19 Vaccine ( season) 2025 05/20/2022, 2021, [...] * Annual BMP Blood Test (02/23/2023) Pathologist [facility] Annual BMP Blood Test Abstracted Historical Provider HEALTH MAINTENANCE Final Result * (ABNORMAL) Lipid panel (06/03/2021) Pathologist [facility] LDL/HDL Ratio 3 0 - 4 Triglycerides 56 0 - 150 mg/dL Cholesterol 196 0 - 200 mg/dL HDL 77 >=40 mg/dL LDL Cholesterol 108(A) 0 - 100 mg/dL Blood Venous blood specimen / Unknown Historical Provider LAB BLOOD ORDERABLES Sabrina l Result from Last 3 Months or Most Recently Relevant to Health Maintenance Insurance MEDICAID - [place] Care Teams Expeditionary Fighting Vehicle Crewman Relationship Specialty Start Date End Date [place], [place] Latoya [address] [phone] PCP - General 07/25/10
== END 2025-07-03 13:09 | disposition home or self-care (01) ==
LOC: HO.HWS 10:33
PROVIDERS: PCP Family Medicine; Visit Provider Obstetrics & Gynecology
DX: R87.610 Atypical squamous cells of undetermined significance on cytologic smear of cervix (ASC-US) (principal); R87.810 Cervical high risk human papillomavirus (HPV) DNA test positive
CPT/HCPCS: 99213

== ENCOUNTER 2025-07-16 09:56 | Outpatient (AMB) | payer MEDICAID, SELFPAY ==
[2025-07-16 09:58] VITALS: BMI 40.2
--- NOTE | 2025-07-16 09:58 | A.OFFVIS_ITS ---
Vital Signs 07/16/25 09:58 Height 5 ft 2 in Weight 220 lb BMI 40.2 Intake Visit Reasons: OV-RT shoulder RTC-discuss options for treatments Intake Note: Alexia is a 50 year old right hand dominant female who presents today for a follow up of her Right Shoulder. She was last seen with Dr. Portillo where she reported that she injured the shoulder while lifting a heavy object. Since that injury she reports constant pain, weakness and limited ROM. IMPRESSION: There is a full-thickness rotator cuff tear at the junction of supraspinatus and infraspinatus tendons with 13 mm retraction. Long biceps tendon is medially subluxed from biceps groove and there is associated marrow edema like signal in the lesser tuberosity. There is probably an associated full-thickness and retracted tear of the upper subscapularis tendon that is not well-demonstrated. The biceps tendon appears frayed and irregular. There is 2.5 cm intrasubstance delamination tear of the infraspinatus tendon that extends from posterior humeral head to the plane of glenoid articular cartilage. Mild AC joint arthropathy with AC joint effusion, thickening of superior acromioclavicular ligament, and attenuation and probable tear of the inferior acromioclavicular ligament. Allergies No Known Allergies Allergy (Verified 07/16/25 10:01) HPI HPI OV-RT shoulder RTC-discuss options for treatments: Details: Alexia is a 50 year old right hand dominant female who presents today for a follow up of her Right Shoulder. She was last seen with Dr. Portillo where she reported that she injured the shoulder while lifting a heavy object. Since that injury she reports pain, weakness and limited ROM. This is been ongoing for about a year. She has done physical therapy but to no avail. She had a BP MRI and in comparison to the MRI taken in September her rotator cuff is torn and retracted. [facility] Medical History Pain in right shoulder B12 deficiency Vitamin D deficiency Hypothyroidism Surgical History (Reviewed 07/16/25 @ 09:59 by Claudia Castaneda [facility]) History of gastric bypass Hx laparoscopic cholecystectomy History of esophagogastroduodenoscopy (EGD) Hx of lithotripsy Family History Mother Type 2 diabetes mellitus Myocardial infarction CVD (cardiovascular disease) Heart disease Father Type 2 diabetes mellitus Hypertension Social History Household Members: Spouse Alcohol intake: current Alcohol intake frequency: does not drink Patient Tobacco Use Status: Never used Tobacco Female Reproductive History Menstrual Age of Menarche: 13 Physical Exam Vital Signs: BMI result Body Mass Index 40.2 Const General: cooperative, healthy appearing, no acute distress and well groomed Orientation/consciousness: oriented to person and oriented to place HEENT Head: Yes normal to inspection, Yes normocephalic and Yes atraumatic Eyes General: appearance normal, both eyes and all related structures Alignment and Position: alignment normal Conjunctivae: conjunctivae normal EOM: EOMs intact bilaterally Neck Neck: Yes normal visual inspection and Yes trachea midline Resp Other: No rerpiratory distress Effort & Inspection: normal respiratory effort and able to speak in complete sentences Cardio Other: Palpable radial pulse with no appreciable rythmic abnormalities GI Other: No abdominal distension Back/Spine/Pelvis Cervical Spine: normal cervical lordosis and cervical ROM normal Skin General skin exam: no rashes or lesions noted Neuro General: oriented to person, oriented to place and gait normal Extrem Other: Passive range of motion of 35/90/130 Active abduction to 70. 4-/5 empty can Results Reviewed Results Reviewed: I personally reviewed the MR images. MPRESSION: There is a full-thickness rotator cuff tear at the junction of supraspinatus and infraspinatus tendons with 13 mm retraction. Long biceps tendon is medially subluxed from biceps groove and there is associated marrow edema like signal in the lesser tuberosity. There is probably an associated full-thickness and retracted tear of the upper subscapularis tendon that is not well-demonstrated. The biceps tendon appears frayed and irregular. There is 2.5 cm intrasubstance delamination tear of the infraspinatus tendon that extends from posterior humeral head to the plane of glenoid articular cartilage. Mild AC joint arthropathy with AC joint effusion, thickening of superior acromioclavicular ligament, and attenuation and probable tear of the inferior acromioclavicular ligament. Assessment & Plan Assessment & Plan (1) Rotator cuff tear, right: Code(s): M75.101 - Unspecified rotator cuff tear or rupture of right shoulder, not specified as traumatic Category: Medical Plan: This is a 50-year-old woman with a full-thickness and retracted right rotator cuff tear. It has progressed when compared to an MRI of the same shoulder taken in September of 2024. There does not appear to be any significant atrophy. I explained the pathology to the patient and I reviewed the treatment options. I recommend rotator cuff repair on the right. I discussed the risks, benefits and alternatives to surgery. These include, but are not limited to, the risk of infection, stiffness, extended recovery, nerve or vessel injury, need for further surgery, injury as well as medical complications associated with surgery such as blood clots and organ dysfunction. She expressed understanding and we will proceed forward accordingly. Coding Level of Care Code Est Pt Level 4 (49180) Diagnoses Rotator cuff tear, right M75.101
--- OUTSIDE RECORDS SUMMARY | 2025-07-16 12:11 | XMS_ITS | Encounter Summary ---
Author Organization [employer] Address [address] [place] [address] 7 [place] [address] Care Team Providers Care Press Tool Maker Name Role Phone Latoya Ruiz MD Primary Care Provider +1- [phone] Yoni Portillo MD Unavailable Irlanda Kaur Unavailable Reji Bowden MD Unavailable Encounter Details Date Type Department Care Team (Latest Contact Info) Description 11/15/2020 Abstract [facility] Dental, Provider, DDS Social History Tobacco [...] on filedocumented in this encounter Care Teams Press Tool Maker Relationship Specialty Start Date End Date Latoya Ruiz MD [address] [place] [address] PCP - General Family Medicine 10/25/18 Yoni Portillo MD [address] [place] [address] [address] [place] [address] Orthopaedic Surgery 10/10/24 Irlanda Kaur [address] 3rd [place] [address] Gastroenterology 02/01/25 Reji Bowden MD [address] [place] [address] [address] [facility] [place] [address] Obstetrics and Gynecology 06/06/25 Eros Aldana NP [facility] Pain Medicine 10/26/24 documented as of this encounter
--- OUTSIDE RECORDS SUMMARY | 2025-07-16 12:11 | XMS_ITS | Encounter Summary ---
Author Organization [employer] Address [address] [facility] 7 [place] [address] Care Team Providers Care Micro Photographer Name Role Phone Latoya Ruiz MD Primary Care Provider +1- [phone] Yoni Portillo MD Unavailable Irlanda Kaur Unavailable Reji Bowden MD Unavailable Reason for Visit * Reason Comments Med Refill Encounter Details Date Type Department Care Team (Late st Contact Info) Description 02/27/2024 Refill [facility] MEDICINE [address] [place], [place] [phone] Latoya Ruiz MD [address] [place], [place] [phone] Vitamin D deficiency Social History Tobacco Use [...] documented as of this encounter Care Teams Micro Photographer Relationship Specialty Start Date End Date Latoya Ruiz MD [address] [place] [address] PCP - General Family Medicine 10/25/18 Yoni Portillo MD [address] [place] [address] [address] [place] [address] Orthopaedic Surgery 10/10/24 Irlanda Kaur [address] [place] [address] Gastroenterology 02/01/25 Reji Bowden MD [address] [place] [address] [place] [address] Obstetrics and Gynecology 06/06/25 Eros Aldana NP [facility] Pain Medicine 10/26/24 documented as of this encounter
--- OUTSIDE RECORDS SUMMARY | 2025-07-16 12:11 | XMS_ITS | Clinical Summary ---
Author Organization [address] [place] [address] Address [address] [place] [address] Phone Care Team Providers Care Search Engine Marketing Strategist Name Role Phone Latoya Ruiz MD Primary Care Provider +1- [phone] Allergies No known active allergies Medications cholecalcifero [...] every 4 hours as needed. Active pancrelipase, Jnc-Ftwj-Pnak, (CREON) 3,000-9,500- 15,000 unit capsule Take by [...] (BMI) of 37.0 to 37.9 in adult 09/25/2024 Abnormal ECG 06/10/2022 Benign essential hypertension [...] AM EDT Office Visit Bariatric Surgery - [address] [place] [phone] Laura Pérez MD Class 3 severe obesity due to excess calories with body mass index (BMI) of 40.0 to 44.9 in adult, unspecified whether serious comorbidity present (CMS/HCC V24, [facility] V28) (Primary Dx) from Last 3 Months [...] of bariatric surgery; COMMENT: Gastric bypass 2006, [facility]. Major depressive disorder, s mellisa episode, unspecified 03/18/2022 DX:Major depressive disorder , single episode, unspecified Eating disorder, unspecified 03/18/2022 DX: Eating disorder, unspecified; COMMENT: Dr Natali Jarvis Chronic hepatitis C ([facility]/HCC V24, [facility] V28) 03/18/2022 DX:Chronic hepatitis C (HCC) Class [...] AM EST Office Visit Bariatric Surgery - [address] [place] [address] Laura Pérez MD [address] [place] [phone] Health Maintenance Due Date Last Done Comments Breast Cancer Screening 1975 Pneumococcal Vaccine: Pediatrics (0 to 5 Years) and At-Risk Patients (6 to 49 Years) (2 of 2 - PCV) 07/12/2013 07/12/2012, 07/12/2012 Colorectal Cancer Screening: Colonoscopy 10/03/2022 Hepatitis C Screening 10/03/2022 Social Influencers of Health Screening 10/03/2022 Hypertension/CHF/CAD Annual BMP Blood Test 02/24/2024 02/23/2023 Depression Screening 10/25/2024 COVID-19 Vaccine ( - season) 2025 05/20/2022, 2021, 02/14/2021 Influenza Vaccine (#1) 2025 , 08/14/2022, 08/06/2021, Additional history exists DTaP,Tdap,and Td Vaccines (2 - Td or Tdap) 04/02/2027 04/02/2017 Cervical Cancer Screening: Pap Smear 02/02/2028 02/01/2025, 11/17/2019 Cholesterol Screening (Lipid Panel) 02/05/2030 02/05/2025, 01/19/2024, 06/03/2021 RSV Immunization Adult Patients (1 - 1-dose 75+ series) 2052 Hepatitis A Vaccines Aged Out 07/12/2012, 05/19/20 [...] Maintenance Insurance MEDICAID - [place] Care Teams Search Engine Marketing Strategist Relationship Specialty Start Date End Date [place], MD Latoya [address] [place] [address] PCP - General 07/25/10
--- OUTSIDE RECORDS SUMMARY | 2025-07-16 12:11 | XMS_ITS | Encounter Summary ---
Author Organization [employer] Address [address] [place] [address] 7 [place] [address] Care Team Providers Care Improvement Advisor Name Role Phone Latoya Ruiz MD Primary Care Provider +1- [phone] Yoni Portillo MD Unavailable Irlanda Kaur Unavailable Reji Bowden MD Unavailable Reason for Referral * Imaging (Routine) - Closed Specialty Diagnoses / Procedures Referred By Julián robert Referred To Contact Radiology Diagnoses Inguinal lymphadenopathy Procedures CT Abdomen Pelvis w/ Contrast Latoya Ruiz MD [address] [place] [address] Phone: tel: fax: [address] Phone: tel: fax: Referral ID Status Reason Start Date Expiration Date Visits Re quested Visits Authorized [id number] Closed 06/17/2023 06/16/2024 1 1 * Imaging (Routine) - Closed Specialty Diagnoses / Procedures Referred By Julián robert Referred To Contact Radiology Diagnoses Transaminitis Procedures US Abdomen Latoya Ruiz MD [address] [place] [address] Phone: tel: fax: [address] Phone: tel: fax: Referral ID Status Reason Start Date Expiration Date Visits Re quested Visits Authorized [id number] Closed 06/17/2023 06/16/2024 1 1 Encounter Details Date Type Department Care Team (Late st Contact Info) Description 06/16/2023 Orders Only [facility] [address] [place] [address] Latoya Ruiz MD [address] [place] [address] Hypothyroidism, unspecified type (Primary Dx); Transaminitis; Inguinal [...] AM EST Narrative 09/03/2023 2:51 PM EST [place] [address] [address] Scan Report Signed Patient: Alexia Núñez MR#: [id number] 8 : 1975 Acct:[id number] Age/Sex: 48 / F ADM Date: 08/31/23 Loc: HO.CT Attending Dr: Latoya Ruiz MD Ordering Physician: Latoya Ruiz MD Date of Service: 08/31/23 Procedure(s): CT abdomen pelvis w IV con Accession Number(s): [id number] cc: Latoya Ruiz MD EXAMINATION: CT ABDOMEN [...] in OV> 09/03/23 1447 DD/ 1050 TD/TT: Java [email or web address] Software Engineer: ELLIOTT Procedure Note Donotuseinterpreter, Image - 09/03/[address] [address] [address] Scan Report Signed Patient: Alexia NúñezMR#: [id number] 8 : 1975Acct:[id number] Age/Sex: 48 / FADM Date: 08/31/23 Loc: HO.CT Attending Dr: Latoya Ruiz MD Ordering Physician: Latoya Ruiz MD Date of Service: 08/31/23 Procedure(s): CT abdomen pelvis w IV con Accession Number(s): [id number] cc: Latoya Ruiz MD EXAMINATION: CT ABDOMEN [...] in OV> 09/03/23 1447 DD/ 1050 TD/TT: Java [email or web address] Software Engineer: ELLIOTT us Latoya Ruiz MD IMG CT PROCEDURES Final Re sult * Hepatitis C Viral RNA, Quantitative, Real-Time PCR (06/30/2023 9:19 AM EDT) Pathologist [facility] Hepatitis C Viral Load <15 NOT DETECTED NOT DETECTED IU/mL [facility] HCV Log PCR <1.18 NOT DETECTED NOT DETECTED Log IU/mL [facility] Comment:This test was perfor med using Real-Time Polymerase ChainReaction.Reportable Range: 15 IU/mL to 100,000,000 IU/mL(1.18 Log IU/mL to 8.00 Log IU/mL).The analytical performance characteristics of thisassay have been determined by [employer].The modifications have not been cleared or approved bythe FDA. This assay has been validated pursuant to theCLIA regulations and is used for clinical purposes.For more information on this test, go to:http://education.Fourandhalf/faq/HND67a7(This link is being provided for informational/educational purposes only.)THIS TEST WAS PERFORMED AT:[employer] [address] [place] [id number] CHUN MD Blood 06/30/2023 9:19 AM EDT 06/30/2023 11:16 AM EDT Latoya Ruiz MD LAB BLOOD ORDERABLES Final Result Performing Organization Address [facility]/ZIP Co de Phone Number [facility] [address] [place] [phone] * C-reactive Protein (06/30/2023 9:19 AM EDT) [facility] C Reactive Protein <0.10 < or = 0.50 mg/dL [facility] Blood Venous blood specimen / Unknown 06/30/2023 9:19 AM EDT 06/30/2023 11:16 AM EDT Latoya Ruiz MD LAB BLOOD ORDERABLES Final Result Performing Organization Address [facility] Co de Phone Number [facility] [address] [place] [address] [phone] * (ABNORMAL) Lactate dehydrogenase (06/30/2023 9:19 AM EDT) Pathologist [facility] Lactate Dehydrogenase 325(H) 122 - 220 U/L [facility] Blood Venous blood specimen / Unknown 06/30/2023 9:19 AM EDT 06/30/2023 11:16 AM EDT Latoya Ruiz MD LAB BLOOD ORDERABLES Final Result Performing Organization Address [facility] de Phone Number [facility] [address] [place] [address] [phone] * RPR (Monitor) with Reflex to??Titer (06/30/2023 9:19 AM EDT) Pathologist [facility] RPR (Monitor) w/Refl Titer NON-REACTI VE NON-REACT GIULIA [facility] Comment:THIS TEST WAS PERFOR MED AT:[employer] [address] [place] [id number] CHUN MD Rapid Plasma Reagin Ab Titer TNP [facility] Blood Venous blood specimen / Unknown 06/30/2023 9:19 AM EDT 06/30/2023 11:16 AM EDT Latoya Ruiz MD LAB BLOOD ORDERABLES Final Result Performing Organization Address City/[facility]/ZIP Co de Phone Number [facility] [address] [place] [address] [phone] * (ABNORMAL) CBC auto differential (06/30/2023 9:19 AM EDT) Pathologist [facility] White Blood Count 4.4(L) 4.8 - 10.8 X10*3/uL [facility] Red Blood Count 3.80(L) 4.20 - 5.50 X10*6/uL [facility] Hemoglobin 11.6(L) 12.0 - 16.0 g/dl [facility] Hematocrit 36.2(L) 37.0 - 47.0 % [facility] Mean Corpuscular Volume 95.3 80.0 - 98.0 fL [facility] Mean Corpuscular Hemoglobin 30.5 27.0 - 33.0 pg [facility] Mean Corpuscular HGB Conc 32.0 31.0 - 35.0 g/dl [facility] Red Cell Distribution Width 13.2 11.0 - 16.0 % [facility] Platelet Count 162 160 - 400 X10*3/uL [facility] Mean Platelet Volume 12.2 9.4 - 12.3 fL [facility] Neutrophils Percent Auto 68.2 45 - 73 % [facility] Imm Gran Pct Auto 0.2 0.0 - 0.4 % [facility] Lymphocytes Percent Auto 24.8 20 - 40 % [facility] Monocytes Percent Auto 6.8 2 - 11 % [facility] Eosinophils Percent Auto 0.0 0 - 4 % [facility] Basophils Percent Auto 0.0 0 - 2 % [facility] NRBC Pct Auto 0.0 0.0 - 0.2 /100WBC [facility] Neutrophils Absolute Auto 3.0 2.0 - 8.3 x10*3/uL [facility] Imm Gran Abs Auto 0.01 0.00 - 0.03 X10*3/uL [facility] Lymphocytes Absolute Auto 1.1(L) 1.2 - 4.9 X10*3/uL [facility] Monocytes Absolute Auto 0.3 0.1 - 1.2 X10*3/uL [facility] Eosinophils Absolute Auto 0.0 0.0 - 0.4 X10*3/uL [facility] Basophils Absolute Auto 0.0 0.0 - 0.2 X10*3/uL [facility] NRBC Abs Auto 0.000 0.0 - 0.012 X10*3/uL [facility] Blood Venous blood specimen / Unknown 06/30/2023 9:19 AM EDT 06/30/2023 11:16 AM EDT Latoya Ruiz MD LAB BLOOD ORDERABLES Final Result [facility] [address] [place] [address] [phone] documented in this encounter Visit Diagnoses Diagnosis Hypothyroidism, unspecified type- Primary Transaminitis Nonspecific elevation of levels of transaminase or lactic acid dehydrogenase (LDH) Inguinal lymphadenopathy Enlargement of lymph nodes documented in this encounter Additional Health Concerns Assessment Noted Time PHQ-9 Depression Total Score: 2 06/16/20 23 8:57 AM EDT documented as of this encounter Care Teams Improvement Advisor Relationship Specialty Start Date End Date Latoya Ruiz MD [address] [place] [phone] PCP - General Family Medicine 10/25/18 Yoni Portillo MD [address] [place] [address] [address] [place] [address] Orthopaedic Surgery 10/10/24 Irlanda Kaur [address] [place] [address] Gastroenterology 02/01/25 Reji Bowden MD [address] [place] [address] Obstetrics and Gynecology 06/06/25 Eros Aldana NP [facility] Pain Medicine 10/26/24 documented as of this encounter
--- OUTSIDE RECORDS SUMMARY | 2025-07-16 12:11 | XMS_ITS | Encounter Summary ---
Author Organization [email or web address] Address [address] [place] [address] 7 [place] [address] Care Team Providers Care Seafood Specialist Name Role Phone Latoya Ruiz MD Primary Care Provider +1- [phone] Yoni Portillo MD Unavailable Irlanda Kaur Unavailable Reji Bowden MD Unavailable Encounter Details Date Type Department Care Team (Latest Contact Info) Description 05/29/2019 Abstract [facility] CONVERSIONS Dental, Provider, DDS Social [...] on filedocumented in this encounter Care Teams Seafood Specialist Relationship Specialty Start Date End Date Latoya Ruiz MD [address] [place] [address] PCP - General Family Medicine 10/25/18 Yoni Portillo MD [address] [place] [address] [address] [place] [address] Orthopaedic Surgery 10/10/24 Irlanda Kaur [address] [place] [address] Drive 3rd [place] [address] Gastroenterology 02/01/25 Reji Bowden MD [address] [place] [address] [place] [address] Obstetrics and Gynecology 06/06/25 Eros Aldana NP [facility] Pain Medicine 10/26/24 documented as of this encounter
--- OUTSIDE RECORDS SUMMARY | 2025-07-16 12:11 | XMS_ITS | Encounter Summary ---
Author Organization [employer] Address [address] [place] [address] Care Team Providers Care Roller Coaster Designer Name Role Phone Latoya Ruiz MD Primary Care Provider +1- [phone] Yoni Portillo MD Unavailable Irlanda Kaur Unavailable Reji Bowden MD Unavailable Encounter Details Date Type Department Care Team (Late st Contact Info) Description 01/26/2024 Orders Only [facility] MEDICINE [address] [place] [address] Flor Brown, JOHNATHAN Social History Tobacco Use [...] documented as of this encounter Care Teams Roller Coaster Designer Relationship Specialty Start Date End Date Latoya Ruiz MD [address] [place] [address] PCP - General Family Medicine 10/25/18 Yoni Portillo MD [address] [place] [address] [address] [place] [address] Orthopaedic Surgery 10/10/24 Irlanda Kaur [address] [place] [address] [place] [address] Gastroenterology 02/01/25 Reji Bowden MD [address] [address] Obstetrics and Gynecology 06/06/25 Eros Aldana NP [facility] Pain Medicine 10/26/24 documented as of this encounter
--- OUTSIDE RECORDS SUMMARY | 2025-07-16 12:11 | XMS_ITS | Clinical Summary ---
Author Organization [employer] Address [address] [facility] 7t [place] [address] Care Team Providers Care Metal Sorter Name Role Phone Latoya Ruiz MD Primary Care Provider +1- [phone] Yoni Portillo MD Unavailable Irlanda Kaur Unavailable [...] per pt had las pap smear at [facility] ------ requested to RADHA- Kena Velazco Last pap smear and last ROAD TESTER note -MM per pt done in 2022 [...] 12/21/2024 Overview (02/01/2025): On chronic opiates with [facility] pain management Cyndi Aldana STREET VENDOR -referred to chronic pin group 02/01/25 Assessment & Plan (02/01/2025 11:26 AM EDT): On chronic opiates with [facility] pain management Cyndi Aldana STREET VENDOR -referred to chronic pin group 02/01/25 Ambulates [...] with ongoing chronic pain. 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 Portillo at [facility] -10/04/24 MR/MR shoulder RT Mild supraspinatus tendinosis. 2.6 x 1.5 cm full-thickness tear of the supraspinatus and anterior fibers infraspinatus. Additional articular surface fraying/partial tear of the tendon proximal to this. Mild infraspinatus tendinosis. Mzvqqcez-qpfi-qtwae partial tear of the distal subscapularis tendon [...] over time. She will continue with her glrvf-mi-wmjduu exercises to prevent stiffness. She will contact [...] AM EDT): -followed by Dr. Portillo at [facility] -10/04/24 MR/MR shoulder RT Mild supraspinatus tendinosis. 2.6 x 1.5 cm full-thickness tear of the supraspinatus and anterior fibers infraspinatus. Additional articular surface fraying/partial tear of the tendon proximal to this. Mild infraspinatus tendinosis. Sikqczvy-qgsb-jonzg partial tear of the distal subscapularis tendon [...] over time. She will continue with her kygqd-os-elmtdl exercises to prevent stiffness. She will contact [...] Recommend correlation with colonoscopy. CT faxed to [facility] and new referral placed. Sseen by [...] Recommend correlation with colonoscopy. CT faxed to [facility] and new referral placed. Sseen by [...] Recommend correlation with colonoscopy. CT faxed to [facility] and new referral placed. Sseen by [...] Recommend correlation with colonoscopy. CT faxed to [facility] and new referral placed. Sseen by Bertha Mercedes 12/21/[address] to make sure they are aware. -Colonoscopy with Lead Fournier, 04/07/24 done, showed hemorrhoids prep poor, [...] Recommend correlation with colonoscopy. CT faxed to [facility] and new referral placed. Sseen by [...] pain management with Jessica Salcedo NP at [facility] and on choric [...] pain management with Jessica Salcedo NP at [facility] and on choric opoid PRESCRIBED BY PAIN MANAGEMENT. -referred to chronic pin group 02/01/25 Degeneration of lumbar intervertebral disc 06/14 Overview (12/21/2024): -Followed by pain management, On chronic opiates with [facility] pain management Cyndi Aldana NP History of [...] HPV. ASCUS HPV+ -Outgoing call placed to [facility] for plan of care on 11/2019 Lyubov who stated that patient has a f/u appointment on 01/19/2020. Plan of care will be discussed on that visit. Pt believes she missed it. Will ask women's health to assist with setting up. -PAP done 02/01/25, ASCUS, HPV positive, per ASCCP guidelines referred to Behavioral Health Counselor for colpo -colpo done with Dr. Bowden [...] HPV. ASCUS HPV+ -Outgoing call placed to [facility] for plan of care on 11/2019 Lyubov who stated that patient has a f/u appointment on 01/19/2020. Plan of care will be discussed on that visit. Pt believes she missed it. Will ask women's health to assist with setting up. -PAP done 02/01/25, ASCUS, HPV positive, per ASCCP guidelines referred to Behavioral Health Counselor for colpo -STI testing offered, PreP offered [...] HPV. ASCUS HPV+ -Outgoing call placed to [facility] for plan of care on 11/2019 Lyubov [...] Overview (02/01/2025): Lab Results Component Value Date [id number] 25.8 (L) 01/19/2024 -ordered repeat level 02/01/25 Assessment & Plan (02/01/2025 11:36 AM EDT): Lab Results Component Value Date [id number] 25.8 (L) 01/19/2024 -ordered repeat level 02/01/25 [...] Adult Foster Care with [employer] [phone], admitted 08/24/23. manager language Fatou GALLEGOS nurse: Joy Ventura RN Direct Geological Engineer: [facility] Assessment & Plan (02/01/2025 11:26 AM EDT): Pt in Group Adult Foster Care with [employer] [phone], admitted 08/24/23. manager language Fatou GALLEGOS nurse: Joy Ventura RN Direct Geological Engineer: [facility] Polypharmacy 01/19/2024 02/21/2025 Severe obesity (BMI >= 40) 06/14/2023 0 02/21/2025 Assessment & Plan (12/21/2023 6:30 PM EST): -Advised pt to improve diet and exercise,discussed healthy life style -s/p bariatric surgery last year Other specified health status 06/14/2023 02/21/2025 Overview (02/01/2025): -next comprehensive annual evaluation due after 02/01/25 -eye care facilitated by [facility] -dental home is [facility] -health care proxy filed on 02/28/2024 Assessment & Plan (02/01/2025 11:29 AM EDT): -next comprehensive annual evaluation due after 02/01/25 -eye care facilitated by [facility] -dental home is [facility] -health care proxy filed on 02/28/2024 Assessment & Plan (02/28/2024 11:36 AM EDT): -next physical exam due after January 18 2025 -eye care facilitated by [facility] -dental home is [facility] -health care proxy filed on 02/28/2024 Assessment & Plan (01/19/2024 1:29 PM EDT): -next physical exam due after January 18 2025 -eye care facilitated by [facility] -dental home is [facility] Assessment & Plan (06/16/2023 9:15 AM EDT): [...] Assessment & Plan (12/21/2023 6:29 PM EST): -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 Chronic right shoulder pain (Primary Dx) 04/23/2025 Travel from Last 3 Months Immunizations Immunization [...] Additional history exists HIV Screening Completed 02/05/2025, 03/2023, 08/14/2022, Additional history exists Colposcopy Discontinued [...] 1 AM EDT 06/06/2025 10:53 AM EDT [facility] - 06/07/2025 1:50 PM EDT ----- ------- Name: Alexia Núñez Age/Sex: 50/F : 1975 Unit#: [id number] Attend Dr: Reji Bowden MD Re06/06/25 Status: DEP REF Location: [facility] Disch: ----- ------- SPEC : [id number] RECD: 06/06/25-1052 STATUS: HERRERA ALONSO NUM: [id number] JORGE: 06/06/25-[address] [facility] [address]: Reji Bowden MD ENTERED: 06/06/25-1107 [...] noted on the patient's recent Pap smear ([id number]; ASCUS; HPV+) are not seen in the [...] Alexia Núñez Age/Sex: 50/F : 1975 Unit#: [id number] Attend Dr: Reji Bowden MD Re06/06/25 Status: DEP REF Location: [facility] Disch: ----- ------- SPEC : [id number] RECD: 06/06/25-1052 STATUS: HERRERA GAVIN NUM: [id number] JORGE: 06/06/25-[address] [facility] [address]: Reji Bowden MD ENTERED: 06/06/25-110 SP TYPE: Surgical OTHR DR: Latoya Ruiz MD ORDERED: HE /, Gross Micro L4/5 Gross Description (Continued) irregular [...] developed and their performance characteristics determined by [facility]. They have not been cleared or approved by the U.S. Food and Drug Administration (FDA). However, the FDA has determined that such clearance or approval is not necessary. This laboratory is certified under the Clinical Laboratory Improvement Amendments of 1988 (CLIA) as qualified to perform high complexity clinical laboratory testing. Copies To: Latoya Ruiz MD [address] [address] Reji Bowden MD [facility] Women's Services [address] [place] [address] Drive [address] [place] [address] ----- ------- Signed (signature on file) Gely Kenny MD 06/07/25 1350 ----- ------- END OF REPORT us Generic External Data Provider LAB BLOOD ORDERAB LES Final Result [facility] [address] [place] [phone] * Colposcopy (06/06/2025 12:00 AM EDT) Narrative Yael Gongora - 06/06/2025 12:00 AM EDT See results under patients labs us Historical Provider MD IN CLINIC/BEDSIDE ORDERAB LES Edited Result - Final * MR Shoulder w/o Contrast Right (05/28/2025 9:45 AM EDT) Anatomical Region Laterality Modality Upper Extremities, Shoulder Right Magn etic Resonance 05/28/2025 9:45 AM EDT Narrative 05/28/2025 11:04 AM EDT [address] [address] Magnetic Resonance Report Signed Patient: Alexia Núñez MR#: [id number] 8 : 1975 Acct:[id number] Age/Sex: 50 / F ADM Date: 05/28/25 Loc: HO.MRI Attending Dr: Yoni Portillo MD Ordering Physician: Yoni Portillo MD Date of Service: 05/28/25 Procedure(s): MR shoulder RT wo con Accession Number(s): [id number] cc: Latoya Ruiz MD; Yoni Portillo MD [...] MD Signed By: <Electronically signed by Edwin Torers MD in OV> 05/28/25 1101 DD/ 0945 TD/TT: 05/28/25 1030 Level Vial Grinder: Procedure Note Donotuseinterpreter, Image - 05/28/[address] [address] Magnetic Resonance Report Signed Patient: Alexia NúñezMR#: [id number] 8 : 1975Acct:[id number] Age/Sex: 50 / FADM Date: 05/28/25 Loc: HO.MRI Attending Dr: Yoni Portillo MD Ordering Physician: Yoni Portillo MD Date of Service: 05/28/25 Procedure(s): MR shoulder RT wo con Accession Number(s): [id number] cc: Latoya Ruiz MD; Yoni Portillo MD [...] 05/28/25 1101 DD/ 0945 TD/TT: 05/28/25 1030 Level Vial Grinder: [facility] External Provider IMG MRI PROCEDURES Final Result * BI Mammogram Screening Tomosynthesis Bilateral (03/26/2025 2:50 PM EDT) Anatomical Region Laterality Modality Breast Bilateral Mammography 03/26/2025 2:50 PM EDT Narrative 03/31/2025 9:50 PM EDT [facility] [address] [place] [address] Mammography Report Signed Patient: Alexia Núñez MR#: [id number] 8 : 1975 Acct:[id number] Age/Sex: 50 / F ADM Date: 03/26/25 Loc: HO.MAMMO Attending Dr: Latoya Ruiz MD Ordering Physician: Latoya Ruiz MD Results: 1N egative Date of Service: 03/26/25 Follow Up: 1 Year From Orig inal Mammogram Procedure(s): MM tomosynthesis screening BI Accession Number(s): [id number] cc: Latoya Ruiz MD EXAMINATION: MM SCREENING [...] 03/31/25 2147 DD/ 1450 TD/TT: 03/26/25 1508 Level Vial Grinder: Procedure Note Donotuseinterpreter, Image - 03/31/2025 [facility] [address] [place] [address] Mammography Report Signed Patient: Alexia NúñezMR#: [id number] 8 : 1975Acct:[id number] Age/Sex: 50 / FADM Date: 03/26/25 Loc: SAADIA.MAMMO Attending Dr: Latoya Ruiz MD Ordering Physician: Latoya Ruiz MDResults: 1N egative Date of Service: 03/26/25Follow Up: 1 Year From Orig inal Mammogram Procedure(s): MM tomosynthesis screening BI Accession Number(s): [id number] cc: Latoya Ruiz MD EXAMINATION: MM SCREENING [...] Nela Miranda DO 03/31/2025 09:47 PM EDT RP Dictated By: Nela Miranda DO Signed By: <Electronically signed by Nela Miranda DO in OV> 03/31/25 2147 DD/ 1450 TD/TT: 03/26/25 1508 Level Vial Grinder: Latoya Ruiz MD [facility] BI PROCEDURES Edited R esult - Final * HIV-1/2 Antigen and Antibodies, Fourth Generation, with Reflexes (02/05/2025 9:41 AM EDT) HIV AB/AG Nonreactive Nonreactive [facility] Comment:HIV-1 p24 Ag and/or HIV-1/HIV-2 Ab not detected.A test result that is nonreactive does not exclude thepossibility of exposure to or infection with HIV-1 and/orHIV-2. Nonreactive results in this assay for individualswith prior exposure to HIV-1 and/or HIV-2 may be due toantigen and antibody levels that are below the limit ofdetection of this assay.The iConnect CRM HIV Ag/Ab Combo assay result andsupplemental assay results should be interpreted inconjunction with the patient's clinical presentation,history and other laboratory results. If the results areinconsistent with clinical evidence, additional testing issuggested to confirm the result. Blood Venous blood specimen / Unknown 02/05/2025 9:41 AM EDT 02/05/2025 11:13 AM EDT Latoya Ruiz MD LAB BLOOD ORDERABLES Final Result Performing Organization Address [facility] Co de Phone Number [facility] [address] [place] [address] [phone] * (ABNORMAL) Lipid Panel, Standard (02/05/2025 9:41 AM EDT) Triglycerides 69 <150 mg/dL [facility] Comment:Desirable Triglyceri de: less than 150 mg/dLBorderline High Triglyceride 150-199 mg/dLHigh Triglyceride: 200-499 mg/dLVery High Triglyceride: greater than or equal to 5OO mg/dL Cholesterol 201(H) <200 mg/dL [facility] Comment:Desirable Cholestero l: less than 200 mg/dLBorderline High Cholesterol: 200-239 mg/dLHigh Cholesterol: greater than 239 mg/dL LDL Cholesterol Calculated 115(H) <100 mg/dL [facility] Comment:Desirable LDL: less than 100 mg/dLNear Optimal/Above Optimal LDL: 110- 129 mg/dLBorderline High LDL: 130-159 mg/dLHigh LDL: 160-189 mg/dLVery High LDL: greater than or equal to 190 mg/dL HDL Cholesterol 73 >40 mg/dL [facility] Comment:Desirable HDL: great er than 40 mg/dL Note: This HDL assay may give artificially low results in patients with liver disease. Blood Venous blood specimen / Unknown 02/05/2025 9:41 AM EDT 02/05/2025 11:13 AM EDT Latoya Ruiz MD LAB BLOOD ORDERABLES Final Result Performing Organization Address [facility]/ZIP Co de Phone Number [facility] [address] [place] [address] [phone] * Pap Smear (02/01/2025 11:46 AM EDT) Swab Cervix uteri structure / Unknown 02/01/2025 11:46 AM EDT 02/02/2025 6:04 AM EDT [facility] - 02/06/2025 5:36 PM EDT ----- ------- Name: Alexia Núñez Age/Sex: 49/F : 1975 Unit#: [id number] Attend Dr: Latoya Ruiz MD Re02/01/25 Status: COUNT INCLUDES [facility] Dis[facility] ----- ------- SPEC : [id number] RECD: 02/02/25 STATUS: HERRERA ALONSO NUM: [id number] JORGE: 02/01/25-[address] [facility] [address]: Latoya Ruiz MD ENTERED: 02/02/25 SP TYPE: Pap Smr [facility] DR: ORDERED: Pap Smear, PAP path review [...] 02/06/25 1736 ----- ------- END OF REPORT us Latoya Ruiz MD LAB CYTOLOGY ORDERABLES Fi nal Result [facility] [address] [place] [phone] * (ABNORMAL) HPV DNA, Low/High Risk (02/01/2025 12:00 AM EDT) Pathologist [facility] HPV High Risk Positive(A) Negative [facility] HPV Genotype 16 Negative Negative [facility] HPV Genotype 18 Negative Negative [facility] Comment:HPV testing performe d at [facility] (CLIA#[id number]), [address] [place] [address].Testing for HPV was performed using the [employer] [...] Ruiz MD LAB BLOOD ORDERABLES Final Result [facility] [address] [place] [address] [phone] * Colonoscopy (04/07/2024 3:31 PM EDT) Colonoscopy Normal Normal Comment:repeat 1-2 year Historical Provider HEALTH MAINTENANCE Final Result from Last 3 Months or Most Recently Relevant to Health Maintenance [facility] Advance Directives Documents on File Type Date Recorded Patient Endband Sizer Expl anation Advance Directives and Living Will 02/28/2024 Health Care Proxy 02/28/24 Care Teams Metal Sorter Relationship Specialty Start Date End Date Latoya Ruiz MD [address] [place] [address] PCP - General Family Medicine 10/25/18 Yoni Portillo MD [address] [place] [address] Dr [address] [place] [address] Orthopaedic Surgery 10/10/24 Irlanda Kaur [address] [place] [address] Gastroenterology 02/01/25 Reji Bowden MD [address] [place] [address] Obstetrics and Gynecology 06/06/25 Eros Aldana NP [facility] Pain Medicine 10/26/24
--- OUTSIDE RECORDS SUMMARY | 2025-07-16 12:11 | XMS_ITS | Encounter Summary ---
Author Organization [employer] Address [address] [place] [address] [address] [place] [address] Care Team Providers Care Manager Clinical Applications Name Role Phone Latoya Ruiz MD Primary Care Provider +1- [phone] Yoni Portillo MD Unavailable Irlanda Kaur Unavailable Reji Bowden MD Unavailable Reason for Visit * Reason Comments Med Refill Encounter Details Date Type Department Care Team (Late st Contact Info) Description 03/17/2024 Refill [facility] MED[facility]INE [address] [place] [address] Cristal Sun MD [address] [place], [place] [phone] Moderate episode of recurrent major depressive disorder [...] as of this encounter Care Teams Manager Clinical Applications Relationship Specialty Start Date End Date Latoya Ruiz MD [address] [place] [address] PCP - General Family Medicine 10/25/18 Yoni Portillo MD [address] [place] [address] [address] [place] [address] Orthopaedic Surgery 10/10/24 Irlanda Kaur [address] 3rd [place] [address] Gastroenterology 02/01/25 Reji Bowden MD [address] [place] [address] Obstetrics and Gynecology 06/06/25 Eros Aldana NP [facility] Pain Medicine 10/26/24 documented as of this encounter
--- OUTSIDE RECORDS SUMMARY | 2025-07-16 12:11 | XMS_ITS | Encounter Summary ---
Author Organization [employer] Address [address] [place] [address] 7 [place] [address] Care Team Providers Care Drupal Architect Name Role Phone Latoya Ruiz MD Primary Care Provider +1- [phone] Yoni Portillo MD Unavailable Irlanda Kaur Unavailable Reji Bowden MD Unavailable Encounter Details Date Type Department Care Team (Late st Contact Info) Description 12/01/2022 Abstract [facility] MEDICINE [address] [place], [place] [phone] Latoya Ruiz MD [address] [place], [place] [phone] Social History Tobacco Use Types Packs/Day Years [...] on filedocumented in this encounter Care Teams Drupal Architect Relationship Specialty Start Date End Date Latoya Ruiz MD [address] [place] [address] PCP - General Family Medicine 10/25/18 Yoni Portillo MD [address] [place] [address] Dr [address] [place] [address] Orthopaedic Surgery 10/10/24 Irlanda Kaur [address] [place] [address] Gastroenterology 02/01/25 Reji Bowden MD [address] [place] [address] Obstetrics and Gynecology 06/06/25 Eros Aldana NP [facility] Pain Medicine 10/26/24 documented as of this encounter
== END 2025-07-16 10:28 | disposition home or self-care (01) ==
LOC: HO.HOS 09:57
PROVIDERS: PCP Family Medicine; Visit Provider Orthopaedic Surgery
DX: M75.101 Unspecified rotator cuff tear or rupture of right shoulder, not specified as traumatic (principal)
CPT/HCPCS: 99214

== ENCOUNTER → 2025-07-16 09:56 | Outpatient (BNVA) | payer MEDICAID, SELFPAY | PROVIDERS: PCP Family Medicine; Visit Provider Orthopaedic Surgery | DX: M75.101 Unspecified rotator cuff tear or rupture of right shoulder, not specified as traumatic (principal) | CPT/HCPCS: 99212 ==

== ENCOUNTER 2025-10-03 12:06 | Outpatient (REF) | payer MEDICAID, SELFPAY ==
[2025-10-03 14:24] LABS: Alanine Aminotransferase 97 U/L (0-31); Albumin Level 3.9 g/dL (3.5-5.0); Alkaline Phosphatase 61 U/L (39-117); Aspartate Amino Transferase 74 U/L (5-31); Total Protein 6.9 g/dL (6.5-8.0)
[2025-10-03 14:52] LABS: Folate 13.0 ng/mL (> or = 4.0); Vitamin B12 351 pg/mL (200-900)
[2025-10-03 16:54] LABS: Free T4 (Free Thyroxine) 0.58 ng/dL (0.71-1.85)
== END 2025-10-03 12:07 | disposition home or self-care (01) ==
LOC: HO.HHCL 12:06
PROVIDERS: PCP Family Medicine; Visit Provider Family Medicine
DX: E53.8 Deficiency of other specified B group vitamins (principal); R74.01 Elevation of levels of liver transaminase levels; E03.9 Hypothyroidism, unspecified; E55.9 Vitamin D deficiency, unspecified
CPT/HCPCS: 36415; 80076; 82306; 82607; 82746; 84439; 84443